=== PATIENT | male | born 1965 | race Caucasian/White ===

== ENCOUNTER 2017-02-07 20:01 | Emergency (ER) | payer OTHER ==
[~2017-02-07] VITALS: Ht 190.5 cm; Wt 131.5 kg
[~2017-02-07 20:01] MED LIST: ASPIRIN81 MG PO; BACTRIM DS TAB1 EACH PO; CEPHALEXIN500 MG PO; CIPRO500 MG PO; CLINDAMYCIN HC300 MG PO; COLACE100 MG PO; HUMALOG100 UNIT/1 SUB-Q; IBUPROFEN800 MG PO; LANTUS100 UNITS/; LISINOPRIL-HCT1 EAC1 PO; LISINOPRIL-HCT1 EAC2 PO; METFORMIN HCL1000 MG PO; NEURONTIN300 MG PO; NORCO 5-325 TA1 EACH PO; TRAMADOL HCL50 MG PO
[2017-02-08] MEDS ORDERED: CIPRO500 MG PO (00:12)
== END 2017-02-08 00:39 | disposition home or self-care (01) ==
LOC: ED 20:01
DX: E11.621 Type 2 diabetes mellitus with foot ulcer (principal); L03.116 Cellulitis of left lower limb; L03.115 Cellulitis of right lower limb; I10 Essential (primary) hypertension; E66.9 Obesity, unspecified; F17.200 Nicotine dependence, unspecified, uncomplicated; Z79.84 Long term (current) use of oral hypoglycemic drugs; Z79.4 Long term (current) use of insulin; Z79.899 Other long term (current) drug therapy
CPT/HCPCS: 73660; 99283

== ENCOUNTER 2017-10-08 15:29 | Inpatient (IN) | payer OTHER ==
[~2017-10-08] VITALS: Ht 188 cm; Wt 125.5 kg
[~2017-10-08 15:29] MED LIST changes: -LISINOPRIL-HCT1 EAC1 PO
--- NOTE | 2017-10-08 20:50 | NUR ---
PT ARRIVED TO FLOOR AT 1950 VIA STRETCHER, WAS ABLE TO TRANSFER HIMSELF OVER TO THE BED. 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 DENIES PAIN AND NAUSEA. LUNGS CLEAR, RA. HR REGULAR, SINUS TACHY AT 107. BOWEL TONES ACTIVE. LUNCH BOX PROVIDED. NO EDEMA NOTED, DENIES NUMBNESS AND TINGLING IN EXTREMITIES. SCRATCHES NOTED TO LLE, PT STATES IT IS FROM [place]. RIGHT FOOT HAS 3 ULCERS: 1 OPEN ON THE BALL OF FOOT ~1CM X 0.5CM, OPEN AND DRAINING SMALL AMOUNT OF FLUID. 1 CLOSED BLISTER TO LATERAL FOOT ~2CM X 2CM WITH REDNESS THAT EXTENDS UP TO CALF AND IS OUTLINED. 1 OPEN ULCER TO BOTTOM OF FOOT NEAR THE BLISTER ~ 0.5CM X 0.5CM THAT IS ALSO DRAINING A SMALL AMOUNT OF FLUID. PICTURES IN CHART. PT IS HOMELESS, SLEEPS IN [employer] OR IN BACK OF CAR. HE IS A CURRENT USER OF METH (WEEKLY) AND MARIJUANA (DAILY) HE ALSO STATES HE DRINKS 4-5 FIFTHS OF VODKA/WHISKEY PER WEEK, STATES HE THINKS HE HAS GONE THROUGH WITHDRAWAL BEFORE, STATES HIS LAST DRINK WAS ON MONDAY. IV TO RIGHT FOREARM PATENT, INFUSING WNL. PT INSTRUCTED TO USE CALL LIGHT, STATES HE IS READY FOR BED. WILL CONTINUE TO MONITOR.
--- NOTE | 2017-10-08 22:00 | NUR ---
PT VOIDED 700 ML USING URINAL. PT DENIES FURTHER REQUESTS AT THIS TIME, CALL LIGHT IS WITHIN REACH.
--- NOTE | 2017-10-09 00:07 | NUR ---
PT SLEEPING AT THIS TIME, NO APPARENT DISTRESS. RESPIRATIONS EVEN AND UNLABORED, RR:19, SPO2: 97% ON RA. HR: 103. PT HAD VOIDED 675ML INTO URINAL. WILL ALLOW FOR REST AND CONTINUE TO MONITOR.
--- NOTE | 2017-10-09 03:00 | NUR ---
PT SLEEPING, NO APPARENT DISTRESS. RESPIRATIONS EVEN AND UNLABORED, RR:19, SPO2:97% ON RA. PT HAD VOIDED 675ML INTO URINAL. WILL ALLOW FOR REST AND CONTINUE TO MONITOR.
--- NOTE | 2017-10-09 04:30 | NUR ---
PT CURRENTLY SLEEPING, NO APPARENT DISTESS. RESPIRATIONS EVEN AND UNLABORED, RR:19, SPO2: 94% ON RA. HR:101. WILL ALLOW FOR REST AND CONTINUE TO MONITOR.
--- NOTE | 2017-10-09 06:27 | NUR ---
RIGHT LEG ELEVATED ON PILLOW. BLISTER TO LATERAL SIDE OF RIGHT FOOT IS NOW OPEN, NEW PICTURE PLACED IN CHART. MRI QUESTIONNAIRE COMPLETED WITH PT AND FAXED TO MRI. BREAKFAST ORDER CALLED DOWN TO KITCHEN.
--- NOTE | 2017-10-09 07:10 | NUR ---
PT DOWN TO MRI WITH MANAGER TRUST AND BRENT KERN.
--- NOTE | 2017-10-09 08:10 | NUR ---
PT RT'D TO CCU UNIT FROM MRI.
--- NOTE | 2017-10-09 09:00 | NUR ---
PT RESTING IN BED, PT STATES HE MOVED HIMSELF FROM THE CHAIR TO THE BED W/O ASSISTANCE, PT ADVISED TO USE CALL LIGHT AND HAVE A NURSE ASSIST HIM, PT VERBALIZED AN UNDERSTANDING.
--- NOTE | 2017-10-09 09:57 | NUR ---
DR. VELASCO AT BEDSIDE ASSESSING PT AND UPDATING PLAN OF CARE.
--- NOTE | 2017-10-09 11:50 | NUR ---
PATIENT IN BED LAYING ON HIS SIDE TALKING TO HIS MOTHER. TWO PILLOWS UNDER HIS LEFT LET WITH FOOT END OF BED ELEVATED. CALL BUTTON IN REACH. PATIENT LOOKING AT MENU FOR LUNCH. NO OTHER NEEDS AT THIS TIME.
--- NOTE | 2017-10-09 12:27 | NUR ---
PT IN BED, MOM AT BEDSIDE. DENIES PAIN AT THIS TIME. PT HAS RIGHT LEG ELEVATED ON PILLOWS. WOUNDS TO RIGHT FOOT ARE OPEN TO AIR. PER REPORT FROM CCU SHABNAM FERGUSON, DR. WISEMAN IS TO COME ASSESS PT'S WOUNDS TODAY.
--- NOTE | 2017-10-09 14:23 | NUR ---
PT IN BED, RLE ELEVATED ON PILLOWS. PT ATE 100% OF LUNCH. DENIES NEEDS AT THIS TIME. PERSONAL SUPPLIES AND CALL LIGHT IN REACH.
[2017-10-09] MEDS ORDERED: LISINOPRIL-HCT1 EAC1 PO (16:55)
--- NOTE | 2017-10-09 16:57 | NUR ---
Medications reconciled by pharmacist through pharmacy records and patient interview. Patient is not taking metformin, but believes that he is supposed to take it
[2017-10-09] MEDS ORDERED: PRAVASTATIN SOD40 MG PO (17:05)
--- NOTE | 2017-10-09 18:44 | NUR ---
PT TO FLOOR FROM CCU THIS SHIFT. HAS REDDENED AREA TO RIGHT LOWER LEG AND FOOT, WELL OPEN AREAS TO BOTTOM OF RIGHT FOOT AND TO RIGHT LATERAL FOOT. DR WISEMAN SAW PT THIS EVENING, DEBRIEDED RIGHT LATERAL FOOT WOUND, AND DRESSED WOUND. CULTURE FROM THIS WOUND WAS SENT TO LAB. RLE ELEVATED ON PILLOWS UNLESS PT IS STANDING. PER DR. WISEMAN, PT TO WEAR POST OP SHOE WHEN ON FEET. NURSING DINING SERVICE INSPECTOR NOTIFIED OF THIS, AND ASKED TO BRING SHOE TO FLOOR. PT ALERT, ORIENTED X 4. URINE OUTPUT QUANTITY SUFFICIENT, AND PT HAD A LARGE BM THIS EVENING.
--- NOTE | 2017-10-09 19:10 | NUR ---
BEDSIDE REPORT RECEIVED FROM SHABNAM BENNETT. PT DENIES PAIN AT THIS TIME, RIGHT LEG ELEVATED ON PILLOWS, REDNESS ON MCCRAY OUTLINE WITH MARKER. IV CEFEPIME AND IVF INFUSING WNL AT THIS TIME. CALL LIGHT AND PERSONAL SUPPLIES IN REACH.
--- NOTE | 2017-10-09 19:35 | EKG ---
[facility] [address] [facility] [place] [address] Signed Sinus tachycardia Nonspecific ST abnormality Abnormal ECG No previous ECGs available Confirmed by GAYATHRI VELASCO MD ([id number]) on 10/09/2017 7:35:27 PM Electronically Signed By: GAYATHRI VELASCO MD 10/09/17 1935 PATIENT NAME: PAT HERNANDEZ AMEE Electrocardiogram DATE OF : 61 PHYSICIAN: GAYATHRI VELASCO MD REPORT #: [id number] REPORT IS CONFIDENTIAL AND NOT TO BE RELEASED WITHOUT AUTHORIZATION
--- NOTE | 2017-10-09 20:37 | NUR ---
ROUNDED CHARGE. PATIENT IS RESTING IN BED WATCHING TV. PATIENT DENIES ANY COMMENTS, QUESTIONS, OR CONCERNS. NO NEEDS NOTED AT THIS TIME. CALL LIGHT IN REACH.
--- NOTE | 2017-10-09 21:33 | NUR ---
PT ASSESSMENT COMPLETE. CBG 234, SS INSULIN ADMINISTERED. PT DENIES PAIN, DENIES NAUSEA. RIGHT LEG ELEVATED, REDNESS WITHIN MARGINS OF PEN, REDNESS ON MCCRAY. PULSES STRONG BILATERALLY LOWER EXTREMITIES, UPPER EXTREMITIES, NUMBNESS CHRONIC BILATERALLY IN FEET. BTS ACTIVE X 4. LUNGS CLEAR, RT GABY IN ROOM, PT DEMONSTRATES IS USE TO MAX 2500 ML. IV ANTIBIOTICS INFUSING WNL, LINES FLUSHED WNL, PT EDUCATION PROVIDED, VERBALIZES UNDERSTANDING. CALL LIGHT IN REACH.
--- NOTE | 2017-10-10 00:05 | NUR ---
CHECKED ON PT, PT AWAKE, REQUESTING PRN PAIN MEDICATION FOR SMART, TYLENOL ADMINISTERED. IV ANTIBOITITC NOW INFUSING WNL. CALL LIGHT IN REACH. URINAL EMPTIED AT THIS TIME.
--- NOTE | 2017-10-10 02:38 | NUR ---
CHECKED ON PT, PT APPEARS TO BE SLEEPING, EYES CLOSED, BREATHING NON-LABORED, SNORING. LIGHTS OFF IN ROOM. IVF INFUSING.
--- NOTE | 2017-10-10 04:17 | NUR ---
PT ASSESSMENT COMPLETE. PT AWAKENS EASILY TO VOICE. NEW BAG IVF INFUSING WNL. LUNGS CLEAR THROUGHOUT ALL LOBES. HR REGULAR RHYTHM. BOWEL TONES ACTIVE X 4. PT DENIES PAIN. RIGHT LEG ELEVATED ON PILLOW, REDNESS REMAINS WITHIN MARGINS OF PEN. CALL LIGHT IN REACH.
--- NOTE | 2017-10-10 05:45 | NUR ---
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 PT GIVEN ICE WATER, ENCOURAGED TO INCREASE PO INTAKE. LEG ELEVATED ON PILLOW. WOOD BUCKER IN ROOM AT THIS TIME.
--- NOTE | 2017-10-10 06:44 | NUR ---
IV FLUID AND ANTIBIOTICS INFUSING WNL THROUGHOUT SHIFT. RIGHT LEG ELEVATED ON PILLOWS THROUGHOUT SHIFT. MINIMAL DRAINAGE, DRESSING IN PLACE. REDNESS ON RIGHT MCCRAY WITHIN PEN MARGINS THIS SHIFT. PULSES PALPABLE BLE, BUE. CHRONIC NUMBNESS BLE. PT ORIENTED X 4. IN BED THROUGHOUT SHIFT, USING URINAL FOR QS VOIDS.
--- NOTE | 2017-10-10 07:04 | NUR ---
RECIEVED BEDSIDE REPORT FROM SHABNAM AVENDAÑO. PT AWAKE, ALERT. PT'S PERSONAL SUPPLIIES AND CALL LIGHT IN REACH.
--- NOTE | 2017-10-10 09:07 | NUR ---
PT RESTING WITH EYES CLOSED. ATE 100% OF BREAKFAST. VANCOMYCIN INFUSING ORDERED.
--- NOTE | 2017-10-10 11:14 | NUR ---
PT IN BED, AWAKE, ALERT, ORIENTED X 4. DENIED NEEDS. PT'S MOTHER IN ROOM WITH PT. PERSONAL SUPPLIES AND CALL LIGHT IN REACH.
--- NOTE | 2017-10-10 13:49 | NUR ---
PT IN BED, AWAKE, ALERT, ORIENTED X 4. RIGHT LEG UP ON PILLOWS. REDDENED AREA ON LOWER LEG AND FOOT IS STILL RED AND WARM TO TOUCH, BUT PT DENIES PAIN TO THE AREA, DENIES NUMBNESS OR TINGLING. CMS INTACT. DRESSING TO RIGHT ANKLE AND FOOT C/D/I. PT DENIES NEEDS AT THIS TIME. PERSONAL SUPPLIES AND CALL LIGHT IN REACH.
--- NOTE | 2017-10-10 16:14 | NUR ---
PT SITTING UP IN BED, PREPARING TO TAKE A SHOWER, WITH ASSISTANCE FROM EMBER PALMER. PT ALERT, ORIENTED, VERY TALKATIVE. PLEASANT AND COOPERATIVE.
--- NOTE | 2017-10-10 17:50 | NUR ---
PT'S IVs SALINE LOCKED, EXCEPT WHEN RECIEVING IV ABX. PT UP WITH POST OP SHOE TO RIGHT FOOT, WITH STANDBY ASSIST. PT TOOK A SHOWER THIS AFTERNOON. APETITE VERY GOOD. PT URINATING QUANTITY SUFFICIENT. LUNGS CTA, HRR. PT DENIED PAIN THROUGHOUT SHIFT.
--- NOTE | 2017-10-10 19:20 | NUR ---
BEDSIDE REPORT RECEIVED FROM SHABNAM BENNETT. PT AWAKE, LYING IN BED. IVS SALINE LOCKED AT THIS TIME. PT ON ROOM AIR, RIGHT LEG ELEVATED, REDNESS WITHIN PEN MARGINS, DRESSING INTACT. CALL LIGHT IN REACH, NO REQUESTS AT THIS TIME.
--- NOTE | 2017-10-10 22:00 | NUR ---
PT IN RESTROOM AT THIS TIME, WILL USE CALL LIGHT WHEN FINISHED.
--- NOTE | 2017-10-10 22:35 | NUR ---
PT ASSESSMENT COMPLETE, RIGHT LEG ELEVATED ON PILLOWS, FOOT OF BED ELEVATED. RIGHT LEG HOT TO TOUCH, PEDAL PULSES PALPABLE BILATERALLY. LUNGS CLEAR THROUGHOUT ALL LOBES. HR REGULAR RHYTHM. IV SITES SALINE LOCKED WNL. PT CONTINUES TO SPEAK REGARDING VIEWING SELF JOSHUA, "SATIN IS TRYING TO KILL ME". DISCUSSED CURRENT ILLNESS AND PREVENTATIVE MEASURES, PT VERBALIZES UNDERSTANDING. PT HAS CALL LIGHT AND PERSONAL SUPPLIES IN REACH. LIGHTS OFF IN ROOM.
--- NOTE | 2017-10-11 00:05 | NUR ---
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 IV VANCOMYCIN INFUSING WNL. CALL LIGHT IN REACH, LIGHTS OFF IN ROOM. LEG ELEVATED.
--- NOTE | 2017-10-11 02:17 | NUR ---
IV VANCOMYCIN INFUSION COMPLETE, IV SITE SALINE LOCKED WNL. PT SNORING, RIGHT LEG ELEVATED. LIGHTS OFF IN ROOM. CALL LIGHT NEXT TO PT.
--- NOTE | 2017-10-11 04:28 | NUR ---
CHECKED ON PT, APPEARS TO BE SLEEPING, SNORING, VISIBLE CHEST RISE. RIGHT LEG ELEVATED ON PILLOWS. LIGHTS OFF IN ROOM.
--- NOTE | 2017-10-11 05:25 | NUR ---
PT SALINE LOCKED THROUGHOUT SHIFT, IV VANCOMYCIN. PT ON ROOM AIR. RIGHT LEG REMAINS HOT TO TOUCH, ELEVATED THROUGHOUT SHIFT, DRESSING INTACT, REDNESS WITHIN MARGINS OF PEN. SBA TO RESTROOM WITH POST OP BOOT. PT CONTINUES TO COMMUNICATE GRAND BIBLICAL STORIES THROUGHOUT SHIFT TO NURSING STAFF. BLOOD SUGAR CHECKS. USING CALL LIGHT APPROPRIATELY.
--- NOTE | 2017-10-11 06:02 | NUR ---
SBA TO RESTROOM FOR VOID, CONCENTRATED. PT ENCOURAGED TO DRINK FLUIDS, GIVEN ICE WATER, DIET SPRITE REQUESTED. LUNGS CLEAR THROUGHOUT ALL LOBES. CSM INTACT BLE, BUE, PT DENIES NUMBNESS. BOWEL TONES ACTIVE X 4. PRN TYLENOL ADMINISTERED FOR SMART. PT NOW UP TO CHAIR, POST OP SHOE ON. CALL LIGHT IN REACH.
--- NOTE | 2017-10-11 07:12 | NUR ---
RECIEVED BEDSIDE REPORT FROM SHABNAM AVENDAÑO. PT AWAKE, ALERT, DENIED NEEDS AT THIS TIME. PERSONAL SUPPLIES AND CALL LIGHT IN REACH.
--- NOTE | 2017-10-11 07:45 | NUR ---
UVALDO, RT IN WITH PT, PT USING INSENTIVE SPIROMETER.
--- NOTE | 2017-10-11 11:26 | NUR ---
PATIENT RESTING IN BED. CALL LIGHT WITHIN REACH. PATIENT REQUESTING MEDICATION FOR A HEADACHE. RN NOTIFIED. NO OTHER NEEDS AT THIS TIME.
--- NOTE | 2017-10-11 11:54 | NUR ---
PT IN BED. RATED HEADACHE PAIN 3/10. PERSONAL SUPPLIES AND CALL LIGHT IN REACH. RLE ELEVATED ON PILLOWS, DRESSING TO RIGHT FOOT C/D/I. RLL REMAINS SLIGHTLY RED AND IS WARMER TO TOUCH THAN LLL.
--- NOTE | 2017-10-11 12:24 | NUR ---
PT SITTING UP IN RECLINER, EATING LUNCH. PERSONAL SUPPLIES AND CALL LIGHT IN REACH.
--- NOTE | 2017-10-11 13:52 | NUR ---
PT IN BED. AWAKE, ALERT, SPEAKING ON PHONE. PT DENIED PAIN. RLE ELEVATED ON PILLOWS. PT DENIED NEEDS. ATE 100% OF LUNCH. PERSONAL SUPPLIES AND CALL LIGHT IN REACH.
--- NOTE | 2017-10-11 15:27 | NUR ---
PATIENT RESTING IN BED. CALL LIGHT WITHIN REACH. NO OTHER NEEDS AT THIS TIME.
--- NOTE | 2017-10-11 17:12 | NUR ---
PT IN BED, AWAKE, ALERT, ORIENTED. RLE ELEVATED ON PILLOWS. DRESSING C/D/I.
--- NOTE | 2017-10-11 17:14 | NUR ---
PT'S IV SL, WITH EXCEPTION OF IV ABX. ON ADA DIET, APETITE VERY GOOD. PT ALERT, ORIENTED X 4. RLE DRESSING TO FOOT C/D/I. RLL REMAINS SLIGHTLY REDDENED, AND WARMER TO TOUCH THAN LLL. CMS TO RLE INTACT. PT DENIED PAIN TO RLE.
--- NOTE | 2017-10-11 19:15 | NUR ---
BEDSIDE HANDOFF REPORT RECEIVED FROM DAY SHIFT RN. PT SITTING ON EDGE OF BED. PT DENIES NEEDS AT THIS TIME.
--- NOTE | 2017-10-11 19:39 | NUR ---
patient resting in bed. vitals and i&os done. garbage emptied. call light within reach. no other needs at this time.
--- NOTE | 2017-10-11 21:22 | NUR ---
PT RESTING IN BED. PT ON ROOM AIR, LUNG SOUNDS CLEAR, OCCASIONAL COUGH. PT COMPLAINT OF HEADACHE, GIVEN PRN TYLENOL. PT BLOOD GLUCOSE 172, GIVEN 3 UNITS SS HUMALOG, 60 UNITS LANTUS PER ORDER. PT DENIES NAUSEA. IV ABX INFUSING TO RIGHT FOREARM. PT WITH NUMBNESS TO BLE, PULSES PALPABLE, CAP REFILL 1 SECOND, REDNESS TO RIGHT LEG RECEEDING FROM OUTLINES, EDEMA 2+ TO RLE, DRESSING INTACT. PT DENIES OTHER NEEDS AT THIS TIME. PT REQUESTIGN TO WALK AFTER ABX INFUSION HAS COMPLETED.
--- NOTE | 2017-10-11 21:27 | NUR ---
VITALS AND I&OS DONE AND CHARTED. FRESH ICE WATER GIVEN. BEDSIDE TABLE AND CALL LIGHT WITHIN REACH.
--- NOTE | 2017-10-11 22:30 | NUR ---
ABX INFUSION COMPLETED, SALINE LOCKED. PT REQUESTING TO WALK IN [place], OBSEVRVED TO AMBULATE, STEADY ON FEET, PT WALKING IN [place] INDEPENDENTLY. PT DENIES OTHER NEEDS AT THIS TIME.
--- NOTE | 2017-10-12 02:15 | NUR ---
PT SLEEPING. IV CLINDAMYCIN INFUSING. PT DENIES NEEDS AT THIS TIME.
--- NOTE | 2017-10-12 05:15 | NUR ---
PT SITTING IN CHAIR. PT CONTINUES TO COMPLAIN OF HEADACHE, GIVEN 500 MG PO TYLENOL, PT STATES IT IS IMPROVING. PT ON ROOM AIR, DENIES SOB. PT CONTINUES TO HAVE REDNESS TO RIGHT LEG, RECEEDING FROM OUTLINE. HX NEUROPATHY, PULSES PALPABLE. NO ACUTE CHANGES. PT DENIES NEEDS AT THIS TIME.
--- NOTE | 2017-10-12 05:24 | NUR ---
VITALS AND I&OS DONE AND CHARTED. BEDSIDE TABLE AND CALL LIGHT WITHIN REACH.
--- NOTE | 2017-10-12 05:52 | NUR ---
PT ON ROOM AIR, LUNG SOUNDS CLEAR. PT INDEPENDENT TO AMBULATE, SURGICAL BOOT WHEN OOB. PT BLOOD GLUCOSE 172, GIVEN 3 UNITS SS HUMALOG AND 60 UNITS SS LANTUS. PT WITH COMPLAINT OF HEADAHCE, GIVEN TYLENOL X2. PT VOIDING QS. IV CLINDAMYCIN, SL OTHERWISE. REDNESS AND SWELLING TO RIGHT LEG IMPROVING, PULSES PALPABLE, CAP REFILL 1 SECOND.
--- NOTE | 2017-10-12 08:30 | NUR ---
PT UP TO CHAIR FOR ASSESSMENT, NO DISTRESS. PT STATES HE HAS HAD A HEADACHE THROUGHOUT THIS ADMISSION, CLAIMS THE PAIN IS WORSE AFTER HEPARIN ADMINISTRATION. NO INSULIN GIVEN THIS MORNING, DUE TO BG OF 89, NOTIFIED PHYSICIAN. RIGHT FOOT IS WRAPPED, CLEAN, DRY, INTACT. GAVE PRN TYLENOL FOR HEADACHE, WILL CONTINUE TO MONITOR. PT AT 100% OF BREAKFAST.
[2017-10-12] MEDS ORDERED: KEFLEX500 MG PO (10:33)
== END 2017-10-12 11:25 | disposition home or self-care (01) | DRG 854 ==
LOC: ED 15:29 → CCU 19:02 → MS 10-09 11:35
PROVIDERS: ADMIT Internal Medicine
PROC: 0JBQ0ZZ Excision of Right Foot Subcutaneous Tissue and Fascia, Open Approach (ICD-10-PCS; principal; 2017-10-09)
DX: A40.1 Sepsis due to streptococcus, group B (principal); L03.115 Cellulitis of right lower limb; E11.628 Type 2 diabetes mellitus with other skin complications; E11.65 Type 2 diabetes mellitus with hyperglycemia; R65.20 Severe sepsis without septic shock; I10 Essential (primary) hypertension; E11.621 Type 2 diabetes mellitus with foot ulcer; L97.519 Non-pressure chronic ulcer of other part of right foot with unspecified severity; E66.9 Obesity, unspecified; E78.1 Pure hyperglyceridemia; Z79.899 Other long term (current) drug therapy; Z79.4 Long term (current) use of insulin; Z68.35 Body mass index [BMI] 35.0-35.9, adult
CPT/HCPCS: 36415; 71045; 73630; 73723; 80053; 80202; 81001; 83036; 83605; 83735; 85025; 85651; 86140; 87070; 87077; 87088; 87147; 87186; 87205; 93005; 93010; 96365; 96367; 99285; A9579; J0692; J1650; J1815; J2543; J3370; J3475; J7030; J7040; J7050; J7120

== ENCOUNTER 2018-05-10 02:26 | Emergency (ER) | payer OTHER ==
[~2018-05-10] VITALS: Ht 188 cm; Wt 120.2 kg
[~2018-05-10 02:26] MED LIST changes: +KEFLEX500 MG PO; +LISINOPRIL-HCT1 EAC1 PO; +PRAVASTATIN SOD40 MG PO
[2018-05-10] MEDS ORDERED: GLUCOPHAGE500 MG PO (02:41)
[2018-05-10] MEDS ORDERED: CEPHALEXIN500 MG PO (02:55)
== END 2018-05-10 03:02 | disposition home or self-care (01) ==
LOC: ED 02:26
DX: E11.621 Type 2 diabetes mellitus with foot ulcer (principal); I10 Essential (primary) hypertension; E66.9 Obesity, unspecified; Z79.4 Long term (current) use of insulin; Z79.899 Other long term (current) drug therapy
CPT/HCPCS: 99282

== ENCOUNTER 2018-09-21 17:45 | Emergency (ER) | payer OTHER ==
[~2018-09-21] VITALS: Ht 188 cm; Wt 120.2 kg
[~2018-09-21 17:45] MED LIST changes: +GLUCOPHAGE500 MG PO
[2018-09-21] MEDS ORDERED: KEFLEX500 MG PO (20:19)
== END 2018-09-21 20:34 | disposition home or self-care (01) ==
LOC: ED 17:45
DX: S91.302A Unspecified open wound, left foot, initial encounter (principal); L08.9 Local infection of the skin and subcutaneous tissue, unspecified; I10 Essential (primary) hypertension; E11.9 Type 2 diabetes mellitus without complications; Z79.4 Long term (current) use of insulin; Z79.899 Other long term (current) drug therapy; W22.8XXA Striking against or struck by other objects, initial encounter
CPT/HCPCS: 99282

== ENCOUNTER 2018-10-15 17:29 | Emergency (ER) | payer OTHER ==
[~2018-10-15] VITALS: Ht 188 cm; Wt 120.2 kg
--- OUTSIDE RECORDS SUMMARY | 2018-10-15 17:32 | XMS ---
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 Tracy has no Care Guidelines for this patient. Rod VISIT COUNT (12 MO.) 3 [facility]. TOTAL 3 NOTE: Visits indicate total known visits. ED/C VISIT TRACKING (12 MO.) 10/15/2018 17:[address] [facility] [place] TYPE: Emergency COMPLAINT: - L FOOT CELLULITIS 09/21/2018 17:46 [facility] [place] TYPE: Emergency COMPLAINT: - LEFT FOOT INJURY,POSS INFECTION DIAGNOSES: - Striking against or struck by other objects, initial encounter - Other nursing home (current) drug therapy - Essential (primary) hypertension - Type 2 diabetes mellitus without complications - [facility] (current) use of insulin - Disorder of the skin and subcutaneous tissue, unspecified - Unspecified open wound, left foot, initial encounter - Local infection of the skin and subcutaneous tissue, unspecified 05/10/2018 02:27 [facility] [place] TYPE: Emergency COMPLAINT: - R FOOT SORE,DIABETIC DIAGNOSES: - Other nursing home (current) drug therapy - Essential (primary) hypertension - Obesity, unspecified - manager long term care (current) use of insulin - Local infection of the skin and subcutaneous tissue, unspecified - Type 2 diabetes mellitus with foot ulcer INPATIENT VISIT TRACKING (12 MO.) No inpatient visits to display in this time frame [email or web address]
[2018-10-15] MEDS ORDERED: CEPHALEXIN500 MG PO (19:17)
== END 2018-10-15 19:45 | disposition home or self-care (01) ==
LOC: ED 17:29
PROC: 2W2TX4Z Dressing of Left Foot using Bandage (ICD-10-PCS; principal; 2018-10-15)
DX: T25.222A Burn of second degree of left foot, initial encounter (principal); E11.40 Type 2 diabetes mellitus with diabetic neuropathy, unspecified; I10 Essential (primary) hypertension; Z79.4 Long term (current) use of insulin; Z79.899 Other long term (current) drug therapy
CPT/HCPCS: 16020; 80053; 83605; 85025; 85651; 86140; 99283-25

== ENCOUNTER 2019-07-09 16:22 | Inpatient (IN) | payer OTHER ==
[~2019-07-09] VITALS: Ht 188 cm; Wt 121.9 kg
--- NOTE | 2019-07-09 17:49 | NUR ---
PT ARRIVED TO ROOM 113 IN A WHEELCHAIR. CHANGED INTO GOWN. IV STARTED IN LEFT FOREARM. UNABLE TO DRAW LABS. SECOND RN ATTEMPTING LAB DRAW NOW. PATIENT VERY TALKATIVE AND VERBAL ABOUT FAMILY HISTORY "MY DAD LEFT MY MOM FOR ANOTHER WOMAN AND [place]. MY BROTHER KILLED MY DAD. I ASKED HIM WHY HE COULDN'T HAVE JUST TAKEN A WALK INSTEAD." ATTEMPTED TO USE THERAPEUTIC COMMUNICATION TO ENCOURAGE PATIENT TO EXPRESS HIS FEELINGS. PATIENT DOES STATE "I AM FEELING BETTER ALREADY".
--- NOTE | 2019-07-09 18:07 | NUR ---
PT VERY EXCENTRIC ABOUT [employer] HE HAS EXPERIENCED. CONTINUALLY TALKING ABOUT THE [facility] IN [place] AND MEETING PEOPLE THAT DENIED HIM IN THE [facility]. ROCEPHIN INFUSING NOW. LARGE DRESSING ON LEFT FOOT IN PLACE, BUT BLOOD COMING THROUGH. INDEPENDENT IN ROOM. WILL PROVIDE A WALKER AND ENCOURAGE HIM TO KEEP WEIGHT OFF FOOT.
--- NOTE | 2019-07-09 18:56 | NUR ---
LAB CULTURES WERE DROPPED OFF AT THE MAIN [facility]ILD[facility] BY DR VELASCO OFFICE. ORDERS WERE PLACED HERE. CALLED TO VERIFY THAT THEY RECEIVED SPECIMEN.
--- NOTE | 2019-07-09 20:00 | NUR ---
BG STILL >600 AT THIS TIME. MD DEL RIO AWARE, PT IS AAOX4, ALL LOBES ARE CLEAR, ABD SOUNDS ARE PRESENT, NO PERIPHERAL EDEMA NOTED. DRESSING ON LEFT FOOT HAS SEROUS DRAINAGE PRESENT, LEFT LEG IS ELEVATED, PT VOIDS LARGE QUANTITIES. WILL CONTINUE TO MONITOR.
--- NOTE | 2019-07-09 21:10 | NUR ---
MD NOTIFIED OF HYPERGLYCEMIA. VERBAL ORDER TO GIVE MAXIMUM DOSE ON SLIDING SCALE AND NEW ORDERS FOR INSULIN ADMINISTRATION REPEATED BACK. EMAR UPDATED.
--- NOTE | 2019-07-10 00:55 | NUR ---
PT AT THIS TIME IS SLEEPING. NO NEW CONCERNS NOTED.
--- NOTE | 2019-07-10 02:00 | NUR ---
PT IS TACHY IN THE LOW 100'S, TEMP IS 100.0, OTHER V/S ARE WDL. PT NOW ALSO HAS SOME REDNESS WANDERING UP HIS LOWER LEFT LEG AND HIS LEFT LEG IS WARMER THAN HIS RIGHT TO TOUCH. DRESSING ON LEFT LEG IS INTACT WITH SOME SHADOWING PRESENT. HOWEVER, THE SHADOWING HAS NOT INCREASED IN SEIZE SINCE THE FIRST ASSESSMENT. PT IS AAOX4 WITH STATEMENTS OF GRANDEUR SUCH STATING THAT HE IS JOSHUA JANELL IN THE FLESH... WILL CONTINUE TO MONITOR.
--- NOTE | 2019-07-10 05:15 | NUR ---
BG HAVE DECLINED OVER THE COURSE OF THIS SHIFT, LAST BG WAS 330. PT IS VOIDING WELL, PT IS AAOX4. PT HOWEVER DOES HAVE SOME THOUGHTS OF GRANDEUR AT TIMES. LEFT FOOT DRESSING HAS SHADOWING PRESENT ON THE BOTTOM OF THE FOOT. THE SIZE HAS NOT INCREASED SINCE START OF SHIFT. LEFT LOWER LEG DOES HAVE SOME REDNESS PRESENT AND IS VERY WARM TO TOUCH. PT HAS HAD A LOW TEMP ALL SHIFT. PT HAS ALSO BEEN SLIGHTLY TACHY THIS SHIFT. OTHER V/S ARE WDL. ALL LOBES ARE CLEAR, ABD SOUNDS PRESENT, NO PERIPHERAL EDEMA NOTED. PT WILL HAVE MRI THIS MORNING. MD WISEMAN WILL DECIDE COURSE OF ACTION AFTER MRI.
--- NOTE | 2019-07-10 07:00 | NUR ---
Bedside report received by SHABNAM Elena. Patient sleeping on right side, respirations even and unlabored. Dressing on left foot is C/D/I. LR infusing at 125 mls/hr. Call light within reach.
--- NOTE | 2019-07-10 07:59 | NUR ---
Patient laying in bed, awake and alert. LR infusing at 125 mls/hr. Denies pain at this time. POC discussed. BS of 364 this morning. Temp of 97.8. Denies needs at this time, call light within reach.
--- NOTE | 2019-07-10 09:20 | NUR ---
Patient leaves floor with imaging for MRI
--- NOTE | 2019-07-10 10:15 | NUR ---
Patient returns to unit from imaging. Dr. Morris in room to perform dressing change with this RN. POC discussed. Patient denies needs at this time, call light within reach.
--- NOTE | 2019-07-10 12:41 | NUR ---
Patient up to toilet, voiding QS. Ambulating independently, steady on feet. Patient reports pain of 10/10 and a headache, prn pain medication (see MAR). 100% of lunch eaten. Patient denies needs at this time, call light within reach.
[2019-07-10] MEDS ORDERED: METFORMIN HCL1000 MG PO (12:48)
[2019-07-10] MEDS ORDERED: NOVOLOG100 UNIT/2 SUB-Q (12:50)
--- NOTE | 2019-07-10 13:00 | NUR ---
Spoke with Gerson. He is resting in bed. Rambling conversation where he is misquoting bible about eating the flesh of children and the end of the world. States he lives with a millionair and his mother. The millionair pays for all his needs and gives him martel as needed. States he does not have a license to drive. Denies use of DME, he does not work. States his mom who retired has returned to work and he lives with her. He is wanting to have his insulin returned to what it was in the past. Discussed he is on the [facility] and can only order meds from their formilary.
--- NOTE | 2019-07-10 14:25 | NUR ---
PT LAYING IN HIS L SIDE IN BED. SAID HE WAS TIRED OF BEING POKED SO MANY TIMES FOR BS. WANTED TO TAKE A REST. GAVE BLESSING, WILL CHECK BACK
--- NOTE | 2019-07-10 15:00 | NUR ---
Patient up to shower independently. Dressing on left foot wrapped with plastic. Denies further needs. Patient educated to pull shower call light prior to standing up. Patient agreeable.
[2019-07-10] MEDS ORDERED: PRAVASTATIN SOD40 MG PO (16:26)
[2019-07-10] MEDS ORDERED: BASAGLAR K100 UNIT/1 SUB-Q (16:27)
--- NOTE | 2019-07-10 17:19 | NUR ---
Patient sitting up in bed watching tv. BS of 332, insulin given (see MAR). Dinner delivered. Patient denies needs at this time, call light within reach.
--- NOTE | 2019-07-10 17:22 | EKG ---
[facility] [address] [facility] [address] [place], [place] [address] Signed Sinus tachycardia Otherwise normal ECG When compared with ECG of 08-OCT-2017 15:56, No significant change was found Confirmed by OLIVIA DEL RIO DO ([id number]) on 07/10/2019 5:21:59 PM Electronically Signed By: OLIVIA DEL RIO DO 07/10/19 1722 PATIENT NAME: DAVIDPATALFA LUBIN Electrocardiogram DATE OF : 61 PHYSICIAN: OLIVIA DEL RIO DO REPORT #: [id number] REPORT IS CONFIDENTIAL AND NOT TO BE RELEASED WITHOUT AUTHORIZATION
--- NOTE | 2019-07-10 18:17 | NUR ---
Patient laying in bed watching tv. PM medications given, vital signs taken. PM assessment complete. LR running at 125 mls/hr. IV abx infusing at 200 mls/hr. 100% of dinner eaten. Patient discussing that "my mother is Amanda of Marley and Ariane in the flesh." Denies needs at this time, call light within reach.
--- NOTE | 2019-07-10 19:44 | NUR ---
RECEIEVED REPORT FROM MORNING SHIFT. DURING THE BED SIDE REPORT PT IN BED ON HIS LEFT SIDE WITH EYS CLOSED, APPEARS ASLEEP. AFTER REPORT PT CALLED FOR HELP TO USE A BATHROOM. ALERT. WAS ABLE TO WALK WITHOUT ASSISTANCE. WILL BE BACK TO ASSIST.
--- NOTE | 2019-07-10 20:51 | NUR ---
PT ALERT, COOPERATIVE WITH CARES. BG 283, VSS.SONE WITH ASSESMENT.
--- NOTE | 2019-07-11 00:02 | NUR ---
PT LAYING IN BED, EYES CLOSED. RR EVEN, UNLABORED. IV FLUIDS INFUSING PER ORDER. CALL LIGHT IN REACH.
--- NOTE | 2019-07-11 00:16 | NUR ---
PT RESTLESS, KEEP SAYING "ANUEL FERGUSON, I AM SO UNCOMFORTABLE." REPORTED PAIN 5/10, HEADACHE. SEE EMAR FOR MEDICATION ADMINISTRATION. THIS NURSE ENCOURAGE PT TO GET UP AND WALK AROUND THE ROOM. PT SITTING ON THE COUCH AND LOOKING AT THE WINDOW. NO DISTRESS NOTED.
--- NOTE | 2019-07-11 01:22 | NUR ---
PT AT THIS TIME IS SITTING HIS CHAIR. PT ALSO PARTIALLY RIPPED OFF THE DRESSING ON HIS LEFT FOOT. WILL REINFORCE.
--- NOTE | 2019-07-11 02:15 | NUR ---
PT LAYING IN BED ON HIS RIGHT SIDE. EYES CLOSED, APPEARS ASLEEP. NO DISTRESS NOTED. BED IN LOW POSITION, CALL LIGHT IN REACH.
--- NOTE | 2019-07-11 04:19 | NUR ---
pt in bed, easy wakes up to voice. alert. cooperative. done with assessment. dressing clean, dry , intact. pt is back to sleep.
--- NOTE | 2019-07-11 05:21 | NUR ---
PT WAS AWAKE UNTIL MIDNIGHT. HE TORE APART TOP OF HIS DRESSING HE STATED "IT WAS TOO TIGHT". TH DRESSING WAS REIFORCED WITH ABD AND KERLIX WRAP. PT STATED "IT IS MUCH BETTER NOW". PT REPORTED PAIN 5/10 (HEADACHE). TYLENOL WAS GIVEN WITH A GOOD EFFECT. PT SLEPT THE REST OF THE SHIFT.
--- NOTE | 2019-07-11 07:44 | NUR ---
0709: Report received from Desire HAQUE and Kassy HAQUE. Pt sleeping, call hadley within reach.
--- NOTE | 2019-07-11 08:52 | NUR ---
PATIENT LOOSENED DRESSING TO LEFT FOOT, THE WOUND REMAINS COVERED. THE PART OF BANDAGE AROUND THE HEEL WAS CAUSING PAIN AND PATIENT REMOVED THAT PART.
--- NOTE | 2019-07-11 09:15 | NUR ---
PT RESTING IN HIS CHAIR STATING HE HAS NO PAIN IN HIS LEFT FOOT. THE DRESSING WAS PARTLY REMOVED FORM HIS HEEL HE STATES IT WAS TOO TIGHT. HE WAS INSTRUCTED TO CALL STAFF INSTEAD OF DOING IT HIMSELF WHICH HE STATES HE UNDERSTANDS. PT ALERT AND ORIENTED BUT STATES SEVERAL THINGS SUCH BEING OVER [age] YEARS OLD AND THAT HE IS OLDER THAN [facility] FROM [facility]. THE DRESSING CONTINUES TO HAVE THE WOUND COVERED. WILL CONTINUE TO MONITOR, SEE ASSESSMENT.
--- NOTE | 2019-07-11 09:40 | NUR ---
Pt walking in rogers with PT. Pt is laughing, walking well.
--- NOTE | 2019-07-11 11:23 | NUR ---
Pt states "I feel much better" and he denies any new complaints.
--- NOTE | 2019-07-11 13:16 | NUR ---
PT DENIES ANY PAIN OR PROBLEMS AT THIS TIME. LEFT FOOT ELEVATED AT THIS TIME. SEE ASSESSMENT.
--- NOTE | 2019-07-11 14:19 | NUR ---
PT IS ALERT AND SITTING UP IN BED WATCHING TV. PT STATED IT IS AMAZING HOW GOOD HE FEELS. BEGAN TO STATE HOW MUCH HE HURT ALL OVER, AND PRAYED TO THE HEAVENLY FATHER FOR HELP-AND IT CAME. PT RAMBLES OFTEN CHANGES SUBJECTS OFTEN AND MISQUOTES SCRIPTURE AND BELIEVES GOD TELLS HIM THINGS. I QUIZZED HIM ABOUT "THINGS". HE FEELS HE KNOWS [facility] SURE [facility] AM FROM AND THEN TO SCROLLS AND STICKS. PT ASKED ME TO PRAY AND LEFT GAvivaPOST.
--- NOTE | 2019-07-11 15:00 | NUR ---
Spoke with Dr. Morris after he visited [facility]. Discussed plan and he would like pt to go to a SNF for wound care, diabetes monitoring, and possible antibiotics. He will speak with pt in AM. He states pt has some mental health issues. [facility] will discuss [facility] to a [facility]f. 1520 In and spoke with Bar. He is pleasant. Discussed SNF placement and he would like to go to [place] as he feels he needs help with his diabetes and his wound. He signed an ALFREDA so I can release MH records to [facility]. Release faxed to [facility]. ER notes, Progress notes, H&P, PT/OT eval and notes, face sheet, Consult faxed to Jessica at [facility].
--- NOTE | 2019-07-11 15:05 | NUR ---
Left foot I&D done by Dr Morris in the pt's room and his dressing was replaced. Foot elevated at this time and the pt instructed to not bear weight for a few hours by Dr Morris. Dr Morris states he will be back in the morning to do another dressing change. Pt tolerated this well and denies pain.
--- NOTE | 2019-07-11 15:41 | NUR ---
Pt talking on the phone with his foot remaining elevated. He appears in no distress.
--- NOTE | 2019-07-11 16:53 | NUR ---
Pt just awoke from a nap and states he is doing well and that he had a good nap. He denies any new problems at this time.
--- NOTE | 2019-07-11 19:15 | NUR ---
RECEIVED REPORT FROM SHABNAM TATUM. pt RESTING IN BED. NO REQUESTS AT THIS TIME. DRESSING CDI. WHITEBOARD UPDATED. CALL LIGHT WITHIN REACH.
--- NOTE | 2019-07-11 20:58 | NUR ---
CBG, VS AND I&O COMPLETED. ICE AND ICE WATER PROVIDED. NO OTHER NEEDS. CALL LIGHT IN REACH.
--- NOTE | 2019-07-11 21:13 | NUR ---
IN TO DO ASSESSMENT AND MEDICATIONS. ASSESSMENT DONE. LEFT FOOT ELEVATED, GOOD CAP REFILL. DRESSING INTACT. pt ABLE TO GIVE SELF INSULIN WITH COACHING. pt IN GOOD SPIRITS TALKING ABOUT LUTHERAN AND HUNTING. MEDICATIONS GIVEN (SEE MAR). DENIES PAIN AND SOB. NO REQUESTS AT THIS TIME. SITTING IN CHAIR. CALL LIGHT WITHIN REACH.
--- NOTE | 2019-07-11 22:00 | NUR ---
REPORT RECIEVED FROM LENKA HAQUE. PT SITTING IN CHAIR WATCHING TV. NO NEEDS AT THIS TIME. CALL LIGHT IN REACH.
--- NOTE | 2019-07-12 01:12 | NUR ---
PT COMPLAINS OF 5/10 HEADACHE. PRN PAIN MED PROVIDED. NEW BAG OF IV FLUIDS PROVIDED. NO OTHER NEEDS AT THIS TIME. CALL LIGHT IN REACH.
--- NOTE | 2019-07-12 01:56 | NUR ---
SCHEDULED MED PROVIDED. PT DENIES PAIN IN LEFT FOOT. CAPILLARY REFILL 3 SECONDS, NUMBNESS, CIRCULATION INTACT IN LEFT FOOT. NUMBNESS IN LEFT HAND FINGERS. IV WNL. FOOT ELEVATED. NO OTHER NEEDS. CALL LIGHT IN REACH.
--- NOTE | 2019-07-12 03:46 | NUR ---
PT RESTING IN BED, EYES CLOSED. RR EVEN, UNLABORED. IV INFUSING PER ORDER. CALL LIGHT IN REACH.
--- NOTE | 2019-07-12 05:27 | NUR ---
PT SLEPT OFF AND ON THIS SHIFT. PT TOLERATED DIET, IV FLUIDS AND BOOT WELL. PT HAS NUMBNESS IN BLE, CAPILLARY REFILL 3 SECONDS, PULSES INTACT. IV WNL. CBG MANAGED WITH PRN MED. PT COMPLAINED OF SMART, PRN PAIN MED MANAGED SMART WELL.
--- NOTE | 2019-07-12 05:30 | NUR ---
PT RESTING IN BED, EYES CLOSED. RR EVEN, UNLABORED. IV FLUIDS INFUSING PER ORDER. LEG ELEVATED. CALL LIGHT IN REACH.
--- NOTE | 2019-07-12 07:00 | NUR ---
Bedside report received, orders acknowledged. Patient sitting up in bed, awake and alert. Denies needs, call light within reach.
--- NOTE | 2019-07-12 07:30 | NUR ---
Dr. Morris in room to perform dressing change on left foot
--- NOTE | 2019-07-12 09:00 | NUR ---
Patient sitting up in bed watching tv. AM medications given, assessment complete. 100% of breakfast eaten. Patient reports "I am the JeisonAnton in the flesh!" Denies needs at this time, call light within reach.
--- NOTE | 2019-07-12 10:31 | NUR ---
PT IS SOUND ASLEEP. DID NOT DISTURB, WILL CHECK BACK
--- NOTE | 2019-07-12 11:15 | NUR ---
Patient laying on left side, sleeping in bed. Respirations even and unlabored. Call light within reach.
--- NOTE | 2019-07-12 12:05 | NUR ---
Patient sitting up in chair talking with family on the phone. Urinal emptied, 600 mls. Denies needs at this time, call light within reach.
--- NOTE | 2019-07-12 14:30 | NUR ---
Patient sitting up in chair watching tv. Denies needs at this time, call light within reach.
--- NOTE | 2019-07-12 17:07 | NUR ---
Patient sitting up in chair watching tv. PM medications given. Saline locked. Dr. Atwood in room to discuss POC with patient. Patient denies needs at this time, call light within reach.
--- NOTE | 2019-07-12 18:08 | NUR ---
PICC nurse in room to consult
--- NOTE | 2019-07-12 19:15 | NUR ---
PICC LINE INSERTION NOTE ASKED BY DR. DEL RIO TO PLACE A PICC LINE FOR BILINGUAL SALES ASSISTANT IV VANCO AN OUTPATIENT. CONSENT WAS OBTAINED FROM THE PT AFTER GOING OVER POSSIBLE RISKS AND BENEFITS. ALL PT'S QUESTIONS ANSWERED. PT'S RIGHT BASILIC, BRACHIAL, AND CEPHALIC VEINS WERE EXAMINED WITH THE ULTRASOUND. THE BASILIC VEIN WAS LARGER THAN 8 FR ACCORDING TO THE SITE RITE, COLLAPSED WITH PRESSURE EASILY, AND WAS APPROXIMATELY 1 CM BELOW THE SURFACE. THIS VEIN WAS CHOSEN THE BEST OPTION. THE VEIN WAS ACCESSED ON THE FIRST ATTEMPT. THE GUIDEWIRE, INTRODUCER, AND PICC LINE ALL ADVANCED EASILY INTO THE VEIN. THE PT REPORTED NO PAIN THROUGHOUT THE PROCEDURE. PT GIVEN EDUCATION INFORMATION.
--- NOTE | 2019-07-12 19:27 | NUR ---
SHIFT REPORT RECIEVED FROM TARA HAQUE. SUZY HAQUE IN ROOM INSERTING PICC LINE. REPORT DONE IN [place].
--- NOTE | 2019-07-12 20:29 | NUR ---
PT RESTING IN BED, WATCHING TV. SCHEDULED MED PROVIDED. PICC LINE SLUSHED WELL. GOOD BLOOD RETURN. PT DENIES PAIN. NO OTHER NEEDS AT THIS TIME. CALL LIGHT IN REACH.
--- NOTE | 2019-07-12 21:45 | NUR ---
vs, i&os, and blood sugar check complete. pt has yet to void. will check again soon.
--- NOTE | 2019-07-12 22:01 | NUR ---
SCHEDULED MEDS PROVIDED. PT DENIES PAIN. PULSES INTACT. LLE COVERED. IV WNL, FLUSHED WELL. LUNGS CLEAR IN ALL LOBES. IV MEDICATION INFUSING PER ORDER. ASSESSMENT COMPLETED. NO OTHER NEEDS AT THIS TIME. CALL LIGHT IN REACH.
--- NOTE | 2019-07-13 00:02 | NUR ---
PT IN BED, TALKING ON PHONE. CALL LIGHT IN REACH.
--- NOTE | 2019-07-13 02:19 | NUR ---
SCHEDULED MED PROVIDED. PT REPORTS 3/10 PAIN IN LLE, PRN PAIN MED PROVIDED. PICC FLUSHED WELL, GOOD BLOOD RETURN. ASSESSMENT COMPLETED. WARM PACK PROVIDED FOR PICC SITE. ICE PROVIDED. NOO OTHER NEEDS. CALL LIGHT IN REACH.
--- NOTE | 2019-07-13 04:05 | NUR ---
PT RESTING IN BED, EYES CLOSED. RR EVEN, UNLABORED. LLE ELEVATED. CALL LIGHT IN REACH.
--- NOTE | 2019-07-13 05:26 | NUR ---
PT SLEPT < HALF THE SHIFT. PT HAD PAIN IN LLE, MANAGED BY PRN PAIN MED. PT TOLERAT PICC AND IV WELL. PICC LINE FLUSHED WELL, GOOD BLOOD RETURN. PT TOLERATED DIET AND MEDS WELL. LLE EDEMA AND REDNESS UNCHANGED. PULSES INTACT. PT SPOKE OF BEING JOSHUA AND "I LOVE MY KINGDOM" MANY TIMES. SPEAKING VERY FAST AND LOUDLY. PT TOLERATED BOOT WELL.
--- NOTE | 2019-07-13 06:41 | NUR ---
VS AND I&O COMPLETED. NO OTHER NEEDS. CALL LIGHT IN REACH.
--- NOTE | 2019-07-13 07:18 | NUR ---
PT SLEEPING SOUNDLY REPORT RECEIVED
--- NOTE | 2019-07-13 09:34 | NUR ---
PT UP TO THE CHAIR TOLERATES 100% OF BREAKFAST. NO C/O PAIN OR OTHER DISCOMFORTS. BOOT IS IN PLACE, NEEDED ITEMS TABLESIDE
--- NOTE | 2019-07-13 11:25 | NUR ---
TYLENOL PROVIDED FOR DISCOMFORT PER REQUEST. PT REMINDED TO WEAR BOOT WHEN UP AND ELEVATE WHEN RESTING IN BED. NEEDED ITEMS IN REACH
--- NOTE | 2019-07-13 13:19 | NUR ---
PT SLEEPING SOUNDLY AWAKEN FOR LUNCH. DENIES NEEDS OR DISCOMFORTS
--- NOTE | 2019-07-13 15:04 | NUR ---
DRESSING CHANGED PER ORDERS
--- NOTE | 2019-07-13 18:13 | NUR ---
PT TOLERATES EVENING MEAL. NO C/O FOOT PAIN THOUGH HE DID HAVE TYLENOL FOR A HEADACHE HE HAD EARLIER. H/A HAS RESOLVED. PT RESTING IN BED FOOT ELEVATED WATCHING TV
--- NOTE | 2019-07-13 19:05 | NUR ---
PT RESTING IN BED, EYES CLOSED. ICE WATER PROVIDED. PT COMPLAINS OF 8/10 SMART. ICE PACK PROVIDED. REPOSITIONED. PT STATES HE IS "JOSHUA BUT HAS NO BEVERLY UNTIL GOD COMES BACK." NO OTHER NEEDS. CALL LIGHT IN REACH.
--- NOTE | 2019-07-13 19:50 | NUR ---
pts VS, I&Os, bs check was complete via JAVA DEVELOPER CONSULTANT Valeria. pt did not need anything further at this time.
--- NOTE | 2019-07-13 19:52 | NUR ---
SCHEDULED MED NOT PROVIDED. VANCO TROUGH 22.1. NOTIFIED IN PERSON.
--- NOTE | 2019-07-13 20:41 | NUR ---
ASSESSMENT COMPLETED. MOTOR AND PULSES INTACT. LLE ELEVATED. ICE PACK PROVIDED ON LLE, 1+ EDEMA. SMART REPORTED TO BE RESOLVED. LUNGS CLEAR. PICC LINE FLUSHED, GOOD BLOOD RETURN, HEPARIN LOCKED. NO CHANGES IN ARM CIRCUMFERENCE OR PICC LINE LENGTH. BANDAGE CDI. NO OTHER NEEDS. CALL LIGHT IN REACH.
--- NOTE | 2019-07-13 23:32 | NUR ---
PT COMPLAINS OF 5/10 HEADACHE. PRN PAIN MED PROVIDED. NO OTHER NEEDS. CALL LIGHT IN REACH.
--- NOTE | 2019-07-14 01:35 | NUR ---
PT RESTING IN BED, WATCHING TV. NO NEEDS AT THIS TIME. CALL LIGHT IN REACH.
--- NOTE | 2019-07-14 03:45 | NUR ---
CALLED TELE-PHARMACY CONCERNING VANCO TROUGH OF 22.1 AND 0400 VANCO SCHEDULED. TELE-PHARMACY ADVISED TO GIVE THE 0400 DOSE ORDERED.
--- NOTE | 2019-07-14 04:00 | NUR ---
SCHEDULED MED PROVIDED. ASSESSMENT COMPLETED. NO CHANGES TO LLE REDNESS, EDEMA OR CMS. PT SLEEPING ON SIDE, LEG NOT ELEVATED AT THIS TIME. NO OTHER NEEDS. CALL LIGHT IN REACH.
--- NOTE | 2019-07-14 06:14 | NUR ---
ADMINISTERED TYLENOL FOR A HEADACHE AND SL PT'S PICC. HE DENIES FURTHER NEEDS AT THIS TIME. CALL LIGHT IS CLOSE.
--- NOTE | 2019-07-14 07:30 | NUR ---
Pt resting in bed on side, eyes closed, resp even and non labored. Pt appears without distress. Personal supplies and call light within reach.
--- NOTE | 2019-07-14 07:39 | NUR ---
Vancomycin trough drawn 07/13/19 @ 0730 was 22.1. Vanco was redosed by pharmacist to 1750mg IV q 8 hrs to begin @ 1200
--- NOTE | 2019-07-14 07:41 | NUR ---
Next vancomycin trough is ordered for 07/15/19 @ 1130. Pharmacy will assess and make adjustments as indicated
--- NOTE | 2019-07-14 10:39 | NUR ---
PATIENT IN BED WATCHING TV. FRESH WATER GIVEN. CALL LIGHT IN REACH. NO FURTHER NEEDS AT THIS TIME.
--- NOTE | 2019-07-14 13:42 | NUR ---
PATIENT IN BED WATCHING TV. CALL LIGHT IN REACH. NO FURTHER NEEDS AT THIS TIME.
--- NOTE | 2019-07-14 15:40 | NUR ---
PT SITTING IN BED WATCHING TV, RESP EVEN AND NON LABORED. PT HAS NO NEEDS AT THIS TIME. CALL LIGHT WITHIN REACH.
[2019-07-14] MEDS ORDERED: LANTUS100 UNITS/ SUB-Q (18:11)
--- NOTE | 2019-07-14 18:26 | NUR ---
Dressing change to left lower ext per Dr. Morris's daily dressing change order. SHABNAM Lassiter assisted with dressing change. Pt tolerated well. Old dressing had sarosang drainage noted.
--- NOTE | 2019-07-14 18:49 | NUR ---
PATIENT IN BED WATCHING TV. CALL LIGHT IN REACH. NO FURTHER NEEDS AT THIS TIME.
--- NOTE | 2019-07-14 20:00 | NUR ---
RECEIVED REPORT AT 1900, FOUND PT IN CHAIR WATCHING TV. PT HAD NO NEEDS AT THAT TIME.
--- NOTE | 2019-07-14 22:00 | NUR ---
V/S ARE WDL, 7 UNITS OF HUMALOG INSULIN GIVEN FOR BG OF 248, ALL LOBES ARE CLEAR, ABD SOUNDS ARE PRESENT, LEFT LOWER LEG EDEMA IS JUST ABOUT GONE, DRESSING ON LEFT FOOT IS C/D/I. NO NEW CONCERNS NOTED AT THIS TIME.
--- NOTE | 2019-07-15 00:41 | NUR ---
PT IS SLEEPING AT THIS TIME. NO NEW CONCERNS NOTED.
--- NOTE | 2019-07-15 01:44 | NUR ---
PT IS AWAKE IN BED. PT HAD NO NEEDS AT THIS TIME.
--- NOTE | 2019-07-15 03:52 | NUR ---
PT IS AWAKE IN BED. NO NEEDS AT THIS TIME.
--- NOTE | 2019-07-15 04:37 | NUR ---
PT NEEDED PRN TYLENOL FOR A HEADACHE 7/10 PAIN. NO NEW ISSUES/CHANGES NOTED WITH SECOND ASSESSMENT.
--- NOTE | 2019-07-15 05:40 | NUR ---
PT HAS BEEN UP MOST OF THE NIGHT. V/S ARE WDL, URINE OUTPUT IS WDL, LEFT FOOT DRESSING IS C/D/I, ONLY TRACE EDEMA NOTED ON LEFT LOWER LEG, LOBES ARE CLEAR, ABD SOUNDS ARE PRESENT, PICCL IN HAS BLOOD RETURN. NO NEW CONCERNS NOTED OVERALL.
--- NOTE | 2019-07-15 10:52 | NUR ---
RECEIVED OK FROM [facility] THAT THEY RECEIVED AUTH FOR PT TO GO THERE. FAXED ORDERS AND PASRR TO [facility] AFTER TALKING WITH MARISELA. INFORMED CHARGE NURSE FROM HERE.
--- NOTE | 2019-07-15 10:58 | NUR ---
PATIENT IN BED WATCHING TV. NO VOID, RN NOTIFIED. CALL LIGHT IN REACH. NO FURTHER NEEDS AT THIS TIME.
--- NOTE | 2019-07-15 11:04 | NUR ---
Vancomycin trough adjusted to 18.1 using pharmacokinetic model due to early draw. COntinue 1750mg iv q 8 hrs
--- NOTE | 2019-07-15 12:18 | NUR ---
EMBER PRIEST IN CARING FOR PT. PT IN CONVERSATION WITH HER AND I JOINED IN. PT IS MORE CONFUSED TODAY THAN IN PREVIOUS DAYS, MIXING MANY DIFFERENT SUBJECTS. SIKHISM, HISTORY AND FAMILY HERITAGE ALL IN ONE. IF TIME ALLOWS PT REQUESTED I READ PORTIONS OF SCRIPTURE TO HIM. GAVE BLESSING, PT THANKED ME
== END 2019-07-15 14:35 | DRG 580 ==
LOC: MS 16:22
PROVIDERS: ADMIT Student in an Organized Health Care Education/Training Program
PROC: 0J9R0ZZ Drainage of Left Foot Subcutaneous Tissue and Fascia, Open Approach (ICD-10-PCS; principal; 2019-07-11)
PROC: 05HY33Z Insertion of Infusion Device into Upper Vein, Percutaneous Approach (ICD-10-PCS; 2019-07-12)
DX: L03.116 Cellulitis of left lower limb (principal); L02.612 Cutaneous abscess of left foot; L97.423 Non-pressure chronic ulcer of left heel and midfoot with necrosis of muscle; M00.072 Staphylococcal arthritis, left ankle and foot; B95.62 Methicillin resistant Staphylococcus aureus infection as the cause of diseases classified elsewhere; I10 Essential (primary) hypertension; E11.40 Type 2 diabetes mellitus with diabetic neuropathy, unspecified; E11.621 Type 2 diabetes mellitus with foot ulcer; E11.65 Type 2 diabetes mellitus with hyperglycemia; Z79.899 Other long term (current) drug therapy; Z79.4 Long term (current) use of insulin
CPT/HCPCS: 36415; 36569; 71045; 73723; 80048; 80053; 80202; 82947; 83605; 83735; 84484; 85025; 85651; 86140; 87040; 87070; 87075; 87077; 87186; 87205; 93005; 93010; 97162; 97165; A9579; C1751; J0696; J1650; J1815; J3370; J7060; J7121

== ENCOUNTER 2019-11-24 04:41 | Emergency (ER) | payer OTHER ==
[~2019-11-24] VITALS: Ht 188 cm; Wt 121.9 kg
[~2019-11-24 04:41] MED LIST changes: +BASAGLAR K100 UNIT/1 SUB-Q; +LANTUS100 UNITS/ SUB-Q; +NOVOLOG100 UNIT/2 SUB-Q
--- OUTSIDE RECORDS SUMMARY | 2019-11-24 04:44 | XMS ---
PreManage Notification: PAT HERNANDEZ Security Hydroblaster Events No recent Security Events currently on file CRITERIA MET - [facility] - Has Care Guidelines CARE PROVIDERS RC WILLIS Nurse Practitioner: Family 10/16/2018-Current PHONE: [phone] Tracy has no Care Guidelines for this patient. Care History Medical/Surgical 10/16/2018 [facility] - Patient is currently established with [facility]. If patient is seen in the ED during business hours. Please contact CHWs at [facility]. Care Recommendation: This patient has had 5 or more Emergency Department visits in the last 12 months.\T\nbsp; Patient requires education on the scope and purpose of the ED as an acute care provider not a Primary Care Provider and should not be utilized for chronic conditions.\T\nbsp; These are guidelines and the provider should exercise clinical judgment when providing care. E.D. VISIT COUNT (12 MO.) 2 [facility] TOTAL 2 NOTE: Visits indicate total known visits. ED/UCC VISIT TRACKING (12 MO.) 11/24/2019 04:42 [facility] [place] TYPE: Emergency COMPLAINT: - FOREIGN OBJECT REMOVAL 07/09/2019 00:00 [facility] [place] TYPE: Emergency COMPLAINT: - INFECTION ON L FOOT INPATIENT VISIT TRACKING (12 MO.) 07/09/2019 17:[address] 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 - Cellulitis of left lower limb - Staphylococcal arthritis, left ankle and foot - Staphylococcal arthritis, left ankle and foot - Methicillin resistant Staphylococcus aureus infection as the - Essential (primary) hypertension - Cutaneous abscess of left foot - Type 2 diabetes mellitus with diabetic neuropathy, unspecifie - Other long term care 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) drug therapy - Other group home (current) drug therapy - Cutaneous abscess of left foot - Methicillin resistant Staphylococcus aureus infection as the - Type 2 diabetes mellitus with foot ulcer - 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
[2019-11-24] MEDS ORDERED: DOXYCYCLINE MO100 M1 PO (04:56)
== END 2019-11-24 07:09 | disposition home or self-care (01) ==
LOC: ED 04:41
DX: T19.4XXA Foreign body in penis, initial encounter (principal); E11.9 Type 2 diabetes mellitus without complications; I10 Essential (primary) hypertension; X58.XXXA Exposure to other specified factors, initial encounter
CPT/HCPCS: 99283

== ENCOUNTER 2020-02-15 13:15 | Inpatient (IN) | payer OTHER ==
[~2020-02-15] VITALS: Ht 188 cm; Wt 103.0 kg
[~2020-02-15 13:15] MED LIST changes: +AMOX TR-K CLV1 EAC1 PO; +CIPROFLOXACIN500 MG PO; +DOXYCYCLINE MO100 M1 PO; +INSULIN LI100 UNIT/1 SUB-Q
[2020-03-05] MEDS ORDERED: OXYCODONE HCL5 MG PO (12:45)
[2020-03-05] MEDS ORDERED: LISINOPRIL20 MG PO (12:45)
== END 2020-03-06 10:20 | disposition home or self-care (01) | DRG 41 ==
LOC: MS 13:15
PROVIDERS: ADMIT Student in an Organized Health Care Education/Training Program; ATTEND Student in an Organized Health Care Education/Training Program
PROC: 02HV33Z Insertion of Infusion Device into Superior Vena Cava, Percutaneous Approach (ICD-10-PCS; principal; 2020-02-17 09:00)
PROC: 0JDQ0ZZ Extraction of Right Foot Subcutaneous Tissue and Fascia, Open Approach (ICD-10-PCS; 2020-02-25)
DX: R26.89 Other abnormalities of gait and mobility (principal); M86.8X7 Other osteomyelitis, ankle and foot; L97.413 Non-pressure chronic ulcer of right heel and midfoot with necrosis of muscle; L03.115 Cellulitis of right lower limb; B95.62 Methicillin resistant Staphylococcus aureus infection as the cause of diseases classified elsewhere; E11.69 Type 2 diabetes mellitus with other specified complication; E11.621 Type 2 diabetes mellitus with foot ulcer; E78.5 Hyperlipidemia, unspecified; I10 Essential (primary) hypertension; Z79.899 Other long term (current) drug therapy; Z79.4 Long term (current) use of insulin
CPT/HCPCS: 36415; 36569; 71045; 80048; 80069; 80202; 85025; 85651; 86140; 90686; 97110; 97116; 97161; 97162; 97165; 97535; C1751; J1650; J1815; J2997; J3370; J7050; J7060

== ENCOUNTER 2020-09-23 12:20 | Inpatient (IN) | payer OTHER ==
[~2020-09-23] VITALS: Ht 188 cm; Wt 108.9 kg
[~2020-09-23 12:20] MED LIST changes: +LISINOPRIL20 MG PO; +OXYCODONE HCL5 MG PO
--- OUTSIDE RECORDS SUMMARY | 2020-09-23 12:26 | XMS ---
PreManage Notification: PAT HERNANDEZ Security Product Scientist Events No recent Security Events currently on file CRITERIA MET - History of Sepsis Dx CARE PROVIDERS RC WILLIS Nurse Practitioner: Family 10/16/2018-Current PHONE: [phone] Tracy has no Care Guidelines for this patient. Care History Medical/Surgical 10/16/2018 [facility] - Patient is currently established with [facility]. If patient is seen in the ED during business hours. Please contact CHWs at [facility]. Care Recommendation: This patient has had 5 [...] providing care. [facility] TOTAL 3 NOTE: Visits indicate total known visits. ED/UCC VISIT TRACKING (12 MO.) 09/23/2020 12:20 [facility] TYPE: Emergency COMPLAINT: - WOUND CARE 11/24/2019 07:56 [facility] TYPE: Emergency DIAGNOSES: - Unspecified injury of external genitals, initial encounter - Penis Injury - Foregin Object around Penis 11/24/2019 04:42 [facility] [place] TYPE: Emergency COMPLAINT: - FOREIGN OBJECT REMOVAL DIAGNOSES: - Type 2 diabetes mellitus without complications - Superficial foreign body of penis, initial encounter - Superficial foreign body of penis, initial encounter - Foreign body in penis, initial encounter - Essential (primary) hypertension - Exposure to other specified factors, initial encounter - Foreign body in penis, initial encounter INPATIENT VISIT TRACKING (12 MO.) 02/15/2020 13:15 [facility] [place] TYPE: Medical Surgical COMPLAINT: - TC CELLULITIS DIAGNOSES: - Essential (primary) hypertension - Type 2 diabetes mellitus with other specified complication - Other osteomyelitis, ankle and foot - director long term care (current) use of insulin - Other abnormalities of gait and mobility - Non-pressure chronic ulcer of right heel and midfoot with necrosis of muscle - Other detention (current) drug therapy - Type 2 diabetes mellitus with foot ulcer - Hyperlipidemia, unspecified - Methicillin resistant Staphylococcus aureus infection as the cause of diseases classified elsewhere - Cellulitis of right lower limb 02/08/2020 13:26 [facility] [place] TYPE: Medical Surgical COMPLAINT: - CELLULITIS DIAGNOSES: - Essential (primary) hypertension - Sepsis, unspecified organism - Patient's noncompliance with other medical treatment and regimen - Cutaneous abscess of right foot - Other terminologist (current) drug therapy - Sepsis due to Methicillin resistant Staphylococcus aureus - Cellulitis of right lower limb - Other terminologist (current) drug therapy - Cellulitis of right lower limb - Type 2 diabetes mellitus with foot ulcer - Non-pressure chronic ulcer of other part of right foot with necrosis of bone - Contact with and (suspected) exposure to other viral communicable diseases - Hyperlipidemia, unspecified - Non-pressure chronic ulcer of other part of right foot with necrosis of bone - Type 2 diabetes mellitus with other specified complication - Patient's noncompliance with other medical treatment and regimen - Sepsis due to Methicillin resistant Staphylococcus aureus - USP (current) use of insulin - Other acute osteomyelitis, right ankle and foot - Hyperlipidemia, unspecified - Contact with and (suspected) exposure to other viral communicable diseases - Cutaneous abscess of right foot - Essential (primary) hypertension - Type 2 diabetes mellitus with foot ulcer - USP (current) use of insulin - Type 2 diabetes mellitus with other specified complication - Other acute osteomyelitis, right ankle and foot [id number]
[2020-09-23] MEDS ORDERED: TRULICITY3 MG/0.5 M SUB-Q (12:47)
[2020-09-23] MEDS ORDERED: PIOGLITAZONE HC30 MG PO (12:48)
[2020-09-23] MEDS ORDERED: AMOXICILLIN500 MG PO (12:49)
--- NOTE | 2020-09-23 16:30 | NUR ---
PT ARRIVED TO UNIT VIA STRETCHER. VSS. ALERT AND ORIENTED. AFEBRILE, TEMP 98.4. C/O BODY ACHES AND HEADACHE, GIVEN TYLENOL. PT VOIDED 500 MLS CLEAR YELLOW URINE INTO URINAL. PT HAD RECENT SURGICAL REMOVAL OF RIGHT BIG TOE, DRESSING C,D,I AND CHANGED BY DR. WISEMAN THIS AM ALONG W/ DRESSING TO LEFT FOOT ULCER. 18 G IN LAC, IV VANCO INFUSING. PT REPORTS "SNORTING COKE AND SMOKING METH 2 DAYS AGO." HAS GONE THROUGH WITHDRAWALS IN THE PAST. AWARE. SBA, DINNER ORDERED. CALL LIGHT IN REACH.
--- NOTE | 2020-09-23 16:38 | EKG ---
[facility] [address] [facility] [facility] [place], [place] [address] Signed Sinus tachycardia Otherwise normal ECG When compared with ECG of 09-JUL-2019 20:54, No significant change was found Confirmed by DENY AGUIRRE MD ([id number]) on 09/23/2020 4:38:20 PM Electronically Signed By: DENY AGUIRRE MD 09/23/20 1638 PATIENT NAME: DAVIDPATALFA LUBIN Electrocardiogram DATE OF : 61 PHYSICIAN: DENY AGUIRRE MD REPORT #: [id number] REPORT IS CONFIDENTIAL AND NOT TO BE RELEASED WITHOUT AUTHORIZATION
--- NOTE | 2020-09-23 18:21 | NUR ---
WOKE PATIENT UP TO DO VITALS. PATIENT HAS FEVER RN NOTIFIED. PATIENT EATING WILL CHART I&O'S WHEN FINISHED
--- NOTE | 2020-09-23 18:29 | NUR ---
NOTIFIED DR. AGUIRRE OF 101.4 AXILLARY TEMPERATURE. PT RECEIVED TYLENOL @ APPROX 1630 FOR BODY ACHES AND HEADACHE. NO OTHER NEW ORDERS.
--- NOTE | 2020-09-23 19:15 | NUR ---
SHIFT REPORT RECEIVED FROM AKHIL HAQUE. PT RESTING IN BED, EYES CLOSED. CALL LIGHT IN REACH.
--- NOTE | 2020-09-23 22:05 | NUR ---
ASSESSMENT, VS AND I&O COMPLETED. PT DENIES PAIN. SCHEDULED MEDS PROVIDED. LUNGS CLEAR, HEART TONES REGULAR. ABD SOFT, NONTENDER, BOWEL TONES ACTIVE, PT STATES NORMAL. NUMBNESS AND TINGLING IN HANDS AND FEET, CHRONIC. RIGHT FOOT , BIG TOE SURGICAL SITE, DRESSING CDI.LEFT FOOT ULCER DRESSING CDI. IV WNL, CDI, FLUDHED WELL. NO OTHER NEEDS AT THIS TIME.
--- NOTE | 2020-09-24 | NUR ---
PT RESTING IN BED, EYES CLOSED. RR EVEN, UNLABORED. IV FLUIDS INFUSING PER ORDER. CALL LIGHT IN REACH.
--- NOTE | 2020-09-24 02:00 | NUR ---
PT RESTING IN BED, EYES CLOSED. RR EVEN, UNLABORED. CALL LIGHT IN REACH.
--- NOTE | 2020-09-24 04:41 | NUR ---
SCHEDULED MED PROVIDED. PT RESTING IN BED, EYES CLOSED. RR EVEN, UNLABORED. CALL LIGHT IN REACH.
--- NOTE | 2020-09-24 06:08 | NUR ---
IN TO GET VITALS, PT UP TO THE URINAL, SAMPLE COLLECTED AND SEMT TO LAB, SODA AND ICE WATER GIVEN, NO FURTHER NEEDS
--- NOTE | 2020-09-24 06:31 | NUR ---
ASSESSMENT, VS AND I&O COMPLETED.GCS 15, A&O X4. LUNGS CLEAR, HEART TONES REGULAR. ABD SOFT, NONTENDER, BOWEL TONES ACTIVE. PT STATES NORMAL. NUMBNESS AND TINGLING IN FEET AND HANDS, MOTOR AND PULSES INTACT. IV WNL, SCHEDULED MED PROVIDED. LEFT FOOT HAS GENERALIZED EDEMA. DRESSINGS ON BOTH FEET CDI. PT DENIES PAIN AND NAUSEA. NO OTHER NEEDS AT THIS TIME. CALL LIGHT IN REACH.
--- NOTE | 2020-09-24 09:00 | NUR ---
CBG 277, 9 UNITS SS HUMALOG GIVEN W/ BREAKFAST. PT IS ALERT AND ORIENTED THIS MORNING. VSS. PT IS AFEBRILE, GIVEN TYLENOL FOR GENERALIZED BODY ACHES AND HEADACHE. DR WISEMAN REPORTEDLY IN THE AM TO CHANGED DRESSING TO BOTH FEET WHICH REMAIN C,D,I. PT TO HAVE MRI AT 1 PM TODAY, MRI SCREENING CHECKLIST COMPLETED. IV CEFEPIME STARTED LATE PT TURNED OFF ALARMING PUMP IN THE NIGHT AND DID NOT NOTIFY NURSE. IV ABX BEHIND SCHEDULE. 18 G IV IN LAC REMAINS PATENT. NO ACUTE CHANGES TO ASSESSMENT. PT IS SBA IN THE ROOM. CALL LIGHT IN REACH. URINAL AT BEDSIDE, PT VOIDING QS.
[2020-09-24] MEDS ORDERED: BASAGLAR K100 UNIT/1 SUB-Q (11:01)
--- NOTE | 2020-09-24 11:01 | NUR ---
MED REC COMPLETE
--- NOTE | 2020-09-24 12:15 | NUR ---
CBG 372, 11 UNITS HUMALOG SS GIVEN W/ LUNCH. PT HAS LARGE APPETITE. ATE 100% OF LUNCH. DENIES PAIN OR NAUSEA AT THIS TIME. CALL LIGHT IN REACH. PT CALLS APPROPRIATELY. IV CEFEPIME INFUSING.
--- NOTE | 2020-09-24 12:50 | NUR ---
ATTEMPTED TO ASSESS PATIENT. PATIENT CURRENTLY IN MRI, WILL RETURN FOR ASSESSMENT AT A LATER TIME.
--- NOTE | 2020-09-24 12:50 | NUR ---
PT AMBULATED TO BATHROOM TO VOID, REFUSING TO USE HAT OR URINAL. VOID UNMEASURED.
--- NOTE | 2020-09-24 13:00 | NUR ---
PT SALINE LOCKED TO DEPART TO MRI.
--- NOTE | 2020-09-24 14:02 | NUR ---
PT RETURNED FROM MRI, 18 G IV IN LAC REMAINS PATENT. IV VANCO INFUSING. VSS. I/O'S RECORDED. ICE WATER REFRESHED. PT VERY CHATTY, CONTINUES TO TELL EXTRAVAGANT STORIES WHEN AWAKE. PT HAS ALSO TURNED OFF IV PUMP RATHER THAN CALLING FOR RN WHEN PUMP ALARMING, PUMP SCREEN LOCKED. RESTING IN BED. CALL LIGHT IN REACH.
--- NOTE | 2020-09-24 14:31 | NUR ---
CHECKING ON PT, DISCOVERED HE HAS BEEN TAKEN TO IMAGING. WILL FOLLOW
--- NOTE | 2020-09-24 16:00 | NUR ---
IV ABX DELAYED D/T PT BEING GONE IN MRI. NEW IV STARTED IN LFA AFTER 3 ATTEMPTS, BLOOD RETURN NOTED IN PREVIOUS ATTEMPTS, VERY DIFFICULT TO THREAD. FLAGYL AND CEFEPIME INFUSING. NO ACUTE CHANGES TO PT'S ASSESSMENT. CALL LIGHT IN REACH.
--- NOTE | 2020-09-24 17:50 | NUR ---
CBG'S IN 300'S ALL DAY AND PT REQUIRED 11 UNITS SS HUMALOG W/ LUNCH AND DINNER, REPORTED TO DR AGUIRRE. NO NEW ORDERS.
--- NOTE | 2020-09-24 18:00 | NUR ---
IN TO ASSIST DR. WISEMAN W/ I&D TO LEFT FOOT. MRI SHOWED ABCESS, PT WILL NOT NEED SURGERY TOMORROW PER MD. DR WISEMAN WILL BE IN TO IRRIGATE TOMORROW AM.
--- NOTE | 2020-09-24 19:43 | NUR ---
SHIFT REPORT RECEIVED FROM AKHIL HAQUE. PT SLEEPING. CALL LIGHT IN REACH.
--- NOTE | 2020-09-24 21:48 | NUR ---
ASSESSMENT COMPLETED. SCHEDULED MEDS PROVIDED. PT LEFT FOOT PAIN /, PRN PAIN MED PROVIDED. GCS 15, A&O X4. LUNGS CLEAR, HEART TONES REGULAR. AND SOFT, NONTENDER, BOWEL TONES ACTIVE, PT STATES NORMAL. NUMBNESS AND TINGLING IN HANDS AND FEET, CHRONIC. MOTOR AND PULSES INTACT. BLE FOOT DRESSINGS CDI. LEFT FOOT GENERALIZED EDEMA. IVs WNL, CDI, FLUSHED WELL. NO OTHER NEEDS AT THIS TIME. CALL LIGHT IN REACH.
--- NOTE | 2020-09-24 22:35 | NUR ---
IV PUMP ALARMING. NEW BAG IVF INFUSING WNL. pt RESTING IN BED ON LEFT SIDE WITH EYES CLOSED. BREATHING EQUAL AND UNLABORED.
--- NOTE | 2020-09-24 23:30 | NUR ---
IV PUMP ALARMING, RESOLVED. NO NEEDS AT THIS TIME. CALL LIGHT IN REACH.
--- NOTE | 2020-09-25 01:31 | NUR ---
PT RESTING IN BED, WATCHING TV. NO NEEDS AT THIS TIME. CALL LIGHT IN REACH.
--- NOTE | 2020-09-25 03:54 | NUR ---
PT RESTING IN BED, EYES CLOSED. RR EVEN, UNLABORED. CALL LIGHT IN REACH.
--- NOTE | 2020-09-25 04:28 | NUR ---
PT STATES HE HAS 6/10 SMART, PRN PAIN MED PROVIDED. SCHEDULED IV MED PROVIDED. ASSESSMENT COMPLETED. GCS 15, A&O X4. LUNGS CLEAR, HEART TONES REGULAR. ABD SOFT, NONTENDER, BOWEL TONES ACTIVE. NUMBNESS AND TINGLING IN HANDS AND FEET, CHRONIC. BLE DRESSINGS CDI. PULSE AND MOTOR INTACT X 4 EXTREMITIES. IVs WNL. CALL LIGHT IN REACH.
--- NOTE | 2020-09-25 06:25 | NUR ---
SCHEDULED MEDS PROVIDED. Katty MOONEY. MD CROWELL IN ROOM.
--- NOTE | 2020-09-25 08:00 | NUR ---
CBG 206, 5 UNITS SS HUMALOG GIVEN W/ BREAKFAST. NEW ORDERS FOR 10 UNITS OF LANTUS, GIVEN. DR WISEMAN IN THIS AM TO CHANGE DRESSING TO LEFT FOOT, DRESSING TO RIGHT FOOT REMAINS C.D.I. LUNGS SOUNS ARE CLEAR. PT HAS GOOD APPETITE AND BOWEL TONES ACTIVE. PT PASSING GAS, HAS NOT HAD BM SINCE 09/22, REPORTS HE GOES "DAYS BETWEEN BOWEL MOVEMENTS." PT C/O LEFT FOOT PAIN AFTER DRESSING CHANGE 10/01, TYLENOL YET DUE, WILL GIVEN WHEN ABLE. IV CEFEPIME INFUSING, BOTH IV'S REMAIN PATENT AT THIS TIME.
--- NOTE | 2020-09-25 09:55 | NUR ---
PER AM MEETING AND MD UPDATE PATIENT DOING WELL. MAY PLAN FOR DISCHARGE AFTER PODIATRY VISIT LATER THIS AFTERNOON. NO CHANGE IN DISCHARGE PLAN AT THIS TIME.
--- NOTE | 2020-09-25 12:30 | NUR ---
CBG 298, 9 UNITS HUMALOG GIVEN. PT REFUSING TO SIT UP IN CHAIR FOR LUNCH. EATING IN BED, HAS LARGE APPETITE. BLOOD DRAWN FOR VANCO TROUGH AND SENT TO LAB. PT DENIES PAIN AT THIS TIME AND IS WITHOUT COMPLAINT. BLE DRESSINGS INTACT AND BLE ELEVATED. CALL LIGHT IN REACH.
--- NOTE | 2020-09-25 14:30 | NUR ---
PT PROVIDED WARM WIPES FOR [place], COMPLETE IN BATHROOM. LINENS AND GOWN CHANGED.
--- NOTE | 2020-09-25 15:42 | NUR ---
PT SALINE LOCKED, IVF DC'D. IV ABX ALSO DC'D EARLIER, PT NOW ON PO VIBRAMYCIN. PT HAS GREAT ORAL FLUID INTAKE. VSS. VOIDING QUANTITY SUFFICIENT. INDEPENDENT IN ROOM.
--- NOTE | 2020-09-25 19:00 | NUR ---
SHIFT REPORT RECEIVED FROM DAYSHIFT SHABNAM LANDAVERDE AT [facility]. pt AWAKE AND VISTING WITH FAMILY. pt INTERACTIVE WITH STAFF AND DENIES NEEDS, CALL LIGHT IN REACH. BOARD UPDATED.
--- NOTE | 2020-09-25 22:28 | NUR ---
IN TO GET VITALS, PT DECLINED NEED TO VOID AT THIS TIME, RN HEADED TO ROOM
--- NOTE | 2020-09-25 22:30 | NUR ---
ASSESSMENT COMPLETE, SCHEDULED PO ABX GIVEN (SEE EMAR). VSS, pt REPORTS INCREASED PAIN D/T HEADACHE, PRN PAIN MEDICATION ALSO GIVEN. IV SITES X2 WNL, FLUSHES EASILY. ACCUCHECK RESULT IN 260'S, 7 UNITS INSULIN LISPRO AND SCHEDULED INSULIN LANTUS GIVEN. pt SBA WITH AMBULATION, CALLS APPROPRAITELY. DRESSING TO BOTH LLE AND RLE C/D/I, NO SHADOWING OR DRAINAGE NOTED. UNABLE TO OBTAIN LLE PEDAL PULSE D/T DRESSING, WILL CONTINUE TO MONITOR. pt INTERACTIVE WITH STAFF AND DENIES FURTHER NEEDS. CALL LIGHT IN REACH.
--- NOTE | 2020-09-25 23:15 | NUR ---
SUGAR FREE JELLO AND PUDDING PROVIDED PER pt REQUEST, URINAL ALSO EMPTIED AT THIS TIME. CALL LIGHT IN REACH.
[2020-09-26] MEDS ORDERED: DOXYCYCLINE HY100 MG PO (00:56)
--- NOTE | 2020-09-26 01:00 | NUR ---
pt RESTING IN BED WITH EYES CLOSED, RR EVEN AND UNLABORED. NO DISTRESS NOTED. CALL LIGHT IN REACH.
--- NOTE | 2020-09-26 02:20 | NUR ---
SHIFT REPORT RECEIVED FROM ANGUS HAQUE. PT SLEEPING.
--- NOTE | 2020-09-26 04:00 | NUR ---
PT RESTING IN BED, EYES CLOSED. RR EVEN, UNLABORED. CALL LIGHT IN REACH.
--- NOTE | 2020-09-26 06:41 | NUR ---
ASSESSMENT COMPLETED. PT STATES HE HAS A 10/10 HEADACHE, PRN PAIN MED PROVIDED. NUMBNESS AND TINGLING IN HANDS AND FEET, CHRONIC. BLE DRESSINGS CDI. GENERALIZED EDEMA TO LEFT FOOT. IVs WNL. NO OTHER NEEDS AT THIS TIME. CALLLIGHT IN REACH.
--- NOTE | 2020-09-26 06:45 | NUR ---
IN TO EMPTY PTs URINAL, NO FURTHER NEEDS
--- NOTE | 2020-09-26 07:30 | NUR ---
THIS RN REVEIED REPORT FROM ANU HAQUE. PT APPEARS TO BE RESTING AT THIS TIME WITH RESPITATIONS NOTED
--- NOTE | 2020-09-26 08:15 | NUR ---
THIS RN IN PTS ROOM TO GIVE PT INSULIN. PT STATES THAT HE HAS A HEADACHE OF 8/10 WHICH IS IMPORVED.
--- NOTE | 2020-09-26 09:25 | NUR ---
THIS RN IN PTS ROOM TO GIVE PT HIS MORNING MEDS. PT STATES THAT HIS HEADACHE IS GONE AT THIS TIME. MD IN ROOM TO DISCUSS DISCHARGE PT WOUND DRESSINGS APPEAR CLEAN/ DRY/ INTACT. CMS INTACT AT THIS TIME. PT APPEARS A BIT DROWSY THIS AM
[2020-11-10] MEDS ORDERED: AUGMENTIN 875-1 EACH PO (15:30)
[2020-11-10] MEDS ORDERED: CIPRO500 MG PO (15:30)
[2020-11-10] MEDS ORDERED: NOVOLOG FL100 UNIT/1 SUB-Q (15:31)
[2020-11-10] MEDS ORDERED: LANTUS SOL100 UNIT/1 SUB-Q (15:31)
[2020-11-10] MEDS ORDERED: CLEOCIN HCL300 MG PO (15:31)
== END 2020-09-26 11:25 | disposition home or self-care (01) | DRG 854 ==
LOC: ED 12:20 → MS 15:18
PROVIDERS: ADMIT Internal Medicine; ATTEND Internal Medicine
PROC: 0KBW0ZZ Excision of Left Foot Muscle, Open Approach (ICD-10-PCS; principal; 2020-09-24)
PROC: 0J9R0ZZ Drainage of Left Foot Subcutaneous Tissue and Fascia, Open Approach (ICD-10-PCS; 2020-09-24)
DX: A40.1 Sepsis due to streptococcus, group B (principal); L03.116 Cellulitis of left lower limb; L02.612 Cutaneous abscess of left foot; L97.423 Non-pressure chronic ulcer of left heel and midfoot with necrosis of muscle; Z20.822 Contact with and (suspected) exposure to COVID-19; E11.621 Type 2 diabetes mellitus with foot ulcer; E11.65 Type 2 diabetes mellitus with hyperglycemia; I10 Essential (primary) hypertension; E66.9 Obesity, unspecified; I25.10 Atherosclerotic heart disease of native coronary artery without angina pectoris; Z79.899 Other long term (current) drug therapy; Z79.84 Long term (current) use of oral hypoglycemic drugs
CPT/HCPCS: 36415; 71045; 73630; 73723; 80048; 80053; 80202; 81001; 83036; 83605; 83735; 85025; 85651; 87040; 87070; 87075; 87077; 87186; 87205; 93005; 93010; 96365; 99285-25; A9577; C9803; J0692; J1815; J2543; J3370; J7030; J7040; J7050; J7121; U0003

== ENCOUNTER 2020-11-11 05:40 | Day surgery (SDC) | payer OTHER ==
[~2020-11-11] VITALS: Ht 188 cm; Wt 102.3 kg
[~2020-11-11 05:40] MED LIST changes: +AMOXICILLIN500 MG PO; +AUGMENTIN 875-1 EACH PO; +CLEOCIN HCL300 MG PO; +DOXYCYCLINE HY100 MG PO; +LANTUS SOL100 UNIT/1 SUB-Q; +NOVOLOG FL100 UNIT/1 SUB-Q; +PIOGLITAZONE HC30 MG PO; +TRULICITY3 MG/0.5 M SUB-Q
--- NOTE | 2020-11-11 08:44 | NUR ---
11/11/20 0844 Anh Rojas 0804 PT ARRIVED IN PACU SLEEPY WITH NO C/O'S. 0810 XRAY AT BEDSIDE DOING 3VIEW OF L FOOT. PT AWAKE AND TALKING TO STAFF. 0820 DC INSTRUCTIONS GIVEN. ALL QUESTIONS ANSWERED. L FOOT COVERED WITH STOCKENETTE AND POST OP SHOE. 0830 LEFT VIA W/C.
--- NOTE | 2020-11-16 11:28 | PATH ---
[facility] [address] [place], [place] [address] Signed SPECIMEN(S): A LEFT 2ND TOE SPECIMEN SOURCE: A. LEFT 2ND TOE CLINICAL HISTORY: Osteomyelitis. FINAL PATHOLOGIC DIAGNOSIS: Left second toe, disarticulation amputation: - Toe with skin ulceration and underlying viable bone. - Detached fragment of metatarsal bone with changes consistent with chronic osteomyelitis. - Bone surgical margin negative for acute osteomyelitis. NAL:cml:C2NR MICROSCOPIC EXAMINATION: Histologic sections of all submitted blocks are examined by light microscopy. These findings, together with the gross examination, support the pathologic diagnosis. GROSS DESCRIPTION: The specimen, labeled "RB, left second toe," is received in formalin and consists of toe that measure 4.2 x 2.5 x 1.7 cm. Distal part of the skin that measure 5.0 x 2.2 cm. The skin shows ulcerous defect that measure 0.6 cm in greatest dimension. Level of the amputation is within the MTP joint. The resection margin is articulated. Skin resection margin is inked and specimen is perpendicular resection through the skin defect. The underlying bone is pink-santacruz, trabeculated. Also present within the container one piece of the bone tissue that is consistent to metatarsal bone. It is measure 3.5 x 2.0 x 1.5 cm. One side of the bone is articulated other side is possible this bone resection margin. Possible bone resection margin is inked. Specimen is left for decalcification in Decal Stat prior processing. Cassette summary: (A1) toe, perpendicular section through skin defect (A2) possible bone resection margin, karl CHANG (under the direct supervision of a pathologist) Additional two perpendicular sections through the toe is submitted in single PATIENT NAME: PAT HERNANDEZ PATHOLOGY DATE OF : 61 REPORT #: [id number] PHYSICIAN: JEAN CLAUDE PATHOLOGY PCP: PRASANTH HURTADO MD REPORT IS CONFIDENTIAL AND NOT TO BE RELEASED WITHOUT AUTHORIZATION [facility] [address] [place] [address] Signed cassette (A3) per Dr. Bundy request. JS (under the direct supervision of a pathologist) The Gross Description was prepared using a voice recognition system. The report was reviewed for accuracy; however, sound-alike word errors, addition and/or deletions may occur. If there is any question about this report, please contact Client Services. PERFORMING LABORATORY: The technical component was performed by [facility] [address] ([employer]: Cherie Forbes MD; CLIA# [id number]). Professional interpretation was performed by [email or web address], [address] [address] (CLIA# [id number]). Diagnostician: Marilee Bundy MD Pathologist Electronically Signed 11/16/2020 Copies: ~ PATIENT NAME: PAT HERNANDEZ PATHOLOGY DATE OF : 61 REPORT #: [id number] PHYSICIAN: JEAN CLAUDE JONES PCP: PRASANTH HURTADO MD REPORT IS CONFIDENTIAL AND NOT TO BE RELEASED WITHOUT AUTHORIZATION
--- NOTE | 2020-11-19 13:43 | OR ---
[facility] [address] 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 PROCEDURE: Amputation of the left second digit and debridement of bone regarding the second metatarsal. CUSTODIAN ATHLETIC EQUIPMENT: Omar Costa DPM. NURSE SUPPLY CHAIN COORDINATOR: Ranulfo Michaud ANESTHESIA: Local with MAC. HEMOSTASIS: Ankle tourniquet. ESTIMATED BLOOD LOSS: Less than 5 mL or minimal. MATERIALS UTILIZED: 3-0 nylon and calcium sulfate absorbable beads with vancomycin mixed in. PROCEDURE IN DETAIL: The patient was brought into the operating room and placed upon the operating table in the supine position after IV sedation and total of approximately 10 mL of 1:1 mix of 0.5% ropivacaine and 2% lidocaine plain was injected about the patient's left second MTPJ. The left foot was then scrubbed, prepped and draped in a usual sterile technique. An Esmarch bandage was then utilized to exsanguinate the patient's left foot and then Electronically Signed By: KISHA MORRIS DPM 11/19/20 1343 PATIENT NAME: PAT HERNANDEZ OPERATIVE REPORT DATE OF : 61 REPORT #: [id number] PHYSICIAN: KISHA MORRIS DPM PCP: PRASANTH HURTADO MD REPORT IS CONFIDENTIAL AND NOT TO BE RELEASED WITHOUT AUTHORIZATION [facility] [address] [place], [place] [address] Signed left wrapped around the ankle to act as a tourniquet. Attention was then directed to the patient's left second MTPJ area, incision extending from the proximal one-third portion of the second metatarsal down to the base of the second digit and 2 elliptical incisions were performed to circumscribe the second digit coming up slightly on the medial and lateral aspect of the digit and then converging in the plantar aspect of the foot just distal to the second digit and metatarsophalangeal joint location. Incision was then deepened down through the subcutaneous tissue with care being taken to identify and retract vital neurovascular structures. Bleeders were cauterized and ligated as necessary. Dissection continued down to the level of bone and joint capsule. Please note that abundant amount of scar tissue was present in this area with a dusky discoloration secondary to previous infections. Minimal purulent drainage was encountered. This appear to come from the joint itself. Cultures were taken both anaerobic and aerobic. The sot tissue was then freed from around the base of the proximal phalanx and the second digit was then excised. Next, attention was then directed around the metatarsal. The distal one-third of the metatarsal had signs of multiple small fractures and bone callus formations from pathological and trauma. Dissection along the second metatarsal was performed proximally and removing soft tissue attachments to the diaphyseal portion of the metatarsal. A sagittal saw was utilized to resect the bone in the diaphyseal region and the distal 50 to 60% of the head of the metatarsal was excised. At the level of the osteotomy, bone was solid, good coloration was noted. No sign of active or previous infection noted. After removal of the metatarsal, portion of surrounding soft tissue was inspected. A forceps tenotomy and a rongeur was then utilized to debride the cavity that was present removing unhealthy appearing avascular tissue. The area was then flushed with copious amounts of sterile normal saline. Calcium sulfate beads were then placed within the cavity that had been created. The skin was then closed and reapproximated utilizing 3-0 nylon in a simple interrupted suture technique. Adaptic xeroform fluff gauze and coban were then applied. Ankle tourniquet was removed and prompt hyperemic response was noted to all digits of the patient's let foot. The patient had tolerated the procedure and the anesthesia well. The patient was then escorted to the PACU for recovery by anesthesia with vital signs stable. Following a period of postoperative monitoring, the patient was discharged to home with both written and oral instructions. Kisha Morris DPM TM/MODL /[id number] Electronically Signed By: KISHA MORRIS DPM 11/19/20 1343 PATIENT NAME: PAT HERNANDEZ OPERATIVE REPORT DATE OF : 61 REPORT #: [id number] PHYSICIAN: KISHA MORRIS DPM PCP: PRASANTH HURTADO MD REPORT IS CONFIDENTIAL AND NOT TO BE RELEASED WITHOUT AUTHORIZATION [address] [address] Signed Copies: ~ Electronically Signed By: KISHA MORRIS DPM 11/19/20 1343 PATIENT NAME: PAT HERNANDEZ OPERATIVE REPORT DATE OF : 61 REPORT #: [id number] PHYSICIAN: KISHA MORRIS DPM PCP: PRASANTH HURTADO MD REPORT IS CONFIDENTIAL AND NOT TO BE RELEASED WITHOUT AUTHORIZATION
== END 2020-11-11 08:30 | disposition home or self-care (01) ==
LOC: DS 05:40 → OPS 05:40 → DS 06:45 → OPS 06:45
PROVIDERS: ATTEND Podiatrist Foot & Ankle Surgery
PROC: 0QBP0ZZ Excision of Left Metatarsal, Open Approach (ICD-10-PCS; 2020-11-11)
PROC: 0Y6S0Z0 Detachment at Left 2nd Toe, Complete, Open Approach (ICD-10-PCS; principal; 2020-11-11 06:45)
DX: E11.69 Type 2 diabetes mellitus with other specified complication (principal); M86.172 Other acute osteomyelitis, left ankle and foot; E11.621 Type 2 diabetes mellitus with foot ulcer; L97.522 Non-pressure chronic ulcer of other part of left foot with fat layer exposed; L97.424 Non-pressure chronic ulcer of left heel and midfoot with necrosis of bone; L03.116 Cellulitis of left lower limb; E11.42 Type 2 diabetes mellitus with diabetic polyneuropathy; E11.51 Type 2 diabetes mellitus with diabetic peripheral angiopathy without gangrene; I10 Essential (primary) hypertension; F17.200 Nicotine dependence, unspecified, uncomplicated; Z79.4 Long term (current) use of insulin
CPT/HCPCS: 01480; 73630; 88305; 88311; C1713; J2704; J2795; J3370; J7121

== ENCOUNTER 2021-01-18 08:34 | Inpatient (IN) | payer OTHER ==
[~2021-01-18] VITALS: Ht 188 cm; Wt 106.0 kg
[2021-01-18] MEDS ORDERED: CIPROFLOXACIN500 MG PO (09:12)
--- NOTE | 2021-01-18 14:03 | NUR ---
PATIENT AWAKE IN BED, VITALS CHARTED. LUNCH DELIVERED. JUDITH LIGHT IN REACH
--- NOTE | 2021-01-18 15:28 | NUR ---
PT ADMITTED TO MED-SURG EARLIER THIS SHIFT ALERT AND COOPERATIVE. SELF TRANSFERS TO BED FROM STRETCHER. C/O PAIN AND HUNGER. ASSESSMENT AND ADMISSION COMPLETE. LUNCH PROVIDED AND MEDICATED WITH 0.5 MG DILAUDID. HE AGREE'D THIS WAS EFFECTIVE FOR HIM. PT CALLS DR VELASCO OFFICE TO CANCEL FOOT APPT HE HAD FOR TOMORROW, HE REQUESTED MD SEE HIM HERE. WOUND ON SOLE OF LEFT FOOT WAS OPEN TO AIR, CLEANSED AND COVERED FOR NOW. PT RESTING IN BED WATCHING TV, CALL LIGHT AND NEEDED ITEMS IN REACH.
[2021-01-18] MEDS ORDERED: TRULICITY4.5 MG/0.5 SUB-Q (17:32)
[2021-01-18] MEDS ORDERED: JARDIANCE10 MG PO (17:33)
--- NOTE | 2021-01-18 18:34 | NUR ---
Patient is talking with doctor. Vitals, I&Os are complete.
--- NOTE | 2021-01-18 18:37 | NUR ---
DR JOINER IN TO SEE THIS PT CHANGES FOOT DRESSING DISCUSSES PLAN GOING FORWAWRD R/T SURGERY.
--- NOTE | 2021-01-18 19:58 | EKG ---
[facility] [address] [facility] [place], [place] [address] Signed Sinus tachycardia Otherwise normal ECG When compared with ECG of 23-SEP-2020 12:57, No significant change was found Confirmed by OLIVIA DEL RIO DO ([id number]) on 01/18/2021 7:57:51 PM Electronically Signed By: OLIVIA DEL RIO DO 01/18/211957 PATIENT NAME: DAVIDPAT Electrocardiogram DATE OF : 61 PHYSICIAN: OLIVIA DEL RIO DO REPORT #: [id number] REPORT IS CONFIDENTIAL AND NOT TO BE RELEASED WITHOUT AUTHORIZATION
--- NOTE | 2021-01-18 20:34 | NUR ---
pt RESTING IN BED. INDEPENDENT TO BED SIDE TO VOID IN URINAL, URINAL EMPTIED. ICE WATER PROVIDED. pt RATES PAIN 8/10 IN LEFT SHOULDER. PRN PAIN MEDICATION AND PATCH APPLIED. ASSESSMENT COMPLETE. CBG 399. SCHEDULED INSULIN ADMINISTERED. IV SITES FLUSHED WNL, IV ANTIBIOTICS AND IVF INFUSING ORDERED. CALL LIGHT IN REACH.
--- NOTE | 2021-01-18 21:10 | NUR ---
IN pt ROOM FOR INSULIN CO SIGN. pt RESTING IN BED STATES "MAN THAT PAIN PILL WAS STRONG." DENIES PAIN AT THIS TIME, DROWSY. DENIES NEEDS. CALL LIGHT IN REACH. IV ANTIBIOTIC AND IVF INFUSING WNL.
--- NOTE | 2021-01-18 22:59 | NUR ---
pt DROWSY, RESTING IN BED AWAKE. IV ANTIBIOTIC INFUSING WNL. pt DENIES ANY PAIN. LEFT LEG ELEVATED ON PILLOW. URINAL EMPTIED. CALL LIGHT IN REACH.
--- NOTE | 2021-01-18 23:45 | NUR ---
PT CALLED, IV ALARMING. ABX COMPLETE. FLUSHED LEFT HAND IV. EYES OPEN TO SOUND, THEN CLOSED. NO OTHER NEEDS NOTED.
--- NOTE | 2021-01-19 00:39 | NUR ---
CALL LIGHT ANSWERED. pt COMPLAINS OF 10/10 PAIN IN LEFT SHOULDER AFTER GETTING UP FOR VOID. PRN PAIN MEDICATION ADMINISTERED. ICE PACK FOR SHOULDER. URINE EMPTIED. CALL LIGHT IN REACH.
--- NOTE | 2021-01-19 02:30 | NUR ---
IN pt ROOM FOR SCHEDULED MEDICATION ADMINISTRATION. URINAL EMPTIED. VSS. pt C/O 10/01 PAIN IN LEFT SHOULDER AFTER UP FOR VOID AT SIDE OF BED. ASSISTED TO REPOSITION IN BED. LEFT LEG ELEVATED. ASSESSMENT COMPLETE. CALL LIGHT IN REACH. NO ADDITIONAL NEEDS.
--- NOTE | 2021-01-19 03:37 | NUR ---
CALL LIGHT ANSWERED. IV ANTIBIOTIC COMPLETE. IV SL. pt DROWSY, RESTING IN BED WITH EYES CLOSED. NO NEEDS AT THIS TIME.
--- NOTE | 2021-01-19 06:25 | NUR ---
pt AWAKENS TO RN ENTERING ROOM. VSS. pt C/O 9-10/10 PAIN IN LEFT SHOULDER WITH MOVEMENT. PRN PAIN MEDICATIONS ADMINISTERED. URINAL EMPTIED. IV ANTIBIOTIC INFUSING WNL. ICE WATER PROVIDED. CALL LIGHT IN REACH.
--- NOTE | 2021-01-19 08:10 | NUR ---
PT UP TO THE CHAIR FOR MORNING MEAL C/O 01/31 LEFT SHOULDER CABRERA. DILAUDID ADMINISTERED.
--- NOTE | 2021-01-19 08:54 | NUR ---
SPOKE WITH PATIENT IN ROOM. PATIENT IS UP IN CHAIR HAVING BREAKFAST. PATIENT LIVES WITH MOTHER AND HER ADULT FRIEND. HE STATES MOM DOES HOUSEWORK, SHOPPING, COOKING AND DRIVES HIM TO APPOINTMENTS. HE DOES NOT DRIVE. STATES HE WILL RETURN HOME WITH HER AT DISCHARGE, FEELS SAFE TO DO SO. DENIES USING DME AT HOME. STATES THEY DO HAVE A WALK-IN SHOWER AND SEAT. STATES HE HAS NO FINANCIAL WORRIES FOR MEDS/FOOD/UTILITIES. HE IS ON DISABILITY. HE STATES HE GETS FOOD CARD. HE DOES NOT HAVE ANY IN-HOME CAREGIVERS OTHER THAN MOM. MOTHER IS IN HER 80'S BUT HE STATES "SHE DOES REAL GOOD". HE IS FINE WITH US CALLING HER IF WE NEED TO. CALLED MOTHER HILDA. SHE STATES SHE IS PLANNING ON HIM RETURNING HOME AND VERIFIED ALL HIS ACCOUNT. SHE STATES THEY DO HAVE CANES THERE IF NEEDED. SHE HAS NO QUESTIONS, JUST STATES "I HOPE HE LISTENS AND FOLLOWS INSTRUCTIONS". DISCUSSED WE WILL KNOW OF WHAT HE NEEDS AFTER SURGERY.
--- NOTE | 2021-01-19 09:45 | NUR ---
Offered patient shower. Patient accepted happily. This PRODUCTION FOREMAN plans on helping patient with shower after lunch time.
--- NOTE | 2021-01-19 09:57 | NUR ---
TOLERATES MORNING MEAL RETURNS TO BED FROM CHAIR, ENCOURAGED TO ELEVATE LOWER EXTREMITY THROUGHOUT THE DAY. PT VERBALIZES UNDERSTANDING. AGREES PAIN MED HAS BEEN EFFECTIVE, RESTING COMFORTABLY NOW. CALL LIGHT AND NEEDED ITEMS IN REACH. DR DEL RIO IN TO SEE PT DISCUSSED NEED FOR MRI AND PLAN GOING FORWARD. PT DENIES ANY QUESTIONS.
--- NOTE | 2021-01-19 12:39 | NUR ---
PT HAS RESTED IN BED SINCE MORNING MEAL, LLE ELEVATED ON A PILLOW. NOON MEAL SERVED PT C/O BACK AND SHOULDER PAIN REPORTS IT'S QUITE SEVERE, PT APPEARS TO BE CRYING. OXY 5 MG ADMINISTERED. HE HAS STATED PREVIOUSLY "THAT KICKED MY BUTT" WHEN GIVEN THE SAME AMOUNT SO 10 MG NOT ADMINISTERED. HE IS RELAXED NOW EATING HIS MEAL.
--- NOTE | 2021-01-19 13:33 | NUR ---
PT DOWN TO MRI
--- NOTE | 2021-01-19 14:22 | NUR ---
PT BACK FROM MRI, WELL TOLERATED. TO THE SHOWER NOW, FOOT COVERED
--- NOTE | 2021-01-19 14:45 | NUR ---
Patient in bed complaining of pain. Wrapped patients IV sites and left foot in plastic. Got patient in shower and changed bed linens. Patient independent in shower. Patient now back in bed. Call light within reach. No further needs at this time.
--- NOTE | 2021-01-19 16:08 | NUR ---
PT RESTING IN BED NOW TALATIVE AND CHEERFUL NO C/O PAIN. IV INFUSING
--- NOTE | 2021-01-19 18:23 | NUR ---
PT SITTING UP IN BED EATING EVENING MEAL
--- NOTE | 2021-01-19 18:33 | NUR ---
PT LAYING FLAT ON BACK TO EAT STEAK AND SALMON. THIS FELLING MACHINE OPERATOR SAT THE PT UP IN BED AND ADVISED THE PT TO STAY THAT WAY TO EAT. PT AGREEABLE. THIS FELLING MACHINE OPERATOR CHECKED ON PT 5 MINUTES LATER AND PT WAS FLAT ON BACK AGAIN. THIS FELLING MACHINE OPERATOR ADVISED THE PT SIT BACK UP BEFORE EATING AGAIN, PT AGREEABLE. SHABNAM MCKEON NOTIFIED OF EVENTS.
[2021-01-19] MEDS ORDERED: LISINOPRIL20 MG PO (18:41)
--- NOTE | 2021-01-19 18:41 | NUR ---
MED REC COMPLETE
--- NOTE | 2021-01-19 18:45 | NUR ---
PATIENT SITTING UP IN BED TALKING. VITALS AND I&O'S CHARTED. CALL LIGHT IN REACH. NO FURTHER NEEDS AT THIS TIME.
--- NOTE | 2021-01-19 19:20 | NUR ---
REPORT RECEIVED FROM SHABNAM MCKEON. pt RESTING IN BED. CALL LIGHT IN REACH.
--- NOTE | 2021-01-19 21:12 | NUR ---
IN pt ROOM FOR SCHEDULED ANTIBIOTIC ADMINISTRATION. IV SITES FLUSHED WNL. IV ANTIBIOTICS INFUSING ORDERED. PRN PAIN MEDICATION ADMINISTERED FOR PAIN IN LEFT SHOULDER 12/01. ASSESSMENT COMPLETE. VSS. LEFT LEG ELEVATED ON PILLOW. DISCUSSED NPO AT 0000, pt VERBALIZES UNDERSTANDING. CALL LIGHT IN REACH.
--- NOTE | 2021-01-19 21:50 | NUR ---
Patient is asking about pain meds and said his shoulder is hurting. I&Os are complete.
--- NOTE | 2021-01-19 23:09 | NUR ---
CALL LIGHT ANSWERED. pt C/O PAIN, "THE ONLY THING THAT WORKED WAS THAT PATCH THAT THEY TOOK OFF BEFORE MY MRI". LIDODERM PATCH RETIMED AND PLACED ON BACK. PRN DILADUDID ADMINISTERED FOR 10 PAIN. pt STATES "I'M DAMN NEAR GOING TO BE SUICIDAL IF WE DON'T GET THIS UNDER CONTROL". pt DENIES SUICIDAL IDEATIONS WITH DISCUSSION. STATES "I JUST CAN'T LIVE LIKE THIS THOUGH". DISCUSSED PLAN FOR PAIN CONTROL. pt AGREEABLE, RESTING IN BED. CALL LIGHT IN REACH.
--- NOTE | 2021-01-20 00:10 | NUR ---
CHECKED ON pt. RESTING IN BED ON BACK WITH EYES CLOSED. BREATHING UNLABORED. LIGHTS OFF IN ROOM.
--- NOTE | 2021-01-20 02:20 | NUR ---
pt SLEEPING, AWAKENS TO VOICE. COMPLAINS OF PAIN 6/10 AT REST, 9-10/10 WITH MOVEMENT IN BACK AND LEFT SHOULDER. PRN PAIN MEDICATION ADMINISTERED WITH SIP OF WATER. IV FLUSHED WNL, IV ANTIBIOTICS INFUSING ORDERED. ASSESSMENT COMPLETE. CALL LIGHT WITHIN REACH. pt NPO, REMINDED OF NPO STATUS, VERBALIZES UNDERSTANDING.
--- NOTE | 2021-01-20 03:45 | NUR ---
IN pt ROOM FOR IV ANTIBIOTIC. pt RESTING IN BED. EYES CLOSED, BREATHING UNLABORED. RR 16. LIGHTS OFF IN ROOM.
--- NOTE | 2021-01-20 04:12 | NUR ---
IV PUMP ALARMING, DISTAL AIR, LINE BACKPRIMED AND ANTIBIOTIC NOW INFUSING WNL. pt AWAKENS BRIEFLY AND BACK TO SLEEP. CALL LIGHT IN REACH.
--- NOTE | 2021-01-20 06:24 | NUR ---
pt UP TO SIDE OF BED FOR SURGERY WIPE DOWN. RN ASSIST. LINENS, GOWN CHANGED. IV ANTIBIOTIC INFUSING WNL. pt COMPLAINS OF STIFFNESS ALL OVER "I FEEL LIKE I'M 89 YEARS OLD OVER NIGHT". CALMS WITH REASSURANCE. SURGERY TO ROOM AT THIS TIME TO TAKE pt.
--- NOTE | 2021-01-20 06:33 | NUR ---
PT OFF FLOOR TO SURGERY.
--- NOTE | 2021-01-20 07:30 | NUR ---
TOOK REPORT ON PT TIN BERNABE RN. PT CURRENTLY IN SURGERY.
--- NOTE | 2021-01-20 09:11 | NUR ---
01/20/21 0911 Anh Rojas 0854 PT ARRIVED IN PACU NON RESPONSIVE TO NOXIOUS STIMULI WITH OPA IN PLACE. BLOOD SUGAR 281. NO NEW ORDERS AT THIS TIME.
--- NOTE | 2021-01-20 09:15 | NUR ---
PT REMAINS IN SURGERY.
--- NOTE | 2021-01-20 10:02 | NUR ---
PT RETURNED FROM SURGERY TO RM 125. PT NOT REQUIRING O2 AT THIS TIME. PT LAYING IN BED WITH EYES CLOSED BUT IS ANSWERING QUESTIONS AND OPENS EYES WHEN ASKED.
--- NOTE | 2021-01-20 10:53 | NUR ---
PT IN ROOM SLEEPING. PT REMAINS RESPONCIVE TO VERBAL STIMULI. CALL LIGHT IN REACH. PT GETTING ABX CURRENTLY.
--- NOTE | 2021-01-20 12:44 | NUR ---
CHECKING ON PT FOLLOWING SURGERY-STILL ASLEEP. WILL FOLLOW
--- NOTE | 2021-01-20 18:44 | NUR ---
PT HAD SURGERY THIS AM TO DEBRIDE HIS L FOOT. PT SLEPT FOR A FEW HRS AFTER THIS AND WOKE TO EAT ALL OF A LATE LUNCH.
--- NOTE | 2021-01-20 19:20 | NUR ---
SHIFT REPORT RECEIVED FROM MEGHA HAQUE. PT RESTING IN BED. NO NEEDS AT THIS TIME. CALL LIGHT IN REACH.
--- NOTE | 2021-01-20 20:05 | NUR ---
PROVIDED PATIENT WITH FRESH ICE WATER, TIDIED ROOM, EMPTIED TRASH, CALL LIGHT LEFT WITHIN REACH. NO OTHER IMMEDIATE NEEDS AT THIS TIME
--- NOTE | 2021-01-20 20:34 | NUR ---
SCHEDULED MED PROVIDED.
--- NOTE | 2021-01-20 21:07 | NUR ---
PT CBG 421. MD NOTIFIED BY PHONE. VERBAL ORDERS GIVEN FOR A ONE TIME DOSE OF 15 UNITS LISPRO FOR THE SLIDING SCALE AND TO CONTINUE WITH THE SCHEDULED SEMGLEE. ORDERS REPEATED BACK.
--- NOTE | 2021-01-20 21:39 | NUR ---
PATIENT VITALS IS AND OS CHARTED. ROOM TIDIED, FRESH ICE WATER PROVIDED, CALL LIGHT LEFT WITHIN REACH. NO OTHER IMMEDIATE NEEDS AT THIS TIME.
--- NOTE | 2021-01-20 21:43 | NUR ---
PATIENT CALLED AND REQUESTED PRN PAIN MEDICATION FOR 8/10 PAIN IN HIS BACK. PATIENT GIVEN PRN PAIN MEDICATION PER ORDER.
--- NOTE | 2021-01-20 21:55 | NUR ---
ASSESSMENT COMPLETED. GCS 15, A&O X4. LUNGS CLEAR, HEAR TOMES REGULAR. IVs CDI, WNL, FLUSHED WELL. PT REPORTS 10/10 BACK PAIN, PRN PAIN MED PROVIDED. LEFT FOOT DRESSING CDI. PULSES INTACT IN FEET. PT REPORTS NUMBNESS IN FEET, MOTOR INTACT. PT TELLING STORIES OF BEING GOD AND JOSHUA AND BEING [age] YEARS OLD. PT STATRTS CRYING ABOUT BEING THE SON OF GOD. PT REORIENTED. NUMBNESS IN HANDS REPORTED. SCHEDULED MEDS PROVIDED. ABD SOFT, NONTENDER, BOWEL TONES ACTIVE. NO OTHER NEEDS AT THIS TIME. CALL LIGHT IN REACH.
--- NOTE | 2021-01-21 | NUR ---
PT RESITNG IN BED, WATCHING TV. NO NEEDS AT THIS TIME. CALL LIGHT IN REACH.
--- NOTE | 2021-01-21 02:47 | NUR ---
ASSESSMENT COMPLETED. PT REPORTS 10/10 BACK PAIN. PRN PAIN MEDS PROVIDED. MOTOR AND PULSE INTACT IN EXTREMITIES. PT REPORT NUMBNESS IN EXTREMITIES. IVs WNL. SCHEDULED MEDS PROVIDED. LLE REDNESS UNCHANGED. NO OTHER NEEDS AT THIS TIME. CALL LIGHT IN REACH.
--- NOTE | 2021-01-21 02:50 | NUR ---
in to get vitals, i&os done, rn informed of current vitals, no further needs
--- NOTE | 2021-01-21 04:11 | NUR ---
SCHEDULED MED PROVIDED. PT RESTING IN BED, EYES CLOSED. RR EVEN, UNLABORED. CALL LIGHT IN REACH.
--- NOTE | 2021-01-21 05:09 | NUR ---
BED ALARM SOUNDING, pt ATTEMPTING TO GET OUT OF BED INDEPENDENTLY. IV LINES STRETCHED. INCONTINENT IN BED. LINENS CHANGED. ATTENDS IN PLACE. pt REQUESTING PAIN MEDICATION. PRIMARY RN NOTIFIED. BED ALARM ON.
--- NOTE | 2021-01-21 05:29 | NUR ---
PT REPORTS 9/10 BACK PAIN, PRN PAIN MED PROVIDED. ICE WATER PROVIDED. VS AND I&O COMPLETED. NO OTHER NEEDS AT THIS TIME. CALL LIGHT IN REACH.PT TALKING ABOUT HIS INSULIN BEING POISONED. REORINETED.
--- NOTE | 2021-01-21 07:00 | NUR ---
PT REPORTS 10/10 BACK PAIN. PRN PAIN MEDS PROVIDED. NO OTHER NEEDS AT THIS TIME. CALL LIGHT IN REACH.
--- NOTE | 2021-01-21 10:00 | NUR ---
DR AGUIRRE UPDATED ME SHE SPOKE WITH PATIENT. HE IS INTERESTED IN SNF FOR ABX THERAPY.
--- NOTE | 2021-01-21 11:00 | NUR ---
PATIENT STATES THAT HE WILL GO TO SNF FOR REHAB/ABX THERAPY. HE HAS BEEN TO [facility] IN THE PAST. THIS IS HIS FIRST CHOICE. TRIED TO CALL [facility] X 2 LEFT MESSAGES.
--- NOTE | 2021-01-21 11:21 | NUR ---
REPORT RECEIVED FROM NIGHT RN AND PT. CARE RESUMED. PT. IS ALERT AND ORIENTED. HE REPORTS PAIN ALL OVER HIS SKIN, ESOPHAGUS, LEFT SHOULDER, BACK THAT HE ATTRIBUTES TO A VIRAL INFECTION. PT. APPEARS RELAXED AND IS EATING BREAKFAST. DISCUSSED ADMIN. PAIN MEDS WHEN DUE AND HE IS AGREEABLE. LEFT FOOT DRESSING IS CDI AND GENERALIZED EDEMA PRESENT IN L. FOOT. LUNGS CLEAR THROUGOUT. IV SITES WNL AND FLUSHES WELL. DISCUSSED POC AND MEDS. LEFT RESTING WITH CALL LIGHT IN REACH.
--- NOTE | 2021-01-21 13:50 | NUR ---
CALLED [facility] AND THEY COULD NOT LOCATE DRIVER/MERCHANDISER JUSTINA. THEY STATE THEY WILL SEND AN EMAIL TO HER.
--- NOTE | 2021-01-21 15:23 | NUR ---
PT IS SLEEPING AND LIGHTLY SNORING. HE STATES HE DID NOT EAT HIS LUNCH BUT WILL GET TO IT. MIDLINE FLUSHES WELL AND RETURNS BLOOD. LEFT FOOT HAS BEEN DRESSED BY MD. DRESSING CDI. LUNGS CLEAR THROUGHOUT. PT. ORIENTED TO ALL BUT DATE. IV ABX INFUSING. PT. LEFT RESTING WITH CALL LIGHT IN REACH.
--- NOTE | 2021-01-21 15:27 | NUR ---
TRIED MULTIPLE TEXTS, CALLS FOR PRESCHOOL ASSISTANT DIRECTOR AT [facility]. WENT AHEAD AND FAXED REFERRAL PACK. RECEIVED MESSAGE AT 1455 STATING THEY ALREADY HAVE A ADMIT ON MONDAY AND MONDAY AND NOT TAKING ANY OVER WEEKEND. CALLED NESSA AT [facility]. THEY ARE ABLE TO TAKE LIMITED PATIENTS. STATES TO FAX CHART REFERAL. THIS WAS DONE. CONFIRMATION AT 316PM.
--- NOTE | 2021-01-21 16:13 | OR ---
[facility] [address] [place], [place] [address] Signed DATE OF OPERATION: 01/20/2021 SURGEON: Kisha Morris DPM PREOPERATIVE DIAGNOSIS: Osteomyelitis, third metatarsophalangeal joint, left foot. POSTOPERATIVE DIAGNOSIS: Osteomyelitis, third metatarsophalangeal joint, left foot. PROCEDURE: Amputation of left third digit remnant and third metatarsal debridement. FIRE SPRINKLER FITTER: Omar Costa DPM. NURSE JACKSCREW MAN: Santos Hackett ANESTHESIA: General. ESTIMATED BLOOD LOSS: Less than 5 mL or minimal. HEMOSTASIS: Ankle tourniquet. MATERIALS UTILIZED: Stimulan calcium sulfate beads mixed with one-third gram of vancomycin, 3-0 nylon. PROCEDURE IN DETAIL: The patient was brought into the operating room and placed upon the operating table in the supine position. Following general anesthesia, the left foot was scrubbed, prepped, and draped in the usual sterile technique. An Esmarch bandage was then wrapped around the patient's left foot and ankle region and left wrapped around the ankle to act as tourniquet. Attention was then directed to the dorsal aspect of the patient's left foot, where approximately a 6-8 cm incision was performed over the third metatarsal cuneiform joint extending down to the metatarsophalangeal joint. The distal aspect of the incision was divided to creat an ellipse around the remnant of the third digit. Electronically Signed By: KISHA MORRIS DPM 01/21/21 1613 PATIENT NAME: PAT HERNANDEZ OPERATIVE REPORT DATE OF : 61 REPORT #: [id number] PHYSICIAN: KISHA MORRIS DPM PCP: PRASANTH HURTADO MD REPORT IS CONFIDENTIAL AND NOT TO BE RELEASED WITHOUT AUTHORIZATION [facility] [address] [place], [place] [address] Signed This was performed utilizing #15 blade. The #15 blade was then utilized to go down to the subcutaneous tissue with care being taken to identify and retract vital neurovascular structures. Bleeders were cauterized and ligated as necessary. Dissection around the proximal phalanx remnant was performed first. Joint capsule around the metatarsophalangeal joint was excised and the proximal phalanx remnant removed. The incision was performed down to the soft tissue adjacent to bone throughout the majority of the third metatarsal length. At this time, santacruz purulent drainage was noted adjacent to bone, seem to accompany the bone area, it did not track up the tendon regions either dorsally or plantarly. Wound cultures were obtained. Next, bone clamp was utilized to hold the metatarsal shaft in the distal fragment portions. Soft tissue was freed from around the bone utilizing bateman elevator. The majority of the metatarsal was excised without much dissection, if doubt the bone had fractured more proximally previously leaving the base of the third metatarsal intact. Majority of the metatarsal was removed. The third metatarsal head also fractured and was removed and from the shaft. Next, attention was directed towards the base. A sagittal saw was utilized to create an osteotomy in the most proximal metaphyseal region of the third metatarsal leaving the articular surface; however, hard and healthy appearing bone was noted in this area. Next, rongeur was utilized to remove the scar tissue and unhealthy appearing soft tissue that was more resilient in texture and in feel and in coloration having a spaulding yellow to marte hue to it. Avascular structures such as pin and were also excised from within the cavity that was created from excising the metatarsal. The cavity was then flushed with copious amounts of sterile normal saline, vacuumed and the area inspected. Plantar wound was still present that was driven through the integument. The surrounding tissue appeared to be somewhat stable. The unhealthy tissue was excised. It appeared generally overall that the purulent drainage was pretty much around the metatarsal itself and did not seem to track significantly into other locations. It does not also appear to be an active bacterial infection in the soft tissue, however, the soft tissue damage had occurred. This appeared to be more necrosis and active bacterial from within the both cavity that caused this infection. Rongeur was utilized to excise calcifications as well as tissue forceps and #64 blade or tenotomy calcifications that have surrounded the third metatarsal in the soft tissue were excised, area was palpated frequently to discover areas. Intraoperative fluoroscopy was also utilized to visualize the left foot inspecting for bone fragment that remained as well as calcifications within the soft tissue. The cavity was appeared to be good with good results from the debridement removing the majority of the calcifications also, again no active sign of bacterial infection. Calcium sulfate beads with vancomycin noted above were then placed within the wound area, approximately one-third of the total beads were utilized. Area was then closed utilizing 3-0 nylon in the horizontal mattress and vertical mattress suture techniques. The surgical site was then dressed with Adaptic, Betadine soaked gauze, fluff gauze, Coban. On the plantar aspect of the wound was packed with Iodoform, plain gauze, and ABD pad was also placed to catch the drainage, this was incorporating Electronically Signed By: KISHA MORRIS DPM 01/21/21 1613 PATIENT NAME: PAT HERNANDEZ OPERATIVE REPORT DATE OF : 61 REPORT #: [id number] PHYSICIAN: KISHA MORRIS DPM PCP: PRASANTH HURTADO MD REPORT IS CONFIDENTIAL AND NOT TO BE RELEASED WITHOUT AUTHORIZATION [facility] [address] [place] [address] [place]Prince [place], [place] [address] Signed with the roll guaze and then Coban was placed over the foot structure for compression in the outer layer. Ankle tourniquet was removed. Prompt hyperemic response was noted to the remaining digits of the patient's left foot. The patient tolerated the procedure and the anesthesia well. He was escorted to the recovery area by Anesthesia and following the period of postoperative monitoring, he was readmitted to the general medical floor with medications are reinstated. VINCENT Martinez/BEKAH /[id number] Copies: ~ Electronically Signed By: KISHA MORRSI DPM 01/21/21 1613 PATIENT NAME: PAT HERNANDEZ OPERATIVE REPORT DATE OF : 61 REPORT #: [id number] PHYSICIAN: KISHA MORRIS DPM PCP: PRASANTH HURTADO MD REPORT IS CONFIDENTIAL AND NOT TO BE RELEASED WITHOUT AUTHORIZATION
--- NOTE | 2021-01-21 17:23 | NUR ---
BED ALARMING. PT. FOUND CRYING. PT. STATES HIS BACK HURTS WHEN HE TRIES TO MOVE. HE IS YELLING AND STATING HE HAS NEVER HAD THIS PAIN BEFORE. PT. ASSISTED WITH REPOSITIONING AND PAIN MED. ADMIN. PT. REASSURED AND COACHED WITH BREATHING AND RELAXATION. LEFT RESTING WITH BED ALARM ON
--- NOTE | 2021-01-21 19:15 | NUR ---
SHIFT REPORT RECEIVED FROM DAYSHIFT SHABNAM REICH AT BEDSIDE, pt AWAKE AND RESTING IN BED FLAT. DRESSING TO LLE INTACT, SMALL AMOUNT OF SEROSANGUINEOUS SHADOWING TO TOP OF DRESSING NEAR TOES NOTED, WILL MONITOR. pt APPEARS COMFORTABLE AT THIS TIME, WILL MONITOR. CALL LIGHT IN REACH.
--- NOTE | 2021-01-21 20:44 | NUR ---
ASSESSMENT COMPLETE, SCHEDULED MEDS GIVEN ALSONG WITH PRN PAIN MEDICATION FOR 10/10 PAIN WHEN MOVING. pt REPORTS PAIN IS 8-9/10 WHEN IN BED AND RESTING. pt REPORTS LARGE AMOUNT OF PAIN IS IN BACK AND REPORTS SLEEPING FLAT ON HIS BACK IS MOST COMFORTABLE. pt A/O TO SELF, PLACE, DATE, AND TIME, BUT HAS HX OF GRANDIOSE IDEAS/THOUGHTS. BED ALARM ON FOR SAFETY. MIDLINE WNL, BRISK BLOOD RETURN NOTED. IV VANCO INFUSING, SITE WNL. UNABLE TO OBTAIN LLE PEDAL PULSE D/T DRESSING, DRESSING INTACT, SMALL AMOUNT SEROSANGUINEOUS SHADOWING NOTED TO TOP OF GAUZE DRESSING NEAR TOES, WILL MONITOR. ELEVATED IN BED WITH CHUCKS/PILLOW. CALL LIGHT IN REACH.
--- NOTE | 2021-01-21 21:50 | NUR ---
CALL LIGHT ANSWERED, pt STATES, "I NEED THE SHOT IN MY IV, MY BACK HURTS REALLY BAD". INCREASED ANXIOUSNESS/RESTLESSNESS NOTED, PRN PAIN MEDICATION GIVEN FOR 10/10 PAIN, IV SITE WNL TO LEFT HAND. NO FURHTER NEEDS, CALL LIGHT IN REACH. MIDLINE FLUSHED PER POLCIY AND SALINE LOCKED, IV VANCO COMPLETE.
--- NOTE | 2021-01-21 22:30 | NUR ---
IN ROOM TO ROUND ON pt, pt RESTING IN BED WITH EYES CLOSED AND RR EVEN AND UNLABORED. NO DISTRESS NOTED, CALL LIGHT IN REACH. BED ALARM REMAINS ON FOR SAFETY.
--- NOTE | 2021-01-22 00:15 | NUR ---
BED ALARM SET OFF, PT UP TRYING TO LOCATE THE BATHROOM, PT IN TO HAVE BM, BACK TO BED, PT HAVING PAIN NOW, BACK, SHOULDER, AND FOOT, 01/31, RN IS AWARE, WILL BE IN TO CHECK ON PT, BED ALARM IS SET
--- NOTE | 2021-01-22 00:35 | NUR ---
INFORMED BY EMBER MCBRIDE, pt WOKE UP AND WAS ATTEMPTING TO GET OOB TO VOID AND IS REPORTING INCREASED PAIN. THIS RN IN ROOM TO ASSESS, BY THIS TIME pt HAD VOIDED AND HAD BM WITH HELP FROM EMBER MCBRIDE. PER SERVICE ORDER DISPATCHER, pt HAD SMEAR FOOT LIKE PRINTS ON FLOOR D/T BLOOD ON DRESSING. SMALL AMOUNT OF INCREASED SHADOWING NOTED TO LLE DRESSING, ALSO ASSESSED BY CHIEF SCIENTIFIC OFFICER NANCY. SITE REINFORCED WITH ABD PAD AND COBAN, WILL MONITOR. PO PAIN MEDICATION GIVEN FOR 10/10 PAIN, pt EDUCATED ON PAIN MEDICATION OPTIONS, THERAPEUTIC COMMUNICATION ALSO PROVIED. BED ALARM ON FOR SAFETY, pt EDUCATED TO USE CALL LIGHT BEFORE GETTING OOB, pt VERBALIZED UNDERSTANDING, WILL MONITOR. LLE ELEVATED WITH PILLOWS AND CHUCKS. CALL LIGHT IN REACH, NO FURHTER NEEDS VERBALIZED.
--- NOTE | 2021-01-22 03:05 | NUR ---
ROUNDING ON pt, pt RESTING IN BED WITH EYES CLOSED. RR EVEN AND UNLABORED. NO DISTRESS NOTED, CALL LIGHT IN REACH. BED ALARM ON FOR SAFETY.
--- NOTE | 2021-01-22 04:30 | NUR ---
SCHEDULED IV VANCO INFUSING VIA MIDLINE, BLOOD RETURN NOTED. PRN PAIN MEDICATION ALSO GIVEN, SEE EMAR FOR 7/10 PAIN IN BACK. ASSESSMENT COMPLETE, NO NEW SHADOWING NOTED TO DRESSING-WILL CONTINUE TO MONITOR. ELEVATED WITH PILLOW IN BED. BED ALARM ON FOR SAFETY. IV DRESSING TO LEFT HAND REDRESSING, IV SITE REMAINS WNL. NO FURTHER NEEDS, CALL LIGHT IN REACH.
--- NOTE | 2021-01-22 08:30 | NUR ---
REPORT RECEIVED FROM NIGHT RN AND PT. CARE RESUMED. PT. IS ALERT AND ORIENTED TO ALL, BUT HAS GRANDIOSE IDEAS AND INAPPROPRIATE RESPONSES AT TIMES. HE STATES THE [facility] WILL BE DESTROYED IN TWO DAYS AND EVERYONE NEEDS TO BE CONTACTED NOW. LEFT FOOT DRESSING IS SATURATED WITH SANGUINOUS DRAINAGE. WILL CHANGE THIS MORNING. PT. ABLE TO AMBULATE TO THE CHAIR WITH SBA. HE STATES THAT HIS BACK AND SHOULDER HURT DUE TO A VIRAL INFECTION, BUT IS TOLERABLE. HE HAS SEVERAL YOGURTS AND SODAS FROM YESTERDAY THAT HE REFUSES TO REMOVE FROM THE ROOM. MIDLINE FLUSHES AND WNL. DISCUSSED POC, SAFETY. PT. LEFT WITH TEAM MEMBER IN THE ROOM AND CHAIR ALARM ON.
--- NOTE | 2021-01-22 09:40 | NUR ---
LEFT FOOT DRESSING CHANGE COMPLETED. CHARGE NURSE ASSISTED, SHE WAS PRESENT FOR THE DRESSING CHANGE YESTERDAY.
--- NOTE | 2021-01-22 10:34 | NUR ---
IN TO CHECK VITALS. R.T. IN THE ROOM FOR COVID SWAB. PT. STATES HE HAS FATHERED EVERY CHILD ON EARTH HIS MD IS WRITING ABOUT IT IN MEDICAL JOURNAL. PT. LEFT RESTING WITH BED ALARM ON.
--- NOTE | 2021-01-22 10:49 | NUR ---
COVID SWAB COLLECTED AND SENT TO IN-HOUSE LAB
--- NOTE | 2021-01-22 11:14 | NUR ---
PT. REQUESTED FOR IV IN HIS LEFT HAND TO BE REMOVED. NO SIGNS OF INFLAMMATION AT IV SITE. REMOVED WITH CATH. INTACT. PT. RESTING WITH BED ALARM ON AND CALL LIGHT IN HAND.
--- NOTE | 2021-01-22 14:55 | NUR ---
Patient IV is beeping and RN has been notified. Vitals, I&Os are complete.
--- NOTE | 2021-01-22 17:34 | NUR ---
LAB CALLED WITH CRITICAL LAB VALUE OF POSITIVE BLOOD CULTURES IN AEROBIC BOTTLE OF GRAM + COCCI. DR AGUIRRE CALLED AND NOTIFIED. NO NEW ORDERS
[2021-01-22] MEDS ORDERED: OXYCODONE HCL5 MG PO (17:45)
--- NOTE | 2021-01-22 19:05 | NUR ---
SHIFT REPORT RECEIVED FROM DAYSHIFT RN RACHANA AT BEDSIDE. pt AWAKE AND RESTING IN BED, BED ALARM ON FOR SAFETY. LLE DRESSING C/D/I, WILL MONITOR FOR CHANGES. pt DENIES NEEDS OR CONCERNS, CALL LIGHT IN REACH.
--- NOTE | 2021-01-22 20:30 | NUR ---
ASSESSMENT COMPLETE, SCHEDULED MEDS GIVEN (SEE EMAR) ALONG WITH PRN PAIN MEDICATIONS. MIDLINE WNL, BRISK BLOOD RETURN NOTED, SCHEDULED VANCO INFUSING DIRECTED. DRESSING C/D/I. DRESSING TO LLE ALSO C/D/I, UNABLE TO OBTAIN PEDAL PULSE D/T DRESSING, WILL MONITOR FOR SHADOWING. BED ALARM ON FOR SAFETY, LLE SURGICAL SHOE AT BEDSIDE. pt INSTRUCTED TO USE CALL LIGHT BEFORE GETTING OOB, pt VERBALIZED UNDERSTANDING. pt HAS HX OF PSYCH ISSUES, HAS GRANDIOSE IDEAS. CALL LIGHT IN REACH AND ROOM TIDED. CALL LIGHT IN REACH.
--- NOTE | 2021-01-22 23:00 | NUR ---
pt RESTING IN BED, EYES CLOSED. RR EVEN AND UNLABORED. BED ALARM ON FOR SAFETY, CALL LIGHT IN REACH.
--- NOTE | 2021-01-23 00:29 | NUR ---
pt RESTING IN BED, RR EVEN AND UNLABORED. NO DISTRESS NOTED. CALL LIGHT IN REACH AND BED ALARM ON FOR SAFETY.
--- NOTE | 2021-01-23 01:31 | NUR ---
BED ALARM GOING OFF, pt REPORTS HE WAS "JUST TURNING IN BED". ASSESSMENT COMPLETE, NO NEW CHANGES OR CONCERNS. PRN PAIN MEDICATION GIVEN FOR 10/10 PAIN W/ MOVEMENT, NO FURTHER NEEDS. CALL LIGHT IN REACH AND BED ALARM ON. LLE DRESSING REMAINS C/D/I.
--- NOTE | 2021-01-23 02:50 | NUR ---
ROUNDED ON pt, pt AWAKE AND RESTING IN BED WITH EYES CLOSED, RR EVEN AND UNLABORED. NO DISTRESS NOTED. CALL LIGHT IN REACH.
--- NOTE | 2021-01-23 04:00 | NUR ---
SCHEDULED IV VANCO GIVEN DIRECTED VIA MIDLINE, BRISK BLOOD RETURN NOTED. RR EVEN AND UNLABORED, NO ADDITIONAL NEEDS VERBALIZED. CALL LIGHT IN REACH.
--- NOTE | 2021-01-23 07:30 | NUR ---
At approx 0630, this rn in room to round on pt, dressing to lle fully saturated with red shadowing. no shadowing noted to dressing until this time, pt resting in bed with bed alarm on. dr álvarez made aware as this rn was told in shift report dr booth was signed off case and was out of town. no new orders received at this time. At 0730, with help from cupola chargerdurga kay, dressing change completed per md orders. photos of wound in chart, dayshift durga holloway and dayshift primary durga brice both made aware. pt resting in bed with bed alarm on.
--- NOTE | 2021-01-23 08:15 | NUR ---
Tylenol 650mg po admin for left leg pain, 10/31.
--- NOTE | 2021-01-23 09:50 | NUR ---
Patient resting in bed, eyes closed, respirations even and non labored. Patient has no distress. Left foot dressing is CDI, elevated at this time. Midline to right upper arm is CDI, patent with good blood return noted. Patient has no current needs. Personal supplies and call light within reach.
--- NOTE | 2021-01-23 13:51 | NUR ---
PATIENT IN BED RESTING WITH EYES CLOSED. VITALS AND I&O'S CHARTED. CALL LIGHT N REACH. NO FURTHER NEEDS AT THIS TIME.
--- NOTE | 2021-01-23 14:23 | NUR ---
OFFICE CALLED, LEFT MESSAGE FOR TO ROUND ON PATIENT ON MONDAY HE HAS NOT DISCHARGED.
--- NOTE | 2021-01-23 14:25 | NUR ---
Patient resting in bed, eyes closed, respirations even and non labored. Patient has no notable distress. Vanco infusing at this time. Personal supplies and call light within reach.
--- NOTE | 2021-01-23 17:57 | NUR ---
PATIENT IN BED WATCHING TV. VITALS AND I&O'S CHARTED. CALL LIGHT IN REACH. NO FURTHER NEEDS AT THIS TIME.
--- NOTE | 2021-01-23 18:11 | NUR ---
Oxycodone 10mg po and tylenol 650mg po admin for lle/back pain.
--- NOTE | 2021-01-23 18:18 | NUR ---
Patient reports he is doing well at this time, resting in bed watching tv at this time. Patient has left leg elevated on pillows. LLE dressing remains CDI. Patient denies needs. Dinner at bedside. Patient has no current needs. Personal supplies and call light within reach.
--- NOTE | 2021-01-23 19:15 | NUR ---
SHIFT REPORT RECEIVED FROM DAYSNVFT SHABNAM CORDOVA AT BEDSIDE. pt AWAKE AND RESTING IN BED, BED ALARM TURNED ON FOR SAFETY. LLE DRESSING INTACT, SCANT FAINT SHADOWING NOTED UNDER KERLEX TO TOP OF DRESSING NEAR pt's TOES, WILL MONITOR FOR INCREASED SHADOWING. LLE ALSO ELEVATED IN BED. pt EATING AND APPEARS COMFORTABLE AND RELAXED AT THIS TIME, CALL LIGHT IN REACH. NO NEEDS OR CONCERNS VERBALIZED, CALL LIGHT IN REACH.
--- NOTE | 2021-01-23 20:25 | NUR ---
ASSESSMENT COMPLETE AND SCHEDULED MEDS GIVEN (SEE EMAR). pt AWAKE AND ORIENTED, BASELINE HX OF PSYCH ISSUES WITH GRANDIOSE IDEAS, COMPLIANT WITH CARE THUS FAR. BED ALARM ON TO ENSURE SAFETY, LLE DRESSING REMAINS INTACT WITH SMALL AMOUNT RED SHADOWING TO KERLEX, NO NEW SHADOWING SINCE START OF SHIFT-WILL CONTINUE TO MONITOR. LLE REMAINS ELEVATED WITH PILLOWS. VSS, pt REPORTS TOLERABLE 8/10 PAIN, BUT ONLY AT REST, pt STATES, "IT'S OKAY IF I'M NOT MOVING". SCHEDULED PAIN PATCH APPLIED TO BACK. IV VANCO INFUSING DIRECTED VIA MIDLINE, DRESSING C/D/I WITH BRISK BLOOD RETURN. NO FURHTER NEEDS, ROOM TIDED AND BOARD UPDATED. CALL LIGHT IN REACH.
--- NOTE | 2021-01-23 21:56 | NUR ---
IN ROOM TO SL R MIDLINE IV. IT HAS BRISK BLOOD RETURN. PT DENIES NEEDS AND CALL LIGHT IS CLOSE.
--- NOTE | 2021-01-23 23:02 | NUR ---
CALL LIGHT ANSWERED, pt REPORTS 8-9/10 PAIN AND STATES, "OH IT HURTS REAL BAD, IT'S AFFECTING MY BRAINSTEM". WHEN THIS RN ENTERED ROOM, pt WAS AWAKE AND IN BED, TALKING ON THE PHONE, NO FACIAL GRIMACING OR CRYING NOTED, NO OUTWARD S/SX OF DISTRESS NOTED, PRN PAIN MEDICATION GIVEN (SEE EMAR). NO FURTHER NEEDS, CALL LIGHT IN REACH.
--- NOTE | 2021-01-24 00:37 | NUR ---
pt AWAKE AND RESTING IN BED. pt WATCHING TV, NO NEEDS OR CONCERNS VERBALIZED. CALL LIGHT IN REACH. BED ALARM ON FOR SAFETY.
--- NOTE | 2021-01-24 01:42 | NUR ---
CALL LIGHT ANSWERED, pt REPORTS INCREASING PAIN, PRN TYLENOL GIVEN, SEE EMAR. NO FURTHER NEEDS, CALL LIGHT IN REACH.
--- NOTE | 2021-01-24 04:00 | NUR ---
scheduled vanco infusing as directed via midline, brisk blood return noted. assessment complete, no new changes or concerns. call lightin reach, bed alarm on. no acute changes. prn pain medication also given, see emar.
--- NOTE | 2021-01-24 05:46 | NUR ---
VANCO COMPLETE, MIDLINE FLUSHED WITH NS PER POLICY AND SALINE LOCKED. PUMP CLEARED. VS AND I&OS COMPLETE AND STABLE. ROOM TIDED AND BED ALARM ON, CALL LIGHT IN REACH.
--- NOTE | 2021-01-24 09:18 | NUR ---
PT RESTING IN BED LEG ELEVATED ON PILLOWS, DRESSING INTACT. PT C/O BEING PAINFUL. BREAKFAST ORDERED, MEDS ADMINISTERED, PAIN MED GIVEN
--- NOTE | 2021-01-24 09:47 | NUR ---
PATIENT IN BED WATCHING. PATIENT WANTS TO SHOWER LATER. VITALS AND I&O'S CHARTED. CALL LIGHT IN REACH. NO FURTHER NEEDS AT THIS TIME.
--- NOTE | 2021-01-24 10:26 | NUR ---
PT RESTING IN BED TALKING ON THE PHONE
--- NOTE | 2021-01-24 12:42 | NUR ---
pt up to work with p/t returns to resting in bed left lower extremity elevated. mother is at bedside, she brought snacks "but no sweets" she reports. pt has a bag of crackers, sausages, etc next to him. 60 gm carb diet discussed and the reason for it. pt verbalizes that he understands but says some meat and cracker snacks won't hurt him. further education provided.
--- NOTE | 2021-01-24 14:02 | NUR ---
PATIENT IN BED WATCHING TV. VITALS AND I&O'S CHARTED. PATIENT REFUSED SHOWER AT THIS TIME. PATIENT SAID HE WOULD LET ME KNOW WHEN HE IS READY. CALL LIGHT IN REACH. NO FURTHER NEEDS AT THIS TIME.
--- NOTE | 2021-01-24 16:04 | NUR ---
oXYCODONE 10MG PO ADMIN FOR REPORTS OF 10/10 LLE PAIN.
--- NOTE | 2021-01-24 16:31 | NUR ---
PT CONTINUES RESTING IN BED THIS SHIFT LEFT LEG RESTING ON A PILLOW. AGREES HIS PAIN IS WELL CONTROLLED THIS SHIFT. DENIES NEEDS.
--- NOTE | 2021-01-24 17:52 | NUR ---
PATIENT IN BED WATCHING TV. REFUSED SHOWER. VITALS AND I&O'S CHARTED. CALL LIGHT IN REACH. NO FURTHER NEEDS AT THIS TIME.
--- NOTE | 2021-01-24 19:20 | NUR ---
SHIFT REPORT RECEIVED FROM DAYSHIFT RN MIKE, pt RESTING IN BED. DENIES NEEDS OR CONCERNS. CALL LIGHT IN REACH.
--- NOTE | 2021-01-24 20:35 | NUR ---
ASSESSMENT COMPLETE, SCHEDULED MEDS GIVEN (SEE EMAR) ALONG WITH PRN PAIN MEDICATION. ptRESTING IN BED, REPORTS 8/10 PAIN WITH REST, BUT REPORTS PAIN WORSENS TO 10/10 WITH ANY KIND OF MOVEMENT. VSS, MIDLINE WNL WITH BRISK BLOOD RETURN NOTED. SCHEDULED IV VANCO INFUSING DIRECTED, DRESSING C/D/I. LLE ELEVATED WITH PILLOWS, FAINT SHADOWING TO DRESSING NEAR TOES, WILL MONITOR. pt REPORTS BASELINE NUMBNESS AND TINGLING TO BLE, BUT IS ABLE TO TELL WHICH LE IS TOUCHED WITH EYES CLOSED. PAIN PATCH TO UPPER BACK. BED ALARM ON FOR SAFETY. I&O'S COMPLETE. NO FURTHER NEEDS, CALL LIGHT IN REACH.
--- NOTE | 2021-01-25 00:20 | NUR ---
BED ALARM GOING OFF, pt SITTING ON EDGE OF BED AND SCRATCHING BACK, REPORTS INCREASED PAIN. UNABLE TO GIVE PRN PAIN MEDICATION AT THIS TIME, DISCUSSED PAIN MEDICATION AVAILABILITY WITH pt, pt VERBALIZED UNDERSTANDING.WARM BLANKETS PROVIDED, BED ALARM ON AND CALL LIGHT IN REACH.
--- NOTE | 2021-01-25 01:13 | NUR ---
CALL LIGHT ANSWERED, pt REPORTS 10/10 PAIN. PRN TYLENOL AND PRN OXYCODONE GIVEN, SEE EMAR. NO FURTHER NEEDS, CALL LIGHT IN REACH. BED ALARM ON.
--- NOTE | 2021-01-25 01:58 | NUR ---
CALL LIGHT ANSWERED, pt REPORTS BACK ITCHING. BACK SCRATCH PROVIDED, PAIN PATCH FROM BACK REMOVED AT THIS TIME PER pt REQUEST. CALL LIGHT IN REACH AND BED ALARM ON.
--- NOTE | 2021-01-25 04:15 | NUR ---
SCHEDULED IV VANCO INFUSING DIRECTED VIA MIDLINE, BRISK BLOOD RETURN NOTED. ASSESSMENT COMPLETE, NO NEW CHANGES, LLE DRESSING UNCHANGED AND ELEVATED IN BED. BED ALARM ON. CALL LIGHT IN REACH.
--- NOTE | 2021-01-25 05:30 | NUR ---
VANCO COMPLETE, MIDLINE SALINE LOCKED PER MAHI. VSS AND I&OS COMPLETE. CALL LIGHT IN REACH. BED ALARM ON.
--- NOTE | 2021-01-25 07:25 | NUR ---
PT RESTING IN BED AT TIME OF SHIFT EXCHANGE C/O 01/31 SHOULDER PAIN. VISITS EASLILY PT IS CHEERFUL TALKING SPORTS. LEFT FOOT ELEVATED ON A PILLOW. CALL LIGHT AND NEEDED ITEMS IN REACH.
--- NOTE | 2021-01-25 08:28 | NUR ---
PATIENT IS RESTING IN BED ON BACK WITH LEFT FOOT ELEVATED. RECIEVED BREAKFAST AND FRESH ICE WATER. EMPTIED URINAL AND UPDATED WHITE BOARD. HE DOES NOT NEED ANYTHING AT THIS TIME. CALL LIGHT IN REACH.
--- NOTE | 2021-01-25 09:12 | NUR ---
PT AGREES PAIN MEDICADTIONS WERE EFFECTIVE AND HE FEEL MUCH BETTER. COMPLETES 100% OF MORNING MEAL NOW TALKING ON THE PHONE. DENIES NEEDS AT THIS TIME
--- NOTE | 2021-01-25 11:00 | NUR ---
PATIENT IS RESTING IN BED. TOOK PATIENTS VITALS AND CHARTED I&OS. HE DOES NOT NEED ANYTHING ELSE AT THIS TIME. CALL LIGHT IN REACH.
--- NOTE | 2021-01-25 12:25 | NUR ---
PT ALERT, ORIENTED AND EATING A SNACK. PT IS PLEASANT, SEEMS TO ENJOY VISITS. PT'S BRO FROM [facility] CAME TO VISIT PT. THIS SEEMED TO PLEASE HIM. PT FEELS COMFORTABLE WITH CARE. PT SPOKE OF HIS LEXIS, HE TRUSTS IN GOD AND IS COMFORTED WHEN HE READS THE BIBLE. PT REQUESED PRAYER, INVITED ME BACK FOR VISIT. WILL FOLLOW
--- NOTE | 2021-01-25 14:09 | NUR ---
PT CALLED FOR PAIN MEDICATON OFFERED TYLENOL OR OXY, HE CHOSE BOTH WITH PAIN RATING OF 10\10 IN LEFT SHOULDER.
--- NOTE | 2021-01-25 18:01 | NUR ---
DR WISEMAN STATES PT FOOT "LOOKS GREAT" DRESSING TO BE CHANGED Q 3 DAYS. ANTICIPATE MRI THEN DC TO SNF.
--- NOTE | 2021-01-25 18:06 | NUR ---
PATIENT SITTING UP IN BED EATING DINNER. VITALS AND I&O'S CHARTED. CALL LIGHT IN REACH. NO FURTHER NEEDS AT THIS TIME.
--- NOTE | 2021-01-25 19:30 | NUR ---
SHIFT REPORT RECEIVED FROM SHABNAM SCHMITZ. PATIENT RESTING QUIETLY IN BED WATCHING TV. CALL LIGHT IS IN REACH.
--- NOTE | 2021-01-25 20:30 | NUR ---
PATIENT ASSESSMENT COMPLETE. PATIENT GIVEN PO PAIN MEDS FOR LT SHOULDER AND BACK PAIN 10/01. PATIENT NOT HAVING ANY PAIN IN HIS FOOT. VS ARE STABLE AND ALL PM MEDS HAVE BEEN GIVEN. I+O ENTERED AND PATIENT HAS NO OTHER CARE NEEDS AT THIS TIME. CALL LIGHT IS IN REACH.
--- NOTE | 2021-01-25 22:58 | NUR ---
PATIENT IV ANTIBIOTICS FINISHED AND MIDLINE FLUSHED WITH 20ML/NS. PATIENT RESTING QUIETLY EYES CLOSED, RESPIRATIONS ARE REGUALR AND EVEN, AND CALL LIGHT IS IN REACH.
--- NOTE | 2021-01-26 00:41 | NUR ---
PATIENT CALLED AND SAID HE HAD JUST WOKE UP AND HIS LEFT FOOT WAS HURTING A LOT. 01/31. 10MG PO OXYCODONE GIVEN. PATIENT HAD NO OTHER CARE NEEDS AND CALL LIGHT IS IN REACH.
--- NOTE | 2021-01-26 02:33 | NUR ---
PATIENT RESTING QUIETLY SUPINE, RESPIRATIONS REGULAR AND EVEN, EYES ARE CLOSED, AND CALL LIGHT IS IN REACH. URINAL WAS EMPTIED AND MARKED ON I+O BOARD.
--- NOTE | 2021-01-26 03:54 | NUR ---
PATIENT CALLED BECAUSE HE WOKE UP WITH 10/10 LEFT FOOT PAIN. PO TYLENOL GIVEN AND REPORT GIVEN TO SHABNAM SCHMITZ. PATIENT WILL BE DUE FOR HIS OXYCODONE IN ABOUT 45 MINUTES. PATIENT'S CALL LIGHT IS IN REACH.
--- NOTE | 2021-01-26 05:19 | NUR ---
PATIENT GIVEN PRN PAIN MEDICATION PER ORDER. PATIENT RATES PAIN AT A 7/10 IN HIS RIGHT SHOULDER AND LEFT FOOT. PATIENTS VITALS TAKEN AND RECORDED. INTAKE AND OUTPUT RECORDED. NO FURTHER NEEDS NOTED. CALL LIGHT AND BELONGINGS ARE WITHIN REACH.
--- NOTE | 2021-01-26 09:00 | NUR ---
Patient in bed resting supine, no distress, respirations non labored. LLE elevated on pillows. Patient has no needs. Personal supplies and call light within reach.
--- NOTE | 2021-01-26 11:12 | NUR ---
Patient off floor in imaging.
--- NOTE | 2021-01-26 11:28 | NUR ---
PATIENT GIVEN TYLENOL AND OXYCODONE FOR 7/10 LEFT SHOULDER PAIN. LAB IN TO DRAW LEIGHTON SHEIKH.
--- NOTE | 2021-01-26 12:12 | NUR ---
SPOKE WITH PATIENT BRIEFLY AFTER RETURNED FROM XRAY. HE UNDERSTANDS AND AGREES TO REHAB STAY STILL AT DISCHARGE. HE ALSO UNDERSTOOD DISCHARGE DEPENDS ON MRI RESULTS AND THAT IS STILL PENDING. NO QUESTIONS AT THIS TIME.
--- NOTE | 2021-01-26 12:46 | NUR ---
PT HAD JUST RETURNED FROM MRI, SHABNAM GRANADOS WORKING TO GET PT SITUATED AND GIVE FRESH LINENS. WILL CHECK BACK
--- NOTE | 2021-01-26 12:57 | NUR ---
Patient resting in bed watching tv, no distress. Patient reports his pain has been aproved. Patient denies needs. Personal supplies and call light within reach.
--- NOTE | 2021-01-26 16:03 | NUR ---
UPDATED [facility] THAT PATIENT WILL NOT BE COMING TODAY. WILL RE-ADDRESS WITH THEM TOMORROW.
--- NOTE | 2021-01-26 17:27 | NUR ---
aDMIN OXYCODONE 10MG PO ADMIN FOR LLE 6/10 PAIN.
--- NOTE | 2021-01-26 19:45 | NUR ---
IN ROOM FOR REPORT, PT IS AWAKE IN BED. CALL LIGHT IS CLOSE AND BED ALARM IS ON.
--- NOTE | 2021-01-26 20:13 | NUR ---
Tylenol 650mg po admin for reports of 6/10 LLE pain.
--- NOTE | 2021-01-26 21:09 | NUR ---
PATIENT IN BED WATCHING TV. VITALS AND I&O'S CHARTED. CALL LIGHT IN REACH. NO FURTHER NEEDS AT THIS TIME.
--- NOTE | 2021-01-26 23:15 | NUR ---
PT IS RESTING WITH EYES CLOSED, RR IS EVEN AND NONLABORED. CALL LIGHT IS CLOSE.
--- NOTE | 2021-01-27 00:38 | NUR ---
YIN ROOM TO ADMINISTER 10MG OXYCODONE FOR 10/10 PAIN IN NECK/ALL OVER. PROVIDED WARMPACK FOR BACK OF NECK. PT DENIES FURTHER NEEDS AT THIS TIME. DRESSING REMAINS CDI. CALL LIGHT IS CLOSE.
--- NOTE | 2021-01-27 02:08 | NUR ---
PT IS RESTING WITH BLANKET COVERING FACE, RR IS EVEN AND NONLABORED. CALL LIGHT IS CLOSE.
--- NOTE | 2021-01-27 03:07 | NUR ---
PT WITH 10/10 LEFT SHOULDER PAIN, AND SOME PAIN IN HIS LEFT FOOT HE SAID. WOKE UP IN THIS PAIN, CAN'T MOVE TO HIS SIDE, WILL HURT MORE IF I DON'T LAY ON MY BACK. PT LAID HIS BED FLAT, SAID GOOD NIGHT TO THIS RN.
--- NOTE | 2021-01-27 04:28 | NUR ---
IN ROOM TO ADMINISTER IV VANCO, PT REPORTS PAIN AT 9/10. ADMINISTERED 10MG PO OXYCODONE. PT DENIES FURTHER NEEDS AND CALL LIGHT IS CLOSE.
--- NOTE | 2021-01-27 07:00 | NUR ---
IN ROOM TO TAKE PTS VS, PT DENIES NEEDS AT THIS TIME. CALL LIGHT IS CLOSE. BED ALARM IS ON.
--- NOTE | 2021-01-27 07:54 | NUR ---
Shift report received from SHABNAM Conner, pt resting in bed safely w/ call light in reach and eyes closed, RR even and unlabored.
--- NOTE | 2021-01-27 08:45 | NUR ---
PT RESTING IN BED SAFELY W/ CALL LIGHT IN REACH, MORNING ASSESMENT COMPLETE AND SCHEDULED MEDS GIVEN PER PROVIDER ORDERS. PT DENIES ANY PAIN OR NEEDS AT THIS TIME.
--- NOTE | 2021-01-27 10:00 | NUR ---
PT RESTING IN BED SAFELY W/ CALL LIGHT IN REACH AND EYES CLOSED, RR EVEN AND UNLABORED.
--- NOTE | 2021-01-27 12:00 | NUR ---
PT C/O 9/10 PAIN, PRN PAIN MEDS GIVEN PER PT REQUEST/PROVIDER ORDER. PT DENIES ANY OTHER NEEDS AT THIS TIME.
--- NOTE | 2021-01-27 12:36 | NUR ---
IN VISITING WITH PT. WILL RETURN AGAIN
--- NOTE | 2021-01-27 14:00 | NUR ---
PT CALLED STATING IV PUMP IS BEEPING, IV VANCO INFUSION COMPLETE, PT DISCONNECTED AND MIDLINE SALINE LOCKED. PT DENIES ANY OTHER NEEDS AT THIS TIME, STATES PAIN HAS IMPROVED W/ PRN MEDICATION.
--- NOTE | 2021-01-27 16:27 | NUR ---
UPDATED [facility] ADMITTING THAT PATIENT WILL NOT BE DISCHARGED FOR A FEW MORE DAYS.
--- NOTE | 2021-01-27 16:38 | NUR ---
PT RESTING IN BED SAFELY W/ CALL LIGHT IN REACH PT WATCHING TV, DENIES ANY NEEDS AT THIS TIME.
--- NOTE | 2021-01-27 18:08 | NUR ---
PT SITTING UP IN BED EATING DINNER, CALL LIGHT IN REACH. PT DENIES ANY NEEDS AT THIS TIME.
--- NOTE | 2021-01-27 19:28 | NUR ---
RECEIVED REPORT, PT IS AWAKE WATCHING TV. CALL LIGHT IS CLOSE.
--- NOTE | 2021-01-27 20:37 | NUR ---
IN ROOM TO ASSESS PT, DRESSING IS CDI. ADMINISTERED TYLENOL FOR 7/10 PAIN AND LIDOCAINE PATCH IS ON L SHOULDER. MIDLINE FLUSHES FINE, NO BLOOD RETURN. PT DENIES FURTHER NEEDS. CALL LIGHT IS CLOSE.
--- NOTE | 2021-01-27 23:27 | NUR ---
PT CALLED, REQUESTED PAIN MEDICAION. 10 LEFT SHOULDER PAIN, AND BACK HEAD PAIN. MED WITH 5 MG OXYCODONE. NO OTHER NEEDS.
--- NOTE | 2021-01-28 00:26 | NUR ---
PT CALLED REPORTING PAIN OVER 10 IN L FOOT. PT STATES THE COBAN IS TOO TIGHT. REMOVED COBAN AND LEFT THE REST OF THE DRESSING IN PLACE WITH KERLIX ON OUTSIDE. ADMINISTERED ANOTHER 5MG OXYCODONE FOR BETTER PAIN CONTROL AND WILL RETURN TO CHANGE DRESSING ON PT'S FOOT. PT AGREEABLE TO THIS PLAN AND DENIES FURTHER NEEDS. CALL LIGHT IS CLOSE, BED ALARM IS ON.
--- NOTE | 2021-01-28 01:33 | NUR ---
PT IS RESTING WITH EYES CLOSED, RR IS EVEN AND NONLABORED. CALL LIGHT IS CLOSE, L FOOT ELEVATED ON PILLOW.
--- NOTE | 2021-01-28 04:00 | NUR ---
VANCO INFUSING, R MIDLINE FLUSHES WELL, NO BLOOD RETURN. PT REPORTS PAIN 9/10 IN L SHOULDER, ADMINISTERED TYLENOL FOR PAIN. REPLACED COBAN ON L FOOT, SHADOWING NOTED ON KERLEX. PT DENIES FURTHER NEEDS, CALL LIGHT IS CLOSE.
--- NOTE | 2021-01-28 07:22 | NUR ---
IN ROOM TO ADMINISTER 10MG OXYCODONE FOR 10/10 L SHOULDER AND BACK PAIN. PT DENIES FURTHER NEEDS AT THIS TIME. CALL LIGHT IS WITHIN REACH.
--- NOTE | 2021-01-28 07:25 | NUR ---
Report received from Dalila HAQUE. Pt resting in bed at this time, no needs identified. Will continue plan of care.
--- NOTE | 2021-01-28 08:30 | NUR ---
Scheduled medications administered and morning assessment complete. Pt resting in bed, in good spirits and chatty. SS insulin and scheduled administered for CBG of 144. Midline flushed, no blood return noted but flushes WNL. Site WNL. Small amount shadowing noted on L foot dressing, otherwise C/D/I. Reviewed plan of care with patient to which is he is agreeable.
--- NOTE | 2021-01-28 08:47 | NUR ---
DELIVERED PTS BREAKFAST, PT IS IN GOOD SPIRITS. URINAL HAD 725 IN IT. CASE MANAGEMENT IN TO SEE PATIENT AND HIS NURSE DOREEN AND STUDENT. CALL LIGHT IN PLACE.
--- NOTE | 2021-01-28 12:00 | NUR ---
SPOKE WITH PATIENT IN ROOM, HE STATES HE FEELS BETTER. HE UNDERSTANDS THAT HE IS GOING TO HAVE SURGERY AGAIN. HE UNDERSTANDS HE WILL GO TO REHAB AFTER WHEN HE IS READY TO DISCHARGE. NO QUESTIONS AT THIS TIME.
--- NOTE | 2021-01-28 12:25 | NUR ---
PT RESTING IN BED WATCHING TV. HE REQUESTED READING MATERIAL, WAS ABLE TO PROVIDE. PT'S MOTHER WAS BY, IS COMING BACK. SEEMS TO BE LOOKING FORWARD. PT INFORMED ME HE WILL BE GOING TO SNF, GAVE ENCOUORAGEMENT. RI REQUESTED PRAYER, WILL FOLLOW
--- NOTE | 2021-01-28 12:30 | NUR ---
Rounded on patient who states no needs at this time, would like more information about upcoming procedure. Discussed plan of care, pt is agreeable.
--- NOTE | 2021-01-28 14:45 | NUR ---
Dressing to L foot changed per order. Assessment complete and WNL. Pt states no needs at this time and would like to take a nap. Call light in reach.
--- NOTE | 2021-01-28 18:00 | NUR ---
Midline dressing changed per protocol. WNL.
--- NOTE | 2021-01-28 19:44 | NUR ---
RECEIVED REPORT FROM DOREEN HAQUE. pt RESTING IN BED ON PHONE. WHITEBOARD UPDATED. CALL LIGHT WITHIN REACH.
--- NOTE | 2021-01-28 20:44 | NUR ---
IN TO DO ASSESSMENT. pt DENIES PAIN, PAIN PATCH APPLIED TO LEFT SHOULDER. LUNGS CLEAR, BT ACTIVE. DRESSING TO LEFT FOOT CDI, ELEVATED ON PILLOWS. IV ABX INFUSING PER ORDERS. PROVIDED A WARM BLANKET. NO FURTHER REQUESTS AT THIS TIME. CALL LIGHT WITHIN REACH.
--- NOTE | 2021-01-28 21:10 | NUR ---
IN TO GET VITALS, PT IS DUE TO VOID, DECLINES FRESH ICE WATER, SODA AT BEDSIDE PREFFED, NO FURTHER NEEDS AT THIS TIME
--- NOTE | 2021-01-28 21:30 | NUR ---
IV INFUSION COMPLETED. SL. NO REQUESTS AT THIS TIME. CALL LIGHT WITHIN REACH.
--- NOTE | 2021-01-29 00:38 | NUR ---
CALL LIGHT ON. pt REQUESTED PRN PAIN MEDICATION. pt HAD PULLED PAIN PATCH OFF SHOULDER BECAUSE "MY SHOULD HURT" EDUCATION DONE. PAIN MEDICATION GIVEN (SEE MAR). NO FURTHER REQUESTS CALL LIGHT WITHIN REACH.
--- NOTE | 2021-01-29 02:57 | NUR ---
ROUNDED ON pt. RESTING IN BED WITH EYES CLOSED, RESPIRATIONS REGULAR. CALL LIGHT WITHIN REACH.
--- NOTE | 2021-01-29 05:23 | NUR ---
CALL LIGHT ON. INFUSION COMPLETED. SL. PROVIDED WARM BLANKET. CALL LIGHT WITHIN REACH.
--- NOTE | 2021-01-29 07:41 | NUR ---
Patient resting in bed, respirations even and non labored, eyes closed. LLE elevated on pillows. No distress or notable needs. Personal supplies and call light within reach.
--- NOTE | 2021-01-29 10:00 | NUR ---
UPDATED JUSTINA AT [facility] THAT PATIENT WENT TO OR AND I HAVE NO UPDATES YET.
--- NOTE | 2021-01-29 10:50 | NUR ---
PATIENT OFF FLOOR IN SURGERY DEPT.
--- NOTE | 2021-01-29 11:31 | NUR ---
PT GETTING PREPPED FOR SURGERY. ALERT AND ORIENTED. GAVE HIM SOME G.POSTS HE REQUESTED AND HAD PRAYER WITH PT. WILL FOLLOW
--- NOTE | 2021-01-29 12:38 | NUR ---
01/29/21 1238 Darlene Angeles 1217- PT ARRIVES TO PACU EASILY AROUSABLE TO VOICE. PT REPORTS NO PAIN OR NAUSEA. RESP EVEN AND UNLABORED. OXYGEN SAT HIGH 90'S TO 100% ON 6L VIA MASK. 1221- OXYGEN TITRATED OFF. 1228- DR. VELASCO AT THE BEDSIDE TO TALK WITH THE PT.
--- NOTE | 2021-01-29 13:16 | NUR ---
Patient back from surgery to medical floot. Pt arrived a&ox4. LLE elevated, dressing bulky laura wrap-CDI. CMS intact to LLE. Patient's vs stable. Patient to order lunch here soon. IV vanco infusing.
--- NOTE | 2021-01-29 14:00 | NUR ---
UPDATED JUSTINA AT [facility] THAT PATIENT WILL NEED PICC LINE AND TWO WEEKS ANTIBIOTIC. UNCLEAR IF HE CAN GET PICC TODAY AND POSSIBLY CAN DISCHARGE THOUGH TOMORROW ACCORDING TO DR VELASCO. SHE IS CHECKING WITH STAFF TO SEE IF THEY CAN TAKE HIM OVER WEEKEND. UPDATED CLINICALS FAXED TO THEM.
--- NOTE | 2021-01-29 14:30 | NUR ---
POST-OP VITALS COMPLETED AND ASSESSMENT DONE. PT WITH NO PAIN. DRESSING C/D/I. CPOX IN PLACE. VITALS STABLE.
--- NOTE | 2021-01-29 15:24 | NUR ---
REPORT RECEIVED FROM CHARGE NURSE AND PT. CARE RESUMED. PT. IS DROWSY BUT EASILY AWAKENS. ORIENTED TO ALL. LEFT FOOT DRESSING CDI. FOOT ELEVATED AND SCD'S IN PLACE. PT LEFT RESTING WITH BED ALARM ON AND CALL LIGHT IN REACH.
--- NOTE | 2021-01-29 15:50 | NUR ---
PATIENT HAS A GOOD APPETITE. HE IS ON A 60 GM CONSISTENT CARB DIET. KITCHEN STAFF WORKING WITH PATIENT TO STAY WITHIN HIS CARB LIMIT. PATIENT DOES EAT A FAIR AMOUNT OF PROTEIN DAILY. I HAVE PROVIDED SOME EDUCATION TO PATIENT AND HIS MOTHER AT A PREVIOUS ADMISSION ON CARBS IN FOODS AND SNACKS FOR DIABETES. WILL CONTINUE TO MONITOR.
--- NOTE | 2021-01-29 16:20 | NUR ---
PT. IS ALERT AND ORIENTED. HE DENIES PAIN AT THIS TIME. LEFT FOOT DRESSING CDI. CMS INTACT. SCDS IN PLACE. PT. LEFT RESTING WITH CALL LIGHT IN REACH.
--- NOTE | 2021-01-29 16:30 | NUR ---
CALLED AND SPOKE WITH JUSTINA AT [facility]. SHE STATES THEY CAN TAKE PATIENT MONDAY IF DISCHARGED. PACKET WITH PASSR LEFT AT NURSES STATION. UPDATED CHARGE NURSE.
--- NOTE | 2021-01-29 20:30 | NUR ---
CALL LIGHT ON. pt REQUESTED PRN PAIN MEDICATION FOR 10/10 PAIN IN FOOT AND SHOULDER. pt TALKED NON STOP ABOUT HIS HOBBIES. DISCUSSED IMPORTANCE OF NOT GETTING UP WITHOUT ASSISTANCE. pt VERBALIZED UNDERSTANDING. MEDICATIONS GIVEN (SEE MAR). CALL LIGHT WITHIN REACH.
--- NOTE | 2021-01-29 22:08 | NUR ---
pt on contact isolation, on room air, cooperative with assessment. SL LH patent, L foot dressing intact, covered w coban, elevated in pillows, scds in place. toleratiang fluids well. cbg 223, received 5 units ss insulin and 24 untis semglee scheduled insulin. hyperverbal, helps with assessment and repositioning, uses urinal, no emesis, no further c/o pain, visiting with mother via phone
--- NOTE | 2021-01-30 00:01 | NUR ---
AWAKE, WATCHING TV, L LEG ELEVATED IN PILLOWS, DRESSING CDI
--- NOTE | 2021-01-30 01:17 | NUR ---
medicated with Oxycodone 10mg po c/o 01/01 L foot, L shoulder, back and h/a pain, L leg dressing intact, elevated with pillows covered with coban. repositions self in bed, cpox at bedside. tolerating liquids well, no emesis, voiding qs, coop with assessment
--- NOTE | 2021-01-30 04:35 | NUR ---
pt continues on contact isolation. hyperverbal and grandiose ideation, easily redirectable, pleasant. no c/o adverse reaction to vancomycin infusion, SL patent. On room air, voiding QS, tolerating liquids well, no emesis. L foot covered wtih dressing and coban 2 toes peeking warm, pink, elevated in pillows. walking ortho boot close to bed. aware of heel walking only. was medicated x2 with oxycodone and x1 with tylenol c/o l foot, l shoulder and back pain, effective, Lidocaine patch to L shoulder in place. uses call light
--- NOTE | 2021-01-30 05:54 | NUR ---
awakens easily, on room air, no c/o pain, drowsy, coop wtih vitals, left foot dressing intact, 2 peeking toes warm to tuch, pinkish, afebrile. toleratiing liquids well and home brought foods/snacks. uses call light, voiding q on contact isolation precautions, tolerating well,
--- NOTE | 2021-01-30 09:30 | NUR ---
REPORT RECEIVED FROM NIGHT RN AND PT. CARE RESUMED. PT. IS ALERT AND ORIENTED. HE C/O 6/10 PAIN IN LEFT FOOT. ADMIN. OXYCODONE. PT. IS LEFT FOOT DRESSING IS CDI. ALLEVYN IN PLACE ON COCCYX. PT. ENCOURAGED TO REPOSITION OFTEN, BUT REFUSES. IV SITE WNL AND FLUSHES WELL. BLOOD GLUCOSE WNL AND HUMALOG HELD. DISCUSSED DISCHARGE AND SAFETY. BED ALARM ON.
--- NOTE | 2021-01-30 09:43 | NUR ---
[facility] COLLECTED AND SENT [facility].
--- NOTE | 2021-01-30 09:45 | NUR ---
Spoke with staff at [facility], they are still good to take Mr Arnold today. I will update them with time based on PICC line placement, and verify orders prior to sending Mr. Arnold.
--- NOTE | 2021-01-30 10:07 | NUR ---
PICC LINE NURSE CALL WHO IS NOT AVAILABLE TILL 1200 TODAY.
--- NOTE | 2021-01-30 12:16 | NUR ---
DR. CROWELL DRESSED L FOOT WOUND WITH WOUND PACKING, XEROFORM, CURLEX, AND COBAN. DR. CROWELL REPORTS THAT HE WILL RETURN TOMORROW OR MONDAY TO CHANGE DRESSING.
--- NOTE | 2021-01-30 14:30 | NUR ---
PICC INSERTION NOTE. ORDERS RECIEVED TO EVALUATE PAT FOR POSSIBLE PICC INSERTION. AFTER REVIEWING THE CHART AND INTERVIEWING THE PT, NO ABSOLUTE CONTRAINDICATIONS WERE FOUND. BRYANT UNFORTUNATELY NEEDS A PICC FOR AIRLINE CAPTAIN IV ANTIBIOTICS TO TREAT HIS OSTEOMEYLITIS. BRYANT HAS HAD A PICC FOR A SIMILAR PROBLEM IN HIS PAST. RISKS AND COMPLICATIONS OF PICC INSERTION WERE REVIEWED WITH THE PT AND INFORMED CONSENT WAS SIGNED PRIOR TO THE START OF THE PROCEDURE. THE RISK OF INFECTION AND BLEEDING WERE HIGHLIGHTED FOR THE PATIENT. THE RIGHT ARM HAS RECENTLY USED FOR MIDLINE THERAPY WHICH FAILED AFTER ONE WEEK. THE LEFT BASILIC VEIN WAS EVALUATED WITH SITE LAINEY U/S AND FOUND THAT A 4 FR PICC WILL OCCUPY 30% OF THE VEIN. THE BASILIC VEIN IS 1CM BELOW THE SURFACE OF THE SKIN AT THE INSERTION SITE. THE RIGHT ARM WAS STERILLY PREPPED AND DRAPED AND THERE WERE NO ISSUES WITH GAINING IV ACCESS, NOR ADVANCING THE GUIDEWIRE, INTRODUCER, OR PICC. SHERLOCK II TPS SENSOR WAS USED WELL MAGNET TRACKING WHICH SHOWED THE PICC DECENDING IN A CENTRAL LOCATION AND P-WAVE ENLARGEMENT THE TIP OF THE LINE APPROACHED THE RIGHT ATRIUM. A SINGLE CXR WAS TAKEN AND STERILE DRESSING APPLIED. BRYANT UNDERSTANDS HE SHOULD ASK HIS NURSES IF HE HAS ANY QUESTIONS REGARDING HIS PICC LINE. REPORT GIVEN TO PRIMARY NURSE
--- NOTE | 2021-01-30 15:00 | NUR ---
PT. REPORTS LEFT FOOT PAIN. DRESSING CDI. ADMIN OXYCODONE. PT. AWAITING PICC PLACEMENT CONFIRMATION AND ABX TO INFUSE PRIOR TO DISCHARGE. LEFT RESTING WITH ALARM ON AND CALL LIGHT IN REACH.
--- NOTE | 2021-01-30 16:01 | NUR ---
VANCO INFUSING. PT. DENIES PAIN AT IV SITE AND NO SIGNS OF INFILTRATION. WILL CONTINUE TO MONITOR.
--- NOTE | 2021-01-30 17:45 | OR ---
[facility] [address] [place], [place] [address] Signed DATE OF OPERATION: 01/29/2021 SURGEON: Kisha Morris DPM PREOPERATIVE DIAGNOSIS: Osteomyelitis, left 2nd metatarsal. POSTOPERATIVE DIAGNOSIS: Osteomyelitis, left 2nd metatarsal. PROCEDURE: Debridement of bone, 2nd metatarsal, and placement of antimicrobial calcium sulfate beads. ANESTHESIA: Local with MAC. RN SURGICAL: Omar Costa DPM HEMOSTASIS: Ankle tourniquet. ESTIMATED BLOOD LOSS: Less than 5 mL, minimal. MATERIALS UTILIZED: Stimulan Rapid Cure beads mixed with vancomycin, and then 3-0 nylon. PROCEDURE IN DETAIL: The patient was brought into the operating room and placed upon the operating table in the supine position. After IV sedation, local anesthesia was administered in the form of 10 mL of 1:1 mix of 2% lidocaine plain and 0.5% ropivacaine. This was injected about the patient's ankle region and forefoot area into the midfoot just proximal to the 2nd metatarsal. The foot was then scrubbed, prepped and draped in the usual sterile technique. Esmarch bandage was then utilized to exsanguinate the patient's left foot to act as tourniquet as it was wrapped around the patient's ankle. Attention was then directed to the dorsal aspect of the patient's left foot. The patient had another procedure performed a week earlier and the surgical site was fresh with sutures still in Electronically Signed By: KISHA MORRIS DPM 01/30/21 1745 PATIENT NAME: PAT HERNANDEZ OPERATIVE REPORT DATE OF : 61 REPORT #: [id number] PHYSICIAN: KISHA MORRIS DPM PCP: PRASANTH HURTADO MD REPORT IS CONFIDENTIAL AND NOT TO BE RELEASED WITHOUT AUTHORIZATION [facility] [address], [place] [address] However, slight gapping was noted. Sutures were removed from the majority of the previous surgical site. The incision was then extended, curving the incision slightly medial. The 3rd metatarsal had been removed a week prior, and then the incision was extended slightly proximal and medial by approximately 2 cm to allow exposure to the remnant of the 2nd metatarsal. Upon removal of the sutures, hematoma formation was observed. Coagulated blood product was then removed, excised, and evacuated utilizing a rongeur, Dale elevators, and normal saline irrigation by breaking up of the hematoma material. Incision was made utilizing a 64-Ravia blade into the fascia surrounding the 2nd metatarsal remnant. The incision was then deepened down to the bone area and the majority of this soft tissue was excised. A sagittal saw was utilized to resect the base of the 2nd metatarsal at the level of the proximal metaphyseal region, thus leaving the base of the 2nd metatarsal intact. Bone condition in this location was observed to be hard, good, and what appeared to be viable. The portion distal to this was excised, which was approximately a 4-5 cm piece of bone. There was a remnant of the 2nd metatarsal. Area was then flushed with copious amounts of sterile normal saline. Avascular tissue was then also excised. Stimulan beads were then placed within the wound and 3-0 nylon utilized to close the reapproximate the integument using horizontal mattress, vertical mattress in a retaining suture technique. Small portion in the central aspect was not completely closed. Then, 1/2-inch packing was applied to this region to help evacuate any hematoma. Surgical site was then closed with Betadine-soaked gauze, negative gauze, ABD pad, cast pad, and Coban. The ankle tourniquet was released and capillary fill time returned to normal to the patient's remaining digits. The patient was then escorted to the recovery area by Anesthesia with vital signs stable. The patient tolerated both the procedure and anesthesia well and was readmitted to the medical floor for continued monitoring and IV antibiotics. It should be noted that at this time that no purulent drainage or significant sign of ongoing bacterial infection was observed within the foot region. It should be noted that the distal portion of the 2nd metatarsal bone had significant amount of bony callus formation present that appeared to be stable. This was sent to Pathology for review. Kisha Morris DPM TM/MATTIL /[id number] Electronically Signed By: KISHA MORRIS DPM 01/30/21 1745 PATIENT NAME: PAT HERNANDEZ OPERATIVE REPORT DATE OF : 61 REPORT #: [id number] PHYSICIAN: KISHA MORRIS DPM PCP: PRASANTH HURTADO MD REPORT IS CONFIDENTIAL AND NOT TO BE RELEASED WITHOUT AUTHORIZATION [address] [address] Signed Copies: ~ Electronically Signed By: KISHA MORRIS DPM 01/30/21 1745 PATIENT NAME: PAT HERNANDEZ AMEE OPERATIVE REPORT DATE OF : 61 REPORT #: [id number] PHYSICIAN: KISHA MORRIS DPM PCP: PRASANTH HURTADO MD REPORT IS CONFIDENTIAL AND NOT TO BE RELEASED WITHOUT AUTHORIZATION
== END 2021-01-30 16:40 | disposition home or self-care (01) | DRG 854 ==
LOC: ED 08:34 → MS 11:19
PROVIDERS: ADMIT Student in an Organized Health Care Education/Training Program; ATTEND Student in an Organized Health Care Education/Training Program
PROC: 02HV33Z Insertion of Infusion Device into Superior Vena Cava, Percutaneous Approach (ICD-10-PCS; principal; 2021-01-18)
PROC: 0Y6N0ZC Detachment at Left Foot, Partial 3rd Ray, Open Approach (ICD-10-PCS; 2021-01-20)
PROC: 0QBP0ZZ Excision of Left Metatarsal, Open Approach (ICD-10-PCS; 2021-01-29)
DX: A41.02 Sepsis due to Methicillin resistant Staphylococcus aureus (principal); L03.116 Cellulitis of left lower limb; M84.475A Pathological fracture, left foot, initial encounter for fracture; M86.172 Other acute osteomyelitis, left ankle and foot; L97.424 Non-pressure chronic ulcer of left heel and midfoot with necrosis of bone; E11.69 Type 2 diabetes mellitus with other specified complication; Z20.822 Contact with and (suspected) exposure to COVID-19; E78.5 Hyperlipidemia, unspecified; E11.621 Type 2 diabetes mellitus with foot ulcer; I10 Essential (primary) hypertension; E11.42 Type 2 diabetes mellitus with diabetic polyneuropathy; E11.65 Type 2 diabetes mellitus with hyperglycemia; E66.9 Obesity, unspecified; Z79.4 Long term (current) use of insulin; Z79.899 Other long term (current) drug therapy
CPT/HCPCS: 01480; 36569; 71045; 72157; 73620; 73630; 73723; 80048; 80053; 80202; 80500; 81001; 82565; 83036; 83605; 83735; 84520; 85007; 85025; 85651; 87040; 87070; 87075; 87077; 87186; 87205; 88307; 88311; 93005; 93010; 93306; 96374; 97116; 97162; 97530; 99285-25; A9270; A9577; A9579; C1713; C1751; C9803; J0131; J0692; J1100; J1170; J1650; J1815; J1885; J2250; J2270; J2405; J2704; J2765; J2795; J3010; J3370; J7030; J7060; J7121; U0003

== ENCOUNTER 2021-02-03 21:02 | Emergency (ER) | payer OTHER ==
[~2021-02-03] VITALS: Ht 188 cm; Wt 105.7 kg
[~2021-02-03 21:02] MED LIST changes: +JARDIANCE10 MG PO; +TRULICITY4.5 MG/0.5 SUB-Q
--- OUTSIDE RECORDS SUMMARY | 2021-02-03 21:04 | XMS ---
PreManage Notification: PAT HERNANDEZ Security Broadcast Checker Events No recent Security Events currently on file CRITERIA MET - [facility] - 2 Visits in 30 Days CARE PROVIDERS MARGARITA GALLAGHER Internal Medicine Current PHONE: [phone] JARAD LI Nurse Practitioner Current PHONE: [phone] PRASANTH HURTADO [facility] 09/24/2020-Current PHONE: [phone] ERIN VASQUEZ Nurse Practitioner: Family Current PHONE: Unknown KISHA WISEMAN Termite Treater Helper Sarbjit AMES PHONE: [phone] МАРИЯ MANDUJANO I. Physician Fruit Or Nut Farmworker Current PHONE: Unknown TANISHA Nurse Keila DIETZ PHONE: [phone] [facility] Current PHONE: [phone] JULIA HARRISON [facility] Current PHONE: [phone] Tracy has no Care Guidelines for this patient. Care History Medical/Surgical 10/16/2018 [facility] - Patient is currently established with [facility]. If patient is seen in the ED during business hours. Please contact CHWs at [facility]. Care Recommendation: This patient has had 5 [...] providing care. E.D. VISIT COUNT (12 MO.) 3 [facility]. TOTAL 3 NOTE: Visits indicate total known visits. ED/UCC VISIT TRACKING (12 MO.) 02/03/2021 21:02 [facility] TYPE: Emergency COMPLAINT: - VOMITING 01/18/2021 08:36 [facility] TYPE: Emergency COMPLAINT: - L SHOULDER PAIN, BACK PAIN, L FOOT PAIN 09/23/2020 12:20 [facility] TYPE: Emergency COMPLAINT: - WOUND CARE INPATIENT VISIT TRACKING (12 MO.) 01/18/2021 11:19 [facility] TYPE: Medical Surgical COMPLAINT: - OSTEOMYELITIS DIAGNOSES: - Type 2 diabetes mellitus with other specified complication - Type 2 diabetes mellitus with diabetic polyneuropathy - Type 2 diabetes mellitus with diabetic polyneuropathy - Type 2 diabetes mellitus with hyperglycemia - Cellulitis of left lower limb - Pathological fracture, left foot, initial encounter for fracture - Non-pressure chronic ulcer of left heel and midfoot with necrosis of bone - Sepsis due to Methicillin resistant Staphylococcus aureus - Obesity, unspecified - Essential (primary) hypertension - Pathological fracture, left foot, initial encounter for fracture - Other acute osteomyelitis, left ankle and foot - Other acute osteomyelitis, left ankle and foot - Essential (primary) hypertension - intermediate project manager (current) use of insulin - Other fci (current) drug therapy - Other fci (current) drug therapy - intermediate project manager (current) use of insulin - Cellulitis of left lower limb - Type 2 diabetes mellitus with foot ulcer - Hyperlipidemia, unspecified - Obesity, unspecified - Type 2 diabetes mellitus with other specified complication - Sepsis due to Methicillin resistant Staphylococcus aureus - Non-pressure chronic ulcer of left heel and midfoot with necrosis of bone - Hyperlipidemia, unspecified - Sepsis, unspecified organism - Type 2 diabetes mellitus with hyperglycemia - Type 2 diabetes mellitus with foot ulcer 09/23/2020 15:18 [facility] TYPE: Medical Surgical COMPLAINT: - L FOOT CELLULITIS, DIABETIC WOUND SEPIS DIAGNOSES: - Other fci (current) drug therapy - Non-pressure chronic ulcer of left heel and midfoot with necrosis of muscle - Obesity, unspecified - Type 2 diabetes mellitus with foot ulcer - Non-pressure chronic ulcer of left heel and midfoot with necrosis of muscle - Essential (primary) hypertension - Other termite treater helper (current) drug therapy - group home (current) use of oral hypoglycemic drugs - Type 2 diabetes mellitus with hyperglycemia - Cutaneous abscess of left foot - group home (current) use of oral hypoglycemic drugs - Type 2 diabetes mellitus with foot ulcer - Type 2 diabetes mellitus with hyperglycemia - Cutaneous abscess of left foot - Sepsis due to streptococcus, group B - Cellulitis of left lower limb - Essential (primary) hypertension - Atherosclerotic heart disease of [place] coronary artery without angina pectoris - Atherosclerotic heart disease of [place] coronary artery without angina pectoris - Sepsis, unspecified organism - Obesity, unspecified - Cellulitis of left lower limb - Sepsis due to streptococcus, group B 02/15/2020 13:15 [facility] TYPE: Medical Surgical COMPLAINT: - TC CELLULITIS DIAGNOSES: - Essential (primary) hypertension - Type 2 diabetes mellitus with other specified complication - Other osteomyelitis, ankle and foot - intermediate project manager (current) use of insulin - Other abnormalities of gait and mobility - Non-pressure chronic ulcer of right heel and midfoot with necrosis of muscle - Other fci (current) drug therapy - Type 2 diabetes [...] Cutaneous abscess of right foot - Other termite treater helper (current) drug therapy - Sepsis due to Methicillin resistant Staphylococcus aureus - Cellulitis of right lower limb - Other termite treater helper (current) drug therapy - Cellulitis of right [...] due to Methicillin resistant Staphylococcus aureus - intermediate project manager (current) use of insulin - Other acute osteomyelitis, right ankle and foot - Hyperlipidemia, unspecified - Contact with and (suspected) exposure to other viral communicable diseases - Cutaneous abscess of right foot - Essential (primary) hypertension - Type 2 diabetes mellitus with foot ulcer - group home (current) use of insulin - Type 2 diabetes mellitus with other specified complication - Other acute osteomyelitis, right ankle and foot [email or web address]
== END 2021-02-04 00:34 | disposition home or self-care (01) ==
LOC: ED 21:02
DX: K52.9 Noninfective gastroenteritis and colitis, unspecified (principal); E11.9 Type 2 diabetes mellitus without complications; I10 Essential (primary) hypertension; E66.9 Obesity, unspecified; Z20.822 Contact with and (suspected) exposure to COVID-19; Z79.4 Long term (current) use of insulin; Z79.899 Other long term (current) drug therapy
CPT/HCPCS: 71045; 80053; 81001; 83690; 83735; 85007; 85025; 96374; 96375; 99284-25; A9270; C9803; J2405; J2550; J7030; U0003

== ENCOUNTER 2021-03-08 09:08 | Emergency (ER) | payer OTHER ==
[~2021-03-08] VITALS: Ht 188 cm; Wt 108.9 kg
--- OUTSIDE RECORDS SUMMARY | 2021-03-08 09:16 | XMS ---
PreManage Notification: PAT HERNANDEZ Security Superintendent Custodian Janitor Events No recent Security Events currently on file CRITERIA MET - [place] [facility] - 2 Visits in 30 Days CARE PROVIDERS MARGARITA GALLAGHER Internal Medicine Current PHONE: [phone] JARAD LI Nurse Practitioner Current PHONE: [phone] PRASANTH HURTADO [facility] 09/24/2020-Current PHONE: [phone] ERIN VASQUEZ Nurse Practitioner: Family Current PHONE: Unknown KISHA WISEMAN Pediatric Nephrologist Current VINCENT AMES PHONE: [phone] PABLO CORADO Nurse Practitioner Current PHONE: [phone] МАРИЯ MANDUJANO I. Physician Director Community [facility] Nursing Current PHONE: Unknown TANISHA Nurse Keila DIETZ PHONE: [phone] JULIA HARRISON [facility] Current PHONE: [phone] Tracy has no Care Guidelines for this patient. Care History Medical/Surgical 10/16/2018 [facility] - Patient is currently established with [facility]. If patient is seen in the ED during business hours. Please contact CHWs at [facility]. Care Recommendation: This patient has had 5 [...] providing care. E.D. VISIT COUNT (12 MO.) 5 [facility] TOTAL 5 NOTE: Visits indicate total known visits. ED/UCC VISIT TRACKING (12 MO.) 03/08/2021 09:09 [facility] TYPE: Emergency COMPLAINT: - LOWER EXTREMITY RASH 02/17/2021 09:11 [facility] TYPE: Emergency COMPLAINT: - PIC LINE REMOVAL 02/03/2021 21:02 [facility] TYPE: Emergency COMPLAINT: - VOMITING DIAGNOSES: - Obesity, unspecified - Other cancer registrar (current) drug therapy - Essential (primary) hypertension - long-term (current) use of insulin - Type 2 diabetes mellitus without complications - Noninfective gastroenteritis and colitis, unspecified - Nausea with vomiting, unspecified 01/18/2021 08:36 [facility] TYPE: Emergency [...] and foot - Essential (primary) hypertension - hand iii cutter (current) use of insulin - Other cancer registrar (current) drug therapy - Other cancer registrar (current) drug therapy - long-term (current) use of insulin - Cellulitis of [...] diabetes mellitus with foot ulcer 09/23/2020 15:[address] [facility] TYPE: Medical Surgical COMPLAINT: - L FOOT CELLULITIS, DIABETIC WOUND SEPIS DIAGNOSES: - Other assisted (current) drug therapy - Non-pressure chronic ulcer of left heel and midfoot with necrosis of muscle - Obesity, unspecified - Type 2 diabetes mellitus with foot ulcer - Non-pressure chronic ulcer of left heel and midfoot with necrosis of muscle - Essential (primary) hypertension - Other assisted (current) drug therapy - hand iii cutter (current) use of oral hypoglycemic drugs - Type 2 diabetes mellitus with hyperglycemia - Cutaneous abscess of left foot - hand iii cutter (current) use of oral hypoglycemic drugs - Type 2 diabetes mellitus with foot ulcer - Type 2 diabetes mellitus with hyperglycemia - Cutaneous abscess of left foot - Sepsis due to streptococcus, group B - Cellulitis of left lower limb - Essential (primary) hypertension - Atherosclerotic heart disease of [place] coronary artery without angina pectoris - Atherosclerotic heart disease of [place] coronary artery without angina pectoris - Sepsis, unspecified organism - Obesity, unspecified - Cellulitis of left lower limb - Sepsis due to streptococcus, group B [email or web address]
[2021-03-08] MEDS ORDERED: DIFLUCAN150 MG PO (10:31)
[2021-03-08] MEDS ORDERED: JOCK ITCH RELIE14 GM TOP (10:33)
== END 2021-03-08 10:42 | disposition home or self-care (01) ==
LOC: ED 09:08
DX: B37.2 Candidiasis of skin and nail (principal); E11.9 Type 2 diabetes mellitus without complications; I10 Essential (primary) hypertension; E66.9 Obesity, unspecified; Z89.429 Acquired absence of other toe(s), unspecified side; Z79.4 Long term (current) use of insulin; Z79.899 Other long term (current) drug therapy; Z68.30 Body mass index [BMI] 30.0-30.9, adult
CPT/HCPCS: 99283

== ENCOUNTER 2021-08-30 18:09 | Inpatient (IN) | payer OTHER ==
[~2021-08-30] VITALS: Ht 188 cm; Wt 103.3 kg
[~2021-08-30 18:09] MED LIST changes: +DIFLUCAN150 MG PO; +JOCK ITCH RELIE14 GM TOP
--- OUTSIDE RECORDS SUMMARY | 2021-08-30 18:12 | XMS ---
[facility] Notification: PAT HERNANDEZ Security Nuisance Wildlife Trapper Events No recent Security Events currently on file CRITERIA MET - [employer] CARE PROVIDERS MARGARITA GALLAGHER Internal Medicine Current PHONE: Unknown JARAD LI Nurse Practitioner Current PHONE: [phone] [facility] 09/24/2020-Current PHONE: [phone] ERIN VASQUEZ Nurse Practitioner: Family Current PHONE: Unknown KIHSA WISEMAN Assistant Project Engineer Sarbijt AMES PHONE: [phone] PABLO CORADO Nurse Practitioner Current PHONE: [phone] МАРИЯ MANDUJANO I. Physician Ice Bag Assembler Current PHONE: Unknown TANISHA Nurse Keila DIETZ PHONE: [phone] JULIA HARRISON [facility] Current PHONE: [phone] Tracy has no Care Guidelines for this patient. Care History Medical/Surgical 10/16/2018 [facility] - Patient is currently established with [facility]. If patient is seen in the ED during business hours. Please contact CHWs at [facility]. Care Recommendation: This patient has had 5 [...] providing care. E.D. VISIT COUNT (12 MO.) 6 [facility]. TOTAL 6 NOTE: Visits indicate total known visits. ED/UCC VISIT TRACKING (12 MO.) 08/30/2021 18:10 [facility] TYPE: Emergency COMPLAINT: - ALTERED MENTAL STATUS 03/08/2021 09:09 [facility] TYPE: Emergency COMPLAINT: - LOWER EXTREMITY RASH DIAGNOSES: - Body mass index [BMI] 30.0-30.9, adult - Acquired absence of other toe(s), unspecified side - Type 2 diabetes mellitus without complications - Other senior care (current) drug therapy - ocean transportation intermediary (current) use of oral hypoglycemic drugs - Candidiasis of skin and nail - Rash and other nonspecific skin eruption - Obesity, unspecified - Essential (primary) hypertension - senior care (current) use of insulin 02/17/2021 09:11 [facility] TYPE: Emergency COMPLAINT: - PIC LINE REMOVAL 02/03/2021 21:02 [facility] TYPE: Emergency COMPLAINT: - VOMITING DIAGNOSES: - Obesity, unspecified - Other senior care (current) drug therapy - Essential (primary) hypertension - ocean transportation intermediary (current) use of insulin - Type 2 [...] and foot - Essential (primary) hypertension - ocean transportation intermediary (current) use of insulin - Other senior care (current) drug therapy - Other termite control technician (current) drug therapy - ocean transportation intermediary (current) use of insulin - Cellulitis of [...] diabetes mellitus with foot ulcer 09/23/2020 15:[address] [facility] TYPE: Medical Surgical COMPLAINT: - L FOOT CELLULITIS, DIABETIC WOUND SEPIS DIAGNOSES: - Other senior care (current) drug therapy - Non-pressure chronic ulcer of left heel and midfoot with necrosis of muscle - Obesity, unspecified - Type 2 diabetes mellitus with foot ulcer - Non-pressure chronic ulcer of left heel and midfoot with necrosis of muscle - Essential (primary) hypertension - Other senior care (current) drug therapy - senior care (current) use of oral hypoglycemic drugs - Type 2 diabetes mellitus with hyperglycemia - Cutaneous abscess of left foot - senior care (current) use of oral hypoglycemic drugs - Type 2 diabetes mellitus with foot ulcer - Type 2 diabetes mellitus with hyperglycemia - Cutaneous abscess of left foot - Sepsis due to streptococcus, group B - Cellulitis of left lower limb - Essential (primary) hypertension - Atherosclerotic heart disease of [place] coronary artery without angina pectoris - Atherosclerotic heart disease of [place] coronary artery without angina pectoris - Sepsis, unspecified organism - Obesity, unspecified - Cellulitis of left lower limb - Sepsis due to streptococcus, group B [email or web address]
--- NOTE | 2021-08-30 21:37 | NUR ---
LAB CALLED TO REPORT CRITICAL BG OF 659. PT ON INSULIN GTT , INFORMED TANNER HAQUE PRIMARY NURSE.
--- NOTE | 2021-08-30 21:45 | NUR ---
PT ARRIVED TO THE CCU VIA STRETCHER, PT AND BELONGINGS BROUGHT BY TIMBER HARVESTER OPERATOR KEN. IV VANCOMYCIN INFUSING. PT MOVED OVER TO THE BED WITH ASSISTANCE FROM KEN AND SHABNAM PAGAN. VITALS THEN TAKEN. PT STATED HE NEEDED TO VOID AFTERWARDS, PT ASSISTED WITH USING A URINAL AND VOIDED 275 ML. CBG ASSESSED BY SHABNAM PAGAN AT THE BEDSIDE AND WAS +500. SCHEDULED MEDICATIONS ADMINISTERED, IVF INFUSING ORDERED, INSULIN STARTED AT 8.8 PER INFUSION FLOWSHEET AND MD ORDERS (SEE MAR/CHART). LABS DRAWN FROM PT'S LEFT IV AND GIVEN TO LIBRARIAN SCHOOL. PT DROWSY BUT WAKES EASILY AND WAS ORIENTED X4, PT RETURNS TO SLEEP QUICKLY. PT ABLE TO ANSWER ASSESSMENT QUESTIONS BUT WAS TO TIRED/DROWSY TO STAY AWAKE AND ANSWER HEALTH HISTORY AT THIS TIME. PT ASSESSMENT COMPLETED AFTERWARDS. PT ABLE TO FOLLOW COMMANDS AND IS ORIENTED WHEN AWAKE, LUNGS CLEAR THROUGHOUT, ABDOMEN SOFT, ACTIVE BOWEL TONES PRESENT, HEART RYTHM TACHY BUT REGULAR IN RYTHM. STRONG RADIAL AND PEDAL PULSES PRESENT WITH BRISK CAPILLARY REFILL. DRESSING NOTED ON PT'S LEFT FOOD THAT IS C/D/I, REDNESS/ERYTHEMA NOTED ON LEFT FOOT UP TO THE MID MCCRAY. RIGHT FOOD NOTED TO HAVE A SORE/SCAB ON THE 3RD RIGHT TOE AND A SUPERFICIAL WOUND ON THE DORSAL SIDE OF THE RIGHT FOOT. PT NOTED TO BE INCONTINENT AT THIS TIME, ATTENDS REMOVED, PERICARE DONE, NEW INCONTINENT PADS IN PLACE. NO FURTHER NEEDS ASSESSED AT THIS TIME, WILL CONTINUE PLAN OF CARE. CALL LIGHT IN REACH, BED IN LOWEST POSITION, BED ALARM ON.
--- NOTE | 2021-08-30 22:27 | NUR ---
PT LAYING IN BED SLEEPING. IVF AND INSULIN DRIP INFUSING, NEW BAG OF VANCO STARTED AND INFUSING ORDERED (SEE MAR). CBG ASSESSED AND WAS 594, INSULIN DRIP KEPT AT 8.8 UNITS/HR PER INSULIN DRIP FLOWSHEET. PT STILL DROWSY, AWAKES TO VOICE/STIMULATION BUT RETURNS TO SLEEP SHORTLY AFTER. NO FURTHER NEEDS ASSESSED AT THIS TIME, WILL CONTINUE PLAN OF CARE. CALL LIGHT IN REACH, BED ALARM ON, BED IN LOWEST POSITION.
--- NOTE | 2021-08-30 23:41 | NUR ---
PT LAYING IN BED SLEEPING AT THIS TIME. IV VANCO COMPLETED, IVF AND IV INSULIN DRIP INFUSING AT PREVIOUS RATES. CBG OBTAINED AND WAS 480, INSULIN DRIP LEFT AT 8.8 UNITS/HR PER INSULIN FLOWSHEET. VITALS OBTAINED, AXILLARY TEMP OF 100 OBTAINED. PT AWOKE WITH VERBAL STIMULATION AND REMAINED AWAKE. PT INFORMED THAT HE WOULD GET PRN TYLENOL. PT SAT UP IN BED AND WAS ABLE TO TAKE SIPS OF WATER, PRN TYLENOL THEN ADMINISTERED AND PT THEN PROVIDED WITH SIPS OF ICE WATER. PT STILL DROWSY AND RETURNED BACK TO SLEEP AFTERWARDS. ASSESSMENT THEN COMPLETED (SEE CHART). PT INCONTINENT OF URINE AT THIS TIME, PERICARE DONE AND NEW INCONTINENT PADS IN PLACE. NO FURTHER NEEDS ASSESSED AT THIS TIME, PT REMAINS SLEEPING IN BED. CALL LIGHT IN REACH, BED IN LOWEST POSITION, BED ALARM ON, WILL CONTINUE PLAN OF CARE.
--- NOTE | 2021-08-31 00:27 | NUR ---
PT LAYING IN BED SLEEPING. CBG ASSESSED AND WAS 412. INSULIN DRIP TITRATED DOWN TO 7.2 UNITS/HR PER INSULIN FLOWSHEET AFTER DOUBLE CHECKING WITH SECOND RN. IVF INFUSING ORDERED. PT REMAINS SLEEPING, NO FURTHER NEEDS ASSESSED AT THIS TIME, WILL CONTINUE PLAN OF CARE.
--- NOTE | 2021-08-31 01:42 | NUR ---
CBG ASSESSED AND WAS 313, INSULIN DRIP CHANGED TO 5 UNITS/HR. IVF INFUSING ORDERED. PT AWOKE EASILY AT THIS TIME AND WAS FOUND TO BE INCONTINENT, WHILE DOING PERICARE PT HAD A SECOND EPISODE OF URINARY INCONTINENCE. PERICARE DONE, BED CHANGE DONE WITH HELP FROM SHABNAM OG, NEW INCONTINENCE PADS IN PLACE. PT NOW RESTING IN BED AND REPORTS NO FURTHER NEEDS. PT REMAINS DROWSY BUT IS ORIENTED X4. WILL CONTINUE PLAN OF CARE. CALL LIGHT IN REACH, BED IN LOWEST POSITION.
--- NOTE | 2021-08-31 02:22 | NUR ---
CBG ASSESSED AND WAS 277, IV INSULIN DRIP CHANGED TO 4.2 UNITS/HR PER FLOWSHEET. RATE VERIFIED BY SECOND RN. PT REMAINS ASLEEP, NO FURTHER NEEDS ASSESSED, WILL CONTINUE PLAN OF CARE.
--- NOTE | 2021-08-31 03:22 | NUR ---
PT LAYING IN BED IVF AND INSULIN DRIP INFUSING AT PREVIOUS RATES. CBG ASSESSED AND WAS 293, INSULIN DRIP INCREASED TO 7.5 UNITS/HR PER INSULIN FLOWSHEET. NO FURTHER NEEDS ASSESSED AT THIS TIME, PT REMAINS ASLEEP IN THE BED, WILL CONTINUE PLAN OF CARE.
--- NOTE | 2021-08-31 03:57 | NUR ---
PT LAYING IN BED SLEEPING AT THIS TIME. IVF AND INSULIN DRIP INFUSING. PT NOTED TO BE INCONTINENT OF URINE AT THIS ITME. OSCAR ABDUL, SHABNAM PAGAN ASSISTED WITH BEDCHANGE. NEW PAD AND BRIEFS ON PT AT THIS TIME. PT ABLE TO AWAKE EASILY DURING CHANGE AND ASSIST WITH ROLLING SIDE TO SIDE IN BED FOR CHANGE. PT NOW BACK TO SLEEP IN BED. NO NEEDS ASSESSED AT THIS TIME, WILL CONTINUE PLAN OF CARE. CALL LIGHT IN REACH, BED IN LOWEST POSITION.
--- NOTE | 2021-08-31 04:37 | NUR ---
PT LAYING IN BED RESTING AT THIS TIME, IV INSULIN DRIP INFUSING, IVF INFUSING. CBG ASSESSED AND WAS 212. INSULIN DRIP TURNED OFF PER ORDERS, WILL CONTINUE TO MONITOR BLOOD GLUCOSE PER ORDERS. ASSESSMENT COMPLETED AT THIS TIME (SEE CHART). PT IN NO APPARENT DISTRESS AND REMAINS ASLEEP. WILL CONTINUE PLAN OF CARE. CALL LIGHT IN REACH, BED IN LOWEST POSITION.
--- NOTE | 2021-08-31 05:40 | NUR ---
PT NOTED TO BE IN BIGEMINY, HR RANGING FROM 112-114. PT LAYING IN BED SLEEPING AND AWOKE EASILY. VITALS TAKEN AT THIS TIME. PT ORIENTED X 4, DENIES ANY CHEST PAIN OR LIGHTHEADEDNESS. MAINTENANCE IVF INFUSING ORDERED. DR. VELASCO NOTIFIED OF PT'S BIGEMINY AND VITALS. ORDERS GIVEN TO ADD A MAGNESIUM ADD-ON TO PT'S MORNING LABS AT THIS TIME, WILL CONTINUE PLAN OF CARE.
--- NOTE | 2021-08-31 06:05 | NUR ---
PT LAYING IN BED SLEEPING. PT AWOKE EASILY AT THIS TIME BUT IS STILL DROWSY. CBG ASSESSED, 9 UNITS OF INSULIN THEN ADMINISTERED PER SLIDING SCALE (SEE MAR). SCHEDULED IV ABX ALSO STARTED AND NOW INFUSING. PT REPORTS NO FURTHER NEEDS AT THIS TIME, WILL CONTINUE PLAN OF CARE.
--- NOTE | 2021-08-31 06:06 | NUR ---
DR. VELASCO NOTIFIED OF PT'S VITALS AND LAB VALUES REGARDING THE BMP AND MAGNESIUM. DR. VELASCO ALSO NOTIFIED THAT THE PT WAS STILL IN BIGEMINY AND ASYMPTOMATIC. ORDERS GIVEN TO ADMINISTER 40MEQ OF PO POTASSIUM, WILL CONTINUE PLAN OF CARE.
--- NOTE | 2021-08-31 06:18 | NUR ---
PT LAYING IN BED SLEEPING AND AWOKE EASILY. PT ABLE TO TAKE ORDERED PO POTASSIUM (SEE MAR). PT THEN PROVIDED WITH DIET SODA PER HIS REQUEST AND WAS PROVIDED WITH SIPS OF IT. PT REPORTS NO FURTHER NEEDS WHEN ASKED AND RETURNED BACK TO SLEEP AFTERWARDS. IVF INFUSING ORDERED, CALL LIGHT IN REACH, BED IN LOWEST POSITION, WILL CONTINUE PLAN OF CARE.
--- NOTE | 2021-08-31 07:46 | NUR ---
IN ROOM FOR ASSESSMENT. BLOOD SUGAR OF 269. PT ALERT ABND ORIENTED TO TIMES FOUR. REPORTS BEING DROWSY, BUT DENIES PAIN AT THSIT KEISHA. PT ATTEMPTING TO USE URINAL WITH ASSISTANCE OF LABOR COMMISSIONER AT THIS TIME. PT IS AFEBRILE, HEART RATE 110-115. RHYTHM SINUS TACH WITH FREQUENT PVC, AT TIMES IN BIGEMINY. PLAN OF CARE FOR DAY ESTABLISHED. CALL LIGHT WITHIN REACH. WILL CONTINUE TO MONITOR.
--- NOTE | 2021-08-31 08:15 | NUR ---
SMALL CUP OF WATER PROVIDED, PATIENT GULPED WATER DOWN VERY QUICKLY AND CONSEQUENTLY BEGAN COUGHING. PATIENT STILL ASKING FOR MORE WATER AT THIS TIME. RN AWARE.
--- NOTE | 2021-08-31 09:13 | NUR ---
PT CALLING OUT TO USE URINAL. VOIDED 500 MLS OF ERNST COLORED URINE.
--- NOTE | 2021-08-31 09:41 | NUR ---
PT'S MOTHERS GIVEN A TELEPHONE UPDATE ON PT. VERBAL CONSENT GIVEN BY PT.
--- NOTE | 2021-08-31 10:50 | NUR ---
Spoke with Bar. He is currently living with his mom again. He is using a wc and crutches to get around. He is disabled and has psych issues. He cont. to see [facility] for his wound care on his feet.Pt. plans on dc to home with his mom when he is able to be discharged.
--- NOTE | 2021-08-31 11:32 | NUR ---
DR VELASCO IN ROOM FOR ASSESSMENT. PLAN OF CARE FOR DAY ESTABLISHED. ALL PT QUESTIONS ANSWERED.
--- NOTE | 2021-08-31 12:33 | NUR ---
CHECKING ON PT-RN GUERRERO REQUESTED I COME BACK LATER. WILL FOLLOW NEEDED
--- NOTE | 2021-08-31 12:34 | NUR ---
PT GIVEN INSULIN PER SLIDING SCALE AND LONG ACTING (SEE EMAR). NOW EATING LUNCH. PT ALERT AND ORIENTED, ANSWERING ALL QUESTIONS APPROPRIATELY. CALL LIGHT WITHIN REACH. CALL LIGHT WIHTIN REACH. WILL CONTINUE TO MONITOR.
[2021-08-31] MEDS ORDERED: SULFAMETHOXAZO1 EAC1 PO (13:42)
--- NOTE | 2021-08-31 14:02 | NUR ---
IMAGING IN ROOM AT THIS TIME TO DO FOOT XRAY. WELL TOLERATED BY PT.
--- NOTE | 2021-08-31 14:16 | NUR ---
IN TO ADMINISTER MEDICATIONS. PT COMPLAINS OF BEING COLD. ORAL TEMP OF 98.4, WARM BLANKETS PROVIDED. DENIES FURTHER NEEDS AT THIS TIME.
--- NOTE | 2021-08-31 14:16 | NUR ---
DR WISEMAN NOTIFIED THAT PATIENT IS INPATIENT AT THIS TIME.
--- NOTE | 2021-08-31 14:58 | NUR ---
PT HAS ORAL TEMP OF 99.4, SH=249 AT REST. LEFT LEG IS MORE RED AND EDEMATOUS THAN EARLIER IN THE SHIFT. PT REMAINS DROWSY. IV FLUIDS AND ABX INFUSING. WILL CONTINUE TO MONITOR.
--- NOTE | 2021-08-31 15:30 | NUR ---
DISCUSSED ASSESSMENT FINDINGS AND RESULTS OF IMAGING WITH DR VELASCO ON THE PHONE. NO NEW ORDERS AT THIS TIME.
--- NOTE | 2021-08-31 17:33 | NUR ---
PT DROWSY BUT AWAKENS TO VOICE, CHEEKS ARE FLUSHED. GIVEN PRN TYLENOL FOR FEVER. HEART RATE 110-118 AT REST. IV FLUIDS AND ABX INFUSING. CALL LIGHT WITHIN REACH. WILL CONTINUE TO MONITOR.
--- NOTE | 2021-08-31 17:41 | NUR ---
DISCUSSED BLOOD CULTURE RESULTS WITH DR VELASCO VIA TELEPHONE. VERBAL ORDER FOR SECOND SET OF BLOOD CULTURES AT THIS TIME.
--- NOTE | 2021-08-31 18:00 | NUR ---
INCONT OF LARGE AMOUNT OF URINE. BED LINEN CHANGED.
--- NOTE | 2021-08-31 19:20 | NUR ---
REPORT RECEIVED FROM VANESSA RN, WILL CONTINUE PLAN OF CARE.
--- NOTE | 2021-08-31 20:15 | NUR ---
PT LAYING IN BE SLEEPING, MAINTENANCE IVF INFUSING ORDERED. PT AWOKE TO LOUD VOICE AND WAS NOTED TO BE DROWSY. PT FOLLOWS DIRECTIONS AND WAS ORIENTED X4. VITAL TAKEN AT THIS TIME (SEE CHART). PT THEN PROVIDED WITH SIPS OF ICE WATER. CBG ASSESSED, 9 UNITS INSULIN ADMINISTERED PER SLIDING SCALE ALONG WITH SCHEDULED LOVENOX (SEE MAR). PT ASSESSMENT THEN COMPLETED. HEART RATE TACHYCARDIC AND REGULAR IN RYTHM, LUNGS CLEAR IN UPPER LOBES, DIMINISHED WITH FINE CRACKLES IN THE LEFT LOWER BASE AND CLEAR/DIM IN THE RIGHT LOWER BASE. ACTIVE BOWEL TONES PRESENT, STRONG RADIAL PULSES. LEFT PEDAL PULSE +1, FOOT IS WARM, DRESSING IS C/D/I ON SOLE OF FOOT. RIGHT PEDAL PULSE STRONG. CAPILLARY REFILL BRISK. NO FURTHER NEEDS ASSESSED AT THIS TIME, PT REMAINS IN BED SLEEPING, CALL LIGHT IN REACH, WILL CONTINUE PLAN OF CARE.
--- NOTE | 2021-08-31 21:45 | NUR ---
PT NOTED TO BE AWAKE IN BED MOVING TALKING TO HIMSELF. THIS RN INTO PT'S ROOM, PT NOTED TO BE USING THE URINAL AND SPILLED URINE WHILE USING IT. PT ASSISTED WITH USING THE URINAL. PERICARE DONE AND NEW LINENS AND GOWN PLACED ON PT. PT AWAKE AND ALERT AT THIS TIME SPEAKING TO HIMSELF AT TIMES BUT ORIENTED X4. PT REPORTS LEFT LEG PAIN AT THIS TIME AND STATED YES WHEN ASKED IF HE WANTED PRN TYLENOL. PRN TYLENOL ADMINISTERED ALONG WITH SCHEDULED IV ABX AFTERWARDS (SEE MAR). PT REPORTS NO FURTHER NEEDS WHEN ASKED AND RETURNED BACK TO SLEEP. CALL LIGHT IN REACH, IV ABX INFUSING, IVF INFUSING, WILL CONTINUE PLAN OF CARE.
--- NOTE | 2021-08-31 22:55 | NUR ---
PT LAYING IN BED SLEEPING AT THIS TIME. RESPIRATIONS EVEN AND UNLABORED, PT IN NO APPARENT DISTRESS. PT LEFT UNDISTURBED AT THIS TIME, IVF AND IV ABX INFUSING, WILL CONTINUE PLAN OF CARE.
--- NOTE | 2021-09-01 00:10 | NUR ---
PT SLEEPING AT THIS TIME, IVF AND IV ABX INFUSING. PT AWOKE EASILY AND WAS ORIENTED X4, VITALS TAKEN AND PT ASSESSED (SEE CHART). IV VANCOMYCIN STARTED AND NOW INFUSING (SEE MAR). PT REPORTS NO NEEDS AT THIS TIME AND DENIES THE NEED TO VOID/USE THE URINAL. CALL LIGHT IN REACH, BED IN LOWEST POSITION, WILL CONTINUE PLAN OF CARE.
--- NOTE | 2021-09-01 01:51 | NUR ---
PT LAYING IN BED SLEEPING AND WAS NOTED TO DESATURATE TO THE 70'S. PT AWOKE EASILY AND WAS ORIENTED, SPO2 INCREASED TO THE 90'S WHILE AWAKE. PT REPORTS NO SHORTNESS OF BREATH. PT HEAD OF BED ELEVATED AND PT PROVIDED WITH ICE WATER AT THIS TIME. LEFT LEG REPOSITIONED AND ELEVATED ON PILLOWS. PT REPORTS NO FURTHER NEEDS AT THIS TIME, WILL CONTINUE PLAN OF CARE. CALL LIGHT IN REACH, BED IN LOWEST POSITION, IVF AND IV ABX INFUSING.
--- NOTE | 2021-09-01 02:31 | NUR ---
PT USING THE URINAL AT THIS TIME AND VOIDED 400ML OF CONCENTRATED URINE. IV ABX COMPLETED AT THIS TIME WELL. PT LFA IV SALINE LOCKED. MAINTENANCE IVF INFUSING ORDERED. PT REPORTS NO NEEDS AT THIS TIME AND RETURNED TO SLEEP, WILL CONTINUE PLAN OF CARE.
--- NOTE | 2021-09-01 04:25 | NUR ---
PT LAYING IN BED SLEEPING AT THIS TIME. PT IN NO APPARENT DISTRESS, RESPIRATIONS EVEN AND UNLABORED. PT LEFT UNDISTURBED, IVF INFUSING ORDERED, WILL CONTINUE PLAN OF CARE.
--- NOTE | 2021-09-01 05:10 | NUR ---
PT LAYING IN BED SLEEPING, IVF INFUSING. URINAL NOTED TO HAVE 200ML OF CONCENTRATED URINE. PT THEN NOTED TO HAVE URINE IN HIS ATTENDS AND ON THE PAD. PT AWOKE DURING THIS TIME, PERICARE DONE. PT ASSISTED WITH ROLLING SIDE TO SIDE TO CHANGE ATTENDS AND PAD. PT THEN PROIVIDED WITH WARM BLANKETS AFTERWARDS. VITALS TAKEN AT THIS TIME (SEE CHART). ASSESSMENT THEN COMPLETED (SEE CHART). PT LESS DROWSY AND ORIENTED X 4, HEART RYTHM REGULAR, TACHYCARDIC. LUNGS CLEAR IN UPPER LOBES AND DIMINISHED/CLEAR IN THE BASES BILATERALLY. ACTIVE BOWEL TONES PRESENT. PT LEFT LEG APPEARS MORE REDDENED, AND EDEMATOUS +2/+3. PEDAL PULSE PALPATED, CAPILLARY REFILL BRISK, WARM TO THE TOUCH. PT PROVIDED WITH WATER AND A SNACK PER HIS REQUEST AT THIS TIME AND REPORTS NO FURTHER NEEDS. CALL LIGHT IN REACH, BED IN LOWEST POSITION, IVF INFUSING ORDERED, WILL CONTINUE PLAN OF CARE.
--- NOTE | 2021-09-01 05:45 | NUR ---
PT RESTING IN BED AT THIS TIME SLEEPING, IVF INFUSING. PT REPORTED HAVING 6-7/10 PAIN IN HIS LEFT FOOT AT THIS TIME. PRN TYLENOL ADMINISTERED ALONG WITH SCHEDULED IV ABX. PT PROVIDED WITH ICE WATER. PT REPORTS NO FURTHER NEEDS AT THIS TIME WHEN ASKED AND IS NOW RESTING IN BED, CALL LIGHT IN REACH, BED IN LOWEST POSITION. WILL CONTINUE PLAN OF CARE.
--- NOTE | 2021-09-01 06:53 | NUR ---
PT NOTED TO BE IN VENT BIGEMINY AROUND 0650. PT LAYING IN BED SLEEPING AND AWOKE EASILY. PT WAS ORIENTED X3 AND DENIED HAVING ANY CHEST PAIN OR LIGHTHEADEDNESS AT THIS TIME. VITALS TAKEN AT THIS TIME (SEE CHART). DR. VELASCO THEN UPDATED ON PT'S CHANGE TO BIGEMINY. WILL CONTINUE PLAN OF CARE.
--- NOTE | 2021-09-01 07:15 | NUR ---
REPORT RECIEVED, CARE OF PT ASSUMED AT THIS TIME. PT HAS IV FLUIDS AND ABX INFUSING. RESTIG WITH EYES CLOSED, BREATHING EVEN AND UNLABORED. CALL LIGHT WITHIN REACH. WILL CONTINUE TO MONITOR.
--- NOTE | 2021-09-01 07:24 | NUR ---
PATIENT RESTING IN BED, EYES CLOSED. GLUCOSE AND VITALS CHARTED. PATIENT DENIES NEED FOR VOID. CALL LIGHT IN EASY REACH
--- NOTE | 2021-09-01 07:35 | NUR ---
RECEIVED MORNING REPORT AND IN PT ROOM. BREAKFAST IS PRESENT AND PT IS AWAKE, ALERT IN BED EATING. PT IS IN BIGEMINY WITH HR IN LOW 100'S. WILL PERFORM MORNING ASSESSMENT AFTER PT FINISHES MEAL. CALL LIGHT WITHIN REACH, BED RAILS UP.
--- NOTE | 2021-09-01 08:26 | NUR ---
DR VILLASEÑOR IN ROOM AT THIS TIME TO DISCUSS POSSIBLE BELOW KNEE AMPUTATION ON LEFT LEG WITH PT. ALL QUESTIONS ANSWERED. PT EMOTIONAL AND TEARFUL. THERAPEUTIC COMMUNICATION AT THIS TIME.
--- NOTE | 2021-09-01 08:45 | NUR ---
IN TO PERFORM MORNING ASSESSMENT WITH PATIENT. PT ATE MAJORITY OF HIS MEAL WITHOUT DIFFICULTY. PT REPORTS PAIN IN LEFT LOWER FOOT THAT IS REDDENED AND HOT TO TOUCH. USED DOPPLER TO ESTABLISH PULSE. PT REPORTS TINGLING/NUMBNESS IN THIS LEG WELL. PT HR REMAINS TACHYCARDIC WITH FREQUENT PVC, IN BIGEMINY FREQUENTLY. PT ON RA WITH O2 IN MID 90S. PT A&O WHEN AWAKE BUT FREQUENTLY DROWSY. DR. VILLASEÑOR IN ROOM TO SPEAK WITH PT ABOUT CARE PLAN AND DISCUSSED BELOW KNEE AMPUTATION. PT WILL THINK ABOUT IT. THIS RN AND HEEL CURVER PERFORMING BED BATH FOR PT. WILL CONTINUE TO MONITOR.
--- NOTE | 2021-09-01 09:03 | NUR ---
PT TOLERATED BED BATH WELL. NEW BEDDING APPLIED AND PT WAS ABLE TO ROLL AND FOLLOW DIRECTION. PT IS NOW RESTING IN BED WITH GUARD RAILS UP AND CALL LIGHT WITHIN REACH. WILL CONTINUE TO MONITOR.
--- NOTE | 2021-09-01 09:17 | NUR ---
BEDBATH COMPLETE, HANDS AND NAILS SCRUBBED WELL. LINEN AND BRIEF CHANGED. PATIENT ABLE TO ROLL FROM SIDE TO SIDE EASILY. PATIENT AGAIN DENIES NEED TO VOID. CALL LIGHT IN EASY REACH
--- NOTE | 2021-09-01 09:38 | NUR ---
DC'ED LFA IV DUE TO INFILTRATION, STARTED 20 G IN LEFT HAND THAT FLUSHED WITH 10 ML WITH EASE. STARTED VANCO INFUSION AT 250 ML/HR IN LEFT HAND. CEFEPIME STILL RUNNING AT 25 ML/HR CONCURRENTLY WITH LR AT 75 ML/HR IN RIGHT WRIST. PT WAS ABLE TO URINATE INTO URINAL 500 ML WHEN EFFORT WAS MADE. PT IS NOW RESTING COMFORTABLY IN BED. CALL LIGHT WITHIN REACH, BED RAILS UP, WILL CONTINUE TO MONITOR.
--- NOTE | 2021-09-01 09:50 | NUR ---
IN ROOM WITH DR VELASCO FOR ASSESSMENT AND TO UPDATE PT ON PLAN OF CARE. ALL QUESTIONS ANSWERED AT THIS TIME. PT NOW SPEAKING WITH MOTHER ON TELEPHONE.
--- NOTE | 2021-09-01 10:24 | NUR ---
PT'S MOTHER AT BEDSIDE. DISCUSSED PLAN OF CARE WITH PT AND FAMIILY. ALL QUESTIONS ANSWERED.
--- NOTE | 2021-09-01 10:35 | NUR ---
ADMINISTERED 20 U OF GLARGINE PER PROVIDER ORDERS. PT MOTHER LARRY HAS LEFT. LEIGHTON HAS FINISHED INFUSION, LEFT HAND 20 G IS NOW SALINE LOCKED WITH CHLORAHEXADINE CAP. PT IS NOW RESTING IN BED. CALL LIGHT IS WITHIN REACH, BED RAILS UP, WILL CONTINUE TO MONITOR.
--- NOTE | 2021-09-01 11:01 | NUR ---
PT SLEEPING, AWOKE TO THE SOUND OF MY VOICE. PT RECOGNIZED ME, INFORMED ME HE IS AFRAID OF AMPUTATION. GAVE COMFORT, PT REQUESTED PRAYER. HE THANKED ME FOR VISIT. GAVE BLESSING AND WILL FOLLOW
--- NOTE | 2021-09-01 11:57 | NUR ---
2PA WITH FWW, PATIENT SITTING UP IN CHAIR FOR LUNCH. PATIENT TOLERATED TRANSFER WELL, PUTTING MINIMAL WEIGHT ON LEFT FOOT. GLUCOSE CHARTED. CALL LIGHT IN EASY REACH
--- NOTE | 2021-09-01 12:21 | NUR ---
IN PT ROOM FOR AFTERNOON ASSESSMENT. WITH ASSISTANCE FROM SUPERVISOR INSTRUMENT REPAIR & OTHER RN, TRANSFERRED PT TO CHAIR WITH WALKER FOR ASSISTANCE. PT TOLERATED WELL, REFRAINED FROM WEIGHT ON LEFT FOOT. PT IS SINUS TACHY WITH HR IN LOW 100'S. PT REMAINS ON RA WITH O2 SATS IN MID 90'S. FOOT IS STILL 5/10 CONSTANT PAIN, HOT/DRY/RED/SWOLLEN. PER ORDERS FOOT IS ELEVATED. PT IS A&O X 4 EATING LUNCH IN CHAIR. CALL LIGHT WITHIN REACH, WILL CONTINUE TO MONITOR.
--- NOTE | 2021-09-01 14:07 | NUR ---
PATIENT UP IN RECLINER RESTING WITH EYES COVERED. VITALS AND I&OS CHARTED. CALL LIGHT IN EASY REACH
--- NOTE | 2021-09-01 15:18 | EKG ---
[facility] [address] [facility] [place], [place] [address] Signed Sinus tachycardia Otherwise normal ECG When compared with ECG of 18-JAN-2021 09:42, No significant change was found Confirmed by GAYATHRI VELASCO MD ([id number]) on 09/01/2021 3:18:11 PM Electronically Signed By: GAYATHRI VELASCO MD 09/01/21 1518 PATIENT NAME: PAT HERNANDEZ Electrocardiogram DATE OF : 61 PHYSICIAN: GAYATHRI VELASCO MD REPORT #: [id number] REPORT IS CONFIDENTIAL AND NOT TO BE RELEASED WITHOUT AUTHORIZATION
--- NOTE | 2021-09-01 15:35 | NUR ---
2PA WITH FWW, PATIENT BACK TO BED. TOLERATED WELL. CALL LIGHT IN REACH. NEW BRIEF IN PLACE
--- NOTE | 2021-09-01 16:42 | NUR ---
IN W/PT FOR AFTERNOON ASSESSMENT. PT REPORT PAIN 7/10 IN LOWER LEFT FOOT. PT ORAL TEMP CURRENTLY IS 100.4. PT HR REMAINS TACHYCARDIC BUT IN SINUS RHYTHM, BP ARE HTN W/SYSTOLIC READING OF 140 SYSTOLIC. PT ABLE TO AMBULATE W/WALKER ASSISTANCE TO & FROM CHAIR WITHOUT SOB/DIZZINESS. LFT FOOT IS STILL HOT/DRY/SWOLLEN CHCF TO ANKLE. PT IS CURRENTLY LAYING IN BED SLEEPING AND ECHO BEING PERFORMED IN ROOM. CALL LIGHT WITHIN REACH, RAILS UP, WILL CONTINUE TO MONITOR.
--- NOTE | 2021-09-01 17:45 | NUR ---
CALLED DR VELASCO WITH PT ASSESSMENT UPDATE. LET HIM KNOW PT SPIKED TEMP OF 100.4 AND LEFT LOWER LEG IS INCREASED IN REDNESS, WARMTH, AND PAIN. ADMINISTERED PRN TYLENOL (SEE EMAR). PER DR VELASCO WILL CONTINUE COURSE OF CURRENT CARE PLAN. PT IS NOW SITTING UP IN BED EATING DINNER. CALL LIGHT WITHIN REACH, BED RAILS UP, WILL CONTINUE TO MONITOR.
--- NOTE | 2021-09-01 18:35 | NUR ---
DR. WISEMAN IN TO SPEAK TO PT REGARDING LEFT FOOT. PT WAS MADE AWARE OF PLAN OF CARE FOR BELOW THE KNEE AMPUTATION REGARDING WORSENING STATUS OF LEFT FOOT. PT IS MEMBER OF [employer] AND STRONGLY BELIEVES A MIRACLE WILL HEAL THE WOUND. CALL LIGHT IS WITHIN REACH, NO FURTHER NEEDS AT THIS TIME. PT WILL CONTINUE TO PONDER AMPUTATION.
--- NOTE | 2021-09-01 19:40 | NUR ---
PT LAYING IN BED AWAKE AND THIS TIME, IV ABX INFUSING. PT VITALS TAKEN AT THIS TIME (SEE CHART). PT REPORTS NO NEEDS AT THIS TIME WHEN ASKED, URINAL EMPTIED FOR PT AT THIS TIME. CALL LIGHT IN REACH, BED IN LOWEST POSITION, WILL CONTINUE PLAN OF CARE.
--- NOTE | 2021-09-01 20:56 | NUR ---
PT LAYING IN THE BED AT THIS TIME, USING THE URINAL AND WAS ABLE TO VOID 150MLS. AFTERWARDS PT REPORTED PAIN IN HIS LEFT FOOT. CBG THEN ASSESSED, 9 UNITS OF INSULIN ADMINISTERED ALONG WITH SCHEDULED MEDICATIONS AND PRN TYLENOL (SEE MAR). IV ABX STILL INFUSING AT THIS TIME. PT ASSESSMENT COMPLETED AT THIS TIME. PT ALERT, ORIENTED X3, PT NOTED TO REPEAT HIMSELF AT TIMES. HEART RATE TACHYCARDIC, RYTHM REGULAR. LUNGS CLEAR IN UPPER LOBES AND CLEAR/DIMINISHED IN THE BASES. BOWEL TONES ACTIVE. PULSES STRONG. LEFT FOOT NOTED TO BE RED, HOT, AND EDEMATOUS +3. DOPPLER USED TO ASSESS PULSE ON LEFT FOOT. PT REPORTS NO FURTHER NEEDS AFTERWARDS AND WAS PROVIDED WITH ICE WATER. PT REMAINS IN BED RESTING, CALL LIGHT IN REACH, IV ABX INFUSING, WILL CONTINUE PLAN OF CARE.
--- NOTE | 2021-09-01 21:04 | NUR ---
REPORT GIVEN TO SHABNAM AVENDAÑO AT THIS TIME. PT TO GO TO ROOM 114 ON THE MEDICAL SURGICAL FLOOR.
--- NOTE | 2021-09-01 21:17 | NUR ---
PT LAYING IN BED RESTING, IV ABX COMPLETED, PT SALINE LOCKED. PT NOTED TO BE INCONTINENT OF URINE, PERICARE DONE AND NEW ATTENDS/PAD/SHEETS IN PLACE. SHABNAM CRANE AND SHABNAM AVENDAÑO IN TO ASSIST WITH TRANSFERTING PT TO ROOM 114. PT AND HIS BELONGINGS TRANSFERRED TO MS CeciliaKATERYNA NOW IN THE ROOM WITH THE PT TO CONTINUE THE PLAN OF CARE.
--- NOTE | 2021-09-01 21:40 | NUR ---
REPORT RECEIVED FROM SHABNAM HART. pt ARRIVES TO MS FLOOR ROOM 114 VIA HOSPITAL BED. VSS. pt IS ALERT AND ORIENTED X 4. DROWSY. ASSESSMENT COMPLETE. LEFT LEG ELEVATED ON PILLOWS, LEGS ELEVATED WITH BED. pt REQUESTING TO SLEEP. DIET SODA PROVIDED REQUESTED. LIGHTS OFF IN ROOM. CALL LIGHT NEXT TO pt. BED ALARM ON.
--- NOTE | 2021-09-01 23:51 | NUR ---
CHECKED ON pt. RESTING IN BED ASLEEP WITH URINAL. 300 ML VOID IN URINAL, EMPTIED. SMALL AMT INCONTINENCE IN ATTENDS. ATTENDS CHANGED. pt DENIES NEEDS. IV ANTIBIOTIC INFUSING WNL. LIGHTS OFF IN ROOM. BED ALARM ON. LEFT LEG ELEVATED. CALL LIGHT IN REACH.
--- NOTE | 2021-09-02 02:04 | NUR ---
CHECKED ON pt. RESTING IN BED WITH EYES CLOSED. NO DISTRESS NOTED. BED ALARM ON.
--- NOTE | 2021-09-02 04:15 | NUR ---
PT CALLED FOR WARM BLANKET. EMPTIED URINAL. NO OTHER NEEDS
--- NOTE | 2021-09-02 04:41 | NUR ---
CHECKED ON pt. RESTING IN BED WITH EYES CLOSED, SNORING. NO DISTRESS NOTED. BED ALARM ON.
--- NOTE | 2021-09-02 06:30 | NUR ---
pt SLEEPING, DROWSY. AWAKENS TO VOICE. LARGE INCONTINENT VOID. LEFT FOOT DRAINING SANGUINOUS/BROWN DRAINAGE. FULL BEDDING CHANGE, ATTENDS CHANGED. LEFT LEG ELEVATED ON CHUX. VSS. ASSESSMENT COMPLETE. pt CLOSING EYES TO GO BACK TO SLEEP. IV ANTIBIOTIC INFUSING WNL. BED ALARM SET.
--- NOTE | 2021-09-02 07:15 | NUR ---
REPORT RECEIVED FROM NIGHT RN KATERYNA - PT RESTING IN BED WITH EYES CLOSED, RR EVEN AND UNLABORED. CALL LIGHT IN REACH.
--- NOTE | 2021-09-02 07:32 | NUR ---
DR. VILLASEÑOR IN ROOM ROUNDING ON PT.
--- NOTE | 2021-09-02 08:11 | NUR ---
RN IN ROOM TO ADMINISTER AM INSULIN AND PRN PAIN MEDS. PT RATES PAIN 7/10 IN LEFT FOOT. LEFT FOOT ELEVATED ON 3 PILLOWS WITH CHUX UNDERNEATH - SEROSANG DRAINAGE WEEPING FROM INTERIOR L ANKLE - SEE ASSESSMENT FOR FUTHER DETAIL. IV SITE FLUSHED X2 - BOTH WITHOUT DIFFICULTY. CALL LIGHT IN REACH.
--- NOTE | 2021-09-02 08:37 | NUR ---
MED REC COMPLETE
--- NOTE | 2021-09-02 10:54 | NUR ---
PT ALERT, ORIENTED AND UPDATED ME THAT DECISION HS BEEN MADE TO AMPUTATE HIS LLE. HE FEELS RELIEVED THE DECISION HAS BEEN MADE, CONFIDENT HIS FATHER IN [facility] IS WATCHING OVER HIM. HAD PRAYER WITH PT, LEFT G.POST AND BLESSING.
--- NOTE | 2021-09-02 11:00 | NUR ---
Pt moved to medical floor. Having xray, Dr. Rios may move surgery up depending on what xray shows. Plan remains for pt to dc to home with mom following BKA.
--- NOTE | 2021-09-02 11:00 | NUR ---
RN ROUNDING ON PT - PT RESTING IN BED, L LEG REPOSISTIONED UP ON PILLOWS WITH CHUX UNDERNEATH - FOOT AND ANKLE STILL WEEPING SEROSANG/BROWN FLUID. PT STATES PAIN IS HELPED MINIMALLY BY TYLENOL, DENIES NEEDS FOR FURTHER PAIN CONTROL. PT USING PHONE TO CALL "MOTHER". VS STABLE - IMPROVING.
--- NOTE | 2021-09-02 11:57 | NUR ---
RN IN ROOM TO ADMINISTER SCHEDULED INSULIN. PT ASLEEP ON SIDE - WAKES TO SOUND AND TOUCH - BACK TO SLEEP EASILY. L FOOT ELEVATED ON PILLOWS. RR EVENA ND UNLABORED. CALL LIGHT IN REACH.
--- NOTE | 2021-09-02 13:35 | NUR ---
RN ROUNDING ON PT - PT ASLEEP IN BED ON SIDE WITH SHEET OVER FACE. WAKES WITH VOICE AND TOUCH. LUNCH SET UP FOR PT IN FRONT OF HIM UPON WAKING. STATES HE HAD SOME INC IN BED, REQUESTS A BED BATH AND LINEN CHANGE AFTER LUNCH.
--- NOTE | 2021-09-02 14:05 | NUR ---
RN IN ROOM TO ASSESS PT - PT AWAKE IN BED UPON ENTRY. PT UP TO CHAIR USING 2 PERSON ASSIST USING PIVOT TRANSFER AND NON WEIGHT BEARING ON L FOOT. BED BATH AND LINEN CHANGE PERFORMED. L FOOT DRAINAGE INCREASING AND BECOMING PURULENT. AWARE. VS STABLE. VOIDING QS. CALL LIGHT IN REACH.
--- NOTE | 2021-09-02 15:45 | NUR ---
REPORT RECEIVED FROM KARI HAQUE. ALL QUESTIONS ANSWERED. HAVE ASSUMED CARE OF PT.
--- NOTE | 2021-09-02 16:56 | NUR ---
CLARIFIED NPO ORDER WITH DR VILLASEÑOR FOR NPO AT MIDNIGHT.
--- NOTE | 2021-09-02 17:08 | NUR ---
PT RESTING AWAKE IN BED. C/O 10/31 LEFT LEG PAIN. SPOKE WITH DR VELASCO REGARDING PAIN MEDICATIONS, ORDER PLACED. PT DENIES FURTHER NEEDS AT THIS TIME. CALL LIGHT WITHIN REACH.
--- NOTE | 2021-09-02 20:45 | NUR ---
IN TO GET VITALS, ACCU CHECK, FRESH ICE WATER GIVEN, PT FALLS ALSEEP QUICKLY, NO FURTHER NEEDS AT THIS TIME
--- NOTE | 2021-09-02 22:25 | NUR ---
PT ALERT AND ORIENTED, SOMETIMES HE HAS DELUSIONAL TALK BUT EASILY REDIRECTABLE. ON ROOM AIR, LUNGS DIM AT BASES BUT CLEAR, NO COUGH NOTED. ABD SOFT TENDER. L FOOT EDEMA TO LE , EDEMA TO L FOOT WITH SS DRAINAGE NOTED ON PAD. TENDER TO TOUCH. WARM TO TOUCH. AWARE OF NPO STATUS AFTER MINIGHT AND BKA IN AM. 2 SL LH AND RW PATENT, NO C/O PAIN AT THIS TIME STATED. TOLERATING LIQUIDS WELL, AND VOIDING CLEAR YELLOW URINE, USES URINAL. VISITING WITH MOTHER VIA PHONE
--- NOTE | 2021-09-03 00:57 | NUR ---
EYES CLOSED, NO DISTRESS, L FOOT ELEVATED ON 3 PILLOWS ABOVE HEART, SS DRAINAGE NOTED ON PAD., NO CHANGES EDEMA L FOOT. CALL LIGHT AT HANDS REACH, ALL FLUIDS REMOED EARLIER
--- NOTE | 2021-09-03 02:43 | NUR ---
PT RESTING, AWAKES EASILY,ON ROOM AIR, TURNS AND RESPOSITIONS SELF IN BED. USES URINAL, L LEG ELEVATED WITH PILLOWS, NO CHANGES FROM EARLIER ASSESSMENT. PT IS NPO FOR AM SURGERY. CALL LIGHT AT HANDS REACH
--- NOTE | 2021-09-03 04:00 | NUR ---
PT CALLED, IN TO LOCATE REMOTE, VITALS DONE, BED LINEN CHANGED, SURGICAL WIPE DOWN COMPLETED WITH RN, WARM BLANKETS PROVIDED, NO FURTHER NEEDS AT THIS TIME
--- NOTE | 2021-09-03 04:04 | NUR ---
pt awake, coop with assessment. no c/o pain, tolerated abx infusing. 2 sl patent. pt pre surgery hexadine wipedown and bed changed done. l leg wiped twice, elevated in 3 pillows, no changes from earlier assessment. R foot edematous, no changes from earlier either, tolerated very well, no c/o pain. was incontinent of urine, has used urinal all this shift. skin care done and clean attends in place. Pt NPO for am surgery.
--- NOTE | 2021-09-03 06:18 | NUR ---
pt has slept all shift, on room air, has been NPO for am BKA procedure. 2 SL patent. L leg feet edematous, draining ss drainage, elevated in pillows. edema to R leg present too. cooperative. hexadine wipe down done. bedding changed, pt used urinal and was incontinent of urine, attends in place
--- NOTE | 2021-09-03 06:32 | NUR ---
pt taken by OR tech for surgery. Pt schedule and oncall abx ofr OR given to teach. scds . Pt alert and oriented.
--- NOTE | 2021-09-03 06:34 | NUR ---
CBG done prior to sending pt to OR CBG 211. no coverage done at this time
--- NOTE | 2021-09-03 07:34 | NUR ---
Patient off the medical floor in surgery at this time.
--- NOTE | 2021-09-03 08:29 | NUR ---
09/03/21 0829 Sosa Streeter 0822 PATIENT ARRIVES TO PACU AWAKE BUT DROWSY. RESP EVEN AND UNLABORED, MASK AT 6 LITERS. PATIENT DENIES PAIN OR NAUSEA. PATIENT IS WARM BUT DIAPHORETIC. 0829 PATIENT AWAKE, CONTINUES TO DENY PAIN OR NAUSEA. RESP EVEN AND UNALBORED, OXYGEN OFF. ROOM AIR SATS >94%.
--- NOTE | 2021-09-03 09:12 | NUR ---
PT ARRIVED VIA STRETCHER WITH PACU NURSE ANITRA. PT ALERT AND ORIENETED, ANSWERING ALL QUESTIONS APPROPRIATELY UPON ARRIVAL. IV FLUIDS AND VANCOMYCIN INFUSING. PT PLACED ON STRAP BUCKLER MACHINE AT THIS TIME. HEART RATE IN THE 90S. SPOE = 95% ON ROOM AIR. PT COMPLAINS OF 8/10 PAIN IN LEFT LEG AT THIS TIME. DRESSING PLACED IN SURGERY IS CDI, NO BLOOD NOTED ON DRESSING. LEFT LEG ELEVATED ON A PILLOW AND ICE ON EXTREMITY.
--- NOTE | 2021-09-03 09:45 | NUR ---
PT COMPLAINS OF 10/10 PAIN IN LEFT LOWER EXTREMITY. DISCUSSED PLAN FOR ANESTHESIA TO COME AND DO A NERVE BLOCK. GIVEN PRN TRAMADOL AND OXYCODONE AT THIS TIME (SEE EMAR). THIS RN REMAINS AT BEDSIDE.
--- NOTE | 2021-09-03 09:58 | NUR ---
CONNECTED WITH PT IN RN'S GUERRERO AND VARUN WERE CRING FOR HIM. PT HAS HAD LLE AMPUTATED, IN EXTREME PAIN. HAD PRAYER WITH PT, STAFF WORKING TO HELP PT WITH PAIN. GAVE BLESSING, WILL FOLLOW
--- NOTE | 2021-09-03 10:33 | NUR ---
IN WITH JOSELO SOUND ENGINEER AUDIO CONTROL TO ASSIST WITH NERVE BLOCK. PT TOLERATED WELL.
--- NOTE | 2021-09-03 12:10 | NUR ---
ASSESSMENT COMPLETED AT THIS TIME. PT DENIES PAIN. OTHER ASSESSMENT FINDING UNCHANGED. NO BLEEDING NOTED THROUGH THE DRESSING. MOTHER AT BEDSIDE. WILL CONTINUE TO MONITOR.
--- NOTE | 2021-09-03 12:34 | NUR ---
DR VELASCO IN TO ASSESS PT. NO NEW ORDERS AT THIS TIME. PT RESTIN ON RIGHT SIDE, CALL LIGHT WITHIN REACH. DENIES NEEDS AT THIS TIME.
--- NOTE | 2021-09-03 13:29 | OR ---
[facility] [address], [place] [address] Signed DATE OF OPERATION: 09/03/2021 SURGEON: Collette Rios MD PREOPERATIVE DIAGNOSIS: Gangrene, cellulitis, left foot. POSTOPERATIVE DIAGNOSES: 1. Gangrene, cellulitis, left foot. 2. Fasciitis of the left lateral and anterior compartments. PROCEDURE PERFORMED: Guillotine amputation, left tibia. PHARMACY TECHNICIAN PER DIEM: MARIAM Tran ANESTHESIA: Spinal. BLOOD LOSS: 300 mL. BRIEF HISTORY: Pat is a 56-year-old gentleman hospitalized with sepsis. Radiographs showed extensive osteomyelitis in his foot with soft tissue air. He was resuscitated from his sepsis; however, he continued to have intermittent fevers and tachycardia as well as poor control of his blood sugars. All this was indicative of continuing ongoing infection. Because of the subcutaneous air was increasing in his foot, I advised him we should go ahead and proceed with the amputation today. He understood and wished to proceed. DESCRIPTION OF PROCEDURE: Once consent was obtained, he was taken to the operating room. After adequate anesthesia, the leg was prepped and draped down to the ankle. The foot was placed in a sterile tourniquet bag. It was then wrapped with Coban and the amputation was marked out on the skin. Once this was completed, the skin was incised circumferentially; however, there was extensive bleeding from his pressure and blood thinner he had been on. We went ahead and placed a sterile tourniquet, inflated to 250 mmHg after exsanguinated by gravity. Once this was completed, the medial side of the amputation Electronically Signed By: COLLETTE RIOS MD 09/03/21 1329 PATIENT NAME: PAT HERNANDEZ OPERATIVE REPORT DATE OF : 61 REPORT #: [id number] PHYSICIAN: COLLETTE RIOS MD PCP: PRASANTH HURTADO MD REPORT IS CONFIDENTIAL AND NOT TO BE RELEASED WITHOUT AUTHORIZATION [facility] [address], [place] [address] Signed was completed by cutting through the muscle. We then turned to the lateral side, the skin that already been incised. This was carried through the anterior and lateral compartments. In doing so, we encountered a large amount of purulent material under pressure. It actually squirted out about 3 inches. At least 150 mL purulent material was encountered. At that point, we elected to convert this to a guillotine amputation. We went ahead and finished the lateral and posterior compartment myectomies. The foot was then passed off the table. Once this was accomplished, all large vessels were isolated and tied using 0-silk. The peroneal nerve was isolated and tied with 2-0 silk as was the popliteal. The stump was then copiously irrigated under pulse lavage with antibiotic irrigation. We did debride the anterior compartment extensively with the . Once the tissue was clear, we then released the tourniquet and there were couple of small bleeders that were cauterized, but no major bleeders were encountered. We then dressed the wound with saline soaked sponges, sterile gauze, ABD's, and three rolls of Kerlix, this was covered with Coban. The patient was then awakened and taken to the recovery room in satisfactory condition. All sponge, needle, and instrument counts were correct. Collette Rios MD BA/MODL /[id number] Copies: ~ Electronically Signed By: COLLETTE RIOS MD 09/03/21 1329 PATIENT NAME: PAT HERNANDEZ OPERATIVE REPORT DATE OF : 61 REPORT #: [id number] PHYSICIAN: COLLETTE RIOS MD PCP: PRASANTH HURTADO MD REPORT IS CONFIDENTIAL AND NOT TO BE RELEASED WITHOUT AUTHORIZATION
--- NOTE | 2021-09-03 13:49 | NUR ---
PT REPORTS PAIN BUT STATES PAIN LEVELS HAVE IMPROVED. GIVEN SCHEDULED MEDICATIONS AT THIS TIME. PT CHEERFUL AND TALKATIVE. CALL LIGHT WITHIN REACH. WILL CONTINUE TO MONITOR
--- NOTE | 2021-09-03 15:18 | NUR ---
PATIENT UP TO CHAIR WITH 2PA AND FWW, PATIENT TOLERATED TRANSFER WELL. PATIENT UNABLE TO HAVE BM, P/T IN ROOM AT THIS TIME AND ASSISTED PATIENT BACK TO CHAIR. PATIENT IN GOOD SPIRITS. CALL LIGHT IN EASY REACH, NO OTHER NEEDS AT THIS TIME
--- NOTE | 2021-09-03 15:20 | NUR ---
PT UP TO BSC WITH THE USE OF 4WW AND TWO PERSON ASSIST. STEADY AND APPROPRIATE WITH USE OF WALKER. PT NOW IN ROOM WORKING WITH PT. PT STATES PAIN LEVELS ARE MANAGABLE AT THIS TIME.
--- NOTE | 2021-09-03 17:50 | NUR ---
SCHEDULED MEDICATIONS ADMINISTERED. SLIDING SCALE INSULIN GIVEN (SEE EMAR). PT SITTING UP AT SIDE OF BED EATING DINNER. NO FURTHER NEEDS AT THIS TIME
--- NOTE | 2021-09-03 20:52 | NUR ---
RECIEVED REPORT FROM DAY SHIFT, FOCUSED ASSESSMENT COMPLETED, EMAR, LABS, AND ORDERS REVIEWED, FULL HEAD TO TOE ASSESSMENT COMPLETED, PT IN POSITION OF COMFORT, NO CURRENT NEEDS OR COMPLAINTS, CALL LIGHT WITHIN REACH, BED IN LOWEST POSITION
--- NOTE | 2021-09-04 00:25 | NUR ---
PT RESTING IN BED, LEFT LEG REMAINS ELEVATED ON PILLOW, CALL LIGHT WITHIN REACH, BED IN LOWEST POSITION, NO CURRENT NEEDS FROM PT
--- NOTE | 2021-09-04 02:54 | NUR ---
HEARD NOISE FROM NURSES STATION, ENTERED PT'S ROOM, PT VOIDING ON FLOOR, ES CALLED, PT BEDDING ALSO WET, BEDDING CHANGED, PT UNABLE TO STATE WHAT HAPPENED, PT REPOSITIONED AND PLACED IN POSITION OF COMFORT, SIDE RAILS RAISED FOR SAFETY, CALL LIGHT WITHIN REACH, BED IN LOWEST POSITION
--- NOTE | 2021-09-04 06:48 | NUR ---
PT IN BED WATCHING TV, DELUSIONAL TALK CONTINUES HOWEVER PT IS ALERT AND ORITENTATED, ABX INFUSING, VITALS WNL, NO AM LABS, WILL REPORT TO DAY SHIFT, MEDICAITONS GIVEN PER JUN, CALL LIGHT WITHIN REACH, SIDE RAILS RAISED FOR SAFETY, BED IN LOWEST POSITION, AWAITING DAY SHIFT TO GIVE REPORT
--- NOTE | 2021-09-04 08:19 | NUR ---
IN PATIENT'S ROOM FOR ASSESSMENT AT THIS TIME. PT'S LEFT FOOT COVERED WITH COBAN, BUT THERE IS EVIDENCE ON PILLOW UNDERNEATH OF SEROUS DRAINAGE. PILLOWCASE REPLACED AND CHUX PAD PLACED BELOW. LEG ELEVATED ON 2 PILLOWS. PT AWAKE, ALERT, AND TALKATIVE. PT TALKING ABOUT HOW HIS PROSTHESIS WILL BE A BLESSING AND THAT ALL THINGS HAPPEN FOR A REASON. IV SITE IN LEFT HAND HURTING AND WILL BE D/C. NEW IV TO BE STARTED WHN 0930 LABS TO BE DRAWN. HR IN THE 90s, SINUS RHYTHM. BP THIS AM 122/75 (86). PT WAITING FOR BREAKFAST THIS AM. CBG TO BE TAKEN.
--- NOTE | 2021-09-04 09:15 | NUR ---
DR. VILLASEÑOR IN TO SEE PATIENT AND PLAN OF CARE DISCUSSED. PT WILL GO BACK TO OR ON MONDAY AND HAVE LEG FURTHER EVALUATED AND INCISION CLOSED. CURRENTLY, PER DR. VILLASEÑOR, UNDER THE DRESSING IS THE OPEN WOUND STILL AND DRESSING IS NOT TO BE TAKEN OFF, ONLY REINFORCED IF NEEDED. DRAINAGE OF FLUID IS EXPECTED WITH THIS WOUND. LEG STILL RESTING ON PILLOWS AND CHUX PAD.
--- NOTE | 2021-09-04 10:24 | NUR ---
PATIENT UP TO BSC X1 PERSON ASSIST WITH A WALKER. PT UNABLE TO HAVE A BM BUT SAT FOR AT LEAST 10 MINUTES. PHYS THERAPY NOW IN ROOM WORKING WITH PATIENT PATIENT IS SITTING IN CHAIR.
--- NOTE | 2021-09-04 11:15 | NUR ---
PATIENT REMAINS UP IN CHAIR AND RESTING. IV VANCO INFUSING INTO NEW IV SITE IN LEFT FOREARM W/O PAIN, REDNESS OR SWELLING. CALL LIGHT WITHIN REACH.
--- NOTE | 2021-09-04 11:25 | NUR ---
DR. VELASCO IN ROOM TO SEE PATIENT AT THIS TIME. PLAN OF CARE BEING DISCUSSED.
--- NOTE | 2021-09-04 13:32 | NUR ---
PATIENT WANTING TO GO BACK TO BED AND REST AFTER BEING IN THE CHAIR FOR MOST OF THE MORNING. PT IS STRONG AND ABLE TO STAND ALMOST INDEPENDENTLY WITH WALKER AND PIVOT ON HIS ONE LEG TO GET TO BED. PT REQUESTING PUDDING AND WARM BLANKET, WHICH WERE BOTH PROVIDED. PT WILL TRANSFER TO MED/SURG THIS AFTERNOON W/O TELEMETRY.
--- NOTE | 2021-09-04 15:29 | NUR ---
PATIENT CONTINUES TO REST IN BED. REPORT GIVEN TO SHABNAM CORDOVA. PT WILL TRANSFER TO [place] [id number] W/O TELEMETRY.
--- NOTE | 2021-09-04 16:17 | NUR ---
Patient arrived to the medical floor from CCU dept. Patient is alert and oriented x3, no notable distress. Left leg elevated on pillows. LBK amputation noted, stump dressing is CDI. Patient's vital signs are stable, afebrile. Patient oriented to room and call light. Bed alarm intact.
--- NOTE | 2021-09-04 19:40 | NUR ---
IN ROOM TO GET REPORT, PT IS AWAKE IN BED. HE WOULD LIKE TO GO TO BATHROOM, EMBER REED IN TO HELP HIM.
--- NOTE | 2021-09-04 21:45 | NUR ---
IN ROOM TO ASSESS PT AND ADMINISTER MEDICATIONS. WHILE IN ROOM PT TELLS STORIES OF HIS FAMILY HISTORY AND GENETICS. BG WAS 220, ADMINISTERED 6 UNITS OF S/S INSULIN. PT REPORTS MINIMAL PAIN IN LBKA SURGICAL SITE AND STATES HE HAS SOME PAIN IN R HAND WHERE IV ABX IS INFUSING. FLUSHED WITH NS AND PT DENIES PAIN. SWITCHED IV ABX TO LEFT SIDE IV AND RUNING CONCURRENT WITH 25MLS OF NS. PT DENIES PAIN WITH INFUSION. PT'S L STUMP IS ELEVATED ON PILLOW DRESSING IS INTACT AND THERE IS MINIMAL SEROUS DRAINAGE ON CHUX. SCD TO R LE. PT DENIES FURTHER NEEDS AT THIS TIME. CALL LIGHT IS CLOSE.
--- NOTE | 2021-09-05 00:27 | NUR ---
PT IS RESTING WITH EYES CLOSED, RR IS EVEN AND UNLABORED. CALL LIGHT IS CLOSE.
--- NOTE | 2021-09-05 02:25 | NUR ---
IN ROOM TO ADMINISTER 2AM MEDICATIONS. PT REPORTS NO PAIN IN L STUMP, SCHEDULED ULTRAM GIVEN PT STATESIV ABX CAUSE SOME PAIN IN HIS L WRIST. DRESSING REMAINS INTACT WITH LITTLE SEROUS DRAINAGE NOTED. PT DENIES FURTHER NEEDS. CALL LIGHT IS CLOSE.
--- NOTE | 2021-09-05 04:05 | NUR ---
IN ROOM TO HANG ABX. PT IS RESTING WITH EYES CLOSED, RR IS EVEN AND UNLABORED. CALL LIGHT IS CLOSE.
--- NOTE | 2021-09-05 06:37 | NUR ---
IN ROOM TO ADMINISTER ULTRAM SCHEDULED. PT REPORTS MINIMAL PAIN 2/10. PT DENIES FURTHER NEEDS. CALL LIGHT IS CLOSE.
--- NOTE | 2021-09-05 07:35 | NUR ---
REPORT RECIEVED FROM NANCY HAQUE. PT RESTING IN BED BREATHING EQUAL AND UNLABORED. CALL LIGHT IN REACH.
--- NOTE | 2021-09-05 08:36 | NUR ---
PT ASSESSMENT COMPLETE. SCHEDULED MEDICATIONS GIVEN. DR VILLASEÑOR IN ROOM TO DISCUSS PLAN OF CARE, PT UNDERSTANDS AND IS AGREEABLE. PT A +O, STAES NO PAIN AT THIS TIME. HRR, LSC, BOWEL TONES ACTIVE. LEFT LEG ELEVATED DRESSING INTACT, CMS INTACT. SKIN WARM AND DRY. NO FUTHER NEEDS AT THIS TIME. WILL CONTINUE PLAN OF CARE CALL LIGHT IN REACH.
--- NOTE | 2021-09-05 09:47 | NUR ---
PATIENT SITTING IN THE CHAIR EATING BREAKFAST. VITALS DONE. PATIENT STATES NO FURTHER NEEDS AT THIS TIME. CALL LIGHT WITH IN REACH.
--- NOTE | 2021-09-05 10:25 | NUR ---
IN ROOM TO ADMINISTER SCHEDULED MEDICATION. PT INTERACTING WITH STAFF, TELLING STORIES. PT STATES NO PAIN AT THIS TIME. LEFT LEG ELEVATED. NO FURTHER NEEDS AT THIS TIME. CALL LIGHT IN REACH.
--- NOTE | 2021-09-05 11:30 | NUR ---
PT CALL LIGHT ON. PT REPORST "THERE IS NOISE EVERYWHERE." THIS RN TO ROOM. CHAIR ALARM SOUNDING. PT RESTING IN CHAIR. CHAIR ALARM RESET. PUMP ALARMING. INFUSION AND FLUSH COMPELTE. IV ASSESSED WNL. FLUSHED AND SALINE LOCKED. ALCOHOL CAP APPLIED. 325ML CLEAR YELLOW URINE EMPTIED FROM URINAL. PT DENIES ADDITIONAL REQUESTS OR COMPLAINTS. CALL LIGHT WITHIN REACH. CHAIR ALARM ON. PTS PRIMARY RN UPDATED.
--- NOTE | 2021-09-05 12:50 | NUR ---
IN ROOM TO ADMINISTER SCHEDULED MEDICATIONS. PT A+O, ON ROOM AIR, TALKATIVE WITH STAFF. PATIENT EATING LUNCH AT THIS TIME, LEFT LEG ELEVATED. CALL LIGHT IN REACH.
--- NOTE | 2021-09-05 13:39 | NUR ---
CALL LIGHT ANSWERED. PUMP BEEPING, RESOLVED. PT SITTING IN RECLINER. CALL LIGHT IN REACH.
--- NOTE | 2021-09-05 15:47 | NUR ---
IN ROOM TO ADMINISTER PT SCHEDULED MEDICATIONS. ASSESSMENT COMPLETE. PT HELPED BACK TO BED USING FWW, SBA, AMBULATED WELL. PT A+O, ON RA, LSC, ACTIVE BOWEL TONES. CMS INTACT, LEFT LEG ELEVATED, DRESSING C/D/I. NO FURTHER NEEDS AT THIS TIME. CALL LIGHT IN REACH.
--- NOTE | 2021-09-05 16:53 | NUR ---
Scheduled medications administered, patient states no pain at this time. L leg elevated on pillows, no drainage noted, CMS intact, warm and dry. Pt interactive with staff.
--- NOTE | 2021-09-05 17:03 | NUR ---
Dr Morris at bedside to assess patient. SS insulin provided.
--- NOTE | 2021-09-05 19:54 | NUR ---
Patient awake watching tv, no distress. Patient's left leg elevated on pillows. Left stump dressing is CDI at this time. Patient reports his pain is tolerable at this time. Dinner tray removed. No current needs, personal supplies and call light within reach.
--- NOTE | 2021-09-05 20:11 | NUR ---
PT VS COMPLETED, IV SL POST ABX COMPLETED. I/O'S COMPLETED. PT FINISHED THE SNACKS HE WAS GIVEN EARLIER. CALL LIGHT AND URINAL WITHIN REACH.
--- NOTE | 2021-09-05 23:12 | NUR ---
Patient sleeping, respirations even and non labored. LLE elevated, dressing to stump is CDI. Patient has no notable distress. Bed alarm intact.
--- NOTE | 2021-09-06 02:00 | NUR ---
Scheduled 0200 pENICILLIN G medication vile broke as it hit pt's bedside when mixing. Admin the pre labeled [address] of the it. Compensation Analyst to mix another bag for patient's upcoming dose for this morning at 0700.
--- NOTE | 2021-09-06 03:53 | NUR ---
Patient resting in bed, eyes closed, respirations even and non labored. Patient's LLE is elevated on pillows. Stump dressing to LLE remains CDI. No notable distress. Personal supplies and call light within reach.
--- NOTE | 2021-09-06 07:30 | NUR ---
TCT DR. VILLASEÑOR, NO ANSWER, THEN CALLED TO OR STAFF/ANESTHESIA LATER MORNING TO CLARIFY INSULIN REGIMEN WITH NPO STATUS, COST MANAGER SPOKE WITH HOSPITALIST WELL AND AGREED UPON GLARGINE 17 U SQ ONLY, NO SSI, BG THIS MORNING WAS 224. PT. RESTING IN BED, NO COMPLAINTS OTHER THAN HE WANTS FOOD SOON OR HE IS LEAVING.
--- NOTE | 2021-09-06 07:57 | NUR ---
BEDSIDE REPORT FROM NIGHT RN, ASSUMED ALL CARE OF PT.
--- NOTE | 2021-09-06 11:01 | NUR ---
PRE-SURGICAL WIPE DOWN DONE.
--- NOTE | 2021-09-06 11:14 | NUR ---
ANESTHESIA VISIT COMPLETED AND SURGICAL STAFF HERE TO HL7 INTERFACE DEVELOPER PT., ZHANNAO NOT COMPLETE YET, TAKING PUMP AND ALL.
--- NOTE | 2021-09-06 15:17 | NUR ---
09/06/21 1517 Darlene Angeles 1510- PT ARRIVES TO PACU NONAROUSABLE TO STIMULI. RESP EVEN AND UNLABORED. OXYGEN SAT HIGH 90'S TO 100% ON 6L VIA MASK. 1516- CBG 232. TAKEN BY GINA DUMONT RN. PT IS MORE AROUSABLE. UPDATED PT THAT HIS SURGERY IS DONE AND HE IS IN THE RECOVERY ROOM. PT NODS HIS HEAD TO THIS.
--- NOTE | 2021-09-06 15:30 | NUR ---
Attempted to see pt, he is out of his room for surgery.
--- NOTE | 2021-09-06 16:45 | NUR ---
RECEIVED PT. FROM CHYRON OPERATOR TO ROOM, S/P DRAIN AND FLAP PROCEDURE TO LEFT BKA. PADDED BULKY DRESSING DRY & INTACT TO LEFT LE. PT. AWAKE AND TALKING ON THE PHONE, ASKING FOR FOOD AND LISTING ALL OF THE FOOD THAT HE WANTS THEM TO BRING IN. PT. HAS SENSATION B LE EXCEPT FOR THE TOP OF HIS RIGHT THIGH. HX OF SCHIZOPHRENIA SO HE IS TALKING INPPROPRIATELY AT TIMES. IVF PATENT TO THE PUMP. DENIES PAIN AT THIS TIME, RECEIVED A SECOND BLOCK IN THE PACU AND THEN FENTANYL DOSES.
--- NOTE | 2021-09-06 17:00 | NUR ---
Notified by Dr. Galvan, she discussed with Dr. Rios, and they feel pt would do better with a walker. He is using crutches. Received RX for walker. Will speak with pt tomorrow and find which DME he wants to use and send chart.
--- NOTE | 2021-09-06 19:00 | NUR ---
REPORT RECEIVED FROM SHABNAM THAYER. pt RESTING IN BED USING URINAL AT THIS TIME. IV ANTIBIOTIC INFUSING ORDERED. LEG ELEVATED ON PILLOW. CALL LIGHT IN REACH.
--- NOTE | 2021-09-06 21:20 | NUR ---
pt RESTING IN BED AWAKE. RATES PAIN 5-6/10 IN LEFT FOOT "PHANTOM PAIN". SCHEDULED MEDICATION ADMINISTERED. pt IS ALERT AND ORIENTED X 4. CONTINUES TO HAVE DELUSIONAL/GRANDIOUS CONVERSATIONS REGARDING GOLD MINE, BEING JOSHUA. LEFT LEG ELEVATED ON PILLOW. pt DENIES NAUSEA. IV SITES FLUSHED WNL. IV ANTIBIOTIC INFUSING ORDERED. CALL LIGHT IN REACH. WARM BLANKETS, DIET SPRITE PROVIDED.
--- NOTE | 2021-09-06 22:38 | NUR ---
CALL LIGHT ANSWERED. IV ANTIBIOTIC COMPLETE. IV SL WNL. CALL LIGHT WITHIN REACH. LIGHTS OFF IN ROOM PER REQUEST. URINAL EMPTIED.
--- NOTE | 2021-09-07 00:46 | NUR ---
pt RESTING IN BED WITH EYES CLOSED. BREATHING UNLABORED. SPO2 WNL ON RA. NO DISTRESS NOTED.
--- NOTE | 2021-09-07 01:47 | NUR ---
pt AWAKE WHEN RN ENTERS ROOM. VSS. pt RATES PAIN 5/10 IN LEFT FOOT. SCHEDULED MEDICATION ADMINISTERED. LEFT LEG REPOSITIONED ON PILLOW, ICE PACK IN PLACE. ASSESSMENT COMPLETE. ICE WATER REFILLED AND IN REACH. IV FLUSHED WNL, IV ANTIBIOTIC INFUSING ORDERED. CALL LIGHT IN REACH.
--- NOTE | 2021-09-07 02:05 | NUR ---
pt COMPLAINS OF PAIN IN LEFT ARM. IV SITE ASSESSED, WNL. RATE OF ANTIBIOTIC SLOWED, WARM BLANKET AROUND ARM. CALL LIGHT IN REACH.
--- NOTE | 2021-09-07 02:24 | NUR ---
CALL LIGHT ANSWERED. IV ANTIBIOTIC INFUSION COMPLETE. IV SITE ASSESSED AND SECOND ANTIBIOTIC INFUSING WNL ORDERED. pt CONVERSING ABOUT BEING THE BELOVED TIESHA AND ONE OF THE STAFF MEMBERS BEING THE MOTHER OF HIS CHILDREN. pt RAMBLING ON STATES "I JUST HAVE THAT LOVE FOR YOU. IT WILL BE REVEALED TO YOU". DENIES ANY NEEDS. LEFT LEG ELEVATED ON PILLOW. ICE PACK MOVED AND IN PLACE ON LEFT LEG.
--- NOTE | 2021-09-07 03:38 | NUR ---
CALL LIGHT ANSWERED. IV ANTIBIOTIC COMPLETE. IV SL WNL. ICE REMOVED FROM LEG. LEG ELEVATED ON PILLOWS. NO ADDITIONAL REQUESTS. CALL LIGHT IN REACH, LIGHTS OFF IN ROOM.
--- NOTE | 2021-09-07 06:43 | NUR ---
pt AWAKENS TO RN ENTERING ROOM. RATES PAIN 7-8/10 IN LEFT FOOT. LEG ELEVATED ON PILLOWS. NEW ICE PACK IN PLACE. SCHEDULED PAIN MEDICATIONS ADMINISTERED. IV SITE FLUSHED WNL, IV ANTIBIOTIC INFUSING ORDERED. pt CUSSING REGARDING 60 G CARB DIET "WHOEVER ORDERS THAT OR TALKS ABOUT IT IS GOING TO HELL". ATTEMPT TO EDUCATE pt ON DIET. pt NOT RECEPTIVE TO EDUCATION AT THIS TIME. CALL LIGHT IN REACH.
--- NOTE | 2021-09-07 07:05 | NUR ---
Report received from Cassia HAQUE. Pt resting in bed, resp even and unlabored, no needs identified at this time. Will continue plan of care.
--- NOTE | 2021-09-07 07:10 | NUR ---
Spoke with Bar. States he is doing well. He does not have a walker at home. Agrees to use as this is the suggestion from Dr. Rios and Dr. Galvan. Would like to use [employer] [facility]. Face sheet, RX, Surgery note, progress not, H&P faxed to [facility]. Texted Titi I will need a walker today if they can add to their delivery van.
--- NOTE | 2021-09-07 08:20 | NUR ---
Pt provided with 5mg oxycodone for 10/10 pain, as well as scheduled diclofenac. Pt interacting with staff, redirectable at this time, agreeable to care plan. Call light in reach
--- NOTE | 2021-09-07 08:33 | NUR ---
Spoke with Tawana from [facility]. She received the chart and will have the wrecker driver add to the van for delivery today.
--- NOTE | 2021-09-07 11:41 | NUR ---
IV ABX infusing WNL. Pt up to chair after working with physical therapy. Pt mother in room, attentive to patient.
--- NOTE | 2021-09-07 12:30 | NUR ---
Notified by therapy that patient had unhooked his IV tubing from IV site, reconnected to IV ABX and education given to patient about not removing his IV and allowing the RN to solely be in charge of the IV and medications. He verbalizes agreement at this time
--- NOTE | 2021-09-07 12:56 | NUR ---
PUMP ALARMING, INFUSION AND FLUSH COMPLETE. IV ASSESSED, MINOR REDNESS NOTED AT IV SITE. IV FLUSHES EASILY. ALCOHOL CAP APPLIED. PT DENIES ADDITIONAL REQUESTS OR COMPLAINTS. PT PRIMARY RN UPAHERI. CALL LIGHT WITHIN REACH. BED RAILS UP. PT HAS LEFT LEG/STUMP ELEVATED ON 3 PILLOWS WHICH HE STATES "REALLY HELPS WITH THE PAIN."
--- NOTE | 2021-09-07 13:46 | NUR ---
Dr Galvan in room to see patient, he is resting in bed with his mother at the bedside. He has no needs at this time.
--- NOTE | 2021-09-07 13:55 | NUR ---
Notified by staff, mom is stating she cannot care for pt and he needs to be placed. In and spoke with Noni. Discussed pt does not qualify for a SNF and [facility] are paid out of pocket. She states in that case he can go home with her, but he has to be on good behavior. I asked Bar if he plans on following his mom's rules and he states he guesses for a short while. He then start speaking about going to his uncles. Mom states pt does not have an uncle and pt goes to his friends house. Both agree pt can go to moms for short period until his stump heals. Pt encouraged to stay with his mom and let her assist him so his wound will heal faster. He doesn't like staying with his mom as she makes him follow a diabetic diet and won't let him drink alcohol in her home. Pt agrees to follow her rules.
--- NOTE | 2021-09-07 14:10 | NUR ---
Call light answered, pt requests pain medication. Scheduled meds and PRN oxycodone 5mg given, pt provided with ice to L BKA. Elevated on pillows as well. Iced diet soda given. Pt has no further needs at this time
--- NOTE | 2021-09-07 14:35 | PATH ---
[facility] [address], [place] [address] Signed SPECIMEN(S): A LEFT LOWER LEG SPECIMEN SOURCE: A. LEFT LOWER LEG CLINICAL HISTORY: Left foot infection, severe sepsis. FINAL PATHOLOGIC DIAGNOSIS: Leg, left lower, below-knee amputation: - Multifocal ulceration with underlying acute osteomyelitis. - Surgical skin, bone, and soft tissue margins appear viable. - Status post 1st, 2nd, and 3rd toe amputation. BRP:smn:[id number] MICROSCOPIC EXAMINATION: Histologic sections of all submitted blocks are examined by light microscopy. These findings, together with the gross examination, support the pathologic diagnosis. GROSS DESCRIPTION: The specimen, labeled "RB, A," and designated on the requisition "left lower leg, left foot infection," is received fresh and consists of a left below the knee amputation (foot: 25.0 cm in length by 10.0 cm in width, le cm in length by 8.0 x 0.9 cm in diameter) with smooth transected tibial and fibular bone margins. The distal aspect of the first toe, the second toe and third toe are absent consistent with previous amputation. The fourth and fifth toe show pink-santacruz skin, santacruz toenail with no areas of ulceration grossly identified. There is a well-healed scar at the previous location of the second and third toe. The distal aspect of the first toe is a calloused/lesion (1.0 x 1.0 cm). There is an area of ulceration on the distal plantar aspect of the foot adjacent to the first toe. The ulceration measures 1.0 x 0.7 cm and is located 34.5 cm nearest skin and soft tissue margin. There is also an area of ulceration/wound on the lateral aspect of the foot (2.0 x 0.8 cm) located 23.5 cm from skin soft tissue margin, and a thickened callus on the posterior lateral aspect of the foot that measures 1.0 x 1.4 cm and is located 17 cm from the skin and soft tissue margin. PATIENT NAME: PAT HERNANDEZ PATHOLOGY DATE OF : 61 REPORT #: [id number] PHYSICIAN: JEAN CLAUDE JONES PCP: PRASANTH HURTADO MD REPORT IS CONFIDENTIAL AND NOT TO BE RELEASED WITHOUT AUTHORIZATION [facility] [address], [place] [address] Signed The bone underlying the plantar ulceration, lateral ulceration in the ulceration is hemorrhagic. Skidder Driver sections are submitted as follows: (A1) distal first lesion ulceration with underlying bone (A2) distal plantar ulceration with underlying bone (A3) lateral foot ulceration with underlying bone (A4) heel ulceration with underlying bone (A5) skin soft tissue margin, shaved, en face (A6) tibial and fibular margins, shaved Cassettes A1, A2, A3, A4 and A6 are decalcified in decal STAT prior to submission. AC (under the direct supervision of a pathologist) The Gross Description was prepared using a voice recognition system. The report was reviewed for accuracy; however, sound-alike word errors, addition and/or deletions may occur. If there is any question about this report, please contact Client Services. PERFORMING LABORATORY: The technical component was performed by [facility], [address] [place] [id number] (CLIA# [id number]). The professional interpretation was performed by [email or web address], [facility], [address] [place] [address] (CLIA#: [id number]). Diagnostician: Popeye Gallegos MD Pathologist Electronically Signed 09/07/2021 Copies: ~ PATIENT NAME: PAT HERNANDEZ AMEE PATHOLOGY DATE OF : 61 REPORT #: [id number] PHYSICIAN: JEAN CLAUDE PATHOLOGY PCP: PRASANTH HURTADO MD REPORT IS CONFIDENTIAL AND NOT TO BE RELEASED WITHOUT AUTHORIZATION
--- NOTE | 2021-09-07 16:04 | NUR ---
PATIENT UP TO BATHROOM TO , USING FWW WITH SBA.
--- NOTE | 2021-09-07 16:21 | NUR ---
ANSWERED PT CALL LIGHT, PT TRANSFERED BACK TO BED 1P SBA FWW, CALL LIGHT WITHIN REACH, RIGHT KNEE ELEVATED, NO FURTHER ASSITANCE NEEDED AT THIS TIME.
--- NOTE | 2021-09-07 16:55 | NUR ---
BOTH NARES SWABBED FOR COVID-19 WITHOUT COMPLICATION. SAMPLE TAKEN TO LAB.
--- NOTE | 2021-09-07 17:41 | NUR ---
Pt continually calls for pain medication. All options administered and PRN meds given. Pt encouraged to elevate leg, ice packs provided as well for pain control.
--- NOTE | 2021-09-07 17:49 | NUR ---
Pt medicated with 5mg oxycodone and IV ABX infusing WNL. Pt resting in bed, states 10/10 pain, currently eating dinner and watching tv. Pt admits pain is "probably 8/10 or less, finally some relief after crying for hours".
--- NOTE | 2021-09-07 19:37 | NUR ---
IN ROOM FOR REPORT, PT IS RESTING WITH EYES CLOSED, RR IS EVEN AND UNLABORED. CALL LIGHT IS CLOSE.
--- NOTE | 2021-09-07 23:05 | NUR ---
IN ROOM TO ASSESS PT AND ADMINISTER MEDICATIONS. PT REPORTS PAIN 5/10. HE SPILLED URINAL, CHANGED BEDDING AND NEW GOWN IN PLACE. BLOOD SEEN THROUGH SOCK ON R FOOT. REMOVED SOCK, SCABS WERE SCRATCHED OFF, CLEANED WITH NS AND ALLEYVNS IN PLACE. HE HAS L STUMP ELEVATED ON PILLOW W/ICE AND SCD ON R LEG. PT'S BS 378 WITH ACCUCHECK PER REPORT PT'S MOM BROUGHT IN A BUNCH OF SNACKS. 15 UNITS S/S INSULIN ADMINISTERED PER ORDERS. PT DENIES FURTHER NEEDS. CALL LIGHT IS CLOSE.
--- NOTE | 2021-09-08 00:20 | NUR ---
IN ROOM TO ADMINISTER OXYCODONE FOR 8/10 PAIN IN [facility]. PROVIDED SF JELLO AND PT DENIES FURTHER NEEDS.CALL LIGHT IS CLOSE.
--- NOTE | 2021-09-08 06:45 | NUR ---
[facility] [phone]. SEE PAPER CHART.
--- NOTE | 2021-09-08 06:54 | NUR ---
IN ROOM TO ADMINISTER IV ABX, PT IS ON PHONE AT THIS TIME. CALL LIGHT IS CLOSE.
--- NOTE | 2021-09-08 08:18 | NUR ---
MORNING ASSESSMENT COMPLETE. PT LYING IN BED AWAKE, WATHCING TV. C/O /10 PAIN, PRN OXYCODONE GIVEN. RIGHT LEG ELEVATED ON PILLOWS. DENIES FURTHER NEEDS AT THIS TIME. CALL LIGHT WITHIN REACH.
--- NOTE | 2021-09-08 11:20 | NUR ---
PT RESTING QUIETLY WITH EYES CLOSED, RESPIRATIONS EVEN AND UNLABORED. AWAKENS EASILY. DENIES NEEDS AT THIS TIME. CALL LIGHT WITHIN REACH.
--- NOTE | 2021-09-08 13:55 | NUR ---
Spoke with pt and he plans on dc tomorrow. Walker was delivered today. Pts mood is escalating, pt telling the [employer] route driver is related to Princess Trujillo.
--- NOTE | 2021-09-08 14:20 | NUR ---
PT AWAKE WATCHING TV. DENIES NEEDS AT THIS TIME. CALL LIGTH WITHIN REACH.
[2021-09-08] MEDS ORDERED: DICLOXACILLIN500 MG PO (20:58)
[2021-09-08] MEDS ORDERED: OXYCODONE HCL5 MG PO (20:58)
[2021-09-08] MEDS ORDERED: DULOXETINE HCL30 MG PO (20:59)
[2021-09-08] MEDS ORDERED: GABAPENTIN600 MG PO (20:59)
--- NOTE | 2021-09-08 22:21 | NUR ---
HAS BEEN ALERT AND WATCHING TV. WARM BLANKET GIVEN AND PT PLANS ON TRYING TO GET SOME SLEEP. VERY TALKATIVE. 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
--- NOTE | 2021-09-08 22:41 | NUR ---
WAS UP TO BR AND HAD A BM. PAIN SUBSTAINALLY INCREASED AFTER THIS ACTIVITY AND ROUTINE ULTRAM GIVEN.
--- NOTE | 2021-09-09 07:54 | NUR ---
MORNING ASSESSMENT COMPLETE. PT AWAKE IN BED WATCHING TV. DENIES PAIN AT THIS TIME. DENIES FURTHER NEEDS AT THIS TIME. CALL LIGHT WITHIN REACH.
[2021-09-09] MEDS ORDERED: HUMALOG KW200 UNIT/1 SUB-Q (11:08)
--- NOTE | 2021-09-09 13:18 | NUR ---
PT. 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 HE DENIES PAIN AND VITALS STABLE.
--- NOTE | 2021-09-13 07:03 | OR ---
[facility] [address], [place] [address] Signed DATE OF OPERATION: 09/06/2021 SURGEON: Collette Rios MD PREOPERATIVE DIAGNOSIS: Gangrene, left foot, status post guillotine amputation, below knee amputation. POSTOPERATIVE DIAGNOSIS: Gangrene, left foot, status post guillotine amputation, below knee amputation. PROCEDURE PERFORMED: Debridement of skin and subcutaneous tissue and bone, left BKA, delayed primary closure. PROFESSOR OF PRACTICE: None. ANESTHESIA: General. BLOOD LOSS: 150 mL. BRIEF HISTORY: Bar is a 56-year-old who had significant osteomyelitis with gas in the tissue. He was admitted with sepsis and resuscitated. Risks and benefits of operative treatment were discussed with him. Initially, we were planning on proceeding with a BKA. However, and in the process of the dissection, encountered a significant purulent material in the anterior compartment. As such, we converted to a guillotine and placed him on IV vancomycin. Cultures are unhelpful. The wound was clear. He was afebrile and his heart rated reduced. We felt he was stable to bring back to the operating room for evaluation and possible closure. Risks, benefits, and alternatives were discussed with him, he understood. DESCRIPTION OF PROCEDURE: Once consent was obtained, he was taken to the operating room. After adequate anesthesia, he was placed on the operating room table. All downside pressure points were well padded. The dressing was removed and the leg was prepped and draped in a standard sterile fashion. The blood clot was removed and the wound was copiously irrigated with 3 L of normal saline. The tissue looked clear. There was no purulent material at all in the anterior or lateral compartments. It was felt that we could Electronically Signed By: COLLETTE RIOS MD 09/13/21 0703 PATIENT NAME: PAT HERNANDEZ OPERATIVE REPORT DATE OF : 61 REPORT #: [id number] PHYSICIAN: COLLETTE RIOS MD PCP: PRASANTH HURTADO MD REPORT IS CONFIDENTIAL AND NOT TO BE RELEASED WITHOUT AUTHORIZATION [facility] [address], [place] [address] Signed probably go ahead and close this. The tibia was shortened as was the fibula and the tibia was beveled off anteriorly. The muscle was debrided back to good viable tissue. The fascia of the posterior compartment was then brought anteriorly and sewed to the fascia of the tibia. The fascia was closed in each direction from there. Once that was completed, the subcutaneous tissue was closed with 2-0 Monocryl. The skin was closed with interrupted 2-0 nylon and dressed with a compression dressing, leaving silver dressing was placed on the incision. He tolerated the procedure well. All sponge, needle, and instrument counts were correct. Collette Rios MD BA/MODL /[id number] Copies: ~ Electronically Signed By: COLLETTE RIOS MD 09/13/21 0703 PATIENT NAME: PAT HERNANDEZ OPERATIVE REPORT DATE OF : 61 REPORT #: [id number] PHYSICIAN: COLLETTE RIOS MD PCP: PRASANTH HURTADO MD REPORT IS CONFIDENTIAL AND NOT TO BE RELEASED WITHOUT AUTHORIZATION
== END 2021-09-09 13:20 | disposition home or self-care (01) | DRG 853 ==
LOC: ED 18:09 → MS 19:36 → CCU 19:36 → MS 09-01 21:05 → CCU 09-03 09:05 → MS 09-04 16:10
PROVIDERS: Specialist; ADMIT Internal Medicine; ATTEND Internal Medicine
PROC: 0Y6J0Z3 Detachment at Left Lower Leg, Low, Open Approach (ICD-10-PCS; 2021-09-03)
PROC: 0Y6J0Z1 Detachment at Left Lower Leg, High, Open Approach (ICD-10-PCS; principal; 2021-09-03 06:45)
DX: A40.1 Sepsis due to streptococcus, group B (principal); G93.41 Metabolic encephalopathy; L03.116 Cellulitis of left lower limb; N17.9 Acute kidney failure, unspecified; E87.1 Hypo-osmolality and hyponatremia; B17.9 Acute viral hepatitis, unspecified; M86.8X6 Other osteomyelitis, lower leg; E66.9 Obesity, unspecified; Z20.822 Contact with and (suspected) exposure to COVID-19; R65.20 Severe sepsis without septic shock; E87.5 Hyperkalemia; E80.6 Other disorders of bilirubin metabolism; E11.65 Type 2 diabetes mellitus with hyperglycemia; Z71.6 Tobacco abuse counseling; I10 Essential (primary) hypertension; E78.5 Hyperlipidemia, unspecified; E11.69 Type 2 diabetes mellitus with other specified complication; E11.51 Type 2 diabetes mellitus with diabetic peripheral angiopathy without gangrene; Z79.4 Long term (current) use of insulin; Z98.890 Other specified postprocedural states; Z89.429 Acquired absence of other toe(s), unspecified side; Z79.899 Other long term (current) drug therapy; Z91.14 Patient's other noncompliance with medication regimen; Z89.512 Acquired absence of left leg below knee; Z79.84 Long term (current) use of oral hypoglycemic drugs
CPT/HCPCS: 01480; 01482; 36415; 64447; 71045; 73630; 76942; 80048; 80053; 80202; 81001; 82800; 83036; 83605; 83735; 85025; 87040; 87070; 87075; 87077; 87088; 87186; 87205; 87502; 87517; 87522; 87536; 93005; 93010; 93306; 97116; 97161; 97165; 97530; A9270; A9270-GY; C9803; J0131; J0690; J0692; J1100; J1650; J1815; J2001; J2250; J2270; J2405; J2540; J2704; J2795; J3010; J3370; J7030; J7040; J7060; J7121; U0003

== ENCOUNTER 2021-09-13 14:14 | Emergency (ER) | payer OTHER ==
[~2021-09-13] VITALS: Ht 188 cm; Wt 103.0 kg
[~2021-09-13 14:14] MED LIST changes: +DICLOXACILLIN500 MG PO; +DULOXETINE HCL30 MG PO; +GABAPENTIN600 MG PO; +HUMALOG KW200 UNIT/1 SUB-Q; +SULFAMETHOXAZO1 EAC1 PO
--- OUTSIDE RECORDS SUMMARY | 2021-09-13 14:18 | XMS ---
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 Physician Steam Flattener Current PHONE: Unknown TANISHA Nurse Keila DIETZ PHONE: [phone] JULIA HARRISON [facility] Current PHONE: [phone] Tracy has no Care Guidelines for this patient. Care History Medical/Surgical 10/16/2018 [facility] - Patient is currently established with [facility]. If patient is seen in the ED during business hours. Please contact CHWs at [facility]. Care Recommendation: This patient has [...] providing care. E.D. VISIT COUNT ([address] [facility] TOTAL 7 NOTE: Visits indicate total known visits. ED/UCC VISIT TRACKING (12 MO.) 09/13/2021 14:15 [facility] TYPE: Emergency COMPLAINT: - L LEG WOUND CARE/PAIN 08/30/2021 18:10 [facility] TYPE: Emergency COMPLAINT: - ALTERED MENTAL STATUS 03/08/2021 09:09 [facility] TYPE: Emergency COMPLAINT: - LOWER EXTREMITY RASH DIAGNOSES: - Body mass index [BMI] 30.0-30.9, adult - Acquired absence of other toe(s), unspecified side - Type 2 diabetes mellitus without complications - Other usp (current) drug therapy - intermediate (current) use of oral hypoglycemic drugs - Candidiasis of skin and nail - Rash and other nonspecific skin eruption - Obesity, unspecified - Essential (primary) hypertension - intermediate (current) use of insulin 02/17/2021 09:[address] [facility] [place] COMPLAINT: - PIC LINE REMOVAL 02/03/2021 21:[address] [facility] [place] COMPLAINT: - VOMITING DIAGNOSES: - Obesity, unspecified - Other usp (current) drug therapy - Essential (primary) hypertension - intermediate (current) use of insulin - Type 2 diabetes mellitus without complications - Noninfective gastroenteritis and colitis, unspecified - Nausea with vomiting, unspecified 01/18/2021 08:[address] [facility] [place] COMPLAINT: - L SHOULDER PAIN, BACK PAIN, L FOOT PAIN 09/23/2020 12:[address] [facility] TYPE: Emergency COMPLAINT: - WOUND CARE INPATIENT VISIT TRACKING (12 MO.) 08/30/2021 19:[address] 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 - Type 2 diabetes mellitus with other specified complication - Severe sepsis without septic shock - Type 2 diabetes mellitus with hyperglycemia - Hyperlipidemia, unspecified - Contact with and (suspected) exposure to COVID-19 - Other osteomyelitis, lower leg - Severe sepsis without septic shock - Obesity, unspecified - Cellulitis of left lower limb - Tobacco abuse counseling - Acquired absence of other toe(s), unspecified side - Acute viral hepatitis, unspecified - Acquired absence of left leg below knee - Type 2 diabetes mellitus with diabetic peripheral angiopathy without gangrene - Essential (primary) hypertension - Other termite control technician (current) drug therapy - Acute kidney failure, unspecified - Other disorders of bilirubin metabolism - Cellulitis of left lower limb - Metabolic encephalopathy - Tobacco abuse counseling - Essential (primary) hypertension - Hypo-osmolality and hyponatremia - Acute viral hepatitis, unspecified - Sepsis due to streptococcus, group B - Other termite control technician (current) drug therapy - intermodal owner operator truck driver (current) use of oral hypoglycemic drugs - intermodal owner operator truck driver (current) use of insulin - Other specified postprocedural states - Acute kidney failure, unspecified - Type 2 diabetes mellitus with other specified complication - Acquired absence of other toe(s), unspecified side - Sepsis, unspecified organism - Hypo-osmolality and hyponatremia - Obesity, unspecified - Other specified postprocedural states - Other osteomyelitis, lower leg - intermediate (current) use of insulin - Patient's other noncompliance with medication regimen - Acquired absence of left leg below knee - Type 2 diabetes mellitus with hyperglycemia - Sepsis due to streptococcus, group B - Other disorders of bilirubin metabolism - Contact with and (suspected) exposure to COVID-19 - Hyperlipidemia, unspecified 01/18/2021 11:19 [facility] TYPE: Medical Surgical COMPLAINT: - OSTEOMYELITIS DIAGNOSES: - Contact with and (suspected) exposure to COVID-19 - Type 2 diabetes mellitus with diabetic [...] foot - Essential (primary) hypertension - intermediate (current) use of insulin - Other usp (current) drug therapy - Type 2 diabetes mellitus with other specified complication - Other termite control technician (current) drug therapy - intermediate (current) use of insulin - Cellulitis of [...] CELLULITIS, DIABETIC WOUND SEPIS DIAGNOSES: - Other termite control technician (current) drug therapy - Non-pressure chronic ulcer of left heel and midfoot with necrosis of muscle - Obesity, unspecified - Type 2 diabetes mellitus with foot ulcer - Non-pressure chronic ulcer of left heel and midfoot with necrosis of muscle - Essential (primary) hypertension - Other termite control technician (current) drug therapy - intermediate (current) use of oral hypoglycemic drugs - Type 2 diabetes mellitus with hyperglycemia - Cutaneous abscess of left foot - intermodal owner operator truck driver (current) use of oral hypoglycemic drugs - Type 2 diabetes mellitus with foot ulcer - Type 2 diabetes mellitus with hyperglycemia - Cutaneous abscess of left foot - Sepsis due to streptococcus, group B - Cellulitis of left lower limb - Essential (primary) hypertension - 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
[2021-09-13] MEDS ORDERED: OXYCODONE HCL5 MG PO (18:08)
== END 2021-09-13 18:48 | disposition home or self-care (01) ==
LOC: ED 14:14
DX: G89.18 Other acute postprocedural pain (principal); M25.562 Pain in left knee; E11.9 Type 2 diabetes mellitus without complications; I10 Essential (primary) hypertension; E66.9 Obesity, unspecified; Z79.899 Other long term (current) drug therapy; Z79.4 Long term (current) use of insulin
CPT/HCPCS: 36415; 80053; 83605; 85025; 85060; 99283; J7030

== ENCOUNTER 2022-11-22 10:51 | Emergency (ER) | payer OTHER ==
[~2022-11-22] VITALS: Ht 188 cm; Wt 111.6 kg
--- OUTSIDE RECORDS SUMMARY | ~2022-11-22 | XMS | Continuity of Care Document ---
Demographics + + + | Address | [address] | | | [place] [address] | + + + | Preferred Language | Unknown | + + + | Marital Status | | + + + | Orthodoxy Affiliation | Unknown | + + + | Race | White | + + + | Ethnic Group | Not or | + + + Author + + + | Author | [facility] | + + + | Organization | [facility] | + + + | Address | [address] | | | [place] [address] | + + + | Phone | | + + + Care Team Providers + + + + | Care Wrap Knitting Machine Operator Name | Role | Phone | + + + + Unavailable | Unavailable | + + + + Unavailable | Unavailable | + + + + Allergies No information. Encounters No information. Functional Status No information. Immunizations + + + + | date | description | facility | + + + + | 2020-02-18 00:00 | Influenza, Injectable, | [facility] | | | Quadrivalent, Preservative | | + + + + | 2022-10-04 00:00 | Influenza, Injectable, | [facility] | | | Quadrivalent, Preservative | | + + + + Medications + + + + | date | description | facility | + + + + | 2021-01-22 00:00 | OXYCODONE HCL | [facility] | + + + + | 2021-09-08 00:00 | OXYCODONE HCL | [facility] | + + + + | 2021-09-13 00:00 | OXYCODONE HCL | [facility] | + + + + | 2015-12-05 00:00 | GABAPENTIN | [facility] | + + + + | 2015-12-05 00:00 | DOCUSATE SODIUM | [facility] | + + + + | 2022-10-04 00:00 | EMPAGLIFLOZIN | [facility] | + + + + | 2020-09-26 00:00 | DOXYCYCLINE HYCLATE | [facility] | + + + + | 2022-10-04 00:00 | INSULIN LISPRO | [facility] | + + + + | 2022-10-04 00:00 | Insulin | [facility] | | | Hum. RovertorecAvivaanlog | | + + + + | 2021-09-08 00:00 | DICLOXACILLIN SODIUM | [facility] | + + + + | 2015-12-05 00:00 | IBUPROFEN | [facility] | + + + + | 2022-10-04 00:00 | | [facility] | | | LISINOPRIL/HYDROCHLOROTHIAZ | | | | DILLON | | + + + + | 2022-10-04 00:00 | | [facility] | | | LISINOPRIL/HYDROCHLOROTHIAZ | | | | DILLON | | + + + + | 2022-10-04 00:00 | | [facility] | | | SULFAMETHOXAZOLE/TRIMETHOPR | | | | IM | | + + + + | 2014-02-20 00:00 | CIPROFLOXACIN HCL | [facility] | + + + + | 2022-10-04 00:00 | CIPROFLOXACIN HCL | [facility] | + + + + | 2017-10-12 00:00 | CEPHALEXIN | [facility] | + + + + | 2018-09-21 00:00 | CEPHALEXIN | [facility] | + + + + | 2022-10-04 00:00 | Dulaglutide | [facility] | + + + + | 2022-10-04 00:00 | Insulin Lispro | [facility] | + + + + | 2015-12-05 00:00 | CLINDAMYCIN HCL | [facility] | + + + + | 2022-10-04 00:00 | INSULIN GLARGINE | [facility] | + + + + | 2015-05-06 00:00 | CEPHALEXIN | [facility] | + + + + | 2016-06-11 00:00 | CEPHALEXIN | [facility] | + + + + | 2018-05-10 00:00 | CEPHALEXIN | [facility] | + + + + | 2022-10-04 00:00 | CIPROFLOXACIN HCL | [facility] | + + + + | 2021-09-08 00:00 | GABAPENTIN | [facility] | + + + + | 2022-10-04 00:00 | LISINOPRIL | [facility] | + + + + | 2015-12-05 00:00 | ASPIRIN | [facility] | + + + + | 2022-10-04 00:00 | Insulin Aspart | [facility] | + + + + | 2022-10-04 00:00 | AMOXICILLIN/POTASSIUM CLAV | [facility] | | | | | + + + + | 2021-09-08 00:00 | DULOXETINE HCL | [facility] | + + + + | 2022-10-04 00:00 | CLINDAMYCIN HCL | [facility] | + + + + | 2015-12-05 00:00 | TRAMADOL HCL | [facility] | + + + + | 2022-10-04 00:00 | INSULIN | [facility] | | | ANA PAULA AVALOSLOG | | + + + + | 2014-02-20 00:00 | | [facility] | | | SULFAMETHOXAZOLE/TRIMETHOPR | | | | IM DS | | + + + + | 2015-05-06 00:00 | | [facility] | | | SULFAMETHOXAZOLE/TRIMETHOPR | | | | IM DS | | + + + + | 2014-02-20 00:00 | HYDROCODONE | [facility] | | | BIT/ACETAMINOPHEN | | + + + + | 2022-10-04 00:00 | METFORMIN HCL | [facility] | + + + + | 2022-10-04 00:00 | PRAVASTATIN SODIUM | [facility] | + + + + Problems + + + + | date | description | facility | + + + + | 2014-02-20 00:00 | Cellulitis of left foot | [facility] | + + + + | 2015-05-06 00:00 | Diabetic foot ulcer | [facility] | + + + + | 2015-12-01 00:00 | Osteomyelitis of toe of | [facility] | | | right foot | | + + + + | 2015-12-03 00:00 | Diabetic neuropathy | [facility] | + + + + | 2015-12-03 00:00 | Diabetes mellitus | [facility] | + + + + | 2015-12-03 00:00 | Osteomyelitis of left foot | [facility] | | | | | + + + + | 2016-06-11 00:00 | Laceration of toe of left | [facility] | | | foot without foreign body | | | | present | | + + + + | 2016-06-11 00:00 | Fracture of phalanx of toe | [facility] | | | of left foot | | + + + + | 2017-02-08 00:00 | Cellulitis of right foot | [facility] | + + + + | 2017-10-08 00:00 | Sepsis | [facility] | + + + + | 2017-10-08 00:00 | Cellulitis of right lower | [facility] | | | extremity | | + + + + | 2018-10-15 00:00 | Partial thickness burn of | [facility] | | | left foot | | + + + + | 2019-11-24 00:00 | Injury due to foreign body | [facility] | | | | | + + + + | 2020-09-23 15:18 | Sepsis due to | [facility] | | | streptococcus, group B [facility] | + + + + | 2020-09-23 15:18 | Sepsis, unspecified | [facility] | | | organism | [facility] | + + + + | 2020-09-23 15:18 | Type 2 diabetes mellitus | [facility] | | | with foot ulcer | [facility] | + + + + | 2020-09-23 15:18 | Type 2 diabetes mellitus | [facility] | | | with hyperglycemia | [facility] | + + + + | 2020-09-23 15:18 | Obesity, unspecified | [facility] | | | | [facility] | + + + + | 2020-09-23 15:18 | Essential (primary) | [facility] | | | hypertension | [facility] | + + + + | 2020-09-23 15:18 | 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 | [facility] | | | artery without angina | | | | pectoris | | + + + + | 2020-09-23 15:18 | Cutaneous abscess of left | [facility] | | | foot | [facility] | + + + + | 2020-09-23 15:18 | Cellulitis of left lower | [facility] | | | limb | [facility] | + + + + | 2020-09-23 15:18 | 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[facility] | | | of left heel and midfoot | [facility] | | | with necrosis of muscle | | + + + + | 2020-09-23 15:18 | 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 | [facility] | | | oral hypoglycemic drugs | [facility] | + + + + | 2020-09-23 15:18 | 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) | [facility] | | | drug therapy | [facility] | + + + + | 2021-01-18 00:00 | Back pain | [facility] | + + + + | 2021-01-18 00:00 | Osteomyelitis | [facility] | + + + + | 2021-01-18 00:00 | Hyperglycemia | [facility] | + + + + | 2021-02-03 00:00 | Acute gastroenteritis | [facility] | + + + + | 2021-02-17 00:00 | Encounter for medical | [facility] | | | screening examination | | + + + + | 2021-03-08 00:00 | Debra rash of groin | [facility] | + + + + | 2021-08-30 00:00 | Severe sepsis | [facility] | + + + + | 2021-08-30 00:00 | Poorly controlled diabetes | [facility] | | | mellitus | | + + + + | 2021-08-30 00:00 | Acute kidney injury | [facility] | + + + + | 2021-09-13 00:00 | Postoperative pain | [facility] | + + + + | 2021-09-13 14:15 | Type 2 diabetes mellitus | [facility] | | | without complications | [facility] | + + + + | 2021-09-13 14:15 | Obesity, unspecified | [facility] | | | | [facility] | + + + + | 2021-09-13 14:15 | Other acute postprocedural | [facility] | | | pain | [facility] | + + + + | 2021-09-13 14:15 | Essential (primary) | [facility] | | | hypertension | [facility] | + + + + | 2021-09-13 14:15 | Pain in left knee | [facility] | | | | [facility] | + + + + | 2021-09-13 14:15 | 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 | [facility] | | | insulin | [facility] | + + + + | 2021-09-13 14:15 | 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) | [facility] | | | drug therapy | [facility] | + + + + | 2022-10-03 20:36 | TYPE 2 DIABETES MELLITUS | [facility] | | | WITHOUT COMPLICATIONS | | + + + + | 2022-10-03 20:36 | OBESITY, UNSPECIFIED | [facility] | + + + + | 2022-10-03 20:36 | Essential (primary) | [facility] | | | hypertension | | + + + + | 2022-10-03 20:36 | CELLULITIS OF RIGHT LOWER | [facility] | | | LIMB | | + + + + | 2022-10-03 20:36 | HOMELESSNESS UNSPECIFIED | [facility] | + + + + | 2022-10-03 20:36 | 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 Results/Labs +--------+--------+ +---------+--------+---------+ | test | date | facility | value | unit | notes | +--------+--------+ +---------+--------+---------+ + + | Result panel 1 | + + + + + +-------+ + + | | 2022-10-03 | [facility] | 244 | (missing) | (missing) | | (unavailable | 21:46:07 | [facility] | | | | + + + +-------+ + + + + | Result panel 2 | + + + + + +--------+ + + | | 2022-10-03 | [facility] | 10.0 | (missing) | (missing) | | (unavailable | 23:05:07 [facility] | | | | + + + +--------+ + + + + | Result panel 3 | + + + + + +------+ + + | | 2022-10-03 | [facility] | 67 | (missing) | (missing) | | (unavailable | 23:05:07 [facility] | | | | + + + +------+ + + + + | Result panel 4 | + + + + + +------+ + + | | 2022-10-03 | [facility] | 26 | (missing) | (missing) | | (unavailable | 23:05:07 [facility] | | | | + + + +------+ + + + + | Result panel 5 | + + + + + +-----+ + + | | 2022-10-03 | [facility] | 4 | (missing) | (missing) | | (unavailable | 23:05:07 [facility] | | | | + + + +-----+ + + + + | Result panel 6 | + + + + + +-----+ + + | | 2022-10-03 | [facility] | 3 | (missing) | (missing) | | (unavailable | 23:05:07 [facility] | | | | + + + +-----+ + + + + | Result panel 7 | + + + + + +------+ + + | | 2022-10-03 | [facility] | 58 | (missing) | (missing) | | (unavailable | 23:05:07 [facility] | | | | + + + +------+ + + + + | Result panel 8 | + + + + + +-------+---------+ + | | 2022-10-03 | [facility] | 227 | mg/dL | (missing) | | (unavailable | 23:05:07 [facility] | | | | + + + +-------+---------+ + + + | Result panel 9 | + + + + + +------+---------+ + | | 2022-10-03 | [facility] | 16 | mg/dL | (missing) | | (unavailable | 23:05:07 [facility] | | | | + + + +------+---------+ + + + | Result panel 10 | + + + + + +--------+---------+ + | | 2022-10-03 | [facility] | 1.49 | mg/dL | (missing) | | (unavailable | 23:05:07 [facility] | | | | + + + +--------+---------+ + + + | Result panel 11 | + + + + + +------+ + + | | 2022-10-03 | [facility] | 54 | (missing) | (missing) | | (unavailable | 23:05:07 [facility] | | | | + + + +------+ + + + + | Result panel 12 | + + + + + +--------+ + + | | 2022-10-03 | [facility] | 4.28 | (missing) | (missing) | | (unavailable | 23:05:07 [facility] | | | | + + + +--------+ + + + + | Result panel 13 | + + + + + +---------+ + + | | 2022-10-03 | [facility] | 10.73 | (missing) | (missing) | | (unavailable | 23:05:07 [facility] | | | | + + + +---------+ + + + + | Result panel 14 | + + + + + +-------+ + + | | 2022-10-03 | [facility] | 139 | (missing) | (missing) | | (unavailable | 23:05:07 [facility] | | | | + + + +-------+ + + + + | Result panel 15 | + + + + + +-------+ + + | | 2022-10-03 | [facility] | 3.7 | (missing) | (missing) | | (unavailable | 23:05:07 [facility] | | | | + + + +-------+ + + + + | Result panel 16 | + + + + + +-------+ + + | | 2022-10-03 | [facility] | 102 | (missing) | (missing) | | (unavailable | :05:07 | [facility] | | | | + + + +-------+ + + + + | Result panel 17 | + + + + + +------+ + + | | 2022-10-03 | [facility] | 28 | (missing) | (missing) | | (unavailable | 23:05:07 [facility] | | | | + + + +------+ + + + + | Result panel 18 | + + + + + +--------+ + + | | 2022-10-03 | [facility] | 12.7 | (missing) | (missing) | | (unavailable | 23:05:07 [facility] | | | | + + + +--------+ + + + + | Result panel 19 | + + + + + +-------+---------+ + | | 2022-10-03 | [facility] | 9.1 | mg/dL | (missing) | | (unavailable | 23:05:07 [facility] | | | | + + + +-------+---------+ + + + | Result panel 20 | + + + + + +-------+ + + | | 2022-10-03 | [facility] | 7.8 | (missing) | (missing) | | (unavailable | 23:05:07 [facility] | | | | + + + +-------+ + + + + | Result panel 21 | + + + + + +-------+ + + | | 2022-10-03 | [facility] | 3.7 | (missing) | (missing) | | (unavailable | 23:05:07 [facility] | | | | + + + +-------+ + + + + | Result panel 22 | + + + + + +-------+ + + | | 2022-10-03 | [facility] | 4.1 | (missing) | (missing) | | (unavailable | ::07 | [facility] | | | | + + + +-------+ + + + + | Result panel 23 | + + + + + +--------+ + + | | 2022-10-03 | [facility] | 12.1 | (missing) | (missing) | | (unavailable | 23:05:07 [facility] | | | | + + + +--------+ + + + + | Result panel 24 | + + + + + +--------+ + + | | 2022-10-03 | [facility] | 0.90 | (missing) | (missing) | | (unavailable | 23:05:07 [facility] | | | | + + + +--------+ + + + + | Result panel 25 | + + + + + +-------+ + + | | 2022-10-03 | [facility] | 1.3 | (missing) | (missing) | | (unavailable | 23:05:07 [facility] | | | | + + + +-------+ + + + + | Result panel 26 | + + + + + +-----+ + + | | 2022-10-03 | [facility] | 9 | (missing) | (missing) | | (unavailable | 23:05:07 [facility] | | | | + + + +-----+ + + + + | Result panel 27 | + + + + + +------+ + + | | 2022-10-03 | [facility] | 15 | (missing) | (missing) | | (unavailable | 23:05:07 [facility] | | | | + + + +------+ + + + + | Result panel 28 | + + + + + +------+ + + | | 2022-10-03 | [facility] | 81 | (missing) | (missing) | | (unavailable | 23:05:07 [facility] | | | | + + + +------+ + + + + | Result panel 29 | + + + + + +--------+ + + | | 2022-10-03 | [facility] | 36.6 | (missing) | (missing) | | (unavailable | 23:05:07 [facility] | | | | + + + +--------+ + + + + | Result panel 30 | + + + + + +--------+ + + | | 2022-10-03 | [facility] | 85.6 | (missing) | (missing) | | (unavailable | 23:05:07 [facility] | | | | + + + +--------+ + + + + | Result panel 31 | + + + + + +--------+ + + | | 2022-10-03 | [facility] | 28.2 | (missing) | (missing) | | (unavailable | 23:05:07 [facility] | | | | + + + +--------+ + + + + | Result panel 32 | + + + + + +--------+ + + | | 2022-10-03 | [facility] | 32.9 | (missing) | (missing) | | (unavailable | 23:05:07 [facility] | | | | + + + +--------+ + + + + | Result panel 33 | + + + + + +--------+ + + | | 2022-10-03 | [facility] | 14.2 | (missing) | (missing) | | (unavailable | 23:05:07 [facility] | | | | + + + +--------+ + + + + | Result panel 34 | + + + + + +-------+ + + | | 2022-10-03 | [facility] | 392 | (missing) | (missing) | | (unavailable | 23:05:07 [facility] | | | | + + + +-------+ + + Social History No information. Vital Signs + + + +---------+ | date | measurement | value | units | + + + +---------+ | 2022-10-03 00:00 | BMI | 29.2 | kg/m2 | + + + +---------+ | 2022-10-03 00:00 | height_metric | 187.96 | cm | + + + +---------+ | 2022-10-03 00:00 | height_standard | 74 | in | + + + +---------+ | 2022-10-03 00:00 | weight_metric | 103 | kg | + + + +---------+ | 2022-10-03 00:00 | weight_standard | 227.08 | lb | + + + +---------+ | 2022-10-04 00:00 | BP_diastolic | 79 | mmHg | + + + +---------+ | 2022-10-04 00:00 | BP_systolic | 134 | mmHg | + + + +---------+ | 2022-10-04 00:00 | heart_rate | 92 | /min | + + + +---------+ | 2022-10-04 00:00 | o2_saturation | 100 | % | + + + +---------+ | 2022-10-04 00:00 | respiration_rate | 16 | /min | + + + +---------+ | 2022-10-04 00:00 | temperature_metric | 36.56 | C | | | | | | + + + +---------+ | 2022-10-04 00:00 | | 97.8 | F | | | temperature_standar | | | | | d | | | + + + +---------+"
--- OUTSIDE RECORDS SUMMARY | ~2022-11-22 | XMS | Continuity of Care Document ---
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 Encounters No information. Functional Status No information. Immunizations + + + + | date | description | facility | + + + + | 2020-02-18 00:00 | Influenza, Injectable, | [facility] | | | Quadrivalent, Preservative | | + + + + | 2022-10-04 00:00 | Influenza, Injectable, | [facility] | | | Quadrivalent, Preservative | | + + + + Medications + + + + | date | description | facility | + + + + | 2021-01-22 00:00 | OXYCODONE HCL | [facility] | + + + + | 2021-09-08 00:00 | OXYCODONE HCL | [facility] | + + + + | 2021-09-13 00:00 | OXYCODONE HCL | [facility] | + + + + | 2015-12-05 00:00 | GABAPENTIN | [facility] | + + + + | 2015-12-05 00:00 | DOCUSATE SODIUM | [facility] | + + + + | 2022-10-04 00:00 | EMPAGLIFLOZIN | [facility] | + + + + | 2020-09-26 00:00 | DOXYCYCLINE HYCLATE | [facility] | + + + + | 2022-10-04 00:00 | INSULIN LISPRO | [facility] | + + + + | 2022-10-04 00:00 | Insulin | [facility] | | | Hum. RovertorecAvivaanlog | | + + + + | 2021-09-08 00:00 | DICLOXACILLIN SODIUM | [facility] | + + + + | 2015-12-05 00:00 | IBUPROFEN | [facility] | + + + + | 2022-10-04 00:00 | | [facility] | | | LISINOPRIL/HYDROCHLOROTHIAZ | | | | D[place] | | + + + + | 2022-10-04 00:00 | | [facility] | | | LISINOPRIL/HYDROCHLOROTHIAZ | | | | [place] | | + + + + | 2022-10-04 00:00 | | [facility] | | | SULFAMETHOXAZOLE/TRIMETHOPR | | | | IM | | + + + + | 2014-02-20 00:00 | CIPROFLOXACIN HCL | [facility] | + + + + | 2022-10-04 00:00 | CIPROFLOXACIN HCL | [facility] | + + + + | 2017-10-12 00:00 | CEPHALEXIN | [facility] | + + + + | 2018-09-21 00:00 | CEPHALEXIN | [facility] | + + + + | 2022-10-04 00:00 | Dulaglutide | [facility] | + + + + | 2022-10-04 00:00 | Insulin Lispro | [facility] | + + + + | 2015-12-05 00:00 | CLINDAMYCIN HCL | [facility] | + + + + | 2022-10-04 00:00 | INSULIN GLARGINE | [facility] | + + + + | 2015-05-06 00:00 | CEPHALEXIN | [facility] | + + + + | 2016-06-11 00:00 | CEPHALEXIN | [facility] | + + + + | 2018-05-10 00:00 | CEPHALEXIN | [facility] | + + + + | 2022-10-04 00:00 | CIPROFLOXACIN HCL | [facility] | + + + + | 2021-09-08 00:00 | GABAPENTIN | [facility] | + + + + | 2022-10-04 00:00 | LISINOPRIL | [facility] | + + + + | 2015-12-05 00:00 | ASPIRIN | [facility] | + + + + | 2022-10-04 00:00 | Insulin Aspart | [facility] | + + + + | 2022-10-04 00:00 | AMOXICILLIN/POTASSIUM CLAV | [facility] | | | | | + + + + | 2021-09-08 00:00 | DULOXETINE HCL | [facility] | + + + + | 2022-10-04 00:00 | CLINDAMYCIN HCL | [facility] | + + + + | 2015-12-05 00:00 | TRAMADOL HCL | [facility] | + + + + | 2022-10-04 00:00 | INSULIN | [facility] | | | ANA PAULA AVALOSLOG | | + + + + | 2014-02-20 00:00 | | [facility] | | | SULFAMETHOXAZOLE/TRIMETHOPR | | | | IM DS | | + + + + | 2015-05-06 00:00 | | [facility] | | | SULFAMETHOXAZOLE/TRIMETHOPR | | | | IM DS | | + + + + | 2014-02-20 00:00 | HYDROCODONE | [facility] | | | BIT/ACETAMINOPHEN | | + + + + | 2022-10-04 00:00 | METFORMIN HCL | [facility] | + + + + | 2022-10-04 00:00 | PRAVASTATIN SODIUM | [facility] | + + + + Problems + + + + | date | description | facility | + + + + | 2014-02-20 00:00 | Cellulitis of left foot | [facility] | + + + + | 2015-05-06 00:00 | Diabetic foot ulcer | [facility] | + + + + | 2015-12-01 00:00 | Osteomyelitis of toe of | [facility] | | | right foot | | + + + + | 2015-12-03 00:00 | Diabetic neuropathy | [facility] | + + + + | 2015-12-03 00:00 | Diabetes mellitus | [facility] | + + + + | 2015-12-03 00:00 | Osteomyelitis of left foot | [facility] | | | | | + + + + | 2016-06-11 00:00 | Laceration of toe of left | [facility] | | | foot without foreign body | | | | present | | + + + + | 2016-06-11 00:00 | Fracture of phalanx of toe | [facility] | | | of left foot | | + + + + | 2017-02-08 00:00 | Cellulitis of right foot | [facility] | + + + + | 2017-10-08 00:00 | Sepsis | [facility] | + + + + | 2017-10-08 00:00 | Cellulitis of right lower | [facility] | | | extremity | | + + + + | 2018-10-15 00:00 | Partial thickness burn of | [facility] | | | left foot | | + + + + | 2019-11-24 00:00 | Injury due to foreign body | [facility] | | | | | [...] [facility] | | | disease of [place] coronary | [facility] | | | artery [...] + + + | 2020-09-23 15:18 | 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 | [facility] | | | oral hypoglycemic drugs | [employer] | + + + + | 2020-09-23 15:18 | 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) | [facility] | | | drug therapy | [employer] | + + + + | 2021-01-18 00:00 | Back pain | [facility] | + + + + | 2021-01-18 00:00 | Osteomyelitis | [facility] | + + + + | 2021-01-18 00:00 | Hyperglycemia | [facility] | + + + + | 2021-02-03 00:00 | Acute gastroenteritis | [facility] | + + + + | 2021-02-17 00:00 | Encounter for medical | [facility] | | | screening examination | | + + + + | 2021-03-08 00:00 | Debra rash of groin | [facility] | + + + + | 2021-08-30 00:00 | Severe sepsis | [facility] | + + + + | 2021-08-30 00:00 | Poorly controlled diabetes | [facility] | | | mellitus | | + + + + | 2021-08-30 00:00 | Acute kidney injury | [facility] | + + + + | 2021-09-13 00:00 | Postoperative pain | [facility] | + + + + [...] + + + | 2021-09-13 14:15 | 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
[2022-11-22 12:35] VITALS: BP 144/80
== END 2022-11-22 12:35 | disposition home or self-care (01) ==
LOC: ED 10:51
DX: S90.31XA Contusion of right foot, initial encounter (principal); Y04.8XXA Assault by other bodily force, initial encounter; E11.9 Type 2 diabetes mellitus without complications; I10 Essential (primary) hypertension; E66.9 Obesity, unspecified; Z79.899 Other long term (current) drug therapy; Z79.4 Long term (current) use of insulin
CPT/HCPCS: 73630; 99283-25

== ENCOUNTER 2023-04-29 15:57 | Inpatient (IN) | payer OTHER ==
[~2023-04-29] VITALS: Ht 188 cm; Wt 98.5 kg
[2023-04-29] MEDS ORDERED: DOXYCYCLINE HY100 MG PO (16:12)
[2023-04-29 18:02] LABS: BASOPHILS 1.1 % (0-2); EOSINOPHILS 4.2 % (0-6); HEMOGLOBIN 10.7 g/dL (12.0-18.0); LYMPHOCYTES 18.3 % (24-44); MCH 28.7 (27-36); MCHC 34.6 g/dl (30-36); MCV 82.9 fl (81-99); MONOCYTES 9.2 % (0-12); NEUTROPHILS 67.2 % (39-80); PLATELET COUNT 508 K/uL (140-440); RBC 3.74 M/ul (4.3-5.7); RDW 14.1 (10.5-15.0)
[2023-04-29 18:19] LABS: ALBUMIN 3.1 g/dL (3.4-5.0); ALBUMIN/GLOBULIN RATIO 0.67 (1.1-2.4); ANION GAP 12.8 (7-21); BILIRUBIN, TOTAL 0.9 ng/dL (0.2-1.0); BUN/CREATININE RATIO 11.66 (6.0-28.6); CALCIUM 9.7 mg/dL (8.5-10.1); CREATININE, SERUM 1.2 mg/dL (0.70-1.30); POTASSIUM 3.8 mmol/L (3.5-5.1); PROTEIN, TOTAL 7.7 g/dL (6.4-8.2)
[2023-04-29 18:24] LABS: LACTIC ACID, BLOOD 1.1 mmol/L (0.4-2.0)
[2023-04-29 19:05] LABS: ERYTHROCYTE SEDIMENTATION RATE 80
--- NOTE | 2023-04-29 19:10 | NUR ---
PT ARRIVED VIA STRETCHER FROM ER, PT ALERT, TRANSFERED TO BED, PT TALKATIVE, BED LOW POSITION, SIDE RAILS UP X 4.
[2023-04-29 19:22] VITALS: BP 109/66
--- NOTE | 2023-04-29 19:35 | NUR ---
REPORT RECEIVED VIA PHONE FROM ANT APARICIO RN ON PT.
--- NOTE | 2023-04-29 21:30 | NUR ---
REPORT RECEIVED FROM ANGUS PAYROLL ASSOCIATE THAT PT WAS FOUND UP IN ROLLING CHAIR AT SINK WASHING HIS HANDS, REPORTS HE RECENTLY VOIDED, PT EDUCATED ROLLING CHAIR NOT SAFE TO TRANSPORT SELF, BACK TO BED, ENCOURAGED TO CALL NURSE FOR ASSIST UP TO BR, BACK TO BED, SIDE RAILS UP X 4 AND BED ALARM, PT AGREES TO CALL.
--- NOTE | 2023-04-29 21:35 | NUR ---
REMAINING ADMISSION COMPLETED, pt RESTING IN BED WITH RLE ELEVATED IN BED, pt EDUCATED TO USE CALL LIGHT BEFORE GETTING OOB-pt VERBALIZED UNDERSTANDING. PIPES X2, ZIPLOCK BAGGIE WITH HERB LIKE CONTENTS, MOLD FILLER, AND SANGEETHA PACK FOUND IN LUNCH BOX, PLACED IN LOCK BOX IN ROOM AND pt EDUCATED. CALL LIGHT IN REACH AND PRIMARY RN SUZY UPDATED AND MADE AWARE.
--- NOTE | 2023-04-29 22:20 | NUR ---
PT ASLEEP, RESP EVEN AND REG, WITHOUT DISTRESS.
--- NOTE | 2023-04-29 22:43 | NUR ---
DR. HART REQUESTED THIS NURSE TO ASSIST PRIMARY NURSE AND ASSIST WITH COVERING WOUND. 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 WISEMAN WITH A PLAN FOR AMPUATION OF 3RD DIGIT OF RIGHT FOOT. BONE IS EXPOSED AT TIP OF 3RD DIGIT, DISTAL PLANTAR FOOT APPEARS TO HAVE DIABETIC ULCER WITH ERYTHEMA, NO DRAINAGE. CLEANSED FOOT WITH WOUND CLEANSER. DR. HART VERBALIZED NOT WANTING ANYTHING APPLIED TOPICALLY, REQUESTING DRESSING TO COVER AND PROTECT FROM EXTERNAL FORCES. PICTURES AND MEASUREMENTS TAKEN. NOTED FAINT PEDAL PULSE. PATIENT REPORTS NO FEELING IN FOOT, APPEARS TO BE RAMBLING ABOUT RANDOM HISTORY FACTS AND STATES "THE ELADIA KNOWS I AM TIESHA AND MY SANCHEZ HAD TO BECAUSE SHE WAS ALSO MY SISTER OF THE [employer] AND REBUKED THE [employer], BUT NOW SHE WAITS FOR ME IN [facility]". NOTED HISTORY OF PATIENT TAKING METH. WHEN ASKED PATIENT IF HE HAD DONE METH TODAY, HE SMILED AND STATED "YES". APPLIED NON-ADHERENT PAD TO AREA AROUND 3RD DIGIT OF FOOT AND PLANTAR WOUND THEN WRAPPED WITH KERLEX AND LOOSELY REINFORCED WITH COBAN. PROVIDED PRIMARY NURSE UPDATE. NOTED OTHER SMALL WOUNDS AROUND STUMP WHERE PROSTHESIS RESTS. APPLIED 2X2 FOAM ALLEVYN DRESSING TO SITES.
--- NOTE | 2023-04-29 22:50 | NUR ---
PT RESTING QUIETLY WITH EYES CLOSED, AWAKEN TO START NS IVF PER ORDER AT 125ML/HR, SITE INTACT, ROCEPTIN IV GIVEN PER ORDER, ACCUCHECK DONE AND 124, PT BACK TO SLEEP WHEN LEFT UNDISTURBED.
--- NOTE | 2023-04-29 23:34 | NUR ---
powerhouse tender jennifer made aware of new order for iv dapto, sterile supervisor to prepare and bring to floor. primary rn emilia aware.
--- NOTE | 2023-04-30 00:02 | NUR ---
PT RESTING QUIETLY, ORDERED DAPTOMYCIN GIVEN PER ORDER, IV SITE INTACT. RIGHT FOOT REMAINS ELEVATED ON PILLOWS, BEDALARM ON.
--- NOTE | 2023-04-30 01:05 | NUR ---
PT APPEARS TO SLEEP, RESP REG WITHOUT DISTRESS.
[2023-04-30 02:32] VITALS: BP 121/68
--- NOTE | 2023-04-30 02:32 | NUR ---
PT ASLEEP, AWAKEN TO NAME AND TOUCH, VS DONE AND STABLE, PT BACK TO SLEEP, WITHOUT COMPLAINTS.
--- NOTE | 2023-04-30 04:10 | NUR ---
PT APPEARS TO SLEEP, RESP EVEN AND REG.
[2023-04-30 05:25] VITALS: BP 130/80
--- NOTE | 2023-04-30 05:25 | NUR ---
LAB IN FOR AM BLOOD DRAW, PT ASSISTED UP TO SIDE OF BED TO USE URINAL, PT VOIDED 700ML, PT BACK TO BED, VS STABLE, AFEBRILE, UDS SENT PER ORDER, IV PATENT AND INFUSING WELL. PT WITHOUT COMPLAINTS, RESTING WITH EYES CLOSED, BED ALARM ON.
[2023-04-30 05:34] LABS: BASOPHILS 0.7 % (0-2); EOSINOPHILS 5.1 % (0-6); HEMATOCRIT 29.9 % (35.0-50.0); HEMOGLOBIN 10.3 g/dL (12.0-18.0); LYMPHOCYTES 21.8 % (24-44); MCH 28.8 (27-36); MCHC 34.5 g/dl (30-36); MCV 83.5 fl (81-99); MONOCYTES 8.8 % (0-12); NEUTROPHILS 63.6 % (39-80); PLATELET COUNT 446 K/uL (140-440); RBC 3.59 M/ul (4.3-5.7); RDW 14.3 (10.5-15.0)
[2023-04-30 05:43] LABS: ANION GAP 13.9 (7-21); BUN/CREATININE RATIO 11.22 (6.0-28.6); CALCIUM 9.1 mg/dL (8.5-10.1); CREATININE, SERUM 0.98 mg/dL (0.70-1.30); MAGNESIUM 1.6 mg/dL (1.8-2.4); POTASSIUM 3.9 mmol/L (3.5-5.1)
[2023-04-30 06:01] LABS: AMPHETAMINES, URINE POSITIVE (NEGATIVE); BARBITURATES, URINE NEGATIVE (NEGATIVE); BENZODIAZEPINE, URINE NEGATIVE (NEGATIVE); BUPRENORPHINE, URINE NEGATIVE (NEGATIVE); CANNABINOID, URINE POSITIVE (NEGATIVE); COCAINE, URINE NEGATIVE (NEGATIVE); ECSTASY, URINE POSITIVE (NEGATIVE); FENTANYL, URINE NEGATIVE (NEGATIVE); METHADONE, URINE NEGATIVE (NEGATIVE); OPIATES, URINE NEGATIVE (NEGATIVE); OXYCODONE, URINE NEGATIVE (NEGATIVE); PHENCYCLIDINE, URINE NEGATIVE (NEGATIVE)
--- NOTE | 2023-04-30 07:24 | NUR ---
Pt report received from SHABNAM Bird. Pt is resting on his left side, eyes closed, breathing is regular, even, and non-labored. Pt's cheeks appear flushed. Call light is in reach, bed rails up x4, bed alarm on for safety.
[2023-04-30 09:39] VITALS: BP 119/72
[2023-04-30] MEDS ORDERED: LISINOPRIL10 MG PO (09:39)
--- NOTE | 2023-04-30 11:04 | NUR ---
PT IS RESTING IN BED ON HIS LEFT SIDE, EYES CLOSED BUT OPENS THEM START TO LEAVE THE ROOM. TELEVISION ON. PT REPORTS THAT HIS RIGHT FOOT WAS THROBBING AT ONE POINT BUT THAT IT'S BETTER NOW. HE STATES THAT HE HAD TRIPPED GOING UP A CURB AND FEELS LIKE HE "STRETCHED" THE FRONT OF HIS ANKLE AND WOULD LIKE TO TRY AN ICE PACK. THIS WAS PROVIDED FOR HIM. ICE PACK WAS PLACED ON TOP OF THE DRESSING AND SOCK AT THE ANTERIOR ANKLE. PT ALSO ASKED FOR A SNACK AND WAS PROVIDED WITH CHOCOLATE NO SUGAR ADDED PUDDING. EMPTIED URINAL OF 400ML DARK YELLOW URINE. CALL LIGHT IN REACH. NO FURTHER NEEDS AT THIS TIME.
--- NOTE | 2023-04-30 14:34 | NUR ---
DR. WISEMAN IN WITH PT FOR WOUND DEBRIDEMENT/CLEANSING/DRESSING CHANGE. DR. HART IN WITH DR. WISEMAN. BOTH AGREED ON ADMINISTERING CIPRO. DR. HART WILL PUT IN THE ORDER FOR 400MG CIPRO Q12 IV.
[2023-04-30 14:51] VITALS: BP 115/77
[2023-04-30 17:48] VITALS: BP 143/93
--- NOTE | 2023-04-30 18:27 | NUR ---
PT HAS BEEN IN BED, SLEEPING OFF AND ON THROUGHOUT THIS SHIFT. HE AWAKENS EASILY AND IMMEDIATELY STARTS TALKING ABOUT HOW "I AM THE KEVIN. JOSHUA ON July AND WAS RESURRECTED ON July, I AM THE HE, I WAS BORN ON July". HE IS PLEASANT AND IS EASILY REDIRECTED, BUT QUICKLY GOES BACK TO HIS THOUGHTS. HE, OTHERWISE, SEEMS TO ANSWER QUESTIONS APPROPRIATELY. DR. WISEMAN CAME TODAY TO REDRESS THE WOUNDS ON HIS LEFT FOOT AND APPLIED IODOSORB DIRECTLY ONTO THE 3RD TOE, WELL THE PLANTAR SURFACE WOUND, THEN APPLIED GAUZE SPONGE, THEN KERLEX/GAUZE ROLL, THEN COBAN. DR. HART AND DR. WISEMAN USED UV LIGHT TO DETERMINE PSEUDOMONAS GROWTH ON THE WOUNDS AND ORDERED IV CIPRO. THIS WAS ADMINISTERED AT 1730 HOURS, ALONG WITH ZITHROMAX IV (THEY ARE COMPATIBLE ACCORDING TO RA IN PHARMACY). THE PT HAS NEEDED 1 UNIT OF INSULIN FOR LUNCH WELL ONE FOR DINNER AND TOLERATES HIS MEALS WELL. HE HAS BEEN VOIDING IN THE URINAL, CLEAR YELLOW URINE. NS RUNNING AT 125ML/HR OFF AN ON I HAVE FOUND IT DISCONNECTED ON TWO OCCASIONS (ONE I WAS AWARE OF THIS MORNING BECAUSE SHABNAM BOND ADVISED SHE S/L THE IV WHEN IT COMPLETED A BAG). I AM UNSURE IF NURSING STAFF HAS DISCONNECTED IT SO HE CAN AMBULATE TO USE THE TOILET, OR IF THE PT IS DISCONNECTING IT. HIS IV IS PATENT, FLUSHES WELL, NO PAIN, NO SWELLING, NO LEAKING NOTED. PT UNDERSTANDS TO USE THE CALL LIGHT.
--- NOTE | 2023-04-30 19:15 | NUR ---
SHIFT REPORT RECEIVED FROM HAZEL RN, PT LAYING ON LEFT SIDE, RESP EVEN AND REG, PT AWAKE, DENIES COMPLAINTS OR REQUESTS AT THIS TIME.
[2023-04-30 20:07] VITALS: BP 122/71
--- NOTE | 2023-04-30 20:07 | NUR ---
PT AWAKE AND ALERT, WATCHING FOOTBALL GAME, VS STABLE AND AFEBRILED, ORDERED ANTIBODICS GIVEN PER ORDER, IV PATENT AND INFUSING WELL, ACCUCHECK 163. 1 UNIT INSULIN GIVEN PER ORDER. ASSESSMENT COMPLETED, PT C/O FRONTAL HEADACHE, REQUEST MEDICATION.
--- NOTE | 2023-04-30 20:26 | NUR ---
PT MEDICATED WITH ULTRAM 50MG PER ORDER FOR C/O HEADACHE, PT REQUESTING SNACK, SUGAR FREE PUDDING AND MILK GIVEN, NS INFUSING WELL PER LEFT FOREARM IV, SITE INTACT. PT WITHOUT OTHER REQUESTS AT THIS TIME.
--- NOTE | 2023-04-30 22:40 | NUR ---
PT LAYING ON RIGHT SIDE, APPEARS TO SLEEP, RESP EVEN AND REG.
--- NOTE | 2023-05-01 00:30 | NUR ---
PT ASLEEP, RESP EVEN AND REG, TURNING SELF PERIODICALLY.
--- NOTE | 2023-05-01 00:50 | NUR ---
NEW BAG OF NS HUNG AND CONTINUES AT 125ML/HR, PT SLEEPING.
--- NOTE | 2023-05-01 02:55 | NUR ---
PT CONTINUES TO SLEEP, RESP EVEN AND REG, TURNING SELF OFF AND ON.
--- NOTE | 2023-05-01 04:00 | NUR ---
PT ASLEEP, RESP EVEN AND REG, RIGHT FOOT DRY AND INTACT.
--- NOTE | 2023-05-01 05:27 | NUR ---
PT DESAT TO 84-85%. REEDUCATED S.O, WHAT THE BIPAP IS DOING FOR PT AND THAT BASED ON HER WISHES THIS IS NON INVASIVE WE CAN GO. I RE-EDUCATED WHAT INTUBATION/CPR IS. S.O STATES HE UNDERSTANDS.
[2023-05-01 05:45] VITALS: BP 126/78
--- NOTE | 2023-05-01 06:15 | NUR ---
PT ASLEEP, AWAKEN FOR VS, PT ALERT, ASKING WHEN BREAKFAST WILL BE, VS STABLE, CIPRO HUNG AND INFUSING PER ORDER, IV PATENT, PT DENIES NEEDS AT THIS TIME, NO FURTHER COMPLAINTS OF HEADACHE AT THIS TIME, RIGHT FOOT DRESSING INTACT. FRESH WATER GIVEN.
--- NOTE | 2023-05-01 07:06 | NUR ---
PT REPORT RECEIVED FROM SHABNAM VILLARREAL. PT IS ASLEEP, SUPINE IN BED, BREATHING REGULAR, EVEN, AND NON-LABORED. CALL LIGHT IN REACH.
--- NOTE | 2023-05-01 07:30 | NUR ---
This HOSPICE HOME CARE COORDINATOR entered pt room to obtain blood glucose test. Pt is currently laying in bed in the supine position. BG obtained. Pt denies any additional assistance at this time. Call light within reach.
[2023-05-01 09:42] VITALS: BP 134/89
--- NOTE | 2023-05-01 10:21 | NUR ---
PATIENT IS RESTING IN BED. NEW BAG OF IVF INFUSING TO LEFT ARM. NO OTHER NEEDS AT THIS TIME.
[2023-05-01] MEDS ORDERED: CIPROFLOXACIN500 MG PO (10:54)
--- NOTE | 2023-05-01 11:25 | NUR ---
UR NOTE [facility] CELLULITIS (ISC) INPATIENT 04/29/23 MET CLINICAL INDICATIONS FOR ADMISSION TO INPATIENT CARE GL DAY 1
[2023-05-01 13:42] VITALS: BP 128/77
--- NOTE | 2023-05-01 14:15 | NUR ---
Staff from radiology here to transfer pt to MRI via wheelchair.
[2023-05-01 15:36] VITALS: BP 133/79
== END 2023-05-01 15:51 | disposition home or self-care (01) | DRG 638 ==
LOC: ED 15:57 → MS 18:24
PROVIDERS: Emergency Medicine; ADMIT Internal Medicine; ATTEND Internal Medicine
DX: E11.628 Type 2 diabetes mellitus with other skin complications (principal); L03.115 Cellulitis of right lower limb; L97.412 Non-pressure chronic ulcer of right heel and midfoot with fat layer exposed; E11.621 Type 2 diabetes mellitus with foot ulcer; I10 Essential (primary) hypertension; F19.10 Other psychoactive substance abuse, uncomplicated; L97.514 Non-pressure chronic ulcer of other part of right foot with necrosis of bone; E66.9 Obesity, unspecified; Z89.512 Acquired absence of left leg below knee; Z68.28 Body mass index [BMI] 28.0-28.9, adult
CPT/HCPCS: 36415; 73630; 73723; 80048; 80053; 80307; 82553; 83605; 83735; 85025; 85651; 86140; 97116; 97161; 97535; A9270; A9577; G0480; J0696; J0744; J0878; J1815; J7030

== ENCOUNTER 2023-08-30 11:19 | Inpatient (IN) | payer OTHER ==
[~2023-08-30] VITALS: Ht 188 cm; Wt 94.2 kg
[~2023-08-30 11:19] MED LIST changes: +CIPROFLOXACIN250 MG PO; +DOXYCYCLINE HY100 M3 PO; +LEVOFLOXACIN500 MG PO; +LISINOPRIL10 MG PO
[2023-08-30 12:03] VITALS: BP 145/90
--- NOTE | 2023-08-30 12:06 | NUR ---
took pt blood sugar @1200 and it was 367 nurse was notified.
[2023-08-30] MEDS ORDERED: CIPROFLOXACIN500 MG PO (12:36)
[2023-08-30 13:22] LABS: EOSINOPHILS 4.8 % (0-6); HEMATOCRIT 29.6 % (35.0-50.0); HEMOGLOBIN 9.9 g/dL (12.0-18.0); LYMPHOCYTES 16.3 % (24-44); MCH 26.2 (27-36); MCHC 33.5 g/dl (30-36); MCV 78.1 fl (81-99); MONOCYTES 5.3 % (0-12); NEUTROPHILS 72.6 % (39-80); PLATELET COUNT 687 K/uL (140-440); RBC 3.79 M/ul (4.3-5.7); RDW 16.7 (10.5-15.0)
[2023-08-30 13:31] LABS: ALBUMIN 2.9 g/dL (3.4-5.0); ALBUMIN/GLOBULIN RATIO 0.52 (1.1-2.4); ANION GAP 12.6 (7-21); BILIRUBIN, TOTAL 0.4 ng/dL (0.2-1.0); BUN/CREATININE RATIO 17.16 (6.0-28.6); CALCIUM 9.4 mg/dL (8.5-10.1); CREATININE, SERUM 1.34 mg/dL (0.70-1.30); POTASSIUM 4.6 mmol/L (3.5-5.1); PROTEIN, TOTAL 8.5 g/dL (6.4-8.2)
[2023-08-30 13:36] LABS: INR 1.08 (0.80-1.30); PROTIME 13.3 Sec (11.2-14.2)
[2023-08-30 14:09] VITALS: BP 144/87
--- NOTE | 2023-08-30 14:25 | NUR ---
PT IN BED FIXING HIS FLASHLIGHT CHAIN. ASKED FOR URINAL. LUNCH AT BEDSIDE, DENIES FURTHER CONCERNS.
[2023-08-30 14:29] LABS: ERYTHROCYTE SEDIMENTATION RATE 125
[2023-08-30] MEDS ORDERED: DEXTROSE 50% 50 ML SYR IV PRN ×2 (15:00)
[2023-08-30] MEDS ORDERED: IBLOOD GLUCOSE TEST STRIP 1 EA TEST XX PRN (15:00)
[2023-08-30] MEDS ORDERED: DEXTROSE 5% 1,000 ML IV PRN (15:00)
[2023-08-30] MEDS ORDERED: GLUCAGON,HUMAN RECOMBINANT 1 MG/ML VIAL SUB-Q PRN (15:00)
--- NOTE | 2023-08-30 15:09 | NUR ---
PHARMACY STATED THE PT WAS HOLDING A PILL BOTTLE UP TO MOUTH. WENT IN AND ASKED WHAT THE PT WAS CHEWING THAT APPEARED TO BE A WHITE PILL. PT MUTTERED IT WAS HIS CANDY WHICH IS HOT TAMALES AT BEDSIDE OR MAYBE THE CANDY IN HIS POCKETS WHICH HE "SEARCHED" FOR HIS PILL BOTTLE AND CANDY. PT UNABLE TO FIND EITHER AND DECLINED TO LET THIS RN LOOK FOR HIM. ADVISED HIM NOT TO TAKE ANY HOME MEDICATIONS AND THAT THEY SHOULD BE LOCKED IN HIS ROOM SAFE. HE STATED HE WOULD NOT. HIS OTHER BOTTLE, WALLET AND PILL BOTTLE WITH JAMISON IN IT ARE IN THE CLEAR BOX IN ROOM.
--- NOTE | 2023-08-30 15:55 | NUR ---
IMAGING ARRIVES TO TAKE PT TO IMAGING.
--- NOTE | 2023-08-30 16:42 | NUR ---
PT LAYING IN BED PLAYING WITH HIS CHAIN\FLASHLIGHT. CALL STEPHANE GRIFFIN. DECLINED TO REMOVE HIS PROSTHESIS AND SHOES IN BED.
[2023-08-30] MEDS ORDERED: INSULIN LISPRO 100 UNIT/ML ML SUB-Q SCH (17:00)
[2023-08-30] MEDS ORDERED: IBLOOD GLUCOSE TEST STRIP 1 EA TEST VI SCH (17:00)
--- NOTE | 2023-08-30 17:36 | NUR ---
ADMINISTERED SCHEDULED MEDS. PT EATING DINNER AND ASKING ABOUT SURGERY. EXPLAINED THAT DR HART WILL CALL [facility] IN THE MORNING AND THEN GO FROM THERE. RIGHT FOOT DRESSING HAS BLED THROUGH DRESSING WILL REINFORCE BOWEN PLACED THIS MORNING.
[2023-08-30 18:38] VITALS: BP 144/88
--- NOTE | 2023-08-30 19:20 | NUR ---
REPORT RECEIVED FROM LLUVIA HAQUE. pt RESTING IN THE BED. pt DENIES ANY NEEDS AT THIS TIME. CALL LIGHT WITHIN REACH.
[2023-08-30 21:16] VITALS: BP 135/84
--- NOTE | 2023-08-30 21:24 | NUR ---
MANAGER CHEMISTRY TOOK VITALS. PT STATED NO FURTHER NEEDS AT THIS TIME. CALL LIGHT PLACED WITHIN REACH.
--- NOTE | 2023-08-30 21:45 | NUR ---
ASSESSMENT AND VITAL SIGNS DONE. pt DENIES ANY NEEDS AT THIS TIME. BG CHECKED WITH A RESULTS OF 177. SS INSULIN ADMINISTERED. CALL LIGHT WITHIN REACH. IV ASSESSED, WNL.
--- NOTE | 2023-08-30 22:50 | NUR ---
pt CALLED FOR TYLENOL. PHONE CALL PLACED TO MD HART. ORDER GIVEN FOR PRN TYLENOL, VERIFIED WITH REPEAT BACK METHOD. PRN PAIN MEDICATION ADMINISTERED. pt DENIES ANY OTHER MEDICATION AT THIS TIME. CALL LIGHT WITHIN REACH.
[2023-08-30] MEDS ORDERED: ACETAMINOPHEN 325 MG TAB PO PRN (23:00)
--- NOTE | 2023-08-30 23:28 | NUR ---
CALL LIGHT ANSWERED. PT NEEDED TO USE BATHROOM. DIGITAL SERVICE ENGINEER ASSITED PT BATHROOM WITH IV TOWER. PT STATED HE WOULD CALL WHEN FINSIHED. PT THEN ASSISTED BACK TO BED. OUTPUT WAS NOTED. RN NOTIFED OF IV PUMP ALARM. PT STATED NO FURTHER NEEDS AT THIS TIME. CALL LIGHT PLACED WITHIN REACH.
[2023-08-31] VITALS (7 sets, daily range): BP systolic 103–144; BP diastolic 68–88
--- NOTE | 2023-08-31 01:25 | NUR ---
VITAL SIGNS DONE. pt RESTING THE BED. pt DENIES ANY NEEDS AT THIS TIME. CALL LIGHT WITHIN REACH.
--- NOTE | 2023-08-31 03:18 | NUR ---
pt RESTING IN THE BED. pt DENIES ANY NEEDS AT THIS TIME. CALL LIGHT WITHIN REACH.
[2023-08-31 05:32] LABS: BASOPHILS 0.9 % (0-2); HEMATOCRIT 29.7 % (35.0-50.0); HEMOGLOBIN 9.8 g/dL (12.0-18.0); LYMPHOCYTES 23.4 % (24-44); MCH 25.8 (27-36); MCV 78.1 fl (81-99); MONOCYTES 6.1 % (0-12); NEUTROPHILS 61.6 % (39-80); PLATELET COUNT 635 K/uL (140-440); RDW 16.8 (10.5-15.0)
--- NOTE | 2023-08-31 05:39 | NUR ---
ASSESSMENT AND VITAL SIGNS DONE. pt DENIES ANY OTHER NEEDS AT THIS TIME. CALL LIGHT WITHIN REACH.
[2023-08-31 05:43] LABS: ANION GAP 11.4 (7-21); BUN/CREATININE RATIO 19.16 (6.0-28.6); CALCIUM 9.3 mg/dL (8.5-10.1); CREATININE, SERUM 1.2 mg/dL (0.70-1.30); MAGNESIUM 1.8 mg/dL (1.8-2.4); POTASSIUM 4.4 mmol/L (3.5-5.1)
--- NOTE | 2023-08-31 07:05 | NUR ---
RECEIVED REPORT FROM SHABNAM BOND WITH SHABNAM CHOPRA. PT RESTING IN BED WITH EYES CLOSED, RR EVEN AND UNLABORED, LEFT PROSTHESIS NOTED TO BE ON. CALL LIGHT IN REACH, NO NEEDS NOTED.
--- NOTE | 2023-08-31 07:10 | NUR ---
REPORT RECEIVED FROM SHABNAM GALEAS. PT RESTING IN BED. EYES CLOSED, RR EVEN AND UNLABORED. NO NEEDS IDENTIFIED AT THIS TIME. CALL LIGHT IN REACH.
--- NOTE | 2023-08-31 07:45 | NUR ---
CORRECTIONAL SUBSTANCE ABUSE COUNSELOR ENTERED ROOM TO RECORD PT BG. PT WAS AT 185 RESULT SCANNED INTO EMAR. CORRECTIONAL SUBSTANCE ABUSE COUNSELOR GAVE PT A WARM WASHCLOTH TO CLEAN HIS FACE. PT STATES NO FURTHER COMPLAINTS OR CONCERNS. CALL LIGHT IS WITHIN REACH
--- NOTE | 2023-08-31 08:00 | NUR ---
IN WITH DR. VILLASEÑOR. VERBAL ORDER TO WRAP PTs RIGHT FOOT WITH ABD PAD, CAST PADDING AND COBAN. VERIFIED WITH READBACK. PT LAYING IN BED AND DENIES ANY OTHER NEEDS AT THIS TIME, WILL RETURN TO WRAP PTs FOOT PER DR. VILLASEÑOR. CALLL LIGHT IN REACH.
--- NOTE | 2023-08-31 08:00 | NUR ---
Spoke with Bar. Dr. Rios arrives and removes pts dressing on his R foot. Discussed with pt he will need his foot amputated. Plan is for amputation on Monday. Discussed with Bar plan for care after amputation. He would like to return to [facility] in [place] after his surgery. He was very happy with their care. Pt is currently living in his RV at a friends house. He now has running water and heat. 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 He can stay with his friend, but prefers to have his own space. He has a wc and his prothesis on his l amputation. I will call [facility] and check for placement around mid next week.
--- NOTE | 2023-08-31 08:45 | NUR ---
IN WITH SN DESIRE AND SHABNAM VELOZ TO WRAP PTs FOOT PER DR. VILLASEÑOR. PT LAYING IN BED AND RESPONDS WHEN ADDRESSED. RIGHT FOOT OFFLOADING PADDING NOTED TO REMAIN IN PLACE AND PER DR. VILLASEÑOR KEEP ON FOOT. ABD PAD PLACED OVER WOUND, COVERED WITH CAST PADDING AND SECURED WITH COBAN PER DR. VILLASEÑOR VERBAL ORDERS. PT DENIES ANY OTHER NEEDS AT THIS TIME. CALL LIGHT IN REACH.
--- NOTE | 2023-08-31 08:50 | NUR ---
Spoke with Kyra from [facility]. She states they will accept this pt if [facility] will agree to pay. Pt used his 20 days in June with his toe amputation. He is not eligible for SNF placement for 1 year. I will call [facility]. Called [facility] and gave update. The requested I fill out a referral/authorization form from their site. I was placed on hold so they could discuss with their team. When they returned, requested form to be completed which includes the tax id for surgeon, hospitalist, SNF and to include ICD and CPT codes. Guillermo Kohler will assist with this form.
[2023-08-31] MEDS ORDERED: CIPROFLOXACIN 500 MG TAB PO SCH (10:20)
--- NOTE | 2023-08-31 10:22 | NUR ---
ATTEMPTED TO VISIT DURING SPIRITUAL CARE ROUNDS. PT ON PHONE. DID NOT INTERRUPT. PROVIDED PRAYER.
--- NOTE | 2023-08-31 10:26 | NUR ---
DISCUSSED WITH PT ANTIBIOTIC REGIMEN, PLANNED SURGERY PER DR. VILLASEÑOR MONDAY. ORDERS TO START CIPRO 500MG PO BID AT THIS TIME, IT WAS WHAT PATIENT WAS ON OUTPT. ORDERS INPUT AND PRIMARY RN NOTIFIED.
--- NOTE | 2023-08-31 11:00 | NUR ---
IN WITH SN DESIRE TO ADMINISTER MEDICATION, SEE MAR. PT SITTING UP IN RECLINER AND RESPONDS WHEN ADDRESSED. PT TAKES PO MEDICATION WITH NO ISSUES. ASSESSMENT COMPLETE. 06/03 TO RIGHT FOOT. PT DENIES ANY PRN PAIN MEDICATION AT THIS TIME. LUNG SOUNDS CLEAR. BOWEL TONES ACTIVE. ABD SOFT AND NON-TENDER WITH PALPATION. SCAB NOTED TO RIGHT MCCRAY. DRESSING TO RIGHT FOOT C/D/I. PT DENIES NUMBNESS OR TINGLING AT THIS TIME. PT NOTED TO HAVE LBKA. IV FLUSHES WNL. PT DENIES ANY OTHER NEEDS AT THIS TIME. CALL LIGHT IN REACH.
--- NOTE | 2023-08-31 11:26 | NUR ---
UR NOTE INPATIENT ORDER 08/30/23 1456 [facility]CG OSTEOMYELITIS PRIMARY INSURANCE: [employer] NO SECONDARY
--- NOTE | 2023-08-31 11:54 | NUR ---
DR. WISEMAN OFFICE CALL FOR QUICK UPDATE ON PATIENT STATUS, INFORMED DR. VILLASEÑOR CONSULTED TODAY AND THE PLAN CURRENTLY IS SURGERY FOR AKA ON MONDAY. NO FURTHER QUESTIONS AT THIS TIME.
[2023-08-31] MEDS ORDERED: PHARMACY RENAL DOSE ADJUSTMENT 1 DOSE MISC PO SCH (12:00)
--- NOTE | 2023-08-31 12:13 | NUR ---
IN TO ADMINISTER MEDICATION PER JUN. PT UP IN RECLINER EATING LUNCH. CALL LIGHT IN REACH, NO NEEDS NOTED. CHAIR ALARM ON.
--- NOTE | 2023-08-31 12:39 | NUR ---
RESTAURANT LEAD ASSISTED PT WITH MOVING FROM HIS RECLINER INTO HIS BED. RESTAURANT LEAD CLEARED PT LUNCH TRAY AND STARTED INTAKE. CALL LIGHT WITHIN REACH
--- NOTE | 2023-08-31 15:00 | NUR ---
Guillermo was able to complete section 1 of the form. She left messages with various people for info and my number for them to call with info tomorrow. I will complete form tomorrow and fax to [facility].
--- NOTE | 2023-08-31 15:43 | NUR ---
IN TO ROUND ON PT WITH SHABNAM CHOPRA. PT REPORTING PAIN 0/10. RLE UNCHANGED FROM MORNING ASSESSMENT, POPLITEAL PULSE FELT FAINTLY, SKIN WARM, DRY, AND PINK. CAPILLARY REFILL ON LOWER LEG SLUGGISH. PT HAS NO COMPLAINTS AT THIS TIME. CALL LIGHT IN REACH.
--- NOTE | 2023-08-31 15:49 | NUR ---
IN WITH DESIRE, SN TO ROUND ON PT. PT SITTING UP IN RECLINER. PT RESPONDS WHEN ADDRESSED. ASSESSMENT COMPLETE. PT DENIES PAIN AT THIS TIME. DRESSING TO RIGHT FOOT C/D/I. UNABLE TO ASSESS RIGHT PEDAL PULSE DUE TO DRESSING. POPLITEAL PULSES PALPABLE IN BILATERAL POPLITEAL. PT DENIES ANY OTHER NEEDS AT THIS TIME. CALL LIGHT IN REACH. CHAIR ALARM ON.
--- NOTE | 2023-08-31 18:14 | NUR ---
PATIENT IN BED AT THIS TIME. VITALS AND I&0'S CHARTED. CALL LIGHT WITHIN REACH, NO FURTHER NEEDS AT THIS TIME.
--- NOTE | 2023-08-31 19:35 | NUR ---
REPORT RECIEVED FROM DAY SHIFT RN. PATIENT RESTING IN BED AND DENIES CURRENT NEEDS. BED ALARM ON FOR SAFETY. CALL LIGHT IN REACH.
--- NOTE | 2023-08-31 20:26 | NUR ---
BOOTH SUPERVISOR ENTERED ROOM AND TOOK BLOOD SUGAR AND OBTAINED VITALS. I AND O DOCUMENTED. RN ENTERED ROOM. BOOTH SUPERVISOR UPDATED WHITE BOARD. CALL LIGHT WITHIN REACH.
--- NOTE | 2023-08-31 21:03 | NUR ---
VS AND I&Os OBATAINED AND RECORDED. ASSESSMENT COMEPLETE. PULSES PRESENT IN BLE. IV FLUSHED WNL. SCHEDULED MEDICATION ADMINISTERED. FRESH ICE WATER PROVIDED. PATIENT HAS NO FURTHER NEEDS. CALL LIGHT IN REACH.
--- NOTE | 2023-08-31 22:44 | EKG ---
[facility] [address] [facility] [place] [address] Signed Normal sinus rhythm Normal ECG When compared with ECG of 28-JUN-2023 08:46, No significant change was found Confirmed by JARED HART MD ([id number]) on 08/31/2023 10:44:19 PM Electronically Signed By: JARED HART 08/31/23 2244 PATIENT NAME: PAT HERNANDEZ AMEE Electrocardiogram DATE OF : 61 PHYSICIAN: JARED HART REPORT #: [id number] REPORT IS CONFIDENTIAL AND NOT TO BE RELEASED WITHOUT AUTHORIZATION
--- NOTE | 2023-08-31 22:50 | NUR ---
PATIENT RESTING IN CHAIR. PATIENT DENIES NEEDS. CALL LIGHT IN REACH.
[2023-09-01] VITALS (8 sets, daily range): BP systolic 118–127; BP diastolic 73–81
--- NOTE | 2023-09-01 00:19 | NUR ---
PATIENT RESTING ON COUCH WITH GUESTS IN ROOM. PATIENT DENIES NEEDS AT THIS TIME.
--- NOTE | 2023-09-01 01:28 | NUR ---
PATIENT RESTING IN BED WITH EYES CLOSED. RESPIRATIONS EVEN AND UNLABORED. CALL LIGHT IN REACH.
--- NOTE | 2023-09-01 03:18 | NUR ---
PATIENT SITTING UP IN BED, LISTENING TO MUSIC ON TV. RESPIRATIONS EVEN AND UNLABORED. CALL LIGHT IN REACH.
--- NOTE | 2023-09-01 05:15 | NUR ---
PATIENT RESTING ON COUCH AND DENIES NEEDS AT THIS TIME. EDUCATED TO CALL IF NEEDS ARISE.
--- NOTE | 2023-09-01 05:46 | NUR ---
PATIENT RESTING IN BED. VS AND I&Os OBTAINED AND RECORDED. R FOOT DRESSING C/D/I. FRESH WATER PROVIDED. PATIENT HAS NO FURTHER NEEDS. CALL LIGHT IN REACH.
--- NOTE | 2023-09-01 07:05 | NUR ---
RECEIVED REPORT FROM SHABNAM STEWART WITH SHABNAM CHOPRA. PT AWAKE IN BED, GREETS UPON ENTERING. PT REPORTS NO NEEDS AT THIS TIME, CALL LIGHT IN REACH.
--- NOTE | 2023-09-01 07:10 | NUR ---
REPORT RECEIVED FROM SHABNAM STEWART. PT LAYING IN BED LISTENING TO MUSIC. PT RESPONDS WHEN ADDRESSED. PT DENIES ANY NEEDS AT THIS TIME. CALL LIGHT IN REACH. BED ALARM ON.
--- NOTE | 2023-09-01 08:00 | NUR ---
IN WITH SN DESIRE TO ADMINISTER MEDICAITON, SEE MAR. PT RESPONDS WHEN ADDRESSED. PT DENIES PAIN AT THIS TIME. PT DENIES ANY NEEDS AT THIS TIME. CALL LIGHT IN REACH. BED ALARM ON.
--- NOTE | 2023-09-01 08:00 | NUR ---
IN WITH SHABNAM CHOPRA TO ADMINISTER MEDICATION. PT IN BED WITH BREAKFAST TRAY. MEDICATION ADMINISTERED. PT STATES NO NEEDS, CALL LIGHT IN REACH.
--- NOTE | 2023-09-01 08:37 | NUR ---
IN WITH SN DESIRE TO ADMINISTER MEDICAITON, SEE MAR. PT SITTING UP IN BED AND RESPONDS WHEN ADDRESSED. PT TAKES PO MEDICAITON WITH NO ISSUES. ASSESSMENT COMPLETE. LUNG SOUNDS CLEAR. BOWEL TONES ACTIVE. ABD SOFT AND NON-TENDER WITH PALPATIN. HEART RATE AT 103, TACHYCARDIC. PROSTHETIC ON PTs LLE. DRESSING TO RIGHT FOOT C/D/I. SCATTERED SCABS NOTED TO RIGHT MCCRAY. PT DENIES PAIN AT THIS TIME. PT DENIES ANY OTHER NEEDS AT THIS TIME. CALL LIGHT IN REACH. BED ALARM ON.
--- NOTE | 2023-09-01 08:37 | NUR ---
IN WITH SHABNAM CHOPRA TO ADMINISTER MEDICATION AND INITIAL ASSESSMENT. LUNG SOUNDS CLEAR, HEART TONES HEARD, SLIGHT TACHY (HR 103) BOWEL TONES HEARD, ABDOMEN SOFT, NONTENDER. PT DENIES PAIN. R FOOT WITH DRESSING CDI, SCATTERED BRUISING, PT STATES HE "SOMETIMES PICKS AT SCABS". CAP REFILL ON MCCRAY WNL. PROSTHETIC IN PLACE ON PT L LEG. NO OTHER NEEDS NOTED AT THIS TIME, CALL LIGHT IN REACH, BED ALARM ON, BED IN LOWEST POSITION.
--- NOTE | 2023-09-01 10:39 | NUR ---
IN WITH SN DESIRE TO ROUND ON PT. PT SITTING ON EDGE OF BED WORKING WITH PHYSICAL THERAPY. PT DENIES ANY NEEDS FROM THIS RN AT THIS TIME. CALL LIGHT IN REACH.
--- NOTE | 2023-09-01 10:39 | NUR ---
IN TO ROUND ON PT. PT SITTING ON EDGE OF BED WORKING WITH PHYSICAL THERAPY. NO NEEDS NOTED AT THIS TIME, CALL LIGHT IN REACH.
--- NOTE | 2023-09-01 11:15 | NUR ---
Spoke with Bar. He states he is good. Denies needs. Updated I am working on paperwork to request a second stay at [facility] and [facility] to pay.
--- NOTE | 2023-09-01 12:01 | NUR ---
CAREGIVER CAME TO ME REGARDING PT MAKING COMPLIMENTS/COMMENTS ABOUT HER APPEARANCE, MARRIAGE COMMENTS AND TALKING GRAND ABOUT CHILDREN WIT HER. THIS AFTERNOON SHE MENTIONED HE STATES SHE WAS GETTING BLOOD SUGAR, "HOW FINE SHE WAS LOOKING" CAREGIVER DID SAY SHE WOULD LIKE HIM TO STOP MAKING THE COMMENTS. SHE CAME OUT AND REPORTED CONCERNS TO ME, I CALL PATIENT ACCOUNT LIAISON-TATIANA TO COME INTO THE ROOM AND HAVE A CONVERSATION WIHT PATIENT ABOUT TALKING TO STAFF APPROPRIATELY FROM HERE ON OUT, PT VERBALIZED UNDERSTANDING AND APOLOGIZED FOR MAKING PEOPLE UNCOMFORTABLE, JUST WAS TRYING TO MAKE THEIR DAY BETTER. IRIS WAS SUBMITTED.
--- NOTE | 2023-09-01 12:19 | NUR ---
IN WITH SN DESIRE TO ADMINISTER MEDICATION, SEE MAR. PT SITTING UP IN RECLINER WITH LUNCH TRAY. PT DENIES PAIN AT THIS TIME. PT DENIES ANY OTHER NEEDS AT THIS TIME. CALL LIGHT IN REACH. CHAIR ALARM ON.
--- NOTE | 2023-09-01 12:57 | NUR ---
IN TO ROUND ON PT. PT RECLINED FULLY IN RECLINER, EYES CLOSED, RR EVEN AND UNLABORED. CALL LIGHT BESIDE HIM, NO NEEDS NOTED.
--- NOTE | 2023-09-01 13:20 | NUR ---
CHECKED ON PT IT WAS NOTED HE WAS USING IN ROOM PHONE. PT IN RECLINER, USING PHONE TO CALL HIS MOTHER. NO NEEDS NOTED, CALL LIGHT BESIDE HIM.
--- NOTE | 2023-09-01 13:25 | NUR ---
IN PT TRANSFERS HIMSELF FROM RECLINER TO BED WITHOUT ASSISTANCE. PT HAD TURNED CHAIR ALARM AND WAS JOYFUL THAT HE HAD "FIGURED IT OUT". EDUCATED PT ON USING CALL LIGHT, LEAVING THE CHAIR ALARM ALONE. WHILE PULLING BED SIDE TABLE CLOSER, NOTED IV IN THE SMALL TRASH BAG. PT STATED "IT WAS HURTING ME, SO I PULLED IT OUT" WHEN ASKED ABOUT IV. CHARGE SHABNAM HORN ALERTED TO SITUATION, JUSTINA EDUCATED PT ABOUT IMPORTANCE OF USING CALL LIGHT AND NOT TURNING OFF CHAIR ALARM. SRT PRESENT IN ROOM TO TAKE VITALS. BED ALARM ON, BED IN LOWEST POSITION. NO NEEDS NOTED, CALL LIGHT IN REACH.
--- NOTE | 2023-09-01 13:28 | NUR ---
THIS RN ALERTED BY SN DESIRE THAT PT "PULLED IV OUT, AND PT HAD TURNED OFF CHAIR ALARM AND GOT INTO BED WITH OUT ASSISTANCE." THIS RN IN ROOM. IV NOTED TO BE IN PTs BEDSIDE TRASH INTACT. THIS RN ASKED PT WHY PT PULLED THE IV OUT. PT STATES "IT WAS HURTING." THIS RN ASKED PT WHY PT DID NOT USE THE CALL LIGHT. PT STATES "I WAS GOING TO BUT I JUST WANTED IT OUT." SITE NOTED TO HAVE SOME REDNESS. THIS RN EDUCATES AND INFORMS PT THAT PT NEEDS TO CALL TO GET ASSISTANCE WITH TRANSFERRING. WILL NOTIFY DR. HART REGARDING IV ACCESS. PT LAYING IN BED. BED ALARM ON. NO OTHER NEEDS FROM THIS RN. CALL LIGHT IN REACH.
--- NOTE | 2023-09-01 13:35 | NUR ---
RN CAME TO ME PATIENT RIPPED OUT HIS IV, STATES IT WAS BOTHERING HIM AND HE DID NOT WANT IT IN ANY LONGER. PT ALSO HAS BEEN TURNING OFF HIS CHAIR ALARM WHEN WE SET IT, INFORMED PT THAT HE IS NOT TO BE SHUTTING THAT OFF AND GETTING UP ON HIS OWN, IT IS FOR HIS SAFETY AND HE NEEDS TO BE CALLING US IF HE WANTS TO GET UP FOR ASSISTANCE. PT VERBALIZED UNDERSTANDING AND AGREES TO LEAVE ALARMS ON WHEN IN PLACE FOR SAFETY. MD CALLED AND INFORMED AND AT THIS TIME UNTIL SURGERY MONDAY - WE CAN LEAVE PT WITHOUT IV SITE. ORDERS INPUT
--- NOTE | 2023-09-01 13:42 | NUR ---
THIS RN UPDATED BY SHABNAM HORN THAT PER DR. HART IT IS ALRIGHT TO LEAVE IV OUT UNTIL PRIOR TO PT GOING TO SURGERY ON MONDAY.
--- NOTE | 2023-09-01 13:44 | NUR ---
IN BED ALARM ALARMING. PT STATES "I DID NOT GET UP, I WAS JUST GRABBING MY BLANKET. I DID NOT GET UP." ASSESSMENT COMPLETE. DRESSING TO RLE C/D/I. POPLITEAL PULSE PALPABLE. PT DENIES PAIN AT THIS TIME. ICE WATER PROVIDED. PT DENIES ANY OTHER NEEDS AT THIS TIME. CALL LIGHT IN REACH. BED ALARM ON.
--- NOTE | 2023-09-01 13:45 | NUR ---
IN BED ALARM ALARMING. PT ADJUSTING AND PULLING BLANKETS OVER HIMSELF. STATES HE IS NOT GOING ANYWHERE, JUST WANT TO TAKE A NAP. REPEATEDLY STATES "I LOVE YOU GUYS". REFILLED ICE WATER, BED ALARM ON, BED IN LOWEST POSITION, CALL LIGHT IN REACH, NO NEEDS NOTED.
--- NOTE | 2023-09-01 14:00 | NUR ---
Form and documentation completed and faxed to [facility] after receiving info from Kyra at [facility]. 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
--- NOTE | 2023-09-01 15:01 | NUR ---
IN TO ROUND ON PT. PT RESTING IN BED WITH EYES CLOSED, RR EVEN AND UNLABORED. URINAL NOTED AT BEDSIE, CALL LIGHT IN REACH, BED ALARM ON, BED IN LOWEST POSITION, NO NEEDS NOTED AT THIS TIME.
--- NOTE | 2023-09-01 16:00 | NUR ---
Several attempts to contact [facility] to start the process for rn long term care medicaid placement for Bar. Unable to contact anyone at [facility] throughout the morning. Was able to reach Elham(worker of the day) after I was put through to her home. Updated it is unlikely [facility] will agree to second admission to a SNF. 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 He resides in an old RV at times does not have running water, heat, or electricity. He does have utilities currently. He will not be able to enter the RV in a wc. She request to speak with Bar and will start the process today. I went to Bar's room. He has left his cell phone at home called. Called from the room phone after updating what I am attempting to accomplish. Called Elham from [facility] at [phone] and introduced her to Bar to complete conversation.
--- NOTE | 2023-09-01 16:12 | NUR ---
IN TO ROUND ON PT. SHABNAM MIMS IN ROOM. PT LAYING IN BED TALKING TO SHABNAM MIMS. URINAL NOTED TO BE HALF FULL. URINAL EMPTIED. SHABNAM MIMS ASSISTS PT WITH PHONE TO CALL SOMEONE. NO NEEDS IDENTIFIED AT THIS TIME. NO NEEDS REPORTED. CALL LIGHT IN REACH. BED ALARM ON.
--- NOTE | 2023-09-01 16:45 | NUR ---
IN WITH SN DESIRE TO ADMINISTER MEDICATIONS, SEE MAR. PT LAYING IN BED AND RESPONDS WHEN ADDRESSED. PT DENIES PAIN AT THIS TIME. PT DENIES ANY OTHER NEEDS AT THIS TIME. CALL LIGHT IN REACH. BED ALARM ON.
--- NOTE | 2023-09-01 16:53 | NUR ---
REturned and spoke with Bar. He states Elham is starting eval for LT medicaid. She or Leona from [facility] will call him again on Monday.
--- NOTE | 2023-09-01 18:07 | NUR ---
IN TO ROUND ON PT. PT RESTING IN BED WATCHING TV. GREETS UPON ENTERING. DINNER TRAY REMOVED. PT STATES NO NEEDS AT THIS TIME, CALL LIGHT AT SIDE. PT STATES "SEE YOU LATER. LOVE YOU WILLY."
--- NOTE | 2023-09-01 19:31 | NUR ---
REPORT RECEIVED FROM DAY RN. PATIENT RESTING IN BED LAYING ON HIS RIGHT SIDE. URINAL EMPTIED. PATIENT REPORTS NO PAIN OR DISCOMFORT AT THIS TIME. CALL LIGHT WITHIN REACH.
--- NOTE | 2023-09-01 21:40 | NUR ---
DIESEL LOCOMOTIVE FIRER/FIREMAN ENTERED ROOM AND CHECK PT BLOOD SUGAR AND OBTAINED VITALS. I AND O DOCUMENTED. PT STATED NO FURTHER NEEDS AT THIS TIME. CALL LIGHT PLACED WITHIN REACH.
--- NOTE | 2023-09-01 22:00 | NUR ---
PATIENT RESTING IN BED. DRESSING TO RIGHT FOOT IS CDI. PATIENT DENIES ANY PAIN OR DISCOMFORT AT THIS TIME. APPEARS TO BE SCATTERD IN HIS THOUGH PROCESS PATIENT JUMPS TOPICS FREQUENTLY AND IS UNABLE TO HOLD ATTENTION TO A CONVERSATION AT THIS TIME. NO NEEDS AT THIS TIME. CALL LIGHT WITHIN REACH.
--- NOTE | 2023-09-01 22:32 | NUR ---
PT AWAKE AND APPEARS ORIENTED, REQUESTING PUDDING, 2 SUGAR FREE PUDDINGS GIVEN PER REQUESTS.
[2023-09-02] VITALS (8 sets, daily range): BP systolic 106–118; BP diastolic 74–76
--- NOTE | 2023-09-02 00:20 | NUR ---
BED ALARM GOING OFF. PATIENT FOUND TO BE IN THE BATHROOM VOIDING IN THE TOILET. PATIENT WAS EDUCATED ON SAFETY AND USING THE CALL LIGHT. PATIENT AGREES TO USE CALL LIGHT AND WAIT FOR ASSISTANCE BEFORE WALKING AROUND ROOM ALONE. PATIENT RESTING IN RECLINER IN ROOM AT THIS TIME. CALL LIGHT WITHIN REACH.
--- NOTE | 2023-09-02 02:30 | NUR ---
PATIENT IS RESTING IN RECLINER WITH EYES CLOSED. RESPIRATIONS EVEN AND UNLABORED. CALL LIGHT WITHIN REACH
--- NOTE | 2023-09-02 05:29 | NUR ---
MUSHROOM CUTTER ENTERED ROOM AND OBTAINED VITALS. I AND O DOCUMENTED. PT STATED NO FURTHER NEEDS AT THIS TIME AND RETURNED TO SLEEPING IN THE CHAIR. CALL LIGHT PLACED WITHIN REACH.
--- NOTE | 2023-09-02 05:50 | NUR ---
PATIENT RESTING IN RECLINER WITH EYES CLOSED. RESPIRATIONS EVEN AND UNLABORED. DRESSING TO RIGHT FOOT REMAINS CDI. CALL LIGHT WITHIN REACH. CHAIR ALARM UNDER PATIENT.
--- NOTE | 2023-09-02 07:05 | NUR ---
REPORT RECEIVED FROM SHABNAM GORE. PT RESTING ON COUCH ON LEFT SIDE. EYES CLOSED, RR EVEN AND UNLABORED. NO NEEDS IDENTIFIED AT THIS TIME.
--- NOTE | 2023-09-02 07:08 | NUR ---
RECEIVED REPORT FROM SHABNAM GORE WITH SHABNAM CHOPRA. PT RESTING ON L SIDE ON COUCH, EYES CLOSED, RR EVEN AND UNLABORED. HAS L PROSTHESIS ON. NO NEEDS NOTED.
--- NOTE | 2023-09-02 08:11 | NUR ---
0800 THIS RN NOTIFIED BY EMBER CLINE THAT PARKING LINE PAINTER FOUND A MANAGER MED SURG AND "CRACK PIPE." CHARGE NURSE, JUSTINA ALSO NOTIFIED. BEAMER HAND CALLED AND NOTIFIED. MANAGER MED SURG AND "CRACK PIPE" REMOVED FROM ROOM BY EMBER CLINE. IN WITH SN DESIRE TO ADMINISTER MEDICATION, SEE MAR. PT LAYING ON COUCH. PT RESPONDS WHEN ADDRESSED. PT NOTED TO APPEAR DROWSY. PT DENIES ANY OTHER NEEDS AT THIS TIME.
--- NOTE | 2023-09-02 08:11 | NUR ---
IN WITH SHABNAM CHOPRA TO ADMINISTER MEDICATION. PT SPRAWLED ON COUCH, RESPONDS WHEN ADDRESSED. THIS SN ASKS PT IF HE IS ALRIGHT, HE IS BEHAVING STRANGELY. PT STATES "I'M ROASTED MAN" SN ASKS WHAT THIS MEANS AND PT RESPONDS "I'M ROASTED TOASTED." MEDICATION ADMINISTERED, PT REMAINS ON COUCH. NO OTHER NEEDS NOTED AT THIS TIME.
--- NOTE | 2023-09-02 08:12 | NUR ---
BORDER PATROL AGENT ENTERED PT ROOM TO RECORD BG. PT WAS LAYING ON HIS COUCH AND SEEMED TO BE KIND OF OUT OF IT. PT WAS ABLE TO RESPOND AND SPEAK WITH BORDER PATROL AGENT. PT ROOM WAS VERY MESSY SO BORDER PATROL AGENT WAS TRYING TO TIDY UP. WHEN CLEANING, BORDER PATROL AGENT FOUND THE TOP OF A PERSCRIPTION PILL BOTTLE AND A COKE DRAWER HAND THAT FELL OUT OF THE PT COAT. WHEN HANGING UP HIS COAT IN THE BATHROOM, BORDER PATROL AGENT ALSO FOUND WHAT LOOKED LIKE A HEAVILY USED CRACK PIPE. BORDER PATROL AGENT IMMEDITELY NOTFIIED THE CHARGE NURSE AND HOT MILL ROLLER. BORDER PATROL AGENT DOUBLE-GLOVED AND PLACED THE ITEMS INTO A LAB BAG TO DISPOSE OF IN THE SHARPS CONTAINER IN THE MED ROOM. BORDER PATROL AGENT ALSO FOUND A SYRINGE FILLED WITH A GREENISH GOOEY LOOKING SUBSTANCE. BORDER PATROL AGENT ALSO DISPOSED OF THIS IN THE SHARPS CONTAINER IN THE MED ROOM. RN AND CHARGE NURSE ARE AWARE. BORDER PATROL AGENT TOOK OUT PT GARBAGES AND LOCKED THE INSIDE DOOR OF THE PASS THROUGH IN PT ROOM. BORDER PATROL AGENT WILL FILL OUT AN IRIS FORM. PT DID NOT WAKE UP FROM THE COUCH. PT MOVED HIMSELF FROM THE COUCH TO THE BED WHEN BORDER PATROL AGENT WAS NOT IN THE ROOM. PT WAS EDUCATED ON THE IMPORTANCE OF CALLING BEFORE HE GETS UP AND MOVES AROUND. BORDER PATROL AGENT PLACED THE BED ALARM AND PT CALL LIGHT IS IN REACH
[2023-09-02] MEDS ORDERED: TRIMETHOPRIM/SULFAMETHOXAZOLE 1 EA TAB PO SCH (09:00)
--- NOTE | 2023-09-02 09:18 | NUR ---
IN WITH SHABNAM CHOPRA TO ADMINISTER MEDICATION PER AND INITIAL ASSESSMENT. MANAGER DRUG SAFETY DIMITRI IN ROOM TAKING VITALS, PT AWAKE IN BED. MEDICATION ADMINISTERED, ASSESSMENT COMPLETE. PT LUNG SOUNDS CLEAR THROUGHOUT, HEART TONES HEARD. BOWEL TONES NORMAL, PT REPORTS NO TENDERNESS. BUE WITH STRONG PULSES, RLE WITH FAINT TIBIAL PULSE PALPABLE, DRESSING OBSCURING PEDAL PULSE. DRESSING TO RIGHT FOOT WITH DRIED DRAINAGE, YELLOW/BROWN ON THE BOTTOM. PT REPORTS NO PAIN. PT IS NOW VERY TALKATIVE, REPEATEDLY RECOUNTING THE SAME INFORMATION IN SLIGHTLY DIFFERENT WAYS. PT ASKED ABOUT A BOWEL MOVEMENT - SEE Nathaniel CHOPRA REPORT. PT STAYS IN BED, BED ALARM ON, CALL LIGHT ON BED SIDE TABLE, NO OTHER NEEDS NOTED AT THIS TIME. PT TELLS RN AND SN "I LOVE YOU GUYS, I JUST LOVE YOU GUYS, GOD BLESS" WE ARE LEAVING.
--- NOTE | 2023-09-02 09:19 | NUR ---
IN WITH SN DESIRE TO ADMINISTER MEDICAITON, SEE MAR. PT SITTING UP IN BED AND RESPONDS WHEN ADDRESSED. PT TAKES PO MEDICAITONS WITH NO ISSUES. ASSESSMENT COMPLETE. LUNG SOUNDS CLEAR. BOWEL TONES ACTIVE. ABD SOFT AND NON-TENDER WITH PALPATION. DERSSING TO RIGHT FOOT NOTED TO HAVE SMALL AMOUNT OF DRAINAGE NOTED TO BOTTOM OF DRESSING. DRESSING OTHERWISE D/I. PT DENIES PAIN AT THIS TIME. PT DENIES ANY NUMBNESS OR TINGLING AT THIS TIME. RIGHT POPLITEAL PULSE PALPABLE. SN DESIRE ASKS PT WHEN PTs LAST BM WAS. PT STATES "MY DNA IS 7000 YEARS OLD. I AM JOSHUA." SN DESIRE THEN ASKS HOW OFTEN YOU HAVE A BM AND PT STAETS "ONCE A WEEK." PT DENIES ANY OTHER NEEDS AT THIS TIME. CALL LIGHT IN REACH. BED ALARM ON.
--- NOTE | 2023-09-02 11:03 | NUR ---
IN DR HART IS ENTERING ROOM. PHYSICAL THERAPY IN ROOM WORKING WITH PT, PT MOTHER SITTING ON COUCH. PT REQUESTING THE DRESSING ON HIS RLE BE CHANGED. DR HART AGREES TO THIS AND ALSO RECOMMENDS APPLYING HOT PACK TO BLACK HEAD LOOKING AREA ON PT BACK. NO NEW ORDERS OR CHANGES. PT STILL WORKING WITH PHYSICAL THERAPY.
--- NOTE | 2023-09-02 11:06 | NUR ---
IN WITH DR. HART. PT WORKING WITH PHYSICAL THERAPY. PT REQUESTING DRESSING TO BE CHANGED. VERBAL ORDER FROM DR. HART TO REDRESS RIGHT FOOT DRESSING. WILL RETURN WHEN PT IS DONE WITH PHYSICAL THERAPY TO REDRESS RIGHT FOOT.
--- NOTE | 2023-09-02 11:30 | NUR ---
IN ROOM PHYSICAL THERAPY DONE WITH PT. DRESSING TO RIGHT FOOT REMOVED. CLEANSED WITH NS AND PATTED DRY. OLD DRESSING NOTED TO HAVE MODERATE AMOUNT OF YELLOW COLORED DRAINAGE. ODOR NOTED TO WOUND. PEDAL PULSE PALPABLE AND FAINT IN RIGHT FOOT. NEW ABD PAD APPLIED, CAST PADDING AND COBAN TO SECURE. PER MD: BLACKHEAD ON MIDLINE BACK SQUEEZED OUT AND FLUSHED WITH NS, PATTED DRY. SCANT AMOUNT OF BLOOD NOTED. BANDAID APPLIED. PT LAYING IN BED CONTINUING TO CONVERSE WITH "MOTHER." 1145 EMBER CLINE IN TO CHECK PTs BG. 1159 MEDICATION ADMINISTERED, SEE MAR. PT LAYING IN BED, DENIES ANY NEEDS AT THIS TIME. CALL LIGHT IN REACH. BED ALARM ON. PTs MOTHER IN ROOM.
--- NOTE | 2023-09-02 12:46 | NUR ---
IN THIS RN NOTICES URINAL IS PARTIALLY FULL. URINAL EMPTIED. PT LAYING IN BED AND RESPONDS WHEN ADDRESSED. PT REPORTS BEING DONE WITH LUNCH TRAY. TRAY REMOVED. PT DENIES ANY OTHER NEEDS AT THIS TIME. CALL LIGHT IN REACH. BED ALARM ON.
--- NOTE | 2023-09-02 13:05 | NUR ---
IN TO ROUND ON PT, PT NOTED RESTING ON L SIDE IN BED, EYES CLOSED, RR EVEN AND UNLABORED. BED ALARM ON IN LOWEST POSITION. CALL LIGHT IN REACH, NO NEEDS NOTED.
--- NOTE | 2023-09-02 15:13 | NUR ---
IN TO ROUND ON PT, EMBER CLINE TAKING VITALS IN ROOM. SIMONEE FINISHES TAKING VITALS. PT STATES NO NEEDS AT THIS TIME, "I LOVE YOU GUYS, YOU'RE JUST THE BEST" WE ARE LEAVING. PT RESTING IN BED, BED IN LOWEST POSITION WITH BED ALARM ON. CALL LIGHT IN REACH.
--- NOTE | 2023-09-02 15:45 | NUR ---
IN TO ROUND ON PT. PT LAYING IN BED ON RIGHT SIDE. EYES CLOSED, RR EVEN AND UNLABORED. PT AWAKENS WHEN ADDRESSED. ASSESSMENT COMPLETE. DRESSING TO RIGHT FOOT C/D/I. BANDAID ON BACK REMOVED AND NEW BANDAID PLACED. PT DENIES ANY OTHER NEEDS AT THIS TIME. CALL LIGHT IN REACH. BED ALARM ON.
--- NOTE | 2023-09-02 16:36 | NUR ---
IN TO ROUND ON PT AND SECOND ASSESSMENT. PT LAYING IN BED WATCHING TELEVISION. PT RIGHT FOOT DRESSING CDI, NO COMPLAINTS OF PAIN. TIBIAL PULSE STRONG, SKIN WARM AND PINK. PT REQUESTING SNACK, SUGAR FREE PUDDING AND FRESH ICE WATER PROVIDED. PT BEGINS TALKING ABOUT HIS DNA BEING SO OLD THAT "EVERYONE IS MY DESCENDENT, I'M THAT OLD. SOMETIMES IT'S HARD TO SWALLOW." EMBER CLINE ARRIVES TO TAKE BLOOD SUGAR, PT CONTINUES STRESSING IMPORTANCE OF HOW OLD HIS DNA IS. BLOOD SUGAR NOTED TO BE 150. CALL LIGHT IN REACH, NO OTHER NEEDS NOTED. BED IN LOWEST POSITION, BED ALARM ON.
--- NOTE | 2023-09-02 16:51 | NUR ---
IN WITH SN DESIRE TO ADMINISTER MEDICATION, SEE MAR. PT LAYING IN BED AND RESPONDS WHEN ADDRESSED. PT DENIES ANY NEEDS AT THIS TIME. CALL LIGHT IN REACH. BED ALARM ON.
--- NOTE | 2023-09-02 16:52 | NUR ---
IN WITH SHABNAM CHOPRA TO ADMINISTER MEDICATION PER MAR. MEDICATION ADMINISTERED. PT STATES NO NEEDS AT THIS TIME, CALL LIGHT IN REACH.
--- NOTE | 2023-09-02 19:20 | NUR ---
MOVING PATIENT ROOMS FOR SAFETY CONCERNS.
--- NOTE | 2023-09-02 20:00 | NUR ---
REPORT RECEIVED FROM DAY RN. PATIENT MOVED FROM ROOM 115 TO ROOM 120 DUE TO SAFETY CONCERNS. PATIENT IS RESTING IN BED IN NEW ROOM AT THIS TIME. DENIES ANY PAIN. GIVEN A SNACK UPPON REQUEST. GIVEN FRESH ICE WATER. NO FURTHER NEEDS AT THIS TIME. CALL IGHT WITHIN REACH.
--- NOTE | 2023-09-02 20:54 | NUR ---
PATIENT IS RESTING IN BED WATCHING TV. VSS, HS MEDICATIONS GIVEN. DENEIS AT PAIN OR DISCOMFORT AT THIS TIME. DRESSING TO RIGHT FOOT REMAINS CDI. BOWEL TONES ACITVE X 4 QUADRANTS, LUNG SOUNDS CTA. CALL LIGHT WITHIN REACH.
--- NOTE | 2023-09-02 22:27 | NUR ---
PATIENT RESTING IN BED. TALKING ON THE PHONE. NO C/O PAIN OR DISCOMFROT AT THIS TIME. CALL LIGHT WITHIN REACH.
[2023-09-03] VITALS (7 sets, daily range): BP systolic 102–132; BP diastolic 74–82
--- NOTE | 2023-09-03 00:15 | NUR ---
URINAL EMPTIED. PATIENT TALKATIVE AND DISCUSSING DELUSIONAL THOUGHTS ABOUT HIS FAMILY AND MONEY. DENIES PAIN OR DISCOMFORT AT THIS TIME. NO FURTHER NEEDS CALL LIGHT WITHIN REACH.
--- NOTE | 2023-09-03 02:05 | NUR ---
PATIENT RESTING IN BED WITH EYES CLOSED. RESPIRATIONS EVEN AND UNLABORED. CALL LIGHT WITHIN REACH.
--- NOTE | 2023-09-03 04:00 | NUR ---
PATIENT RESTING IN BED WITH EYES CLOSED. RESPIRATIONS EVEN AND UNLABORED. CALL LIGHT WITHIN REACH.
--- NOTE | 2023-09-03 05:16 | NUR ---
PATIENT RESTING IN BED. VSS. DRESSING TO RIGHT FOOT REMAINS CDI. DENIES ANY PAIN AT THIS TIME. NO FURTHER NEEDS CALL LIGHT WITHIN REACH.
[2023-09-03] MEDS ORDERED: TRANEXAMIC ACID 2,000 MG in SODIUM CHLORIDE 0.9% 100 ML IV SCH (07:00)
[2023-09-03] MEDS ORDERED: CEFAZOLIN SODIUM 2 GM/20 ML SYR IV SCH (07:00)
--- NOTE | 2023-09-03 07:37 | NUR ---
PT RESTING SOUNDLY AT TIME OF SHIFT REPORT, LEFT UNDISTURBED. CALL LIGHT FRESH H20 AND NEEDED ITEMS AT BEDSIDE
--- NOTE | 2023-09-03 08:41 | NUR ---
PT SITTING UP ON THE EDGE OF BED WITH MORNING MEAL AGREES HE IS HUNGRY. DENIES DISCOMFORTS OR OTHER NEEDS OF
--- NOTE | 2023-09-03 10:24 | NUR ---
PT RESTING IN BED WATCHING TV DENIES NEEDS
--- NOTE | 2023-09-03 11:17 | NUR ---
PT AWAKENED FOR VITAL SIGNS AGREES HE IS COMFORTABLE DENIES NEEDS
--- NOTE | 2023-09-03 14:09 | NUR ---
PT SITTING UP IN BED WATCHING TV VISITING WITH HIS MOTHER.
--- NOTE | 2023-09-03 16:50 | NUR ---
PT AWAKENED FOR CBG THEN RETURNS TO RESTING EYES CLOSED. REPORT GIVEN TO RN FOR ASSUMPTION OF CARE.
--- NOTE | 2023-09-03 19:31 | NUR ---
RECEIVED REPORT FROM AM RN. PT IN ROOM, IN BED, RESP EVEN AND UNLABORED. NO NEEDS.
[2023-09-03] MEDS ORDERED: LACTATED RINGER'S 1,000 ML IV SCH (19:45)
--- NOTE | 2023-09-03 20:11 | NUR ---
CLARIFIED WITH DR MITCHELL ABOUT IV FLUIDS PT IS NPO FOR SURGERY ON 09/04/23, PLACED ORDERS AT 1945
[2023-09-03 20:42] LABS: BASOPHILS 0.4 % (0-2); EOSINOPHILS 6.8 % (0-6); HEMATOCRIT 33.4 % (35.0-50.0); HEMOGLOBIN 10.8 g/dL (12.0-18.0); LYMPHOCYTES 23.8 % (24-44); MCH 25.9 (27-36); MCHC 32.4 g/dl (30-36); MCV 79.9 fl (81-99); MONOCYTES 6.3 % (0-12); NEUTROPHILS 62.7 % (39-80); PLATELET COUNT 647 K/uL (140-440); RBC 4.17 M/ul (4.3-5.7); RDW 16.8 (10.5-15.0)
[2023-09-03 20:50] LABS: ANION GAP 13.5 (7-21); BUN/CREATININE RATIO 16.66 (6.0-28.6); CALCIUM 9.1 mg/dL (8.5-10.1); CREATININE, SERUM 1.5 mg/dL (0.70-1.30); POTASSIUM 4.5 mmol/L (3.5-5.1)
--- NOTE | 2023-09-03 20:57 | NUR ---
I/O COMPLETED, VS WELL. HS MEDICATIONS ADMINISTERED. NOTED THAT I/O NOT DOCUMENTED FOR "10 HOURS", NOTED AMOUNT ON THE I/O FLOW SHEET NOT "CIRCLED" AND NOT ENTERED. THIS RN ENTERED THOSE AMOUNTS INCLUDING WHAT WAS DOCUMENTED FOR LUNCH.
--- NOTE | 2023-09-03 23:07 | NUR ---
WOKE PT AND ASKED HIM IF HE SLEEPS WITH HIS PROSTHETIC LEG ON, HE REPLIED SOMETIMES, OFFEREW WARM BLANKET HE ACCEPTED. CURRENTLY ON HIS RIGHT SIDE.
[2023-09-04] VITALS (8 sets, daily range): BP systolic 99–144; BP diastolic 64–83
--- NOTE | 2023-09-04 00:53 | NUR ---
IV FLUIDS INFUSING, WATER REMOVED JUST AFTER MIDNIGHT; PT LAYING ON HIS RIGHT SIDE, RESP EVEN AND UNLABORED. WHEN WAKING PT UP FOR IV, ASKED PT IF HE NEEDED TO VOID, HE DENIED THE NEED.
--- NOTE | 2023-09-04 03:30 | NUR ---
PT ON LEFT SIDE, CHECK IV SITE, WNL, NO SIGN OF INFILTRATION. PT OPENED ONE EYE, CLOSED IMMEDIATLEY, RESP EVEN AND UNLABORED.
--- NOTE | 2023-09-04 04:36 | NUR ---
PT WOKE TO VOID, VS AND I/O COMPLETE. FOCUSED ASSESSMENT COMPLETE, PT WITHOUT PAIN, STATES HE HAS SLEPT WELL TONIGHT. TURNS SELF IN BED, CONTINUED TO KEEP THE PROSTHETIC ON THIS SHIFT. ALL WATER REMOVED AT MIDNIGHT; IV CONTINUES TO INFUSE PER ORDER. PT HAS NOT BEEN OUT OF BED THIS SHIFT, AND WITH VERY LITTLE DELUSIONAL CONVERSTION NOTED. CALL LIGHT WITHIN REACH.
--- NOTE | 2023-09-04 06:12 | NUR ---
PT WITH COVERS OVER HEAD, LAYING ON BACK CURRENTLY, PRIOR TO THIS TIME, HE HAD BEEN ON HIS RIGHT SIDE. RESP EVEN AND UNLABORED.
--- NOTE | 2023-09-04 06:16 | NUR ---
PT NPO SINCE MIDNIGHT, SURGERY PLANNED TODAY. LR INFUSING LFA PER ORDER. PT HAS DENIED PAIN AND DISCOMFORT THIS SHIFT. PLEASANT, SOME DELUSIONAL CONVERSATION EARLY IN SHIFT, BUT PLEASANT AND COOPERATIVE. USED URINAL ONCE THIS SHIFT. SLEPT WITH PROSTHESIC NOT WANTING TO TAKE OFF. DID NOT GET OUT OF BED THIS SHIFT, HOWEVER, TURNED FREQUENTLY THROUGHOUT THE NIGHT.
[2023-09-04] MEDS ORDERED: VANCOMYCIN HCL/D5W 1 GM/270 ML PIGGYBACK KIT IV SCH (07:00)
[2023-09-04] MEDS ORDERED: VANCOMYCIN HCL 1,000 MG in DEXTROSE 5% 250 ML IV SCH (07:00)
[2023-09-04] MEDS ORDERED: TRANEXAMIC ACID 2,000 MG in SODIUM CHLORIDE 0.9% 100 ML IV SCH (07:00)
[2023-09-04] MEDS ORDERED: CEFAZOLIN SODIUM 2 GM/20 ML SYR IV SCH (07:00)
--- NOTE | 2023-09-04 07:21 | NUR ---
VERBAL REPORT RECEIVED FROM SHABNAM OLIVEIRA. PT RESTS IN BED WITH EYES CLOSED, RESP EVEN AND UNLABORED.
--- NOTE | 2023-09-04 11:19 | NUR ---
PT LAYING DOWN IN BED TALKING TO SOMEONE ON THE PHONE. PT STATED THAT HE DID NOT NEED ANYTHING AT THIS TIME. PT CALL LIGHT IS WITHIN REACH
--- NOTE | 2023-09-04 12:36 | NUR ---
PT LEAVES MED-SURG ROOM 120, ESCORTED VIA BED TO DAY SURGERY BY SHABNAM PRITCHETT.
[2023-09-04] MEDS ORDERED: MIDAZOLAM HCL 2 MG/2 ML VIAL ONE (12:57)
[2023-09-04] MEDS ORDERED: BUPIVACAINE 0.75% IN DEXTROSE 2 ML AMP ONE (12:57)
[2023-09-04] MEDS ORDERED: fentaNYL citrate 100 MCG/2 ML VIAL ONE (12:57)
[2023-09-04] MEDS ORDERED: LIDOCAINE HCL 2% 5 ML SDV ONE ×3 (12:58→18:27)
[2023-09-04] MEDS ORDERED: propofoL 200 MG/20 ML VIAL ONE ×2 (12:58→13:04)
[2023-09-04] MEDS ORDERED: BUPIVACAINE HCL 0.25% 50 ML MDV ONE (13:14)
[2023-09-04] MEDS ORDERED: PHENYLEPHRINE HCL 10 MG/ML VIAL ONE (13:51)
[2023-09-04] MEDS ORDERED: IBLOOD GLUCOSE TEST STRIP 1 EA TEST VI PRN (14:30)
[2023-09-04] MEDS ORDERED: ondansetron HCL 4 MG/2 ML VIAL IV PRN (14:30)
[2023-09-04] MEDS ORDERED: NALOXONE HCL 0.4 MG SYR IV PRN (14:30)
--- NOTE | 2023-09-04 14:50 | NUR ---
Spoke with Dr. Rios and updated I have sent request for further payment to a SNF to [facility]. I also spoke with Leona Acevedo today and she is cont. with working for LTC. Called [facility] and they state they did not receive the request for auth for second SNF stay. She requests I fax to them again.
[2023-09-04] MEDS ORDERED: ACETAMINOPHEN 500 MG TAB PO SCH (15:00)
[2023-09-04] MEDS ORDERED: GABAPENTIN 300 MG CAP PO SCH (15:00)
--- NOTE | 2023-09-04 15:27 | NUR ---
PT ARRIVES TO MED-SURG ROOM 120 AT 1522. BEDSIDE REPORT RECEIVED FROM SHABNAM ABERNATHY. PT AWAKE AND ALERT UPON ARRIVAL. BP HYPOTENSIVE AND ASYMPTOMATIC, VS OTHERWISE STABLE. DRESSING TO RIGHT RESIDUAL LIMB C/D/I. ICE OVER SITE. PT DENIES PAIN AT THIS TIME.
--- NOTE | 2023-09-04 15:32 | NUR ---
09/04/23 1532 Anh Rojas 1436 PT ARRIVED IN PACU SLEEPY. 1440 BLOOD SUGAR 116. 1445 PT AWAKE AND TALKING TO STAFF. ICE TO R BKA. NO C/O'S. 1500 CONTINUES TO TALK TO STAFF ABOUT JOSHUA AND GIFTING EVERYONE MILLIONS OF DOLLARS. NO C/O'S PAIN. 1522 TO ROOM 120. REPORT GIVEN TO RN. BED PLUGGED IN.
[2023-09-04] MEDS ORDERED: VANCOMYCIN HCL IV ONE (16:00)
[2023-09-04] MEDS ORDERED: OXYCODONE HCL 5 MG TAB PO PRN (16:00)
[2023-09-04] MEDS ORDERED: DEXTROSE 5% IV ONE (16:00)
--- NOTE | 2023-09-04 16:08 | NUR ---
BLOOD SUGAR 114. SUGAR FREE PUDDING AND CHEESE PROVIDED PER PT REQUEST.
[2023-09-04] MEDS ORDERED: VANCOMYCIN HCL 1,500 MG in DEXTROSE 5% 500 ML IV ONE (16:30)
[2023-09-04] MEDS ORDERED: DEXAMETHASONE SOD PHOS 4 MG/ML VIAL ONE (18:27)
[2023-09-04] MEDS ORDERED: Ropivacaine HCl 0.5% 30 ML VIAL ONE (18:27)
[2023-09-04] MEDS ORDERED: SODIUM CHLORIDE 0.9% 20 ML IV ONE (18:27)
--- NOTE | 2023-09-04 18:56 | NUR ---
ANESTHESIA IN TO DO BLOCKS TO RIGHT LEG. PATIENT REPORTS NEARLY ZERO PAIN SOON AFTER BLOCKS.
--- NOTE | 2023-09-04 19:32 | NUR ---
REPORT RECEIVED FROM DAY SHIFT RN. PT LYING IN BED ALERT AND ORIENTED. DENIES PAIN AT THIS TIME. WHITE BOARD UPDATED. CALL LIGHT IN REACH.
[2023-09-04] MEDS ORDERED: MAGNESIUM HYDROXIDE 30 ML UDC PO SCH (21:00)
--- NOTE | 2023-09-04 21:34 | NUR ---
EVENING ASSESSMENT COMPLETE. SCHEDULED MEDS ADMIN PER EMAR. IVF INFUSING PER ORDER. PT DENIES PAIN OR NAUSEA. RIGHT LEG ELEVATED ON PILLOW. DRESSING CDI. FRESH ICE PACKS PROVIDED. ASSISTED PT TO REPOSITION FOR COMFORT. SUGAR FREE PUDDING PROVIDED PER REQUEST. NO FURTHER NEEDS. CALL LIGHT IN REACH.
[2023-09-05] VITALS (8 sets, daily range): BP systolic 111–149; BP diastolic 69–87
--- NOTE | 2023-09-05 00:15 | NUR ---
PT RESTING IN BED WITH EYES CLOSED. RESPIRATIONS EVEN. SpO2 95% ON RA. HR 90'S.
--- NOTE | 2023-09-05 02:14 | NUR ---
PT RESTING WITH EYES CLOSED. AWAKENS EASILY. VS AND I&O OBTAINED. PT DENIES PAIN. RLE ELEVATED ON PILLOW. DRESSING CDI. NEW ICE PACKS IN PLACE. NO FURTHER NEEDS. CALL LIGHT IN REACH.
--- NOTE | 2023-09-05 03:56 | NUR ---
PT RESTING IN BED WITH EYES CLOSED. RESPIRATIONS EVEN. SpO2 93% ON RA. HR 80'S.
[2023-09-05 05:39] LABS: BASOPHILS 0.4 % (0-2); EOSINOPHILS 0.1 % (0-6); HEMATOCRIT 30.3 % (35.0-50.0); HEMOGLOBIN 10.3 g/dL (12.0-18.0); LYMPHOCYTES 5.7 % (24-44); MCH 26.3 (27-36); MCV 77.5 fl (81-99); MONOCYTES 0.7 % (0-12); NEUTROPHILS 93.1 % (39-80); PLATELET COUNT 590 K/uL (140-440); RDW 16.4 (10.5-15.0)
--- NOTE | 2023-09-05 05:39 | NUR ---
LAB IN ROOM FOR MORNING DRAW. VS AND I&O OBTAINED, WNL. PT DENIES PAIN. RLE ELEVATED ON PILLOW. FRESH ICE PACKS APPLIED. DRESSING RIGHT STUMP CDI. PT DENIES FURTHER NEEDS. CALL LIGHT IN REACH.
[2023-09-05 05:47] LABS: ANION GAP 12.7 (7-21); BUN/CREATININE RATIO 13.49 (6.0-28.6); CALCIUM 8.7 mg/dL (8.5-10.1); CREATININE, SERUM 1.26 mg/dL (0.70-1.30); POTASSIUM 4.7 mmol/L (3.5-5.1)
--- NOTE | 2023-09-05 07:17 | NUR ---
REPORT FROM SHABNAM SANTOYO.
--- NOTE | 2023-09-05 08:10 | NUR ---
AM ASSESSMENT COMPLETE. MARIAM HACKETT ASSESSED WOUND. BG WAS 227 AND 5 UNITS OF INSULIN WERE ADMINISTERED. MORNING MEDICATIONS GIVEN. PATIENT DENIES PAIN AND NAUSEA. R BKA IS CDI, ELEVATED ON A PILLOW WITH ICE. NO OTHER NEEDS AT THIS TIME.
--- NOTE | 2023-09-05 08:17 | NUR ---
Board has been updated and call light has been placed within reach
--- NOTE | 2023-09-05 09:00 | NUR ---
Spoke with Bar, he denies needs. UPdated I have left messages with [facility] and [facility]
--- NOTE | 2023-09-05 09:55 | NUR ---
PATIENT IS RESTING IN BED, DENIES NEEDS.
--- NOTE | 2023-09-05 10:15 | NUR ---
Received a message from Sera from [employer]. She is calling to auth a stay at [facility] in [place]. They have authed his stay from today. Auth #[id number]. I also received a fax from [employer] with auth. Called and spoke with Sera and updated pt will dc Mon or most likely. She ask I just keep her updated. auth is for 1 week, but they will extend for 20 a total of 20 days. I attempted to call [employer] to check if they can complete the financial and physical eval aditya. Left a message pt now has 20 days at a SNF.
--- NOTE | 2023-09-05 10:16 | NUR ---
PATIENT UP TO CHAIR WITH PT/OT, TRANSFER WITH PROSTHETIC LEFT LEG, FWW AND 2PA.
--- NOTE | 2023-09-05 10:32 | NUR ---
VISITED DURING SPIRITUAL CARE ROUNDS. LISTENED EMPATHETICALLY PT TALKED BELIEF THAT HE IS JOSHUA AND PEOPLE IN HIS LIFE WHO RECOGNIZED HIM SUCH. PROVIDED SUPPORTIVE PRESENCE, HOSPITALITY, SILENT PRAYER. PT EXPRESSED GRATITUDE FOR VISIT.
--- NOTE | 2023-09-05 11:00 | NUR ---
Received a call from Leona Acevedo at [facility]. She states she spoke with Bar this morning and a phone eval for financial has been scheduled for Monday. They used the hospital number as pt does not have his cell phone. UPdated I have a call into the office as pt will most likely dc on Mon or . I will call her back when I have confirmation on the day he is discharging to [facility].
--- NOTE | 2023-09-05 11:05 | NUR ---
Received a call from Kyra at [facility]. She also received confirmation from [employer] for payment. They can take Bar on Mon or . I will update her when I hear from the In and updated Bar. His mom in the room. Mom is in her 80s and is very concerned pt will attempt to return to his RV. Let her know he can return to [facility]. Both are very happy about this.
--- NOTE | 2023-09-05 11:06 | NUR ---
PATIENT IS SITTING UP IN CHAIR, VISITING WITH HIS MOM. CASE MANAGEMENT IN ROOM TO DISCUSS DISCHARGE TO [facility] FOR REHAB.
--- NOTE | 2023-09-05 12:17 | NUR ---
Progress notes from 09/03, surgery note, labs faxed to Kyra at [facility] with projected dc date of per Dr. Rios and Dr. Magallanes.
--- NOTE | 2023-09-05 12:26 | NUR ---
PATIENT GIVEN 10MG OF PO OXYCODONE FOR 2/10 RIGHT STUMP PAIN. PATIENT GIVEN 3UNITS OF SQ INSULIN FOR BG OF 222. PATIENT IS UP IN CHAIR AND EATING LUNCH.
--- NOTE | 2023-09-05 15:49 | NUR ---
PATIENT REPORTED PAIN TO RIGHT STUMP IS 7/10. PATIENT CAN HAVE OXYCODONE AT 1630.
--- NOTE | 2023-09-05 17:22 | NUR ---
PATIENT GIVEN 9 UNITS OF INSULIN FOR 329BG. HIS MOM BROUGHT IN JUICE AND CHIPS FOR PATIENT TODAY. PATIENT REPORTS 10/10 RIGHT STUMP PAIN ONE HOUR AFTER 10MG OF PO OXYCODONE.
[2023-09-05] MEDS ORDERED: HYDROmorphone HCL 1 MG/ML SYR IV PRN (17:45)
--- NOTE | 2023-09-05 17:47 | NUR ---
PATIENT GIVEN 1MG OF IV DILAUDID FOR 10/10 RIGHT STUMP PAIN.
--- NOTE | 2023-09-05 18:40 | NUR ---
PATIENT IS STILL 10/10 AFTER 1MG OF IV DILAUDID. CALL TO YARD CONDUCTOR, YOLIS, SHE IS CALLING AN ANESTHESIA PROVIDER TO POTENTIALLY REBLOCK PATIENT'S RIGHT LEG.
[2023-09-05] MEDS ORDERED: LIDOCAINE HCL 2% 20 MG/ML VIAL INJ ONE (18:57)
[2023-09-05] MEDS ORDERED: SODIUM CHLORIDE 0.9% 20 ML IV ONE (18:57)
[2023-09-05] MEDS ORDERED: dexmedeTOMIDine HCl 200 MCG/2 ML VIAL ONE (18:57)
[2023-09-05] MEDS ORDERED: Ropivacaine HCl 0.5% 30 ML VIAL ONE (18:57)
[2023-09-05] MEDS ORDERED: DEXAMETHASONE SOD PHOS 4 MG/ML VIAL ONE (18:57)
--- NOTE | 2023-09-05 19:21 | NUR ---
REPORT RECEIVED FROM DAY SHIFT RN. PT LYING IN BED ALERT AND ORIENTED. ENGINEERING SUPPLIES SALES IN FOR BLOCK. WHITE BOARD UPDATED. CALL LIGHT IN REACH.
--- NOTE | 2023-09-05 20:30 | NUR ---
EVENING ASSESSMENT COMPLETE. SCHEDULED MEDS ADMIN PER EMAR. PT DENIES PAIN OR NAUSEA. VS AND I&O OBTAINED, WNL. RLE ELEVATED ON PILLOWS. FRESH ICE PACKS IN PLACE. PT DENIES QUESTIONS OR CONCERNS. CALL LIGHT IN REACH.
[2023-09-05] MEDS ORDERED: TRIMETHOPRIM/SULFAMETHOXAZOLE 1 EA TAB PO SCH (21:00)
[2023-09-06] VITALS (7 sets, daily range): BP systolic 117–138; BP diastolic 65–84
--- NOTE | 2023-09-06 00:51 | NUR ---
PT RESTING IN BED WITH EYES CLOSED LYING ON LEFT SIDE. RESPIRATIONS EVEN. RLE ELEVATED ON PILLOW. CALL LIGHT IN REACH.
[2023-09-06 05:19] LABS: BASOPHILS 0.4 % (0-2); HEMATOCRIT 28.3 % (35.0-50.0); HEMOGLOBIN 9.6 g/dL (12.0-18.0); LYMPHOCYTES 6.4 % (24-44); MCH 26.5 (27-36); MCHC 33.8 g/dl (30-36); MCV 78.5 fl (81-99); MONOCYTES 2.3 % (0-12); NEUTROPHILS 90.9 % (39-80); PLATELET COUNT 505 K/uL (140-440); RBC 3.61 M/ul (4.3-5.7); RDW 16.9 (10.5-15.0)
--- NOTE | 2023-09-06 05:21 | NUR ---
[facility] DOWNTIME. SEE PAPER CHARTING.
[2023-09-06 05:29] LABS: ANION GAP 11.3 (7-21); BUN/CREATININE RATIO 15.83 (6.0-28.6); CALCIUM 8.7 mg/dL (8.5-10.1); CREATININE, SERUM 1.2 mg/dL (0.70-1.30); POTASSIUM 5.3 mmol/L (3.5-5.1)
--- NOTE | 2023-09-06 06:10 | NUR ---
IN ROOM TO GIVE PRN PAIN MEDICATION PER REQUEST OF PRIMARY RN-SEE EMAR FOR REPORTED 8-10/10 PAIN TO STUMP. CISCO ADMINISTRATOR IN ROOM TO COLLECT VS AND I&O'S. NO ADDITIONAL NEEDS OR CONCERNS, CALL LIGHT IN REACH.
--- NOTE | 2023-09-06 06:15 | NUR ---
MANIFEST CLERK ENTERED ROOM WITH RN. CAN OBTAINED VITALS AND DOCUMENTED I AND O. PT STATES NO FURTHER NEEDS AT THIS TIME. CALL LIGHT PLACED WITHIN REACH.
--- NOTE | 2023-09-06 07:56 | NUR ---
ASSUMED CARE OF PATIENT AT 0700, RECEIVED REPORT FROM ERICKA RN. PT RESTING IN BED AT THIS TIME, AWAKE AND CAREGIVER GETTING VITALS. IV FLUIDS CLEARED AND DOCUMENTED AT THIS TIME. (R) BKA ELEVATED ON 1 PILLOW AT THIS TIME, PT STATES PAIN IS FEELING ALITTLE BETTER AFTER PAIN MEDS, REPORTS 7/10 AT THIS TIME. CAREGIVER CHECKING BLOOD SUGAR AT THIS TIME. URINAL AT BEDSIDE. PT DENIES ANY CURRENT NEEDS, INFORMED WILL BE BACK LATER ON TO EVALUATE/MEDS. ALL CARE NEEDS MET, CALL LIGHT WITHIN REACH.
--- NOTE | 2023-09-06 09:36 | NUR ---
PATIENT IN BED AT THIS TIME. VITALS AND I&O'S CHARTED. CALL LIGHT WITHIN REACH, NO FURTHER NEEDS AT THIS TIME.
--- NOTE | 2023-09-06 10:35 | NUR ---
UNABLE TO VISIT DURING SPIRITUAL CARE ROUNDS. PT RECEIVING NURSING CARE. PROVIDED PRAYER.
--- NOTE | 2023-09-06 10:56 | NUR ---
REVIEWED LABS/ORDERS WITH , IV SALINE LOCKED AT THIS TIME. PT ENCOURAGE TO CONTINUE TO DRINK FLUIDS HE HAS BEEN DOING. PT STATE NOW THAT PAIN IS IMPROVING, HE IS HAVING ON/OFF PHANTOM PAIN AT THIS TIME BUT THE PRN ORAL PAIN MEDS ARE KICKING IN REPORTS 5/10 PAIN AT THIS TIME. PHYSICAL THERAPY ENTERING ROOM TO WORK WITH PT AT THIS TIME. ALL PT CARE NEEDS MET, CALL LIGHT WITHIN REACH.
--- NOTE | 2023-09-06 14:00 | NUR ---
Spoke with Bar and he is happy to be going to [facility]. Updated I will know tomorrow morning the time [facility] will pick him up. Pt denies needs.
--- NOTE | 2023-09-06 14:29 | NUR ---
PT PUT OPERATIONS FORESTER LIGHT C/O PAIN TO RIGHT BKA, PAIN 9/10 AT THIS TIME. PT DOES HAVE R BKA ELEVATED ON 3 PILLOWS WHICH IS LEAVING THE LEG BENT AT THE KNEE, REMOVED X2 PILLOWS AND ENCOURAGED PT TO PUSH KNEE THROUGH PILLOW TO STRAIGHTEN LEG AND PT WAS ABLE TO DEMONSTRATE INDEPENDENTLY, ICE PACKS REAPPLIED. PRN OXY GIVEN FOR PAIN ALONG WITH SCHEDULED TYLENOL/GABAPENTIN. ALL PT CARE NEEDS MET AT THIS TIME, PT WATCHING TV, CALL LIGHT WITHIN REACH.
--- NOTE | 2023-09-06 15:05 | NUR ---
PT CURRENTLY STILL C/O 12/01 PAIN TO R BKA. PRN DILAUDID GIVEN FOR PAIN. ICE PACK REMAINS IN PLACE AT THIS TIME. ALL PT CARE NEEDS MET, WILL FOLLOW-UP ON PAIN.
[2023-09-06] MEDS ORDERED: SULFAMETHOXAZO1 EAC1 PO (15:09)
[2023-09-06] MEDS ORDERED: OXYCODONE HCL5 MG PO (15:11)
[2023-09-06] MEDS ORDERED: GABAPENTIN300 MG PO (15:11)
[2023-09-06 15:19] LABS: ANION GAP 10.5 (7-21); BUN/CREATININE RATIO 14.68 (6.0-28.6); CALCIUM 8.9 mg/dL (8.5-10.1); CREATININE, SERUM 1.43 mg/dL (0.70-1.30); POTASSIUM 4.5 mmol/L (3.5-5.1)
--- NOTE | 2023-09-06 16:54 | NUR ---
Patient has been in bed. He has reported pain. Nurse has been notified and call light has been placed within reach. No request from patient at this time.
--- NOTE | 2023-09-06 17:28 | NUR ---
INSULIN GIVEN PER SLIDING SCALE FOR DINNER, UPON ENTERING ROOM PT STATES HE IS VERY SORRY FOR THE WAY HE SPOKE EARLIER, FEELS HORRIBLE. EXPLAINED TO PT HE REALLY NEEDS TO FOCUS ON COPING MECHANISMS WHEN THE PAIN IS LIKE THAT, TOMORROW WITH LEAVING IN THE MORNING - HE IS NOT GOING TO BE GETTING IV PAIN MGMT, OXYCODONE/TYLENOL WILL BE HIS ONLY CONTROL, AT THIS TIME HE ACKNOWLEDGES AND UNDERSTANDS. DINNER TRAY DELIVERED TO PATIENT. CALL LIGHT WITHIN REACH, NO FURTHER NEEDS PER PATIENT AT THIS TIME.
--- NOTE | 2023-09-06 18:00 | NUR ---
SNF orders completed by Dr. Magallanes. Faxed face sheet, PASRR, orders, RX, and dc summary. Covid test entered for 6 am tomorrow.
--- NOTE | 2023-09-06 19:52 | NUR ---
REPORT RECIEVED FROM DAY SHIFT RN. PATIENT RESTING IN BED WITH NO CURRENT NEEDS. CALL LIGHT IN REACH.
--- NOTE | 2023-09-06 20:39 | NUR ---
STRAIGHT CUTTER ENTERED ROOM AND OBTAINED VITALS AND DOCUMENTED I AND O. PT STATES HE WANTS PAIN MEDS. RN NOTIFIED. PT STATES NO FURTHER NEEDS AT THIS TIME. CALL LIGHT PLACED WITHIN REACH.
--- NOTE | 2023-09-06 21:20 | NUR ---
RESIDENTIAL ROOFER CHECKED PT BLOOD SUGAR. RN NOTIFIED. PT STATES NO FURTHER NEEDS AT THIS TIME. RN IN ROOM. CALL LIGHT WITHIN REACH.
--- NOTE | 2023-09-06 21:45 | NUR ---
PATIENT RESTING IN BED REQUESTING PAIN MEDICATION. PRN PAIN MEDICATION ADMINISTERED. SCHEDULED MEDICATION ADMINISTERED. PATIENT REPORTS 01/31 R BKA PAIN. NEW ICE PAIN PROVIDED FOR RIGHT STUMP. FRESH WATER PROVIDED. PATIENT HAS NO FURTHER NEEDS. CALL LIGHT IN REACH. IV FLUSHED AND WNL.
--- NOTE | 2023-09-06 22:43 | NUR ---
FRIEND SHLOMO YAN CALLED AND ASKED TO BE TRANSFERRED TO pt ROOM, pt OKAY'D PHONE CALL AND IS NOW TALKING TO FRIEND. pt ALSO REPORTS "EXCRUCIATING PAIN" TO STUMP-PRIMARY RN AWARE AND TO ASSESS.
--- NOTE | 2023-09-06 22:56 | NUR ---
PATIENT REPORTS 01/31 R BKA PAIN. PRN PAIN MEDICATION ADMINISTERED. NO FURTHER NEEDS. CALL LIGHT IN REACH.
--- NOTE | 2023-09-07 00:17 | NUR ---
PATIENT RESTING IN BED ON BACK WITH EYES CLOSED. RESPIRATIONS EVEN AND UNLABORED. CALL LIGHT IN REACH.
--- NOTE | 2023-09-07 00:55 | NUR ---
CALL LIGHT ANSWERED. THIS RN AND RESEARCH AND DEVELOPMENT TESTER INTO ROOM. PATIENT REPORTS WANTING TO GET HIS THINGS READY TO LEAVE TOMORROW. PATIENT MESSING WITH PROSTHETIC LEG "TRYING TO FIND HIS WALLET". THIS RN REMINDED PATIENT NOT TO GET OUT OF BED AND HE STATED "I KNOW AND I WON'T". BED ALARM ON FOR SAFETY. NO FURTHER NEEDS. CALL LIGHT IN REACH.
--- NOTE | 2023-09-07 01:53 | NUR ---
PATIENT RESTING IN BED ON BACK WITH EYES CLOSED. RESPIRATIONS EVEN AND UNLABORED. CALL LIGHT IN REACH.
--- NOTE | 2023-09-07 03:37 | NUR ---
PATIENT RESTING IN BED ON BACK WITH EYES CLOSED. RESPIRATIONS EVEN AND UNLABORED. CALL LIGHT IN REACH.
[2023-09-07 04:41] VITALS: BP 113/85
--- NOTE | 2023-09-07 04:42 | NUR ---
REINFORCING STEEL WORKER AND TRAINING AND DOCUMENTATION SPECIALIST ENTERED ROOM AND OBTAINED VITALS AND DOCUMENTED I AND O. PRIMARY RN ENTERED ROOM. CALL LIGHT WITHIN REACH.
--- NOTE | 2023-09-07 04:48 | NUR ---
PATIENT REPORTING 8/10 R BKA PAIN. PRN PAIN MEDICATION ADMINISTERED. R BKA DRESSING C/D/I. PATIENT HAS NO FURTHER NEEDS. CALL LIGHT IN REACH.
--- NOTE | 2023-09-07 06:22 | NUR ---
PATIENT RESTING IN BED. NO CURRENT NEEDS. CALL LIGHT IN REACH.
--- NOTE | 2023-09-07 08:41 | NUR ---
0830call from kellen hernandez to do dressing change rbka 3 allevyn non adhesive pack fluffs 2 adbs kerlix and coban wrapped. wound dressing removed sutures intact edges together 21 sutures counted. very little dried red drainage on allevyn. redressed as ordered.pt able to hold sump up and cooperate. tolerated dressing change well. completed by [id number].
[2023-09-07 09:19] VITALS: BP 113/72
--- NOTE | 2023-09-07 09:20 | NUR ---
PATIENT IN BED AT THIS TIME. VITALS AND I&O'S CHARTED. CALL LIGHT WITHIN [facility], NO FURTHER NEEDS AT THIS TIME.
--- NOTE | 2023-09-07 10:00 | NUR ---
Spoke with Bar and Joana will pick him up around 3:30. He denies any needs and blessed this RN several times.
--- NOTE | 2023-09-07 10:03 | NUR ---
ASSESSMENT COMPLETE. PT AWAKE IN BED. STATES NO PAIN AT THIS TIME SINCE DRESSING CHANGE. DRESSING TO R BKA CDI. PT DENIES NEEDS AT THIS TIME. CALL LIGHT IN REACH. FAMILY IN ROOM.
[2023-09-07 13:41] VITALS: BP 115/72
--- NOTE | 2023-09-07 13:44 | NUR ---
PATIENT IN BED AT THIS TIME. VITALS AND I&O'S CHARTED. CALL LIGHT WITHIN REACH, NO FURTHER NEEDS AT THIS TIME.
--- NOTE | 2023-09-07 14:00 | NUR ---
Spoke with Staff, they are concerned as Rx was sent to [facility] and filled. I called Kyra at [facility]. She asks the pts mother pick the RX up and send it with Bar. She states concern as he is [employer] and once it is filled it cannot be filled again. Spoke with Bar and he will call his mom. He states his mom already picked the rX for his antibiotics up and she will bring to the hospital.
--- NOTE | 2023-09-07 14:11 | NUR ---
PT C/O 8/10 R EXTREMITY PAIN, GIVEN PRN AND SCHEDULED PAIN MEDICATIONS, SEE EMAR. PT DENIES FURTHER NEEDS AT THIS TIME. CALL LIGHT IN REACH AND BED ALARM ON.
[2023-09-07 15:26] VITALS: BP 112/67
[2023-09-07 15:52] VITALS: BP 145/86
--- NOTE | 2023-09-07 15:58 | NUR ---
REPORT CALLED TO [facility], ALL QUESTIONS ANSWERED.
[2023-09-07 16:54] VITALS: BP 113/72
--- NOTE | 2023-09-07 17:34 | PATH ---
[facility] [address], [place] [address] Signed SPECIMEN(S): A RIGHT LEG BELOW KNEE SPECIMEN SOURCE: A. 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 - Focal distal ulcer. - Features consistent with chronic osteomyelitis adjacent to plantar skin ulcer. - Proximal bone margins are free of pathologic inflammation on these sections. - Skin and soft tissue margins show focal mild chronic inflammation. - Anterior and posterior tibial arteries with minimal narrowing on these sections. JVR:cml MICROSCOPIC EXAMINATION: Histologic sections of all submitted blocks are examined by light microscopy. These findings, together with the gross examination, support the pathologic diagnosis. GROSS DESCRIPTION: The specimen, labeled and designated "Catalina, right leg below the knee," is received fresh and consists of amputated lower leg that measure 20 cm in length and up to 7 cm in diameter with attached foot that measure 22 x 8.5 cm. The foot is with previously amputated all five toes in the level of the metatarsal bones. The plantar skin, laterodistally shows ulcerous defect that measure 6.5 x 5.0 cm. Defect is covered with pink-santacruz granular tissue. The granular tissue is partially covered with green-yellow friable tissue. The remaining skin is pink-santacruz, smooth. The skin and soft tissue resection margin looks viable. The tibialis anterior and tibialis posterior arteries are with soft marin and patent lumen. Sectioning through the plantar defect reveals pink-santacruz, liquefied underlying tissue and bone santacruz, slightly soft underlying bone tissue. Specimen is left for decalcification in decal stat prior to processing. Cassette Summary: PATIENT NAME: PAT HERNANDEZ PATHOLOGY DATE OF : 61 REPORT #: [id number] PHYSICIAN: MARICARMENInks[facility] PATHOLOG[facility] PCP: PRASANTH HURTADO MD REPORT IS CONFIDENTIAL AND NOT TO BE RELEASED WITHOUT AUTHORIZATION [facility] [address], [place] [address] Signed (A1) plantar defect and underlying bone tissue, c s s representative section (A2) tibial resection margin bone marrow scrapping, fibula resection margin, shaved and inked and tibialis posterior artery, c s s representative section (A3) skin and soft tissue resection margin, shaved and tibialis anterior artery, c s s representative section JS (under the direct supervision of a pathologist) The Gross Description was prepared using a voice recognition system. The report was reviewed for accuracy; however, sound-alike word errors, addition and/or deletions may occur. If there is any question about this report, please contact Client Services. PERFORMING LABORATORY: Technical component was performed by [facility], [address] [place] [id number] (CLIA# [id number]). Professional interpretation was performed by [facility] - [facility], [address] [place] [phone] (CLIA#: [id number]). Diagnostician: Geoff Hall MD Pathologist Electronically Signed 09/07/2023 Copies: ~ PATIENT NAME: PAT HERNANDEZ PATHOLOGY DATE OF : 61 REPORT #: [id number] PHYSICIAN: [facility]OLOG[facility] PCP: PRASANTH HURTADO MD REPORT IS CONFIDENTIAL AND NOT TO BE RELEASED WITHOUT AUTHORIZATION
--- NOTE | 2023-09-08 06:53 | OR ---
[facility] [address], [place] [address] Signed DATE OF OPERATION: 09/04/2023 SURGEON: Collette Rios MD PREOPERATIVE DIAGNOSIS: Right foot gangrene with osteomyelitis. POSTOPERATIVE DIAGNOSIS: Right foot gangrene with osteomyelitis. PROCEDURE PERFORMED: Right below-knee amputation. LABORATORY ANIMAL CARE VETERINARIAN: Mattie Bowers PA-C. Mattie was present and critical for all portions procedure. ANESTHESIA: General. BLOOD LOSS: 200 mL. TOURNIQUET TIME: 28 minutes. SPECIMENS: The lower leg was sent to pathology. 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 He had undergone a forefoot transmetatarsal amputation that did not heal. Risks and benefits of operative treatment were discussed with him and he elected to proceed. DESCRIPTION OF PROCEDURE: Once consent was obtained, he was taken to the operating room. After adequate anesthesia, he was placed on the operating room table. All downside pressure points were well padded. The dressing was left on his foot and the leg was prepped and draped above that. The dressing was wrapped in a sterile towel and a sterile turkey bag. This was then overwrapped with a sterile Coban. The posterior flap below-knee amputation Electronically Signed By: COLLETTE RIOS MD 09/08/23 0653 PATIENT NAME: PAT HERNANDEZ AMEE OPERATIVE REPORT DATE OF : 61 REPORT #: [id number] PHYSICIAN: COLLETTE RIOS MD PCP: PRASANTH HURTADO MD REPORT IS CONFIDENTIAL AND NOT TO BE RELEASED WITHOUT AUTHORIZATION [facility] [address] [place], [place] [address] Signed incision was marked out one handsbreadth below the tibial tubercle. This matched his opposite side, which did have a BKA. The leg was exsanguinated by gravity and tourniquet inflated to 250 mmHg. The skin was then incised circumferentially, taken through the subcutaneous tissue and muscle. The periosteum was stripped off the tibia and fibula. The fibula was transected 1 cm proximal to the tibial osteotomy. The tibial osteotomy was made 2 cm above the incision. The amputation knife was then used to transect the posterior aspect of the calf muscle and the leg was passed off the table. The tibial and popliteal vessels were then isolated in the stump and tied off with 0 silk hand ties and stick ties. The tourniquet was then released. Any more bleeders were clamped and appropriate ties were placed. Once this was accomplished, it was copiously irrigated with normal saline. The fascia from the posterior compartment was then sewn to the anterior tibial fascia using #1 Vicryl, subcutaneous tissue with 0 Vicryl and the skin with 2-0 nylon. The tibia was beveled prior to this. The distal tibia was then covered with bone wax. Once the incision was closed, it was dressed with Allevyn dressings, Kerlix fluffs, ABDs and Kerlix roll. This was then covered with a Coban. He was awakened, taken to the recovery room in satisfactory condition. All sponge, needle, and instrument counts were correct. Collette Rios MD BA/MODL /[id number] Copies: ~ Electronically Signed By: COLLETTE RIOS MD 09/08/23 0653 PATIENT NAME: PAT HERNANDEZ AMEE OPERATIVE REPORT DATE OF : 61 REPORT #: [id number] PHYSICIAN: COLLETTE RIOS MD PCP: PRASANTH HURTADO MD REPORT IS CONFIDENTIAL AND NOT TO BE RELEASED WITHOUT AUTHORIZATION
== END 2023-09-07 17:00 | disposition home or self-care (01) | DRG 240 ==
LOC: MS 11:19
PROVIDERS: Family Medicine; Specialist; ADMIT Internal Medicine; ATTEND Internal Medicine
PROC: 0Y6H0Z3 Detachment at Right Lower Leg, Low, Open Approach (ICD-10-PCS; principal; 2023-09-04 13:00)
DX: E11.52 Type 2 diabetes mellitus with diabetic peripheral angiopathy with gangrene (principal); I96 Gangrene, not elsewhere classified; M86.8X7 Other osteomyelitis, ankle and foot; E11.69 Type 2 diabetes mellitus with other specified complication; I48.91 Unspecified atrial fibrillation; E87.5 Hyperkalemia; Z79.2 Long term (current) use of antibiotics; Z79.899 Other long term (current) drug therapy
CPT/HCPCS: 01482; 36415; 71046; 80048; 80053; 83036; 83735; 85025; 85610; 85651; 86140; 88307; 88311; 93005; 93010; 94002; 94640; 94760; 97110; 97116; 97162; 97166; 97530; 97535; A9270; J0690; J1100; J1170; J1815; J2001; J2250; J2371; J2704; J2795; J3010; J3370; J7060; J7121; U0002

== ENCOUNTER 2023-12-17 10:07 | Emergency (ER) | payer OTHER ==
[~2023-12-17] VITALS: Ht 188 cm; Wt 104.8 kg
[~2023-12-17 10:07] MED LIST changes: +GABAPENTIN300 MG PO; +METFORMIN HCL500 MG PO
[2023-12-17] MEDS ORDERED: OXYCODONE/APAP 5/325 TAB PO ONE (10:30)
[2023-12-17 11:50] VITALS: BP 102/65
== END 2023-12-17 11:50 | disposition home or self-care (01) ==
LOC: ED 10:07
DX: S80.11XA Contusion of right lower leg, initial encounter (principal); W18.09XA Striking against other object with subsequent fall, initial encounter; E11.9 Type 2 diabetes mellitus without complications; I10 Essential (primary) hypertension; Z89.512 Acquired absence of left leg below knee; Z89.511 Acquired absence of right leg below knee; Z79.84 Long term (current) use of oral hypoglycemic drugs; Z79.85 Long-term (current) use of injectable non-insulin antidiabetic drugs
CPT/HCPCS: 73590; 99283

== ENCOUNTER 2024-04-09 05:56 | Emergency (ER) | payer OTHER ==
[~2024-04-09] VITALS: Ht 188 cm; Wt 89.0 kg
[~2024-04-09 05:56] MED LIST changes: +CLINDAMYCIN HC150 MG PO; +DOXYCYCLINE MO100 MG PO; +PERCOCET 5-3251 EACH PO
[2024-04-09] MEDS ORDERED: CYCLOBENZAPRINE10 MG PO (06:07)
[2024-04-09] MEDS ORDERED: KETOROLAC TROMETHAMINE 60 MG/2 ML VIAL IM ONE (06:15)
[2024-04-09] MEDS ORDERED: SUMAtriptan succinate 6 MG/0.5 ML VIAL SUB-Q ONE (06:15)
[2024-04-09] MEDS ORDERED: PROCHLORPERAZINE EDISYLATE 10 MG/2 ML VIAL IM ONE (06:15)
[2024-04-09] MEDS ORDERED: diphenhydrAMINE HCL 50 MG/ML VIAL IM ONE (06:15)
[2024-04-09 06:47] VITALS: BP 142/91
== END 2024-04-09 06:47 | disposition home or self-care (01) ==
LOC: ED 05:56
DX: R51.9 Headache, unspecified (principal); I10 Essential (primary) hypertension; E11.9 Type 2 diabetes mellitus without complications; E66.9 Obesity, unspecified; Z79.899 Other long term (current) drug therapy
CPT/HCPCS: 96372; 99284; J0780; J1200; J1885; J3030

== ENCOUNTER 2024-06-27 01:02 | Emergency (ER) | payer OTHER ==
[~2024-06-27] VITALS: Ht 190.5 cm; Wt 105.0 kg
[~2024-06-27 01:02] MED LIST changes: +CYCLOBENZAPRINE10 MG PO
[2024-06-27] MEDS ORDERED: ATORVASTATIN CA40 MG PO (01:22)
[2024-06-27] MEDS ORDERED: METFORMIN HCL500 M1 PO (01:22)
[2024-06-27] MEDS ORDERED: AMOX TR-K CLV1 EAC1 PO (01:52)
[2024-06-27] MEDS ORDERED: AMOXICILLIN/CLAVULANATE K 875 MG HOME.PACK PO ONE (02:00)
[2024-06-27 02:11] VITALS: BP 137/75
== END 2024-06-27 02:10 | disposition short-term general hospital (02) ==
LOC: ED 01:02
DX: L03.116 Cellulitis of left lower limb (principal); E11.9 Type 2 diabetes mellitus without complications; I10 Essential (primary) hypertension; E66.9 Obesity, unspecified; Z89.512 Acquired absence of left leg below knee; Z79.84 Long term (current) use of oral hypoglycemic drugs; Z79.899 Other long term (current) drug therapy
CPT/HCPCS: 73560; 99283

== ENCOUNTER 2025-03-01 16:51 | Emergency (ER) | payer OTHER ==
[~2025-03-01] VITALS: Ht 190.5 cm; Wt 101.3 kg
[~2025-03-01 16:51] MED LIST changes: +ATORVASTATIN CA40 MG PO; +HYDROCODON-ACE1 EA11 PO; +METFORMIN HCL500 M1 PO; +PENICILLIN V P500 MG PO
[2025-03-01] MEDS ORDERED: ACETAMINOPHEN 325 MG TAB PO ONE (17:45)
[2025-03-01] MEDS ORDERED: IBUPROFEN 600 MG TAB PO ONE (17:45)
[2025-03-01 17:56] VITALS: BP 162/96
== END 2025-03-01 18:00 | disposition home or self-care (01) ==
LOC: ED 16:51
DX: K08.89 Other specified disorders of teeth and supporting structures (principal); G89.29 Other chronic pain; M25.562 Pain in left knee; M25.561 Pain in right knee; Z89.512 Acquired absence of left leg below knee; Z89.511 Acquired absence of right leg below knee; Z09 Encounter for follow-up examination after completed treatment for conditions other than malignant neoplasm
CPT/HCPCS: 99282; A9270